=== PATIENT | male | born 1950 | race American Indian/Alaskan Native ===

== ENCOUNTER 2016-06-07 07:41 | Inpatient (IN) | payer MEDICARE, OTHER ==
[2016-06-07 08:13] LABS: Basophils % (Auto) 0.4 % (0.0-1.8); Eosinophils % (Auto) 1.9 % (0.0-4.3); Hematocrit 33.8 % (35.5-45.6); Hemoglobin 10.5 gm/dl (11.8-15.2); Mean Corpuscular HGB Conc 31 % (32-34); Mean Corpuscular Hemoglobin 28 pg (28-32); Mean Corpuscular Volume 91 fl (84-94); Platelet Count 151 K/mm3 (140-440); Red Blood Count 3.72 M/mm3 (3.65-5.03); White Blood Count 6.3 K/mm3 (4.5-11.0)
[2016-06-07 08:15] LABS: Red Cell Distribution Width 20.9 % (13.2-15.2)
[2016-06-07 08:26] LABS: BUN/Creatinine Ratio 8.66; Calcium 8.9 mg/dL (8.4-10.2); Chloride 100.2 mmol/L (98-107); Potassium 4.8 mmol/L (3.6-5.0)
--- NOTE | 2016-06-07 10:17 | Emergency Department Report ---
ED General Adult HPI - General Chief complaint: Dyspnea/Respdistress Stated complaint: SOB/RT SIDE PAIN IN RIBS Time Seen by Provider: 06/07/16 10:10 Source: patient, EMS Mode of arrival: Wheelchair Limitations: No Limitations - History of Present Illness Initial comments: The patient was transferred from his chronic dialysis center violation of what they thought was chest pain. However the patient was fairly clear that his discomfort was in his right flank. It did not involve the lateral or the anterior chest at all. It was not related to his breathing nor associated with any cough. He states he's had the pain this morning. He states he's had previous flank pain that was similar to this due to a kidney stone but at that time it was actually far worse. The patient's pain on arrival was not severe. He did not complain of nausea vomiting fever or chills. He is still due for dialysis. -: Gradual Location: right (flank) Radiation: non-radiation Quality: aching Consistency: intermittent Improves with: none Worsens with: none Associated Symptoms: denies other symptoms Treatments Prior to Arrival: none - Related Data Home Medications Medication Instructions Recorded Confirmed Last Taken Gabapentin 300 mg PO TID 08/07/14 06/07/16 02/15/15 Insulin Glargine [Lantus VIAL] 20 units SUB-Q HS 08/07/14 06/07/16 02/15/15 Torsemide [Demadex] 100 mg PO BID 08/07/14 06/07/16 02/15/15 Warfarin [Coumadin] 7.5 mg PO DAILY 08/07/14 06/07/16 02/15/15 Docusate Sodium [Colace CAP] 100 mg PO BID 01/29/15 06/07/16 02/15/15 Ascorbic Acid [Vitamin C] 500 mg PO QDAY 06/07/16 06/07/16 Unknown Aspirin [Aspirin BABY CHEW TAB] 81 mg PO QDAY 06/07/16 06/07/16 Unknown AtorvaSTATin [Lipitor] 80 mg PO QDAY 06/07/16 06/07/16 Unknown Benzonatate [Tessalon Perles] 100 mg PO Q8HR 06/07/16 06/07/16 Unknown Bisoprolol Fumarate [Zebeta] 5 mg PO DAILY 06/07/16 06/07/16 Unknown Duloxetine HCl [Cymbalta] 20 mg PO QDAY 06/07/16 06/07/16 Unknown FLUoxetine [PROzac] 10 mg PO QDAY 06/07/16 06/07/16 Unknown ISOSORBIDE MONOnitrate [Imdur ER] 30 mg PO QDAY 06/07/16 06/07/16 Unknown Lisinopril [Zestril TAB] 40 mg PO QDAY 06/07/16 06/07/16 Unknown Prazosin [Minipress] 2 mg PO QHS 06/07/16 06/07/16 Unknown Tamsulosin [Flomax] 0.4 mg PO QDAY 06/07/16 06/07/16 Unknown guaiFENesin 400 mg PO Q8H 06/07/16 06/07/16 Unknown oxyCODONE /ACETAMINOPHEN [Percocet 1 tab PO Q6HR PRN 06/07/16 06/07/16 Unknown 5/325] traZODone [Desyrel] 100 mg PO QHS 06/07/16 06/07/16 Unknown Previous Rx's Medication Instructions Recorded Last Taken Type Warfarin [Coumadin] 10 mg PO [id number] tablet 08/10/14 02/15/15 Rx Allergies Allergy/AdvReac Type Severity Reaction Status Date / Time No Known Allergies Allergy Verified 03/01/15 12:32 ED Review of Systems ROS: Stated complaint: SOB/RT SIDE PAIN IN RIBS Other details as noted in HPI Constitutional: denies: chills, fever Eyes: denies: eye pain, eye discharge, vision change ENT: denies: ear pain, throat pain Respiratory: SOB with exertion. denies: cough, shortness of breath, wheezing Cardiovascular: denies: chest pain, palpitations Endocrine: no symptoms reported Gastrointestinal: denies: abdominal pain, nausea, diarrhea Genitourinary: denies: urgency, dysuria Musculoskeletal: as per HPI, back pain. denies: joint swelling, arthralgia Skin: denies: rash, lesions Neurological: denies: headache, weakness, paresthesias Psychiatric: denies: anxiety, depression Hematological/Lymphatic: denies: easy bleeding, easy bruising ED Past Medical Hx - Past Medical History Previous Medical History?: Yes Hx Hypertension: Yes Hx Congestive Heart Failure: Yes Hx Diabetes: Yes Hx Renal Disease: Yes (CKD on dialysis approximately one month) Hx Asthma: No Hx COPD: No Hx Dementia: Yes Hx HIV: No Additional medical history: Atrial fibrillation - Surgical History Past Surgical History?: Yes Hx Coronary Stent: Yes Hx Open Heart Surgery: Yes (2011) Additional Surgical History: CABG, dialysis graft to left upper extremity. Valve surgery. R leg surgery. stent placed 2011 - led to open heart surgery - Social History Smoking Status: Never Smoker Substance Use Type: None - Medications Home Medications: Home Medications Medication Instructions Recorded Confirmed Last Taken Type Gabapentin 300 mg PO TID 08/07/14 06/07/16 02/15/15 History Insulin Glargine [Lantus VIAL] 20 units SUB-Q HS 08/07/14 06/07/16 02/15/15 History Torsemide [Demadex] 100 mg PO BID 08/07/14 06/07/16 02/15/15 History Warfarin [Coumadin] 7.5 mg PO DAILY 08/07/14 06/07/16 02/15/15 History Warfarin [Coumadin] 10 mg PO [id number] tablet 08/10/14 06/07/16 02/15/15 Rx Docusate Sodium [Colace CAP] 100 mg PO BID 01/29/15 06/07/16 02/15/15 History Ascorbic Acid [Vitamin C] 500 mg PO QDAY 06/07/16 06/07/16 Unknown History Aspirin [Aspirin BABY CHEW TAB] 81 mg PO QDAY 06/07/16 06/07/16 Unknown History AtorvaSTATin [Lipitor] 80 mg PO QDAY 06/07/16 06/07/16 Unknown History Benzonatate [Tessalon Perles] 100 mg PO Q8HR 06/07/16 06/07/16 Unknown History Bisoprolol Fumarate [Zebeta] 5 mg PO DAILY 06/07/16 06/07/16 Unknown History Duloxetine HCl [Cymbalta] 20 mg PO QDAY 06/07/16 06/07/16 Unknown History FLUoxetine [PROzac] 10 mg PO QDAY 06/07/16 06/07/16 Unknown History ISOSORBIDE MONOnitrate [Imdur ER] 30 mg PO QDAY 06/07/16 06/07/16 Unknown History Lisinopril [Zestril TAB] 40 mg PO QDAY 06/07/16 06/07/16 Unknown History Prazosin [Minipress] 2 mg PO QHS 06/07/16 06/07/16 Unknown History Tamsulosin [Flomax] 0.4 mg PO QDAY 06/07/16 06/07/16 Unknown History guaiFENesin 400 mg PO Q8H 06/07/16 06/07/16 Unknown History oxyCODONE /ACETAMINOPHEN [Percocet 1 tab PO Q6HR PRN 06/07/16 06/07/16 Unknown History 5/325] traZODone [Desyrel] 100 mg PO QHS 06/07/16 06/07/16 Unknown History ED Physical Exam - General Limitations: No Limitations General appearance: alert, in no apparent distress - Head Head exam: Present: atraumatic, normocephalic - Eye Eye exam: Present: normal appearance. Absent: scleral icterus - ENT ENT exam: Present: normal exam, mucous membranes moist - Neck Neck exam: Present: normal inspection - Respiratory Respiratory exam: Present: normal lung sounds bilaterally. Absent: respiratory distress - Cardiovascular Cardiovascular Exam: Present: regular rate, normal rhythm. Absent: systolic murmur, diastolic murmur, rubs, gallop - GI/Abdominal GI/Abdominal exam: Present: soft, normal bowel sounds. Absent: distended, tenderness, guarding, rebound, rigid, organomegaly, mass, bruit, pulsatile mass , hernia - Rectal Rectal exam: Present: deferred - Extremities Exam Extremities exam: Present: normal inspection - Back Exam Back exam: Present: normal inspection, CVA tenderness (R). Absent: CVA tenderness (L), muscle spasm, paraspinal tenderness, vertebral tenderness - Neurological Exam Neurological exam: Present: alert, oriented X3, CN II-XII intact. Absent: motor sensory deficit - Psychiatric Psychiatric exam: Present: normal affect, normal mood - Skin Skin exam: Present: warm, dry, intact, normal color. Absent: rash ED Course Vital Signs 06/07/16 06/07/16 06/07/16 07:43 09:15 12:47 Temperature 99.0 F Pulse Rate 76 77 Respiratory 20 20 18 Rate Blood Pressure 143/76 Blood Pressure 133/71 [Right] O2 Sat by Pulse 100 100 95 Oximetry - Reevaluation(s) Reevaluation #1: [facility] be [facility]. They will take care of the dialysis orders. We'll notify the hospitalist service. 06/07/16 12:23 Reevaluation #2: The patient was found to have a kidney stone in the right pelvic juncture. I think this is the likely source of his pain. However, he is also found to have a chronically sick gallbladder with thickened wall and a gallstone. That is another possibility. He is a diabetic with a CABG. I spoke to Dr. Rojas who sided it would be better to work him up as an inpatient and get his dialysis done today. He does have some significant cardiomegaly with central fullness. He does need dialysis although is not frankly emergent. He case patient was admitted to the hospitalist service by Dr. Luther. Radiologist recommended ultrasound which I have ordered. In addition the patient might benefit from a hiatus scan. I was still awaiting his urinalysis which of course is needed. 06/07/16 14:02 ED Medical Decision Making - Lab Data Result diagrams: 06/07/16 07:56 06/07/16 07:56 Laboratory Results - last 24 hr 06/07/16 06/07/16 07:56 07:56 WBC 6.3 RBC 3.72 Hgb 10.5 L Hct 33.8 L MCV 91 MCH 28 MCHC 31 L RDW 20.9 H Plt Count 151 Lymph % (Auto) 12.1 L [place] % (Auto) 6.6 Eos % (Auto) 1.9 Baso % (Auto) 0.4 Lymph # 0.8 L [place] # 0.4 Eos # 0.1 Baso # 0.0 Seg Neutrophils % 79.0 H Seg Neutrophils # 5.0 Sodium 138 Potassium 4.8 Chloride 100.2 Carbon Dioxide 23 Anion Gap 20 BUN 39 H Creatinine 4.5 H Estimated GFR 16 BUN/Creatinine Ratio 8.66 Glucose 205 H Calcium 8.9 Troponin T 0.062 H Triglycerides 83 Cholesterol 118 LDL Cholesterol Direct 70 HDL Cholesterol 32 L Cholesterol/HDL Ratio 3.68 Laboratory Results - last 24 hr 06/07/16 06/07/16 06/07/16 07:56 07:56 07:56 WBC 6.3 RBC 3.72 Hgb 10.5 L Hct 33.8 L MCV 91 MCH 28 MCHC 31 L RDW 20.9 H Plt Count 151 Lymph % (Auto) 12.1 L [place] % (Auto) 6.6 Eos % (Auto) 1.9 Baso % (Auto) 0.4 Lymph # 0.8 L [place] # 0.4 Eos # 0.1 Baso # 0.0 Seg Neutrophils % 79.0 H Seg Neutrophils # 5.0 PT INR APTT POC ABG pH POC ABG pCO2 POC ABG pO2 POC ABG HCO3 POC ABG Total CO2 POC ABG O2 Sat POC ABG Base Excess FiO2 Sodium 138 Potassium 4.8 Chloride 100.2 Carbon Dioxide 23 Anion Gap 20 BUN 39 H Creatinine 4.5 H Estimated GFR 16 BUN/Creatinine Ratio 8.66 Glucose 205 H Calcium 8.9 Phosphorus 4.0 Magnesium 1.7 Total Bilirubin 0.8 Direct Bilirubin 0.4 H Indirect Bilirubin 0.4 AST 15 ALT 18 Alkaline Phosphatase 247 H Troponin T 0.062 H NT-Pro-B Natriuret Pep 70565 H Total Protein 6.6 Albumin 3.8 L Albumin/Globulin Ratio 1.4 Triglycerides 83 Cholesterol 118 LDL Cholesterol Direct 70 HDL Cholesterol 32 L Cholesterol/HDL Ratio 3.68 06/07/16 06/07/16 06/07/16 10:25 10:47 11:19 WBC RBC Hgb Hct MCV MCH MCHC RDW Plt Count Lymph % (Auto) [place] % (Auto) Eos % (Auto) Baso % (Auto) Lymph # [place] # Eos # Baso # Seg Neutrophils % Seg Neutrophils # PT 29.3 H INR 2.76 H APTT 41.7 H POC ABG pH 7.422 POC ABG pCO2 37.0 POC ABG pO2 83 POC ABG HCO3 24.1 POC ABG Total CO2 25 POC ABG O2 Sat 96 POC ABG Base Excess 0 FiO2 28 Sodium Potassium Chloride Carbon Dioxide Anion Gap BUN Creatinine Estimated GFR BUN/Creatinine Ratio Glucose Calcium Phosphorus Magnesium Total Bilirubin Direct Bilirubin Indirect Bilirubin AST ALT Alkaline Phosphatase Troponin T 0.060 H NT-Pro-B Natriuret Pep Total Protein Albumin Albumin/Globulin Ratio Triglycerides Cholesterol LDL Cholesterol Direct HDL Cholesterol Cholesterol/HDL Ratio - EKG Data -: EKG Interpreted by Me EKG shows normal: axis (left) Rate: normal - EKG Data Interpretation: nonspecific ST-T wave madeleine - Radiology Data Radiology results: report reviewed interpreted by me: Significant cardiomegaly with central fullness. Critical care attestation.: If time is entered above; I have spent that time in minutes in the direct care of this critically ill patient, excluding procedure time. ED Disposition Clinical Impression: Congestive cardiomyopathy, End-stage renal disease on hemodialysis, Renal colic on right side, Disease of gallbladder, Elevated troponin Gallstone Qualifiers: Cholecystitis presence: without cholecystitis Biliary obstruction: without biliary obstruction Qualified Code(s): K80.20 - Calculus of gallbladder without cholecystitis without obstruction Disposition: OP ADMITTED IP TO THIS HOSP Is pt being admited?: Yes Does the pt Need Aspirin: Yes Condition: Stable Referrals: PRIMARY CARE,MD [Primary Care Provider] - 3-5 Days Time of Disposition: 15:25
--- NOTE | 2016-06-07 10:18 | XRay Report ---
CHEST 2 VIEWS: INDICATION: Shortness of breath. COMPARISON: 01/29/2015 FINDINGS: Frontal and lateral chest radiographs demonstrate slight increased fluid/thickening along the fissures. No pleural effusions or overt CHF, however. Stable to slightly more prominent cardiomediastinal silhouette. Aortic knob calcifications, sternotomy wires and osseous structures appear stable. Interval right-sided central catheter removal. CONCLUSION: 1. No overt CHF, though minimal cardiopulmonary vascular redistribution/fluid overload may be developing, as detailed above. Please correlate. 2. Other findings, including interval right-sided central catheter removal. Thank you for the opportunity to participate in this patient's care.
[2016-06-07 10:39] LABS: INR 2.76 (0.87-1.13)
[2016-06-07 10:43] LABS: Albumin 3.8 g/dL (3.9-5); Albumin/Globulin Ratio 1.4 %; Bilirubin,Direct 0.4 mg/dL (0-0.2); Bilirubin,Indirect 0.4 mg/dL; Bilirubin,Total 0.8 mg/dL (0.1-1.2); Magnesium 1.7 mg/dL (1.7-2.3); Total Protein 6.6 g/dL (6.3-8.2)
[2016-06-07 10:48] LABS: Partial Thromboplastin Time 41.7 Sec. (24.2-36.6)
--- NOTE | 2016-06-07 11:20 | Cat Scan Report ---
CT scan of abdomen and pelvis without IV contrast: History: Right flank pain. Findings: Normal lung bases. No pleural or pericardial effusion. No distinct mass within the liver. No intrahepatic or extrahepatic duct dilatation. Enlarged thickwalled gallbladder with single noncalcified calculus within the gallbladder. Normal adrenals. There is 3 mm calculus noted at right UP junction. There is stranding noted in the perirenal area. Thick walled urinary bladder No free air. Minimal ascitic fluid. Atherosclerotic abdominal aorta without aneurysm. Grossly appendix appears unremarkable. No evidence of diverticulitis. Gaseous colon with small volume of stool in colon. Impression: Enlarged thickwalled gallbladder with single calculus within the gallbladder. Sonographic correlation advised. 3 mm calculus right UP junction.
[2016-06-07 11:26] LABS: ISTAT Base Excess 0; ISTAT HCO3 24.1; ISTAT PH 7.422 (7.35-7.45); ISTAT PO2 83 (80-105); ISTAT SO2 96; ISTAT TCO2 25
[2016-06-07] MEDS ORDERED: NORCO 7.5/325 PO ONE (11:38)
--- NOTE | 2016-06-07 12:47 | Admit Criteria Form ---
Admission Criteria Documentation: GALLBLADDER OR BILE DUCT INFLAMMATION OR STONE Clinical Indications for Admission to Inpatient Care ( Place 'X' for any and all applicable criteria): Admission is indicated for patients with ANY ONE of the following(1)(2)(3)(4)(5) : [X]I. Acute cholecystitis as indicated by ALL of the following: [X]a) Right upper quadrant pain, mass, or tenderness [ ]b) Systemic signs of inflammation indicated by ANY ONE of the following: [ ]i) Fever [ ]ii) C-reactive protein level greater than 10 mg/L (95 nmol/L) [ ]iii) White blood cell count greater than 10,000/mm3 (10 x109/L) or less than 4000/mm3 (4 x109/L) [X]II. Inpatient admission required rather than observation care (Also use Gallbladder or Bile Duct Inflammation or Stone: Observation Care as appropriate) because of ANY ONE of the following: [ ]a) Common bile duct obstruction diagnosed [ ]b) Vomiting that is severe or persistent [ ]c) Severe pain requiring acute inpatient management [ ]d) Signs of intestinal obstruction or peritonitis [A] [ ]e) Severe electrolyte abnormalities requiring inpatient care [ ]f) Absent bowel sounds with complete ileus(8) [ ]g) Hemodynamic instability [ ]h) High fever or infection requiring inpatient admission as indicated by ANY ONE of the following (9): [ ]1) Appropriate outpatient or observation care antimicrobial Treatment. unavailable, not effective, or not feasible [ ]2) Temperature greater than 104.9 degrees F (40.5 degrees C) (oral) [ ]3) Temperature greater than 103.1 degrees F (39.5 degrees C) (oral) or less than 96.8 degrees F (36 degrees C) (rectal) that does not respond to all emergency treatment measures [ ]4) Documented bacteremia [ ]i) IV fluid to replace significant ongoing losses (greater than 3 L/m2 per day) [ ]j) Percutaneous or open drainage (eg, abscess, biliary tract) procedures [ ]k) Immediate inpatient surgery [X]l) Other condition, treatment or monitoring requiring inpatient admission [ ]III. Acute cholangitis as indicated by ALL of the following(9)(10): [ ]a) Systemic signs of inflammation indicated by ANY ONE of the following: [ ]i) Fever [ ]ii) C-reactive protein level greater than 10 mg/L (95 nmol /L) [ ]iii) White blood cell count greater than 10,000/mm3 (10 x109/L) or less than 4000/mm3 (4 x109/L) [ ]b) Evidence of common bile duct disease indicated by ANY ONE of the following: [ ]i) Total serum bilirubin level greater than or equal to 2 mg/dL (34 micromoles/L) [ ]ii) Liver function test (alkaline phosphatase (ALP), r- glutamyltransferase (GGT), aspartate aminotransferase (AST), or alanine aminotransferase (ALT)) greater than 1.5 times the upper limit of normal[B] [ ]iii) Hepatobiliary imaging showing biliary dilatation or evidence of etiology (eg, stricture, stone, previously placed stent) Extended stay beyond goal length of stay may be needed for (1)(2)): [ ]a) Bacteremia or Hemodynamic instability [ ]b) Cholecystectomy [ ]c) Other surgical procedure(24) [ ]d) Percutaneous or endoscopic ultrasound-guided cholecystostomy The original [facility] content created by [facility] has been revised. The portions of the content which have been revised are identified through the use of italic text or in bold, and [facility] has neither reviewed nor approved the modified material. All other unmodified content is copyright [facility]. Please see references footnoted in the original [facility] edition 2016 Admission Criteria Met: Yes
[2016-06-07] MEDS ORDERED: MILK OF MAGNESIA PO PRN (13:09)
[2016-06-07] MEDS ORDERED: ZOFRAN IV PRN (13:09)
[2016-06-07] MEDS ORDERED: D50W (25GM) IV PRN (13:09)
[2016-06-07] MEDS ORDERED: DULCOLAX PR PRN (13:09)
[2016-06-07] MEDS ORDERED: TYLENOL PO PRN (13:09)
--- NOTE | 2016-06-07 13:26 | History and Physical Report ---
History of Present Illness Date of examination: 06/07/16 Date of admission: 06/07/16 Chief complaint: abdominal pain History of present illness: Patient is a 66 years old obese -[place] male with multiple medical conditions, coronary artery disease status post CABG, atrial flutter, hypertension, diabetes, hyperlipidemia, ESRD on HD, was sent to the hospital from his dialysis center for "chest pain"; he complains of right upper quadrant pain that started this morning, is constant, no aggravating or alleviating factors, associated with nausea, but without vomiting; no fever, chills, diarrhea; no other family members with similar symptoms; he states that he has this pain on and off for the last few months. Past History Past Medical History: atrial fib, CAD, diabetes, ESRD (on HD), hypertension, hyperlipidemia Past Surgical History: CABG, Other (dialysis access) Social history: , lives with family. denies: smoking, alcohol abuse, prescription drug abuse Family history: diabetes, hypertension, other (heart disease) Medications and Allergies Allergies Allergy/AdvReac Type Severity Reaction Status Date / Time No Known Allergies Allergy Verified 03/01/15 12:32 Home Medications Medication Instructions Recorded Confirmed Last Taken Type Gabapentin 300 mg PO TID 08/07/14 06/07/16 02/15/15 History Insulin Glargine [Lantus VIAL] 20 units SUB-Q HS 08/07/14 06/07/16 02/15/15 History Torsemide [Demadex] 100 mg PO BID 08/07/14 06/07/16 02/15/15 History Warfarin [Coumadin] 7.5 mg PO DAILY 08/07/14 06/07/16 02/15/15 History Warfarin [Coumadin] 10 mg PO [id number]@1700 tablet 08/10/14 06/07/16 02/15/15 Rx Docusate Sodium [Colace CAP] 100 mg PO BID 01/29/15 06/07/16 02/15/15 History Ascorbic Acid [Vitamin C] 500 mg PO QDAY 06/07/16 06/07/16 Unknown History Aspirin [Aspirin BABY CHEW TAB] 81 mg PO QDAY 06/07/16 06/07/16 Unknown History AtorvaSTATin [Lipitor] 80 mg PO QDAY 06/07/16 06/07/16 Unknown History Benzonatate [Tessalon Perles] 100 mg PO Q8HR 06/07/16 06/07/16 Unknown History Bisoprolol Fumarate [Zebeta] 5 mg PO DAILY 06/07/16 06/07/16 Unknown History Duloxetine HCl [Cymbalta] 20 mg PO QDAY 06/07/16 06/07/16 Unknown History FLUoxetine [PROzac] 10 mg PO QDAY 06/07/16 06/07/16 Unknown History ISOSORBIDE MONOnitrate [Imdur ER] 30 mg PO QDAY 06/07/16 06/07/16 Unknown History Lisinopril [Zestril TAB] 40 mg PO QDAY 06/07/16 06/07/16 Unknown History Prazosin [Minipress] 2 mg PO QHS 06/07/16 06/07/16 Unknown History Tamsulosin [Flomax] 0.4 mg PO QDAY 06/07/16 06/07/16 Unknown History guaiFENesin 400 mg PO Q8H 06/07/16 06/07/16 Unknown History oxyCODONE /ACETAMINOPHEN [Percocet 1 tab PO Q6HR PRN 06/07/16 06/07/16 Unknown History 5/325] traZODone [Desyrel] 100 mg PO QHS 06/07/16 06/07/16 Unknown History Active Meds: Active Medications Acetaminophen (Tylenol) 650 mg PO Q4H PRN PRN Reason: Pain MILD(1-3)/Fever >100.5/SPEAR Bisacodyl (Dulcolax) 10 mg DC QDAY PRN PRN Reason: Constipation unrelieved by MOM Dextrose (D50w (25gm)) 50 ml IV PRN PRN PRN Reason: Hypoglycemia Docusate Sodium (Colace) 100 mg PO BID MRATHA Magnesium Hydroxide (Milk Of Magnesia) 30 ml PO Q4H PRN PRN Reason: Constipation Ondansetron HCl (Zofran) 4 mg IV Q8H PRN PRN Reason: N/V unrelieved by Reglan Review of Systems Constitutional: no weight loss, no weight gain, no fever, no chills Ears, nose, mouth and throat: no ear pain, no nasal congestion, no sinus pressure, no dysphagia Cardiovascular: shortness of breath, dyspnea on exertion, no chest pain, no orthopnea, no palpitations, no syncope, no lightheadedness Respiratory: shortness of breath, dyspnea on exertion, no cough, no congestion, no wheezing Gastrointestinal: abdominal pain, nausea, no vomiting, no diarrhea Genitourinary Male: no dysuria, no hematuria, no flank pain, no discharge Rectal: no pain, no incontinence, no itching, no hemorrhoids Musculoskeletal: no arm numbness/tingling, no leg numbness/tingling Integumentary: no rash, no pruritis, no redness, no sores Neurological: no paralysis, no weakness, no parathesias, no numbness, no tingling, no seizures, no syncope Psychiatric: no anxiety, no memory loss, no depression, no difficulties concentrating Endocrine: no cold intolerance, no heat intolerance, no polydipsia, no polyuria Hematologic/Lymphatic: no easy bruising, no easy bleeding, no lymphadenopathy, no lymphedema Allergic/Immunologic: no persistent infections Exam - Constitutional Vitals: Temp Pulse Resp BP Pulse Ox 99.0 F 77 18 133/71 95 06/07/16 07:43 06/07/16 12:47 06/07/16 12:47 06/07/16 12:47 06/07/16 12:47 General appearance: Present: no acute distress, obese - EENT Eyes: Present: PERRL, EOM intact. Absent: scleral icterus, conjunctival injection - Neck Neck: Present: supple, normal ROM. Absent: masses or JVD - Respiratory Respiratory effort: normal Respiratory: bilateral: diminished, negative: rhonchi, wheezing - Cardiovascular Rhythm: regular Heart Sounds: Present: S1 & S2. Absent: systolic murmur - Extremities Extremities: no ischemia - Abdominal General gastrointestinal: Present: soft, tender, non-distended, normal bowel sounds, other (abdomen obese, protuberant) Localized gastrointestinal: tender: RUQ (no rebound or guarding) - Integumentary Integumentary: Present: warm, dry. Absent: jaundice, rash - Musculoskeletal Musculoskeletal: strength equal bilaterally - Psychiatric Psychiatric: cooperative - Neurologic Neurologic: CNII-XII intact, no focal deficits Results - Labs CBC & Chem 7: 06/07/16 07:56 06/07/16 07:56 Labs: Abnormal lab results 06/07/16 06/07/16 06/07/16 Range/Units 07:56 07:56 07:56 Hgb 10.5 L (11.8-15.2) gm/dl Hct 33.8 L (35.5-45.6) % MCHC 31 L (32-34) % RDW 20.9 H (13.2-15.2) % Lymph % (Auto) 12.1 L (13.4-35.0) % Lymph # 0.8 L (1.2-5.4) K/mm3 Seg Neutrophils % 79.0 H (40.0-70.0) % PT (12.2-14.9) Sec. INR (0.87-1.13) APTT (24.2-36.6) Sec. BUN 39 H (9-20) mg/dL Creatinine 4.5 H (0.8-1.5) mg/dL Glucose 205 H (75-100) mg/dL Direct Bilirubin 0.4 H (0-0.2) mg/dL Alkaline Phosphatase 247 H (35-129) units/L Troponin T 0.062 H (0.00-0.029) ng/mL NT-Pro-B Natriuret Pep 56038 H (0-900) pg/mL Albumin 3.8 L (3.9-5) g/dL HDL Cholesterol 32 L (40-59) mg/dL 06/07/16 06/07/16 Range/Units 10:25 10:47 Hgb (11.8-15.2) gm/dl Hct (35.5-45.6) % MCHC (32-34) % RDW (13.2-15.2) % Lymph % (Auto) (13.4-35.0) % Lymph # (1.2-5.4) K/mm3 Seg Neutrophils % (40.0-70.0) % PT 29.3 H (12.2-14.9) Sec. INR 2.76 H (0.87-1.13) APTT 41.7 H (24.2-36.6) Sec. BUN (9-20) mg/dL Creatinine (0.8-1.5) mg/dL Glucose (75-100) mg/dL Direct Bilirubin (0-0.2) mg/dL Alkaline Phosphatase (35-129) units/L Troponin T 0.060 H (0.00-0.029) ng/mL NT-Pro-B Natriuret Pep (0-900) pg/mL Albumin (3.9-5) g/dL HDL Cholesterol (40-59) mg/dL - Imaging and Cardiology Chest x-ray: image reviewed (cardiomegaly) CT scan - abdomen: report reviewed (enlarged thickened gallbladder wall with single calculus; 3 mm calculus right UP junction) US - abdomen: pending Assessment and Plan 1. Acute cholecystitis with cholelithiasis RUQ pain with nausea CT abdomen showing enlarged gallbladder, with thickened wall and single calculus RUQ US ordered by ER Consult surgery 2. CAD/ s/p CABG Continue BB, ACEI, aspirin and statin 3. Atrial flutter On amiodarone for rate control and anticoagulated with warfarin Status post recent cardioversion at [place] and currently on NSR 4. Hypertension BP controlled on above mentioned medications and fluid removal to HD 5. Diabetes Resume long-acting insulin Accu-Cheks and SSI to assess insulin requirements and make adjustments 6. Hyperlipidemia Continue statin 7. ESRD on HD Dr. Rojas consulted for HD 8. Anemia of chronic kidney disease Epogen with HD per nephrology 9. Nephrolithiasis Incidental finding on CT abdomen of 3 mm calculus right UP junction 10. Obesity Concern regarding importance of losing weight and lifestyle changes 11. DVT prophylaxis Anticoagulated with Coumadin, will check INR
--- NOTE | 2016-06-07 13:48 | Ultrasound Report ---
Sonogram right upper quadrant: History: Gallstones wall thickening. Findings: Normal aorta and inferior vena cava. Normal liver . Gallbladder wall thickening 9.6 mm. Calculi identified within the gallbladder. No intrahepatic duct dilatation. Common bile duct diameter 3.2 mm. Right kidney 9.1 x 5.8 x 6 cm. Cortical thickness 1.3 cm. No hydronephrosis. Pancreas obscured by gas. Impression: Markedly thickwalled gallbladder with multiple calculi.
[2016-06-07] MEDS ORDERED: NEURONTIN PO SCH (14:00)
[2016-06-07 14:15] LABS: INR 2.59 (0.87-1.13)
[2016-06-07] MEDS: DEMADEX PO SCH (18:55)
[2016-06-07] MEDS ORDERED: COUMADIN PO SCH (21:00)
[2016-06-07] MEDS: DESYREL PO SCH (21:29)
[2016-06-07] MEDS: PERCOCET 5/325 PO PRN (21:29)
[2016-06-07] MEDS: MINIPRESS PO SCH (21:30)
[2016-06-07] MEDS: COLACE PO SCH (21:30)
[2016-06-07] MEDS: NEURONTIN PO SCH (21:33)
[2016-06-07] MEDS ORDERED: NON-FORMULARY (Insulin Glargine 20 UNITS) SUB-Q SCH (22:00)
[2016-06-07] MEDS ORDERED: TORSEMIDE 100 MG PO SCH (22:00)
[2016-06-08] MEDS: NOVOLOG SUB-Q SCH ×4 (00:40→19:11)
[2016-06-08] MEDS: LEVEMIR SUB-Q SCH (00:41)
[2016-06-08] MEDS: DEMADEX PO SCH ×2 (05:19→19:31)
[2016-06-08 05:29] LABS: Bilirubin,Urine NEG (Negative); Blood,Urine NEG (Negative); Ketones,Urine NEG (Negative); Leukocyte Esterase,Urine NEG (Negative); Mucus,Urine FEW /HPF; Nitrite,Urine NEG (Negative); Sperm,Urine 3+ /HPF (NP); Urobilinogen,Urine < 2.0 mg/dL (<2.0)
[2016-06-08 06:08] LABS: INR 2.49 (0.87-1.13)
[2016-06-08 06:11] LABS: Calcium 9.2 mg/dL (8.4-10.2); Chloride 101.1 mmol/L (98-107); Potassium 4.5 mmol/L (3.6-5.0)
[2016-06-08 06:21] LABS: Basophils % (Auto) 0.9 % (0.0-1.8); Eosinophils % (Auto) 2.5 % (0.0-4.3); Hematocrit 35.2 % (35.5-45.6); Hemoglobin 10.9 gm/dl (11.8-15.2); Mean Corpuscular HGB Conc 31 % (32-34); Mean Corpuscular Hemoglobin 28 pg (28-32); Mean Corpuscular Volume 90 fl (84-94); Platelet Count 157 K/mm3 (140-440); Red Blood Count 3.92 M/mm3 (3.65-5.03); White Blood Count 6.3 K/mm3 (4.5-11.0)
[2016-06-08] MEDS: NEURONTIN PO SCH ×3 (08:50→21:35)
[2016-06-08] MEDS: IMDUR PO SCH (09:42)
[2016-06-08] MEDS: PROzac PO SCH (09:42)
[2016-06-08] MEDS: VITAMIN C PO SCH (09:42)
[2016-06-08] MEDS: FLOMAX PO SCH (09:43)
[2016-06-08] MEDS: COLACE PO SCH ×2 (09:43→21:35)
[2016-06-08] MEDS: BABY ASPIRIN PO SCH (09:43)
[2016-06-08] MEDS: ZESTRIL PO SCH (09:43)
--- NOTE | 2016-06-08 09:50 | Progress Note ---
Assessment and Plan Assessment and plan: 66M w who presents with Right sided flank pain, found to have nephrolithiasis 1. Cholecystitis CT abdomen showing enlarged gallbladder, with thickened wall and single calculus RUQ US again shows markedly thickened GB wall with calculi Consult surgery appreciated, continue IV abx, and keep NPO, patient is clinically stable and is high surgical risk 2. CAD/ s/p CABG Continue BB, ACEI, aspirin and statin 3. Atrial flutter On amiodarone for rate control and anticoagulated with warfarin Status post recent cardioversion at [place] and currently on NSR 4. Hypertension BP controlled on above mentioned medications and fluid removal to HD 5. Diabetes Resume long-acting insulin Accu-Cheks and SSI to assess insulin requirements and make adjustments 6. Hyperlipidemia Continue statin 7. ESRD on HD Dr. Rojas consulted for HD 8. Anemia of chronic kidney disease Epogen with HD per nephrology 9. Nephrolithiasis finding on CT abdomen of 3 mm calculus right UP junction obtain urine culture, urology consult 10. Obesity Concern regarding importance of losing weight and lifestyle changes 11. DVT prophylaxis Anticoagulated with Coumadin, will check INR History Interval history: continues to complain of RUQ pain and nausea Hospitalist Physical - Physical exam Narrative exam: General: Patient appears well in no distress HEENT: MMM, EOMI cardiac: S1-S2 heard lungs: clear to auscultation, abdomen: RUQ tender extremities: no edema clubbing or cyanosis Skin: no rash or lesion Neuro: no focal deficit Psych: appropriate behavior and mood, cognition intact - Constitutional Vitals: Temp Pulse Resp BP Pulse Ox 97.9 F 68 16 122/69 97 06/08/16 07:55 06/08/16 09:43 06/08/16 07:55 06/08/16 07:55 06/08/16 09:10 General appearance: Present: no acute distress, obese Results - Labs CBC & Chem 7: 06/08/16 04:51 06/08/16 04:51 Labs: Laboratory Last Values WBC 6.3 K/mm3 (4.5-11.0) 06/08/16 04:51 RBC 3.92 M/mm3 (3.65-5.03) 06/08/16 04:51 Hgb 10.9 gm/dl (11.8-15.2) L 06/08/16 04:51 Hct 35.2 % (35.5-45.6) L 06/08/16 04:51 MCV 90 fl (84-94) 06/08/16 04:51 MCH 28 pg (28-32) 06/08/16 04:51 MCHC 31 % (32-34) L 06/08/16 04:51 RDW 21.0 % (13.2-15.2) H 06/08/16 04:51 Plt Count 157 K/mm3 (140-440) 06/08/16 04:51 Lymph % (Auto) 22.4 % (13.4-35.0) 06/08/16 04:51 Payne % (Auto) 5.4 % (0.0-7.3) 06/08/16 04:51 Eos % (Auto) 2.5 % (0.0-4.3) 06/08/16 04:51 Baso % (Auto) 0.9 % (0.0-1.8) 06/08/16 04:51 Lymph # 1.4 K/mm3 (1.2-5.4) 06/08/16 04:51 Payne # 0.3 K/mm3 (0.0-0.8) 06/08/16 04:51 Eos # 0.2 K/mm3 (0.0-0.4) 06/08/16 04:51 Baso # 0.1 K/mm3 (0.0-0.1) 06/08/16 04:51 Seg Neutrophils % 68.8 % (40.0-70.0) 06/08/16 04:51 Seg Neutrophils # 4.4 K/mm3 (1.8-7.7) 06/08/16 04:51 PT 27.0 Sec. (12.2-14.9) H 06/08/16 04:51 INR 2.49 (0.87-1.13) H 06/08/16 04:51 APTT 41.7 Sec. (24.2-36.6) H 06/07/16 10:25 POC ABG pH 7.422 (7.35-7.45) 06/07/16 11:19 POC ABG pCO2 37.0 (35-45) 06/07/16 11:19 POC ABG pO2 83 (80-105) 06/07/16 11:19 POC ABG HCO3 24.1 06/07/16 11:19 POC ABG Total CO2 25 06/07/16 11:19 POC ABG O2 Sat 96 06/07/16 11:19 POC ABG Base Excess 0 06/07/16 11:19 FiO2 28 % 06/07/16 11:19 Sodium 142 mmol/L (137-145) 06/08/16 04:51 Potassium 4.5 mmol/L (3.6-5.0) 06/08/16 04:51 Chloride 101.1 mmol/L (98-107) 06/08/16 04:51 Carbon Dioxide 23 mmol/L (22-30) 06/08/16 04:51 Anion Gap 22 mmol/L 06/08/16 04:51 BUN 46 mg/dL (9-20) H 06/08/16 04:51 Creatinine 4.6 mg/dL (0.8-1.5) H 06/08/16 04:51 Estimated GFR 16 ml/min 06/08/16 04:51 BUN/Creatinine Ratio 10.00 % 06/08/16 04:51 Glucose 88 mg/dL (75-100) 06/08/16 04:51 POC Glucose 93 (70-105) 06/08/16 06:08 Calcium 9.2 mg/dL (8.4-10.2) 06/08/16 04:51 Phosphorus 4.0 mg/dL (2.5-4.5) 06/07/16 07:56 Magnesium 1.7 mg/dL (1.7-2.3) 06/07/16 07:56 Total Bilirubin 0.8 mg/dL (0.1-1.2) 06/07/16 07:56 Direct Bilirubin 0.4 mg/dL (0-0.2) H 06/07/16 07:56 Indirect Bilirubin 0.4 mg/dL 06/07/16 07:56 AST 15 units/L (5-40) 06/07/16 07:56 ALT 18 units/L (7-56) 06/07/16 07:56 Alkaline Phosphatase 247 units/L (35-129) H 06/07/16 07:56 Troponin T 0.058 ng/mL (0.00-0.029) H 06/07/16 13:36 NT-Pro-B Natriuret Pep 41492 pg/mL (0-900) H 06/07/16 07:56 Total Protein 6.6 g/dL (6.3-8.2) 06/07/16 07:56 Albumin 3.8 g/dL (3.9-5) L 06/07/16 07:56 Albumin/Globulin Ratio 1.4 % 06/07/16 07:56 Triglycerides 83 mg/dL (2-149) 06/07/16 07:56 Cholesterol 118 mg/dL (50-199) 06/07/16 07:56 LDL Cholesterol Direct 70 mg/dL (50-130) 06/07/16 07:56 HDL Cholesterol 32 mg/dL (40-59) L 06/07/16 07:56 Cholesterol/HDL Ratio 3.68 % 06/07/16 07:56 Amylase 33 units/L (27-131) 06/07/16 18:39 Urine Color Yellow (Yellow) 06/08/16 05:13 Urine Turbidity Clear (Clear) 06/08/16 05:13 Urine pH 5.0 (5.0-7.0) 06/08/16 05:13 Ur Specific [place] 1.013 (1.003-1.030) 06/08/16 05:13 Urine Protein 100 mg/dl mg/dL (Negative) 06/08/16 05:13 Urine Glucose (UA) 50 mg/dL (Negative) 06/08/16 05:13 Urine Ketones Neg mg/dL (Negative) 06/08/16 05:13 Urine Blood Neg (Negative) 06/08/16 05:13 Urine Nitrite Neg (Negative) 06/08/16 05:13 Urine Bilirubin Neg (Negative) 06/08/16 05:13 Urine Urobilinogen < 2.0 mg/dL (<2.0) 06/08/16 05:13 Ur Leukocyte Esterase Neg (Negative) 06/08/16 05:13 Urine WBC (Auto) 3.0 /HPF (0.0-6.0) 06/08/16 05:13 Urine RBC (Auto) 3.0 /HPF (0.0-6.0) 06/08/16 05:13 U Epithel Cells (Auto) < 1.0 /HPF (0-13.0) 06/08/16 05:13 Urine Mucus Few /HPF 06/08/16 05:13 Urine Sperm 3+ /HPF ([employer]) 06/08/16 05:13 - Imaging and Cardiology Imaging and Cardiology: HIDA scan- cystic duct obstruction
[2016-06-08] MEDS ORDERED: NON-FORMULARY (Ascorbic Acid [Vitamin C] 500 MG) PO SCH (10:00)
[2016-06-08] MEDS ORDERED: IMDUR PO SCH (10:00)
[2016-06-08] MEDS ORDERED: ZESTRIL PO SCH (10:00)
[2016-06-08] MEDS ORDERED: BISOPROLOL FUMARATE 5 MG PO SCH (10:00)
--- NOTE | 2016-06-08 10:28 | Progress Note ---
Assessment and Plan Full consult dictated History of present illness: Patient is a 66 years old obese -[place] male with multiple medical conditions, coronary artery disease status post CABG, atrial flutter, hypertension, diabetes, hyperlipidemia, ESRD on HD, was sent to the hospital from his dialysis center for "chest pain"; he complains of right upper quadrant pain that started this morning, is constant, no aggravating or alleviating factors, associated with nausea, but without vomiting; no fever, chills, diarrhea; no other family members with similar symptoms; he states that he has this pain on and off for the last few months. Pt states abel breakfast this am. neg N or V Abd mod obese. soft. mild RUQ tenderness labs as below. T roland & wbc wnl GB US & CT abd reviewed with radiology. distended GB with stones. neg pericholecystic fluid but borderline thickened wall Laboratory Tests 06/07/16 06/07/16 06/08/16 07:56 18:39 04:51 WBC 6.3 Hgb 10.9 L Hct 35.2 L PT INR Sodium Potassium Chloride Carbon Dioxide Anion Gap BUN Creatinine Direct Bilirubin 0.4 H AST 15 ALT 18 Alkaline Phosphatase 247 H Amylase 33 06/08/16 06/08/16 04:51 04:51 WBC Hgb Hct PT 27.0 H INR 2.49 H Sodium 142 Potassium 4.5 Chloride 101.1 Carbon Dioxide 23 Anion Gap 22 BUN 46 H Creatinine 4.6 H Direct Bilirubin AST ALT Alkaline Phosphatase Amylase imp: 66 y/o mod obese DM male with multitude of medical problems (CAD, ESRD, a-fib etc). on anticoagulants. elevated PT & INR cholecystitis though clinically stable. normal wbc high surgical risk will keep npo at this time start IV Levaquin HIDA scan today will follow thanks. Objective Vital Signs - 12hr 06/08/16 06/08/16 06/08/16 07:55 09:10 09:42 Temperature 97.9 F Pulse Rate 68 Pulse Rate [ 68 Radial] Respiratory 16 Rate Blood Pressure 122/69 [Left Arm] O2 Sat by Pulse 100 97 Oximetry 06/08/16 09:43 Temperature Pulse Rate 68 Pulse Rate [ Radial] Respiratory Rate Blood Pressure [Left Arm] O2 Sat by Pulse Oximetry - Labs 06/08/16 04:51 06/08/16 04:51 Diabetes panel 06/08/16 Range/Units 04:51 Sodium 142 (137-145) mmol/L Potassium 4.5 (3.6-5.0) mmol/L Chloride 101.1 (98-107) mmol/L Carbon Dioxide 23 (22-30) mmol/L BUN 46 H (9-20) mg/dL Creatinine 4.6 H (0.8-1.5) mg/dL Glucose 88 (75-100) mg/dL Calcium 9.2 (8.4-10.2) mg/dL Calcium panel 06/08/16 Range/Units 04:51 Calcium 9.2 (8.4-10.2) mg/dL Pituitary panel 06/08/16 Range/Units 04:51 Sodium 142 (137-145) mmol/L Potassium 4.5 (3.6-5.0) mmol/L Chloride 101.1 (98-107) mmol/L Carbon Dioxide 23 (22-30) mmol/L BUN 46 H (9-20) mg/dL Creatinine 4.6 H (0.8-1.5) mg/dL Glucose 88 (75-100) mg/dL Calcium 9.2 (8.4-10.2) mg/dL Adrenal panel 06/08/16 Range/Units 04:51 Sodium 142 (137-145) mmol/L Potassium 4.5 (3.6-5.0) mmol/L Chloride 101.1 (98-107) mmol/L Carbon Dioxide 23 (22-30) mmol/L BUN 46 H (9-20) mg/dL Creatinine 4.6 H (0.8-1.5) mg/dL Glucose 88 (75-100) mg/dL Calcium 9.2 (8.4-10.2) mg/dL
--- NOTE | 2016-06-08 13:26 | Nuclear Medicine Report ---
Hepatobiliary scan: Examination performed at 5 mm technetium 99m Choletec. History: Rule out acute gallbladder. Findings: Uniform distribution of tracer is noted in the liver with subsequent transit into the common bile duct and duodenum. At earlier imaging and delayed imaging the gallbladder is not visualized. At 2 hours there is no tracer identified in the liver and the gallbladder is not visualized. Impression: Cystic duct obstruction. No obstruction the common bile duct.
--- NOTE | 2016-06-08 15:31 | Consultation ---
History of Present Illness - History of Present Illness Thank you for the consultation Patient was evaluated today around 10:15 in the morning Assessment and plan End-stage renal disease currently in maintenance hemodialysis patient already dialyzes at [facility] He will need to be dialyzed here on Sunday schedule Admitted with abdominal pain has tenderness in the gallbladder area currently status post surgical evaluation Anemia and end-stage renal disease to follow hemoglobin 10.9 INR 2.4 Potassium is currently normal Secondary hyperparathyroidism to follow on phosphorus and PTH level History of coronary artery disease coronary artery bypass graft Recently he has had cardioversion done at [facility] We'll continue to follow and make recommendation from renal standpoint Past History Past Medical History: atrial fib, CAD, diabetes, ESRD (on HD), hypertension, hyperlipidemia Past Surgical History: CABG, Other (dialysis access) Social history: , lives with family. denies: smoking, alcohol abuse, prescription drug abuse Family history: diabetes, hypertension, other (heart disease) Medications and Allergies Allergies Allergy/AdvReac Type Severity Reaction Status Date / Time No Known Allergies Allergy Verified 03/01/15 12:32 Home Medications Medication Instructions Recorded Confirmed Last Taken Type Gabapentin 300 mg PO TID 08/07/14 06/07/16 02/15/15 History Insulin Glargine [Lantus VIAL] 20 units SUB-Q HS 08/07/14 06/07/16 02/15/15 History Torsemide [Demadex] 100 mg PO BID 08/07/14 06/07/16 02/15/15 History Warfarin [Coumadin] 7.5 mg PO DAILY 08/07/14 06/07/16 02/15/15 History Warfarin [Coumadin] 10 mg PO [id number]@1700 tablet 08/10/14 06/07/16 02/15/15 Rx Docusate Sodium [Colace CAP] 100 mg PO BID 01/29/15 06/07/16 02/15/15 History Ascorbic Acid [Vitamin C] 500 mg PO QDAY 06/07/16 06/07/16 Unknown History Aspirin [Aspirin BABY CHEW TAB] 81 mg PO QDAY 06/07/16 06/07/16 Unknown History AtorvaSTATin [Lipitor] 80 mg PO QDAY 06/07/16 06/07/16 Unknown History Benzonatate [Tessalon Perles] 100 mg PO Q8HR 06/07/16 06/07/16 Unknown History Bisoprolol Fumarate [Zebeta] 5 mg PO DAILY 06/07/16 06/07/16 Unknown History Duloxetine HCl [Cymbalta] 20 mg PO QDAY 06/07/16 06/07/16 Unknown History FLUoxetine [PROzac] 10 mg PO QDAY 06/07/16 06/07/16 Unknown History ISOSORBIDE MONOnitrate [Imdur ER] 30 mg PO QDAY 06/07/16 06/07/16 Unknown History Lisinopril [Zestril TAB] 40 mg PO QDAY 06/07/16 06/07/16 Unknown History Prazosin [Minipress] 2 mg PO QHS 06/07/16 06/07/16 Unknown History Tamsulosin [Flomax] 0.4 mg PO QDAY 06/07/16 06/07/16 Unknown History guaiFENesin 400 mg PO Q8H 06/07/16 06/07/16 Unknown History oxyCODONE /ACETAMINOPHEN [Percocet 1 tab PO Q6HR PRN 06/07/16 06/07/16 Unknown History 5/325] traZODone [Desyrel] 100 mg PO QHS 06/07/16 06/07/16 Unknown History Active Meds: Active Medications Acetaminophen (Tylenol) 650 mg PO Q4H PRN PRN Reason: Pain MILD(1-3)/Fever >100.5/SPEAR Ascorbic Acid (Vitamin C) 500 mg PO QDAY [facility] Last Admin: 06/08/16 09:42 Dose: 500 mg Aspirin (Baby Aspirin) 81 mg PO QDAY [facility] Last Admin: 06/08/16 09:43 Dose: 81 mg Atorvastatin Calcium (Lipitor) 80 mg PO QHS [facility] Last Admin: 06/07/16 21:29 Dose: 80 mg Bisacodyl (Dulcolax) 10 mg DE QDAY PRN PRN Reason: Constipation unrelieved by MOM Dextrose (D50w (25gm)) 50 ml IV PRN PRN PRN Reason: Hypoglycemia Docusate Sodium (Colace) 100 mg PO BID [facility] Last Admin: 06/08/16 09:43 Dose: 100 mg Fluoxetine HCl (Prozac) 10 mg PO QDAY [facility] Last Admin: 06/08/16 09:42 Dose: 10 mg Gabapentin (Neurontin) 300 mg PO TID [facility] Last Admin: 06/08/16 08:50 Dose: 300 mg Levofloxacin/Dextrose (Levaquin 500mg/100ml) 500 mg in 100 mls @ 100 mls/hr IV Q48HR [facility] PRN Reason: Protocol Insulin Aspart (Novolog) 0 units SUB-Q ACHS [facility] PRN Reason: Protocol Last Admin: 06/08/16 07:30 Dose: Not Given Insulin Detemir (Levemir) 20 units SUB-Q QHS [facility] Last Admin: 06/08/16 00:41 Dose: 20 units Isosorbide Mononitrate (Imdur) 30 mg PO QDAY [facility] Last Admin: 06/08/16 09:42 Dose: 30 mg Lisinopril (Zestril) 40 mg PO QDAY [facility] Last Admin: 06/08/16 09:43 Dose: 40 mg Magnesium Hydroxide (Milk Of Magnesia) 30 ml PO Q4H PRN PRN Reason: Constipation Miscellaneous Medication (Bisoprolol Fumarate [Zebeta]) 5 mg PO DAILY [facility] Miscellaneous Medication (Duloxetine Hcl [Cymbalta]) 20 mg PO QDAY [facility] Ondansetron HCl (Zofran) 4 mg IV Q8H PRN PRN Reason: N/V unrelieved by Reglan Oxycodone/Acetaminophen (Percocet 5/325) 1 tab PO Q4H PRN PRN Reason: Pain, Moderate (4-6) Last Admin: 06/07/16 21:29 Dose: 1 tab Prazosin HCl (Minipress) 2 mg PO QHS [facility] Last Admin: 06/07/16 21:30 Dose: 2 mg Tamsulosin HCl (Flomax) 0.4 mg PO QDAY [facility] Last Admin: 06/08/16 09:43 Dose: 0.4 mg Torsemide (Demadex) 100 mg PO 0600,1800 [facility] Last Admin: 06/08/16 05:19 Dose: 100 mg Trazodone HCl (Desyrel) 100 mg PO QHS [facility] Last Admin: 06/07/16 21:29 Dose: 100 mg Warfarin Sodium (Coumadin) 7.5 mg PO TuThSa@1700 [facility] Warfarin Sodium (Coumadin) 10 mg PO SuMoWeFr@1700 [facility] Exam - Vital Signs Vital signs: Vital Signs Temp Pulse Resp BP Pulse Ox 99.0 F 76 20 143/76 100 02/15/17 07:43 06/07/16 07:43 06/07/16 07:43 06/07/16 07:43 06/07/16 07:43 Results - Lab Results 06/08/16 04:51 06/08/16 04:51 Most recent lab results Calcium 9.2 mg/dL (8.4-10.2) 06/08/16 04:51 Phosphorus 4.0 mg/dL (2.5-4.5) 06/07/16 07:56 Magnesium 1.7 mg/dL (1.7-2.3) 06/07/16 07:56
--- NOTE | 2016-06-08 16:25 | Consultation ---
History of Present Illness - Reason for Consult Consult date: 06/08/16 - History of Present Illness CC: kidney stone (3mm) Patient is a 66 years old obese -Nepalese male with multiple medical conditions, coronary artery disease status post CABG, atrial flutter, hypertension, diabetes, hyperlipidemia, ESRD on HD, was sent to the hospital from his dialysis center for "chest pain"; he complains of right upper quadrant pain that started this morning, is constant, no aggravating or alleviating factors, associated with nausea, but without vomiting; no fever, chills, diarrhea; no other family members with similar symptoms; he states that he has this pain on and off for the last few months. Abd soft. mild RUQ tenderness labs CTAP - 3mm non obstructing stone - right /distended GB with stones A/P RUQ pain 3mm non obstructing stone (no hydro) - doubt source of pain agree with gen surg eval Past History Past Medical History: atrial fib, CAD, diabetes, ESRD (on HD), hypertension, hyperlipidemia Past Surgical History: CABG, Other (dialysis access) Social history: , lives with family. denies: smoking, alcohol abuse, prescription drug abuse Family history: diabetes, hypertension, other (heart disease) Medications and Allergies Allergies Allergy/AdvReac Type Severity Reaction Status Date / Time No Known Allergies Allergy Verified 03/01/15 12:32 Home Medications Medication Instructions Recorded Confirmed Last Taken Type Gabapentin 300 mg PO TID 08/07/14 06/07/16 02/15/15 History Insulin Glargine [Lantus VIAL] 20 units SUB-Q HS 08/07/14 06/07/16 02/15/15 History Torsemide [Demadex] 100 mg PO BID 08/07/14 06/07/16 02/15/15 History Warfarin [Coumadin] 7.5 mg PO DAILY 08/07/14 06/07/16 02/15/15 History Warfarin [Coumadin] 10 mg PO SuMoWeFr@1700 tablet 08/10/14 06/07/16 02/15/15 Rx Docusate Sodium [Colace CAP] 100 mg PO BID 01/29/15 06/07/16 02/15/15 History Ascorbic Acid [Vitamin C] 500 mg PO QDAY 06/07/16 06/07/16 Unknown History Aspirin [Aspirin BABY CHEW TAB] 81 mg PO QDAY 06/07/16 06/07/16 Unknown History AtorvaSTATin [Lipitor] 80 mg PO QDAY 06/07/16 06/07/16 Unknown History Benzonatate [Tessalon Perles] 100 mg PO Q8HR 06/07/16 06/07/16 Unknown History Bisoprolol Fumarate [Zebeta] 5 mg PO DAILY 06/07/16 06/07/16 Unknown History Duloxetine HCl [Cymbalta] 20 mg PO QDAY 06/07/16 06/07/16 Unknown History FLUoxetine [PROzac] 10 mg PO QDAY 06/07/16 06/07/16 Unknown History ISOSORBIDE MONOnitrate [Imdur ER] 30 mg PO QDAY 06/07/16 06/07/16 Unknown History Lisinopril [Zestril TAB] 40 mg PO QDAY 06/07/16 06/07/16 Unknown History Prazosin [Minipress] 2 mg PO QHS 06/07/16 06/07/16 Unknown History Tamsulosin [Flomax] 0.4 mg PO QDAY 06/07/16 06/07/16 Unknown History guaiFENesin 400 mg PO Q8H 06/07/16 06/07/16 Unknown History oxyCODONE /ACETAMINOPHEN [Percocet 1 tab PO Q6HR PRN 06/07/16 06/07/16 Unknown History 5/325] traZODone [Desyrel] 100 mg PO QHS 06/07/16 06/07/16 Unknown History Active Meds: Active Medications Acetaminophen (Tylenol) 650 mg PO Q4H PRN PRN Reason: Pain MILD(1-3)/Fever >100.5/SPEAR Ascorbic Acid (Vitamin C) 500 mg PO QDAY [facility] Last Admin: 06/08/16 09:42 Dose: 500 mg Aspirin (Baby Aspirin) 81 mg PO QDAY [facility] Last Admin: 06/08/16 09:43 Dose: 81 mg Atorvastatin Calcium (Lipitor) 80 mg PO QHS [facility] Last Admin: 06/07/16 21:29 Dose: 80 mg Bisacodyl (Dulcolax) 10 mg AL QDAY PRN PRN Reason: Constipation unrelieved by MOM Dextrose (D50w (25gm)) 50 ml IV PRN PRN PRN Reason: Hypoglycemia Docusate Sodium (Colace) 100 mg PO BID [facility] Last Admin: 06/08/16 09:43 Dose: 100 mg Fluoxetine HCl (Prozac) 10 mg PO QDAY [facility] Last Admin: 06/08/16 09:42 Dose: 10 mg Gabapentin (Neurontin) 300 mg PO TID [facility] Last Admin: 06/08/16 08:50 Dose: 300 mg Levofloxacin/Dextrose (Levaquin 500mg/100ml) 500 mg in 100 mls @ 100 mls/hr IV Q48HR [facility] PRN Reason: Protocol Insulin Aspart (Novolog) 0 units SUB-Q ACHS [facility] PRN Reason: Protocol Last Admin: 06/08/16 07:30 Dose: Not Given Insulin Detemir (Levemir) 20 units SUB-Q QHS [facility] Last Admin: 06/08/16 00:41 Dose: 20 units Isosorbide Mononitrate (Imdur) 30 mg PO QDAY [facility] Last Admin: 06/08/16 09:42 Dose: 30 mg Lisinopril (Zestril) 40 mg PO QDAY [facility] Last Admin: 06/08/16 09:43 Dose: 40 mg Magnesium Hydroxide (Milk Of Magnesia) 30 ml PO Q4H PRN PRN Reason: Constipation Miscellaneous Medication (Bisoprolol Fumarate [Zebeta]) 5 mg PO DAILY [facility] Miscellaneous Medication (Duloxetine Hcl [Cymbalta]) 20 mg PO QDAY [facility] Ondansetron HCl (Zofran) 4 mg IV Q8H PRN PRN Reason: N/V unrelieved by Reglan Oxycodone/Acetaminophen (Percocet 5/325) 1 tab PO Q4H PRN PRN Reason: Pain, Moderate (4-6) Last Admin: 06/07/16 21:29 Dose: 1 tab Prazosin HCl (Minipress) 2 mg PO QHS [facility] Last Admin: 06/07/16 21:30 Dose: 2 mg Tamsulosin HCl (Flomax) 0.4 mg PO QDAY [facility] Last Admin: 06/08/16 09:43 Dose: 0.4 mg Torsemide (Demadex) 100 mg PO 0600,1800 [facility] Last Admin: 06/08/16 05:19 Dose: 100 mg Trazodone HCl (Desyrel) 100 mg PO QHS [facility] Last Admin: 06/07/16 21:29 Dose: 100 mg Warfarin Sodium (Coumadin) 7.5 mg PO TuThSa@1700 [facility] Warfarin Sodium (Coumadin) 10 mg PO SuMoWeFr@1700 [facility] Exam - Constitutional Vitals: Temp Pulse Resp BP Pulse Ox 97.9 F 58 L 16 134/64 100 06/08/16 07:55 06/08/16 16:00 06/08/16 11:49 06/08/16 16:00 06/08/16 11:49 Results - Labs CBC & Chem 7: 06/08/16 04:51 06/08/16 04:51 Labs: Abnormal lab results 06/07/16 06/07/16 06/08/16 Range/Units 17:33 21:09 04:51 Hgb 10.9 L (11.8-15.2) gm/dl Hct 35.2 L (35.5-45.6) % MCHC 31 L (32-34) % RDW 21.0 H (13.2-15.2) % PT (12.2-14.9) Sec. INR (0.87-1.13) BUN (9-20) mg/dL Creatinine (0.8-1.5) mg/dL POC Glucose 163 H 168 H (70-105) 06/08/16 06/08/16 Range/Units 04:51 04:51 Hgb (11.8-15.2) gm/dl Hct (35.5-45.6) % MCHC (32-34) % RDW (13.2-15.2) % PT 27.0 H (12.2-14.9) Sec. INR 2.49 H (0.87-1.13) BUN 46 H (9-20) mg/dL Creatinine 4.6 H (0.8-1.5) mg/dL POC Glucose (70-105)
[2016-06-08] MEDS ORDERED: COUMADIN PO SCH ×2 (17:00)
[2016-06-08] MEDS: LEVAQUIN 500MG/100ML 500 MG/100 ML BAG IV SCH (19:31)
[2016-06-08] MEDS: MINIPRESS PO SCH (21:29)
[2016-06-08] MEDS: DESYREL PO SCH (21:35)
[2016-06-09] MEDS: LEVEMIR SUB-Q SCH ×2 (00:19→23:36)
[2016-06-09] MEDS: NOVOLOG SUB-Q SCH ×5 (00:19→23:38)
--- NOTE | 2016-06-09 00:30 | Consultation ---
REASON FOR CONSULTATION: Rule out acute cholecystitis. HISTORY OF PRESENT ILLNESS: The patient is a pleasant 66-year-old diabetic male with multiple medical conditions, who presented yesterday to the hospital with a chief complaint of shortness of breath and right upper quadrant abdominal pain. However, the patient denies any nausea or vomiting. The patient states he has been tolerating diet without any evidence of nausea, vomiting, or abdominal pain when eating breakfast this morning. PAST MEDICAL HISTORY: Pertinent for coronary artery disease, atrial fibrillation, diabetes, hypertension, hyperlipidemia, and end-stage renal failure, on dialysis. PAST SURGICAL HISTORY: Include coronary artery bypass grafts back in 2011, also AV shunt. ALLERGIES: No known allergies. MEDICATIONS: Multiple and include gabapentin, insulin, Coumadin, aspirin, lisinopril, Flomax, and others. FAMILY HISTORY: Diabetes and pancreatic cancer. SOCIAL HISTORY: Chews tobacco, but denies any drinking or smoking. PHYSICAL EXAMINATION: GENERAL: At this time reveals the patient to be awake, alert, cooperative, in no acute distress. VITAL SIGNS: Show him to be afebrile with a temperature of 97.9, blood pressure is 122/69, pulse of 68, respirations of 16. ABDOMEN: Examination of the abdomen reveals to be moderately obese. The abdomen itself is soft, but there is mild localized tenderness that can be elicited on pressure in the right upper quadrant. LABORATORY DATA: Lab work at present includes a CBC which shows a white count of 6.3, H and H of 10.9 and 35.2. PT is noted to be 27, INR is 2.49. Electrolytes are essentially within normal limits. Glucose is 88. A CT of the abdomen as well as a gallbladder ultrasound had been performed, which I have reviewed with the radiologist. There is a dilated gallbladder noted with gallstones. No pericholecystic fluid can be seen, but the gallbladder wall was borderline thickened. IMPRESSION: At this time is that of; 1. A 66-year-old gentleman with multitude of medical problems also on anticoagulant because of AFib. 2. Rule out acute cholecystitis. RECOMMENDATIONS: We will keep the patient n.p.o. for now. Also, we will order a HIDA scan to confirm if indeed there is acute cholecystitis present. We will monitor clinically. If the patient does not improve, would consider a percutaneous CT-guided cholecystostomy tube to treat the acute phase, then subsequently would proceed with a semi-elective cholecystectomy in the near future. I will await the HIDA scan results and discuss with you further. Thank you very much for consultation. JOB# [id number] DEBORAH/ALICIA
--- NOTE | 2016-06-09 00:42 | Consultation ---
CHIEF COMPLAINT: Kidney stone, 3 mm. REFERRING PHYSICIAN: Alec Tang MD HISTORY OF PRESENT ILLNESS: This 66-year-old gentleman presented to the Emergency Room from his dialysis center with chest pain. The patient on further evaluation has actually more right upper quadrant pain. Denies any previous history. He gets hemodialysis 3 times a week. PAST MEDICAL HISTORY: Atrial fibrillation, coronary artery disease, status post bypass graft, diabetes, end-stage renal disease, hypertension, hyperlipidemia. PAST SURGICAL HISTORY: Coronary artery bypass graft, dialysis access catheter. SOCIAL HISTORY: Nonsmoker. ALLERGIES: No known drug allergies. MEDICATIONS: Insulin, warfarin, Lipitor, Cymbalta, Imdur, Zestril, Minipress, Flomax. PHYSICAL EXAMINATION: GENERAL: The patient is resting well, alert and oriented. VITAL SIGNS: Temperature 97.9, respirations 16, pulse 58, BP . BACK: No CVA tenderness. ABDOMEN: Protuberant. LABORATORY DATA: BUN and creatinine of 46 and 4.6 respectively. Hemoglobin and hematocrit of 10.9 and 35 respectively, white count 6000, platelets 157,000. CT of abdomen and pelvis revealed a 3 mm nonobstructing right renal stone, also has stones in his gallbladder. ASSESSMENT: Right upper quadrant pain, 3 mm nonobstructing kidney stone, doubt source of his pain. The patient also has a gallstone. We will await further recommendations from General Surgery. We will follow peripherally. JOB# [id number] [facility]
[2016-06-09 05:47] LABS: INR 2.89 (0.87-1.13)
[2016-06-09] MEDS: DEMADEX PO SCH ×2 (06:51→18:02)
[2016-06-09] MEDS: NEURONTIN PO SCH ×3 (08:21→22:08)
[2016-06-09] MEDS: IMDUR PO SCH (10:00)
[2016-06-09] MEDS: BABY ASPIRIN PO SCH (10:00)
[2016-06-09] MEDS: COLACE PO SCH ×2 (10:00→22:07)
[2016-06-09] MEDS: FLOMAX PO SCH (10:00)
[2016-06-09] MEDS: PROzac PO SCH (10:00)
[2016-06-09] MEDS: VITAMIN C PO SCH (10:00)
[2016-06-09] MEDS: ZESTRIL PO SCH (10:57)
--- NOTE | 2016-06-09 11:09 | Progress Note ---
Assessment and Plan Assessment and plan: 66M w who presents with Right sided flank pain, found to have nephrolithiasis 1. Cholecystitis CT abdomen showing enlarged gallbladder, with thickened wall and single calculus RUQ US again shows markedly thickened GB wall with calculi, and HIDA scan shows cystic duct obstruction Consult surgery appreciated, continue IV abx, and keep NPO, patient is clinically stable and is high surgical risk therefore will go for percutaneous cholecystostomy today 2. CAD/ s/p CABG Continue BB, ACEI, aspirin and statin 3. Atrial flutter On amiodarone for rate control and anticoagulated with warfarin (hold for procedure) Status post recent cardioversion at DC and currently on NSR 4. Hypertension BP controlled on above mentioned medications and fluid removal to HD 5. Diabetes Resume long-acting insulin Accu-Cheks and SSI to assess insulin requirements and make adjustments 6. Hyperlipidemia Continue statin 7. ESRD on HD cotninue HD per nephrology 8. Anemia of chronic kidney disease Epogen with HD per nephrology 9. Nephrolithiasis finding on CT abdomen of 3 mm calculus right UP junction Urology consult appreciated, it is non obstructive and unlikely to be the cause of pain 10. Obesity Concern regarding importance of losing weight and lifestyle changes, patient counseled History Interval history: continues to complain of RUQ pain and nausea Hospitalist Physical - Physical exam Narrative exam: General: Patient appears well in no distress HEENT: MMM, EOMI cardiac: S1-S2 heard lungs: clear to auscultation, abdomen: RUQ tender extremities: no edema clubbing or cyanosis Skin: no rash or lesion Neuro: no focal deficit Psych: appropriate behavior and mood, cognition intact - Constitutional Vitals: Temp Pulse Resp BP Pulse Ox 98.7 F 83 22 125/66 100 06/09/16 00:00 06/09/16 00:00 06/09/16 00:00 06/09/16 00:00 06/09/16 09:48 General appearance: Present: no acute distress, obese Results - Labs CBC & Chem 7: 06/10/16 09:09 06/08/16 04:51 Labs: Laboratory Last Values WBC 6.3 K/mm3 (4.5-11.0) 06/08/16 04:51 RBC 3.92 M/mm3 (3.65-5.03) 06/08/16 04:51 Hgb 10.9 gm/dl (11.8-15.2) L 06/08/16 04:51 Hct 35.2 % (35.5-45.6) L 06/08/16 04:51 MCV 90 fl (84-94) 06/08/16 04:51 MCH 28 pg (28-32) 06/08/16 04:51 MCHC 31 % (32-34) L 06/08/16 04:51 RDW 21.0 % (13.2-15.2) H 06/08/16 04:51 Plt Count 157 K/mm3 (140-440) 06/08/16 04:51 Lymph % (Auto) 22.4 % (13.4-35.0) 06/08/16 04:51 [place] % (Auto) 5.4 % (0.0-7.3) 06/08/16 04:51 Eos % (Auto) 2.5 % (0.0-4.3) 06/08/16 04:51 Baso % (Auto) 0.9 % (0.0-1.8) 06/08/16 04:51 Lymph # 1.4 K/mm3 (1.2-5.4) 06/08/16 04:51 [place] # 0.3 K/mm3 (0.0-0.8) 06/08/16 04:51 Eos # 0.2 K/mm3 (0.0-0.4) 06/08/16 04:51 Baso # 0.1 K/mm3 (0.0-0.1) 06/08/16 04:51 Seg Neutrophils % 68.8 % (40.0-70.0) 06/08/16 04:51 Seg Neutrophils # 4.4 K/mm3 (1.8-7.7) 06/08/16 04:51 PT 30.4 Sec. (12.2-14.9) H 06/09/16 04:57 INR 2.89 (0.87-1.13) H 06/09/16 04:57 APTT 41.7 Sec. (24.2-36.6) H 06/07/16 10:25 POC ABG pH 7.422 (7.35-7.45) 06/07/16 11:19 POC ABG pCO2 37.0 (35-45) 06/07/16 11:19 POC ABG pO2 83 (80-105) 06/07/16 11:19 POC ABG HCO3 24.1 06/07/16 11:19 POC ABG Total CO2 25 06/07/16 11:19 POC ABG O2 Sat 96 06/07/16 11:19 POC ABG Base Excess 0 06/07/16 11:19 FiO2 28 % 06/07/16 11:19 Sodium 142 mmol/L (137-145) 06/08/16 04:51 Potassium 4.5 mmol/L (3.6-5.0) 06/08/16 04:51 Chloride 101.1 mmol/L (98-107) 06/08/16 04:51 Carbon Dioxide 23 mmol/L (22-30) 06/08/16 04:51 Anion Gap 22 mmol/L 06/08/16 04:51 BUN 46 mg/dL (9-20) H 06/08/16 04:51 Creatinine 4.6 mg/dL (0.8-1.5) H 06/08/16 04:51 Estimated GFR 16 ml/min 06/08/16 04:51 BUN/Creatinine Ratio 10.00 % 06/08/16 04:51 Glucose 88 mg/dL (75-100) 06/08/16 04:51 POC Glucose 96 (70-105) 06/09/16 06:43 Calcium 9.2 mg/dL (8.4-10.2) 06/08/16 04:51 Phosphorus 4.0 mg/dL (2.5-4.5) 06/07/16 07:56 Magnesium 1.7 mg/dL (1.7-2.3) 06/07/16 07:56 Total Bilirubin 0.8 mg/dL (0.1-1.2) 06/07/16 07:56 Direct Bilirubin 0.4 mg/dL (0-0.2) H 06/07/16 07:56 Indirect Bilirubin 0.4 mg/dL 06/07/16 07:56 AST 15 units/L (5-40) 06/07/16 07:56 ALT 18 units/L (7-56) 06/07/16 07:56 Alkaline Phosphatase 247 units/L (35-129) H 06/07/16 07:56 Troponin T 0.058 ng/mL (0.00-0.029) H 06/07/16 13:36 NT-Pro-B Natriuret Pep 06624 pg/mL (0-900) H 06/07/16 07:56 Total Protein 6.6 g/dL (6.3-8.2) 06/07/16 07:56 Albumin 3.8 g/dL (3.9-5) L 06/07/16 07:56 Albumin/Globulin Ratio 1.4 % 06/07/16 07:56 Triglycerides 83 mg/dL (2-149) 06/07/16 07:56 Cholesterol 118 mg/dL (50-199) 06/07/16 07:56 LDL Cholesterol Direct 70 mg/dL (50-130) 06/07/16 07:56 HDL Cholesterol 32 mg/dL (40-59) L 06/07/16 07:56 Cholesterol/HDL Ratio 3.68 % 06/07/16 07:56 Amylase 33 units/L (27-131) 06/07/16 18:39 Urine Color Yellow (Yellow) 06/08/16 05:13 Urine Turbidity Clear (Clear) 06/08/16 05:13 Urine pH 5.0 (5.0-7.0) 06/08/16 05:13 Ur Specific [place] 1.013 (1.003-1.030) 06/08/16 05:13 Urine Protein 100 mg/dl mg/dL (Negative) 06/08/16 05:13 Urine Glucose (UA) 50 mg/dL (Negative) 06/08/16 05:13 Urine Ketones Neg mg/dL (Negative) 06/08/16 05:13 Urine Blood Neg (Negative) 06/08/16 05:13 Urine Nitrite Neg (Negative) 06/08/16 05:13 Urine Bilirubin Neg (Negative) 06/08/16 05:13 Urine Urobilinogen < 2.0 mg/dL (<2.0) 06/08/16 05:13 Ur Leukocyte Esterase Neg (Negative) 06/08/16 05:13 Urine WBC (Auto) 3.0 /HPF (0.0-6.0) 06/08/16 05:13 Urine RBC (Auto) 3.0 /HPF (0.0-6.0) 06/08/16 05:13 U Epithel Cells (Auto) < 1.0 /HPF (0-13.0) 06/08/16 05:13 Urine Mucus Few /HPF 06/08/16 05:13 Urine Sperm 3+ /HPF (PERITONEAL DIALYSIS REGISTERED NURSE) 06/08/16 05:13
--- NOTE | 2016-06-09 11:19 | Progress Note ---
Assessment and Plan End-stage renal disease patient is currently in maintenance hemodialysis on Sunday schedule Patient did receive his hemodialysis yesterday without any problems Patient normally goes to dialysis at [facility] History of atrial fibrillation status post cardioversion at ID currently and anticoagulation Admitted with abdominal pain and gallstone currently less abdominal pain status post surgical evaluation, patient appears to have cholecystitis which is being treated medically at this point, he is currently status post surgical evaluation Noted to have kidney stone 3 mm in size no evidence of hydronephrosis status post Dr. Jaime evaluation Anemia in end-stage renal disease to follow currently stable Secondary hyperparathyroidism to follow History of coronary artery disease currently bypass graft atrial flutter hypertension diabetes hyperlipidemia We'll continue to follow from renal standpoint Subjective Interval history: Patient was seen today for follow-up his abdominal pain is better tolerated dialysis treatment yesterday without any problems Events of 24 hours vitals labs intake output medications reviewed Objective - Vital Signs Vital signs: Vital Signs - 12hr 06/09/16 06/09/16 00:00 09:48 Temperature 98.7 F Pulse Rate [ 83 From Monitor] Respiratory 22 Rate Blood Pressure 125/66 [Left Arm] O2 Sat by Pulse 99 100 Oximetry - General Appearance General appearance: well-nourished (no acute distress) EENT: mucous membranes moist Neck: no JVD Respiratory: Present: Clear to Ascultation (no crackles rales or wheezes) Cardiology: regular (S1-S2 normal) Gastrointestinal: normal (soft nontender abdomen mostly except right upper quadrant very mildly tender) Integumentary: no rash Neurologic: no focal deficit (alert awake oriented) - Lab 06/08/16 04:51 06/08/16 04:51 Most recent lab results Calcium 9.2 mg/dL (8.4-10.2) 06/08/16 04:51 Phosphorus 4.0 mg/dL (2.5-4.5) 06/07/16 07:56 Magnesium 1.7 mg/dL (1.7-2.3) 06/07/16 07:56
[2016-06-09] MEDS ORDERED: NACL 0.9% 500 ML 500 ML IV ONE (13:08)
[2016-06-09] MEDS ORDERED: VITAMIN K (ADULT ONLY) 5 MG in NACL 0.9% 50 ML IV ONE (13:08)
--- NOTE | 2016-06-09 14:00 | Progress Note ---
Assessment and Plan Pt clinically improving. sitting in chair speaking on phone. no specific complaints. "wants to eat" Abd mod obese, soft. No discrete tenderness elicited at this time HIDA however does confirm acute cholecystitis imp - acute cholecystititis + DM multitude of other medical problems. high surgical risk rec - IR eval for possible percutaneous cholecystostomy tube placement would consider d/c coumadin if cleared by cardiology possible FFP & vit K may wait 24-48 hrs for tube placement as long as clinically stable if IR feels INR needs to be lowered prior to drainage procedure Selected Entries 06/08/16 06/09/16 22:00 00:00 Temperature 98.7 F Pulse Rate [ 83 From Monitor] Respiratory 22 Rate Blood Pressure 125/66 [Left Arm] Laboratory Tests 06/09/16 04:57 PT 30.4 H INR 2.89 H Objective Vital Signs - 12hr 06/09/16 09:48 O2 Sat by Pulse 100 Oximetry - Labs 06/08/16 04:51 06/08/16 04:51
[2016-06-09] MEDS ORDERED: SUBLIMAZE IV ONE (14:06)
[2016-06-09] MEDS ORDERED: VERSED IV ONE (14:25)
[2016-06-09] MEDS ORDERED: SUBLIMAZE ONE (14:26)
[2016-06-09] MEDS ORDERED: VERSED IV NR (15:00)
--- NOTE | 2016-06-09 15:48 | Cat Scan Report ---
EXAM: CT-GUIDED PLACEMENT OF CHOLECYSTOSTOMY TUBE CLINICAL INDICATION: PATIENT WITH GALLBLADDER OBSTRUCTION,RIGHT UPPER QUADRANT PAIN DATE: 06/09/2016 PROCEDURE: Following an explanation of the risks, benefits and alternatives; written informed consent was obtained. The patient was brought to the CT or suite and placed in supine position on the examination table. Initial bander and cellophaner machine images of the abdomen were performed and an appropriate access site was chosen in the right upper quadrant. One percent lidocaine was used for anesthesia. Using intermittent CT guidance, a 10 cm 18-gauge trocar needle was advanced into the body of the gallbladder. There was prompt return of bilious fluid. A 0.35 guidewire was advanced and coiled within the gallbladder. Following serial dilation, an 8 Wol[place] pigtail drainage catheter was placed over the guidewire and advanced to the central aspect of the gallbladder. A total 20 additional ML of bile was removed. Samples were sent for laboratory analysis. The catheter was securely fastened skin surface using 2-0 silk suture. A stat lock and sterile dressing were also applied. The catheter was then placed to dependent drainage. The patient tolerated the procedure well. There were no immediate post procedure complications. Conscious sedation was performed in the kinds radiologic nursing. Continuous cardiopulmonary monitoring was utilized. IMPRESSION:1) CT guided placement of 8 Wolof cholecystostomy tube with 20 mL's of bilious fluid removed. Samples were sent for laboratory analysis.
[2016-06-09] MEDS ORDERED: COUMADIN PO SCH (17:00)
[2016-06-09] MEDS: NACL 0.9% 1000 ML 1,000 ML IV SCH (17:06)
[2016-06-09] MEDS: PERCOCET 5/325 PO PRN ×2 (17:30→22:08)
[2016-06-09] MEDS: DESYREL PO SCH (22:07)
[2016-06-09] MEDS: MINIPRESS PO SCH (22:07)
[2016-06-10 05:51] LABS: INR 2.89 (0.87-1.13)
[2016-06-10] MEDS: DEMADEX PO SCH (06:58)
--- NOTE | 2016-06-10 09:12 | Progress Note ---
Assessment and Plan Pt feeling well. successful CT guided cholecystostomy tube drainge. no compl Abd soft. non tender awaiting am cbc continue IV Levaquin attempt cl liq diet stable Selected Entries 06/09/16 06/09/16 22:07 23:00 Temperature 98.7 F Pulse Rate [ 64 Apical] Respiratory 20 Rate Blood Pressure 187/82 Laboratory Tests 06/10/16 04:41 PT 30.4 H INR 2.89 H Objective Vital Signs - 12hr 06/09/16 06/09/16 06/09/16 22:07 22:08 23:00 Temperature 98.7 F Pulse Rate 98 H Pulse Rate [ 64 Apical] Respiratory 20 20 Rate Blood Pressure 187/82 Blood Pressure 138/65 [Right Arm] O2 Sat by Pulse 100 Oximetry - Labs 06/08/16 04:51 06/08/16 04:51
[2016-06-10] MEDS: PROzac PO SCH (09:22)
[2016-06-10] MEDS: COLACE PO SCH ×2 (09:23→23:29)
[2016-06-10] MEDS: FLOMAX PO SCH (09:23)
[2016-06-10] MEDS: BABY ASPIRIN PO SCH (09:23)
[2016-06-10] MEDS: ZESTRIL PO SCH (09:23)
[2016-06-10] MEDS: NEURONTIN PO SCH ×3 (09:23→23:30)
[2016-06-10] MEDS: NOVOLOG SUB-Q SCH ×3 (09:24→23:43)
[2016-06-10] MEDS: LEVAQUIN 500MG/100ML 500 MG/100 ML BAG IV SCH (09:25)
[2016-06-10] MEDS: NACL 0.9% 1000 ML 1,000 ML IV SCH (09:26)
[2016-06-10] MEDS: VITAMIN C PO SCH (09:32)
[2016-06-10] MEDS: IMDUR PO SCH (09:32)
[2016-06-10] MEDS ORDERED: ZIAC 5-6.25 PO SCH (10:00)
[2016-06-10 10:07] LABS: Basophils % (Auto) 0.7 % (0.0-1.8); Eosinophils % (Auto) 1.9 % (0.0-4.3); Hematocrit 32.5 % (35.5-45.6); Hemoglobin 10.2 gm/dl (11.8-15.2); Mean Corpuscular HGB Conc 31 % (32-34); Mean Corpuscular Hemoglobin 28 pg (28-32); Mean Corpuscular Volume 89 fl (84-94); Platelet Count 132 K/mm3 (140-440); Red Blood Count 3.67 M/mm3 (3.65-5.03); White Blood Count 5.1 K/mm3 (4.5-11.0)
[2016-06-10 10:14] LABS: Red Cell Distribution Width 20.1 % (13.2-15.2)
--- NOTE | 2016-06-10 12:39 | Progress Note ---
Assessment and Plan Assessment: End-stage renal disease on hemodialysis Cholecystitis s/p CT guided placement of cholecystostomy tube (Jun 09) Nephrolithiasis - nonobstructing stone Atrial fibrillation Anemia secondary to ESRD Secondary hyperparathyroidism Plan: Hemodialysis today; continue TTS schedule UF as tolerated Abx per primary team General surgery following Epogen with dialysis Diet per surgery Subjective Date of service: 06/10/16 Interval history: Patient seen on dialysis without complaint. Objective - Vital Signs Vital signs: Vital Signs - 12hr 06/10/16 06/10/16 06/10/16 08:00 09:23 09:32 Temperature 98.3 F Pulse Rate [ 62 Apical] Respiratory 18 Rate Blood Pressure 160/78 160/78 Blood Pressure 160/78 [Right Arm] O2 Sat by Pulse 98 Oximetry - General Appearance General appearance: well-developed, well-nourished EENT: ATNC Respiratory: Present: Clear to Ascultation Cardiology: irregular Gastrointestinal: hypoactive bowel sounds Integumentary: no rash Neurologic: alert and oriented x3 Psychiatric: mood/affect appropriate, cooperative - Lab 06/10/16 09:09 06/11/16 04:09 Most recent lab results Calcium 9.2 mg/dL (8.4-10.2) 06/08/16 04:51 Phosphorus 4.0 mg/dL (2.5-4.5) 06/07/16 07:56 Magnesium 1.7 mg/dL (1.7-2.3) 06/07/16 07:56
[2016-06-10] MEDS ORDERED: NACL 0.9% 1000 ML 100 ML IV PRN (12:42)
[2016-06-10] MEDS: PROCRIT IV PRN (16:44)
--- NOTE | 2016-06-10 18:09 | Progress Note ---
Assessment and Plan Assessment and plan: 66M w who presents with Right sided flank pain, found to have nephrolithiasis 1. Cholecystitis CT abdomen showing enlarged gallbladder, with thickened wall and single calculus RUQ US again shows markedly thickened GB wall with calculi, and HIDA scan shows cystic duct obstruction Consult surgery appreciated, due to high surgical risk, he had percutaneous cholecystostomy 06/09/16 clilnically improving, cw IV abx 2. CAD/ s/p CABG Continue BB, ACEI, aspirin and statin 3. Atrial flutter On amiodarone for rate control and anticoagulated with warfarin (was hold for procedure, will restart tomorrow) Status post recent cardioversion at OR and currently on NSR 4. Hypertension BP controlled on above mentioned medications and fluid removal to HD 5. Diabetes Resume long-acting insulin Accu-Cheks and SSI to assess insulin requirements and make adjustments 6. Hyperlipidemia Continue statin 7. ESRD on HD cotninue HD per nephrology 8. Anemia of chronic kidney disease Epogen with HD per nephrology 9. Nephrolithiasis finding on CT abdomen of 3 mm calculus right UP junction Urology consult appreciated, it is non obstructive and unlikely to be the cause of pain 10. Obesity Concern regarding importance of losing weight and lifestyle changes, patient counseled History Interval history: RUQ pain and nausea and nausea are now resolved Hospitalist Physical - Physical exam Narrative exam: General: Patient appears well in no distress HEENT: MMM, EOMI cardiac: S1-S2 heard lungs: clear to auscultation, abdomen: RUQ drain noted, Non tender, non distended, BS+ extremities: no edema clubbing or cyanosis Skin: no rash or lesion Neuro: no focal deficit Psych: appropriate behavior and mood, cognition intact - Constitutional Vitals: Temp Pulse Resp BP Pulse Ox 98.1 F 67 16 146/69 98 06/10/16 13:50 06/10/16 18:00 06/10/16 13:50 06/10/16 18:00 06/10/16 08:00 General appearance: Present: no acute distress, obese Results - Labs CBC & Chem 7: 06/10/16 09:09 06/08/16 04:51 Labs: Laboratory Last Values WBC 5.1 K/mm3 (4.5-11.0) 06/10/16 09:09 RBC 3.67 M/mm3 (3.65-5.03) 06/10/16 09:09 Hgb 10.2 gm/dl (11.8-15.2) L 06/10/16 09:09 Hct 32.5 % (35.5-45.6) L 06/10/16 09:09 MCV 89 fl (84-94) 06/10/16 09:09 MCH 28 pg (28-32) 06/10/16 09:09 MCHC 31 % (32-34) L 06/10/16 09:09 RDW 20.1 % (13.2-15.2) H 06/10/16 09:09 Plt Count 132 K/mm3 (140-440) L 06/10/16 09:09 Lymph % (Auto) 20.1 % (13.4-35.0) 06/10/16 09:09 [place] % (Auto) 5.9 % (0.0-7.3) 06/10/16 09:09 Eos % (Auto) 1.9 % (0.0-4.3) 06/10/16 09:09 Baso % (Auto) 0.7 % (0.0-1.8) 06/10/16 09:09 Lymph # 1.0 K/mm3 (1.2-5.4) L 06/10/16 09:09 [place] # 0.3 K/mm3 (0.0-0.8) 06/10/16 09:09 Eos # 0.1 K/mm3 (0.0-0.4) 06/10/16 09:09 Baso # 0.0 K/mm3 (0.0-0.1) 06/10/16 09:09 Seg Neutrophils % 71.4 % (40.0-70.0) H 06/10/16 09:09 Seg Neutrophils # 3.7 K/mm3 (1.8-7.7) 06/10/16 09:09 PT 30.4 Sec. (12.2-14.9) H 06/10/16 04:41 INR 2.89 (0.87-1.13) H 06/10/16 04:41 APTT 41.7 Sec. (24.2-36.6) H 06/07/16 10:25 POC ABG pH 7.422 (7.35-7.45) 06/07/16 11:19 POC ABG pCO2 37.0 (35-45) 06/07/16 11:19 POC ABG pO2 83 (80-105) 06/07/16 11:19 POC ABG HCO3 24.1 06/07/16 11:19 POC ABG Total CO2 25 06/07/16 11:19 POC ABG O2 Sat 96 06/07/16 11:19 POC ABG Base Excess 0 06/07/16 11:19 FiO2 28 % 06/07/16 11:19 Sodium 142 mmol/L (137-145) 06/08/16 04:51 Potassium 4.5 mmol/L (3.6-5.0) 06/08/16 04:51 Chloride 101.1 mmol/L (98-107) 06/08/16 04:51 Carbon Dioxide 23 mmol/L (22-30) 06/08/16 04:51 Anion Gap 22 mmol/L 06/08/16 04:51 BUN 46 mg/dL (9-20) H 06/08/16 04:51 Creatinine 4.6 mg/dL (0.8-1.5) H 06/08/16 04:51 Estimated GFR 16 ml/min 06/08/16 04:51 BUN/Creatinine Ratio 10.00 % 06/08/16 04:51 Glucose 88 mg/dL (75-100) 06/08/16 04:51 POC Glucose 156 (70-105) H 06/10/16 12:09 Calcium 9.2 mg/dL (8.4-10.2) 06/08/16 04:51 Phosphorus 4.0 mg/dL (2.5-4.5) 06/07/16 07:56 Magnesium 1.7 mg/dL (1.7-2.3) 06/07/16 07:56 Total Bilirubin 0.8 mg/dL (0.1-1.2) 06/07/16 07:56 Direct Bilirubin 0.4 mg/dL (0-0.2) H 06/07/16 07:56 Indirect Bilirubin 0.4 mg/dL 06/07/16 07:56 AST 15 units/L (5-40) 06/07/16 07:56 ALT 18 units/L (7-56) 06/07/16 07:56 Alkaline Phosphatase 247 units/L (35-129) H 06/07/16 07:56 Troponin T 0.058 ng/mL (0.00-0.029) H 06/07/16 13:36 NT-Pro-B Natriuret Pep 90564 pg/mL (0-900) H 06/07/16 07:56 Total Protein 6.6 g/dL (6.3-8.2) 06/07/16 07:56 Albumin 3.8 g/dL (3.9-5) L 06/07/16 07:56 Albumin/Globulin Ratio 1.4 % 06/07/16 07:56 Triglycerides 83 mg/dL (2-149) 06/07/16 07:56 Cholesterol 118 mg/dL (50-199) 06/07/16 07:56 LDL Cholesterol Direct 70 mg/dL (50-130) 06/07/16 07:56 HDL Cholesterol 32 mg/dL (40-59) L 06/07/16 07:56 Cholesterol/HDL Ratio 3.68 % 06/07/16 07:56 Amylase 33 units/L (27-131) 06/07/16 18:39 Urine Color Yellow (Yellow) 06/08/16 05:13 Urine Turbidity Clear (Clear) 06/08/16 05:13 Urine pH 5.0 (5.0-7.0) 06/08/16 05:13 Ur Specific [place] 1.013 (1.003-1.030) 06/08/16 05:13 Urine Protein 100 mg/dl mg/dL (Negative) 06/08/16 05:13 Urine Glucose (UA) 50 mg/dL (Negative) 06/08/16 05:13 Urine Ketones Neg mg/dL (Negative) 06/08/16 05:13 Urine Blood Neg (Negative) 06/08/16 05:13 Urine Nitrite Neg (Negative) 06/08/16 05:13 Urine Bilirubin Neg (Negative) 06/08/16 05:13 Urine Urobilinogen < 2.0 mg/dL (<2.0) 06/08/16 05:13 Ur Leukocyte Esterase Neg (Negative) 06/08/16 05:13 Urine WBC (Auto) 3.0 /HPF (0.0-6.0) 06/08/16 05:13 Urine RBC (Auto) 3.0 /HPF (0.0-6.0) 06/08/16 05:13 U Epithel Cells (Auto) < 1.0 /HPF (0-13.0) 06/08/16 05:13 Urine Mucus Few /HPF 06/08/16 05:13 Urine Sperm 3+ /HPF (ELECTRICIAN THIRD) 06/08/16 05:13 Blood Type O NEGATIVE 06/09/16 12:45
[2016-06-10] MEDS: MINIPRESS PO SCH (23:28)
[2016-06-10] MEDS: DESYREL PO SCH (23:29)
[2016-06-10] MEDS: LEVEMIR SUB-Q SCH (23:40)
[2016-06-11 05:31] LABS: INR 2.37 (0.87-1.13)
[2016-06-11 05:33] LABS: Calcium 8.9 mg/dL (8.4-10.2); Chloride 95.6 mmol/L (98-107); Potassium 3.8 mmol/L (3.6-5.0)
[2016-06-11] MEDS: DEMADEX PO SCH ×3 (06:10→19:30)
[2016-06-11] MEDS: NOVOLOG SUB-Q SCH ×4 (09:06→22:00)
[2016-06-11] MEDS: PROzac PO SCH (11:38)
[2016-06-11] MEDS: COLACE PO SCH ×2 (11:38→21:57)
[2016-06-11] MEDS: FLOMAX PO SCH (11:38)
[2016-06-11] MEDS: BABY ASPIRIN PO SCH (11:39)
[2016-06-11] MEDS: NEURONTIN PO SCH ×3 (11:45→21:57)
[2016-06-11] MEDS: IMDUR PO SCH (11:45)
[2016-06-11] MEDS: ZESTRIL PO SCH (11:46)
[2016-06-11] MEDS: NORVASC PO SCH (11:46)
--- NOTE | 2016-06-11 13:10 | Progress Note ---
Assessment and Plan Assessment and plan: 66M w who presents with Right sided flank pain, found to have nephrolithiasis 1. Cholecystitis CT abdomen showing enlarged gallbladder, with thickened wall and single calculus RUQ US again shows markedly thickened GB wall with calculi, and HIDA scan shows cystic duct obstruction Consult surgery appreciated, due to high surgical risk, he had percutaneous cholecystostomy 06/09/16 clilnically improving, cw IV abx, advance diet 2. CAD/ s/p CABG Continue BB, ACEI, aspirin and statin 3. Atrial flutter On amiodarone for rate control and anticoagulated with warfarin (was hold for procedure, will restart tomorrow) Status post recent cardioversion at [place] and currently on NSR 4. Hypertension continue BP meds 5. Diabetes continue insulins 6. Hyperlipidemia Continue statin 7. ESRD on HD cotninue HD per nephrology 8. Anemia of chronic kidney disease Epogen with HD per nephrology 9. Nephrolithiasis finding on CT abdomen of 3 mm calculus right UP junction Urology consult appreciated, it is non obstructive and unlikely to be the cause of pain 10. Obesity Concern regarding importance of losing weight and lifestyle changes, patient counseled History Interval history: RUQ pain and nausea and nausea are now resolved Hospitalist Physical - Physical exam Narrative exam: General: Patient appears well in no distress HEENT: MMM, EOMI cardiac: S1-S2 heard lungs: clear to auscultation, abdomen: RUQ drain noted, Non tender, non distended, BS+ extremities: no edema clubbing or cyanosis Skin: no rash or lesion Neuro: no focal deficit Psych: appropriate behavior and mood, cognition intact - Constitutional Vitals: Temp Pulse Resp BP Pulse Ox 97.3 F L 97 H 18 120/66 98 06/11/16 08:00 06/11/16 08:00 06/11/16 08:00 06/11/16 11:46 06/11/16 08:00 General appearance: Present: no acute distress, obese Results - Labs CBC & Chem 7: 06/10/16 09:09 06/11/16 04:09 Labs: Laboratory Last Values WBC 5.1 K/mm3 (4.5-11.0) 06/10/16 09:09 RBC 3.67 M/mm3 (3.65-5.03) 06/10/16 09:09 Hgb 10.2 gm/dl (11.8-15.2) L 06/10/16 09:09 Hct 32.5 % (35.5-45.6) L 06/10/16 09:09 MCV 89 fl (84-94) 06/10/16 09:09 MCH 28 pg (28-32) 06/10/16 09:09 MCHC 31 % (32-34) L 06/10/16 09:09 RDW 20.1 % (13.2-15.2) H 06/10/16 09:09 Plt Count 132 K/mm3 (140-440) L 06/10/16 09:09 Lymph % (Auto) 20.1 % (13.4-35.0) 06/10/16 09:09 [place] % (Auto) 5.9 % (0.0-7.3) 06/10/16 09:09 Eos % (Auto) 1.9 % (0.0-4.3) 06/10/16 09:09 Baso % (Auto) 0.7 % (0.0-1.8) 06/10/16 09:09 Lymph # 1.0 K/mm3 (1.2-5.4) L 06/10/16 09:09 [place] # 0.3 K/mm3 (0.0-0.8) 06/10/16 09:09 Eos # 0.1 K/mm3 (0.0-0.4) 06/10/16 09:09 Baso # 0.0 K/mm3 (0.0-0.1) 06/10/16 09:09 Seg Neutrophils % 71.4 % (40.0-70.0) H 06/10/16 09:09 Seg Neutrophils # 3.7 K/mm3 (1.8-7.7) 06/10/16 09:09 PT 26.0 Sec. (12.2-14.9) H 06/11/16 04:09 INR 2.37 (0.87-1.13) H 06/11/16 04:09 APTT 41.7 Sec. (24.2-36.6) H 06/07/16 10:25 POC ABG pH 7.422 (7.35-7.45) 06/07/16 11:19 POC ABG pCO2 37.0 (35-45) 06/07/16 11:19 POC ABG pO2 83 (80-105) 06/07/16 11:19 POC ABG HCO3 24.1 06/07/16 11:19 POC ABG Total CO2 25 06/07/16 11:19 POC ABG O2 Sat 96 06/07/16 11:19 POC ABG Base Excess 0 06/07/16 11:19 FiO2 28 % 06/07/16 11:19 Sodium 139 mmol/L (137-145) 06/11/16 04:09 Potassium 3.8 mmol/L (3.6-5.0) 06/11/16 04:09 Chloride 95.6 mmol/L (98-107) L 06/11/16 04:09 Carbon Dioxide 29 mmol/L (22-30) 06/11/16 04:09 Anion Gap 18 mmol/L 06/11/16 04:09 BUN 15 mg/dL (9-20) 06/11/16 04:09 Creatinine 3.0 mg/dL (0.8-1.5) H 06/11/16 04:09 Estimated GFR 25 ml/min 06/11/16 04:09 BUN/Creatinine Ratio 5.00 % 06/11/16 04:09 Glucose 117 mg/dL (75-100) H 06/11/16 04:09 POC Glucose 107 (70-105) H 06/11/16 11:51 Calcium 8.9 mg/dL (8.4-10.2) 06/11/16 04:09 Phosphorus 4.0 mg/dL (2.5-4.5) 06/07/16 07:56 Magnesium 1.7 mg/dL (1.7-2.3) 06/07/16 07:56 Total Bilirubin 0.8 mg/dL (0.1-1.2) 06/07/16 07:56 Direct Bilirubin 0.4 mg/dL (0-0.2) H 06/07/16 07:56 Indirect Bilirubin 0.4 mg/dL 06/07/16 07:56 AST 15 units/L (5-40) 06/07/16 07:56 ALT 18 units/L (7-56) 06/07/16 07:56 Alkaline Phosphatase 247 units/L (35-129) H 06/07/16 07:56 Troponin T 0.058 ng/mL (0.00-0.029) H 06/07/16 13:36 NT-Pro-B Natriuret Pep 75519 pg/mL (0-900) H 06/07/16 07:56 Total Protein 6.6 g/dL (6.3-8.2) 06/07/16 07:56 Albumin 3.8 g/dL (3.9-5) L 06/07/16 07:56 Albumin/Globulin Ratio 1.4 % 06/07/16 07:56 Triglycerides 83 mg/dL (2-149) 06/07/16 07:56 Cholesterol 118 mg/dL (50-199) 06/07/16 07:56 LDL Cholesterol Direct 70 mg/dL (50-130) 06/07/16 07:56 HDL Cholesterol 32 mg/dL (40-59) L 06/07/16 07:56 Cholesterol/HDL Ratio 3.68 % 06/07/16 07:56 Amylase 33 units/L (27-131) 06/07/16 18:39 Urine Color Yellow (Yellow) 06/08/16 05:13 Urine Turbidity Clear (Clear) 06/08/16 05:13 Urine pH 5.0 (5.0-7.0) 06/08/16 05:13 Ur Specific [place] 1.013 (1.003-1.030) 06/08/16 05:13 Urine Protein 100 mg/dl mg/dL (Negative) 06/08/16 05:13 Urine Glucose (UA) 50 mg/dL (Negative) 06/08/16 05:13 Urine Ketones Neg mg/dL (Negative) 06/08/16 05:13 Urine Blood Neg (Negative) 06/08/16 05:13 Urine Nitrite Neg (Negative) 06/08/16 05:13 Urine Bilirubin Neg (Negative) 06/08/16 05:13 Urine Urobilinogen < 2.0 mg/dL (<2.0) 06/08/16 05:13 Ur Leukocyte Esterase Neg (Negative) 06/08/16 05:13 Urine WBC (Auto) 3.0 /HPF (0.0-6.0) 06/08/16 05:13 Urine RBC (Auto) 3.0 /HPF (0.0-6.0) 06/08/16 05:13 U Epithel Cells (Auto) < 1.0 /HPF (0-13.0) 06/08/16 05:13 Urine Mucus Few /HPF 06/08/16 05:13 Urine Sperm 3+ /HPF (SCREW DOWN) 06/08/16 05:13 Blood Type O NEGATIVE 06/09/16 12:45
--- NOTE | 2016-06-11 14:21 | Progress Note ---
Assessment and Plan Assessment: End-stage renal disease on hemodialysis Cholecystitis s/p CT guided placement of cholecystostomy tube (Jun 09) Nephrolithiasis - nonobstructing stone Atrial fibrillation Anemia secondary to ESRD Secondary hyperparathyroidism Plan: Hemodialysis per TTS schedule UF as tolerated Abx per primary team General surgery following Epogen with dialysis Diet per surgery/primary team Subjective Date of service: 06/11/16 Interval history: Patient has no complaints. Denies n/v. Wants to advance diet. Objective - Vital Signs Vital signs: Vital Signs - 12hr 06/11/16 06/11/16 06/11/16 08:00 11:45 11:46 Temperature 97.3 F L Pulse Rate [ 97 H Apical] Respiratory 18 Rate Blood Pressure 120/66 120/66 Blood Pressure 120/66 [Right Arm] O2 Sat by Pulse 98 Oximetry - General Appearance General appearance: well-developed, well-nourished EENT: ATNC Respiratory: Present: Clear to Ascultation Cardiology: regular, S1S2 Gastrointestinal: hypoactive bowel sounds Integumentary: no rash Neurologic: no focal deficit Psychiatric: mood/affect appropriate, cooperative - Lab 06/10/16 09:09 06/11/16 04:09 Most recent lab results Calcium 8.9 mg/dL (8.4-10.2) 06/11/16 04:09 Phosphorus 4.0 mg/dL (2.5-4.5) 06/07/16 07:56 Magnesium 1.7 mg/dL (1.7-2.3) 06/07/16 07:56
[2016-06-11] MEDS: VITAMIN C PO SCH (14:39)
[2016-06-11] MEDS: COUMADIN PO SCH (18:50)
[2016-06-11] MEDS: NACL 0.9% 1000 ML 1,000 ML IV SCH (18:53)
[2016-06-11] MEDS: LEVEMIR SUB-Q SCH (21:56)
[2016-06-11] MEDS: DESYREL PO SCH (21:58)
[2016-06-11] MEDS: MINIPRESS PO SCH (21:58)
[2016-06-12 06:18] LABS: INR 2.01 (0.87-1.13)
[2016-06-12] MEDS: DEMADEX PO SCH ×2 (06:39→19:57)
[2016-06-12] MEDS: NOVOLOG SUB-Q SCH ×3 (08:00→18:56)
[2016-06-12] MEDS: NEURONTIN PO SCH ×3 (08:35→21:00)
[2016-06-12] MEDS: LEVAQUIN 500MG/100ML 500 MG/100 ML BAG IV SCH (10:01)
[2016-06-12] MEDS: PROzac PO SCH (10:02)
[2016-06-12] MEDS: IMDUR PO SCH (10:02)
[2016-06-12] MEDS: NORVASC PO SCH (10:03)
[2016-06-12] MEDS: ZESTRIL PO SCH (10:03)
[2016-06-12] MEDS: COLACE PO SCH ×2 (10:03→21:50)
[2016-06-12] MEDS: FLOMAX PO SCH (10:03)
[2016-06-12] MEDS: VITAMIN C PO SCH (10:03)
[2016-06-12] MEDS: BABY ASPIRIN PO SCH (10:03)
--- NOTE | 2016-06-12 10:05 | Progress Note ---
Assessment and Plan Assessment: End-stage renal disease on hemodialysis Cholecystitis s/p CT guided placement of cholecystostomy tube (Jun 09) Nephrolithiasis - nonobstructing stone Atrial fibrillation Anemia secondary to ESRD Secondary hyperparathyroidism Plan: Will change HD schedule to MWF - outpatient schedule UF as tolerated Abx per primary team General surgery following Epogen with dialysis Diet per surgery/primary team Subjective Date of service: 06/12/16 Interval history: Patient has no complaints. Tolerating po. Objective - Vital Signs Vital signs: Vital Signs - 12hr 06/11/16 06/12/16 06/12/16 23:54 06:35 07:00 Temperature 98.6 F 98.7 F Pulse Rate [ 92 H Apical] Pulse Rate [ 86 68 From Monitor] Respiratory 18 20 Rate Blood Pressure 132/63 125/58 98/63 [Right Arm] O2 Sat by Pulse 97 97 Oximetry - General Appearance General appearance: well-developed, well-nourished EENT: ATNC Respiratory: Present: Clear to Ascultation Cardiology: regular, S1S2 Gastrointestinal: normal Integumentary: no rash Neurologic: no focal deficit Psychiatric: mood/affect appropriate, cooperative - Lab 06/13/16 04:17 06/13/16 04:17 Most recent lab results Calcium 8.9 mg/dL (8.4-10.2) 06/11/16 04:09 Phosphorus 4.0 mg/dL (2.5-4.5) 06/07/16 07:56 Magnesium 1.7 mg/dL (1.7-2.3) 06/07/16 07:56
[2016-06-12] MEDS ORDERED: NACL 0.9% 1000 ML 100 ML IV PRN (11:09)
--- NOTE | 2016-06-12 13:12 | Progress Note ---
Assessment and Plan Pt currently in dialysis. Resting comfortably speaking on phone and watching TV. Had episode of nausea yest but states has felt fine since. abel cl liq. denies any abd pain. Abd soft, non tender. Cholecystostomy tube functioning well surgically stable will attempt full liq low fat ADA diet Selected Entries 06/12/16 06/12/16 06/12/16 07:00 11:30 11:45 Temperature 98 F Respiratory 16 Rate Blood Pressure 102/63 Blood Pressure 98/63 [Right Arm] Laboratory Tests 06/10/16 06/11/16 06/12/16 09:09 04:09 04:55 WBC 5.1 Hgb 10.2 L Hct 32.5 L PT 22.8 H INR 2.01 H Sodium 139 Potassium 3.8 Chloride 95.6 L Carbon Dioxide 29 Anion Gap 18 Objective Vital Signs - 12hr 06/12/16 06/12/16 06/12/16 06:35 07:00 11:30 Temperature 98.7 F 98 F Pulse Rate 90 Pulse Rate [ 92 H Apical] Pulse Rate [ 68 From Monitor] Respiratory 20 16 Rate Blood Pressure 109/62 Blood Pressure 125/58 98/63 [Right Arm] O2 Sat by Pulse 97 Oximetry 06/12/16 06/12/16 06/12/16 11:40 11:45 12:00 Temperature Pulse Rate 81 68 68 Pulse Rate [ Apical] Pulse Rate [ From Monitor] Respiratory Rate Blood Pressure 117/51 102/63 117/60 Blood Pressure [Right Arm] O2 Sat by Pulse Oximetry 06/12/16 06/12/16 06/12/16 12:15 12:30 12:45 Temperature Pulse Rate 68 70 68 Pulse Rate [ Apical] Pulse Rate [ From Monitor] Respiratory Rate Blood Pressure 122/63 115/71 114/60 Blood Pressure [Right Arm] O2 Sat by Pulse Oximetry 06/12/16 13:00 Temperature Pulse Rate 70 Pulse Rate [ Apical] Pulse Rate [ From Monitor] Respiratory Rate Blood Pressure 96/52 Blood Pressure [Right Arm] O2 Sat by Pulse Oximetry - Labs 06/10/16 09:09 06/11/16 04:09
[2016-06-12] MEDS: PROCRIT IV PRN (14:40)
--- NOTE | 2016-06-12 16:12 | Progress Note ---
Assessment and Plan Assessment and plan: 66M w who presents with Right sided flank pain, found to have nephrolithiasis 1. Cholecystitis CT abdomen showing enlarged gallbladder, with thickened wall and single calculus RUQ US again shows markedly thickened GB wall with calculi, and HIDA scan shows cystic duct obstruction Consult surgery appreciated, due to high surgical risk, he had percutaneous cholecystostomy 06/09/16 clilnically improving, cw IV abx, advance diet 2. CAD/ s/p CABG Continue BB, ACEI, aspirin and statin 3. Atrial flutter On amiodarone for rate control and anticoagulated with warfarin (was hold for procedure, will restart tomorrow) Status post recent cardioversion at [place] and currently on NSR 4. Hypertension continue BP meds 5. Diabetes continue insulins 6. Hyperlipidemia Continue statin 7. ESRD on HD cotninue HD per nephrology 8. Anemia of chronic kidney disease Epogen with HD per nephrology 9. Nephrolithiasis finding on CT abdomen of 3 mm calculus right UP junction Urology consult appreciated, it is non obstructive and unlikely to be the cause of pain 10. Obesity Concern regarding importance of losing weight and lifestyle changes, patient counseled History Interval history: RUQ pain and nausea and nausea are now resolved Hospitalist Physical - Physical exam Narrative exam: General: Patient appears well in no distress HEENT: MMM, EOMI cardiac: S1-S2 heard lungs: clear to auscultation, abdomen: RUQ drain noted, Non tender, non distended, BS+ extremities: no edema clubbing or cyanosis Skin: no rash or lesion Neuro: no focal deficit Psych: appropriate behavior and mood, cognition intact - Constitutional Vitals: Temp Pulse Resp BP Pulse Ox 98 F 75 16 133/62 97 06/12/16 11:30 06/12/16 15:30 06/12/16 11:30 06/12/16 15:30 06/12/16 07:00 General appearance: Present: no acute distress, obese Results - Labs CBC & Chem 7: 06/10/16 09:09 06/11/16 04:09 Labs: Laboratory Last Values WBC 5.1 K/mm3 (4.5-11.0) 06/10/16 09:09 RBC 3.67 M/mm3 (3.65-5.03) 06/10/16 09:09 Hgb 10.2 gm/dl (11.8-15.2) L 06/10/16 09:09 Hct 32.5 % (35.5-45.6) L 06/10/16 09:09 MCV 89 fl (84-94) 06/10/16 09:09 MCH 28 pg (28-32) 06/10/16 09:09 MCHC 31 % (32-34) L 06/10/16 09:09 RDW 20.1 % (13.2-15.2) H 06/10/16 09:09 Plt Count 132 K/mm3 (140-440) L 06/10/16 09:09 Lymph % (Auto) 20.1 % (13.4-35.0) 06/10/16 09:09 [place] % (Auto) 5.9 % (0.0-7.3) 06/10/16 09:09 Eos % (Auto) 1.9 % (0.0-4.3) 06/10/16 09:09 Baso % (Auto) 0.7 % (0.0-1.8) 06/10/16 09:09 Lymph # 1.0 K/mm3 (1.2-5.4) L 06/10/16 09:09 [place] # 0.3 K/mm3 (0.0-0.8) 06/10/16 09:09 Eos # 0.1 K/mm3 (0.0-0.4) 06/10/16 09:09 Baso # 0.0 K/mm3 (0.0-0.1) 06/10/16 09:09 Seg Neutrophils % 71.4 % (40.0-70.0) H 06/10/16 09:09 Seg Neutrophils # 3.7 K/mm3 (1.8-7.7) 06/10/16 09:09 PT 22.8 Sec. (12.2-14.9) H 06/12/16 04:55 INR 2.01 (0.87-1.13) H 06/12/16 04:55 APTT 41.7 Sec. (24.2-36.6) H 06/07/16 10:25 POC ABG pH 7.422 (7.35-7.45) 06/07/16 11:19 POC ABG pCO2 37.0 (35-45) 06/07/16 11:19 POC ABG pO2 83 (80-105) 06/07/16 11:19 POC ABG HCO3 24.1 06/07/16 11:19 POC ABG Total CO2 25 06/07/16 11:19 POC ABG O2 Sat 96 06/07/16 11:19 POC ABG Base Excess 0 06/07/16 11:19 FiO2 28 % 06/07/16 11:19 Sodium 139 mmol/L (137-145) 06/11/16 04:09 Potassium 3.8 mmol/L (3.6-5.0) 06/11/16 04:09 Chloride 95.6 mmol/L (98-107) L 06/11/16 04:09 Carbon Dioxide 29 mmol/L (22-30) 06/11/16 04:09 Anion Gap 18 mmol/L 06/11/16 04:09 BUN 15 mg/dL (9-20) 06/11/16 04:09 Creatinine 3.0 mg/dL (0.8-1.5) H 06/11/16 04:09 Estimated GFR 25 ml/min 06/11/16 04:09 BUN/Creatinine Ratio 5.00 % 06/11/16 04:09 Glucose 117 mg/dL (75-100) H 06/11/16 04:09 POC Glucose 101 (70-105) 06/12/16 06:33 Calcium 8.9 mg/dL (8.4-10.2) 06/11/16 04:09 Phosphorus 4.0 mg/dL (2.5-4.5) 06/07/16 07:56 Magnesium 1.7 mg/dL (1.7-2.3) 06/07/16 07:56 Total Bilirubin 0.8 mg/dL (0.1-1.2) 06/07/16 07:56 Direct Bilirubin 0.4 mg/dL (0-0.2) H 06/07/16 07:56 Indirect Bilirubin 0.4 mg/dL 06/07/16 07:56 AST 15 units/L (5-40) 06/07/16 07:56 ALT 18 units/L (7-56) 06/07/16 07:56 Alkaline Phosphatase 247 units/L (35-129) H 06/07/16 07:56 Troponin T 0.058 ng/mL (0.00-0.029) H 06/07/16 13:36 NT-Pro-B Natriuret Pep 03854 pg/mL (0-900) H 06/07/16 07:56 Total Protein 6.6 g/dL (6.3-8.2) 06/07/16 07:56 Albumin 3.8 g/dL (3.9-5) L 06/07/16 07:56 Albumin/Globulin Ratio 1.4 % 06/07/16 07:56 Triglycerides 83 mg/dL (2-149) 06/07/16 07:56 Cholesterol 118 mg/dL (50-199) 06/07/16 07:56 LDL Cholesterol Direct 70 mg/dL (50-130) 06/07/16 07:56 HDL Cholesterol 32 mg/dL (40-59) L 06/07/16 07:56 Cholesterol/HDL Ratio 3.68 % 06/07/16 07:56 Amylase 33 units/L (27-131) 06/07/16 18:39 Urine Color Yellow (Yellow) 06/08/16 05:13 Urine Turbidity Clear (Clear) 06/08/16 05:13 Urine pH 5.0 (5.0-7.0) 06/08/16 05:13 Ur Specific [place] 1.013 (1.003-1.030) 06/08/16 05:13 Urine Protein 100 mg/dl mg/dL (Negative) 06/08/16 05:13 Urine Glucose (UA) 50 mg/dL (Negative) 06/08/16 05:13 Urine Ketones Neg mg/dL (Negative) 06/08/16 05:13 Urine Blood Neg (Negative) 06/08/16 05:13 Urine Nitrite Neg (Negative) 06/08/16 05:13 Urine Bilirubin Neg (Negative) 06/08/16 05:13 Urine Urobilinogen < 2.0 mg/dL (<2.0) 06/08/16 05:13 Ur Leukocyte Esterase Neg (Negative) 06/08/16 05:13 Urine WBC (Auto) 3.0 /HPF (0.0-6.0) 06/08/16 05:13 Urine RBC (Auto) 3.0 /HPF (0.0-6.0) 06/08/16 05:13 U Epithel Cells (Auto) < 1.0 /HPF (0-13.0) 06/08/16 05:13 Urine Mucus Few /HPF 06/08/16 05:13 Urine Sperm 3+ /HPF (LITER[employer]Y CONSULTANT) 06/08/16 05:13 Blood Type O NEGATIVE 06/09/16 12:45
[2016-06-12] MEDS: COUMADIN PO SCH (18:44)
[2016-06-12] MEDS: LEVEMIR SUB-Q SCH (21:51)
[2016-06-12] MEDS: DESYREL PO SCH (21:51)
[2016-06-12] MEDS: MINIPRESS PO SCH (22:00)
[2016-06-13 05:03] LABS: Basophils % (Auto) 0.7 % (0.0-1.8); Eosinophils % (Auto) 1.6 % (0.0-4.3); Hematocrit 37.4 % (35.5-45.6); Hemoglobin 11.9 gm/dl (11.8-15.2); Mean Corpuscular HGB Conc 32 % (32-34); Mean Corpuscular Hemoglobin 28 pg (28-32); Mean Corpuscular Volume 89 fl (84-94); Platelet Count 140 K/mm3 (140-440); White Blood Count 6.1 K/mm3 (4.5-11.0)
[2016-06-13 05:12] LABS: Red Cell Distribution Width 20.1 % (13.2-15.2)
[2016-06-13 05:16] LABS: INR 1.73 (0.87-1.13)
[2016-06-13 05:26] LABS: Albumin 3.5 g/dL (3.9-5); Albumin/Globulin Ratio 1.3 %; BUN/Creatinine Ratio 3.61; Bilirubin,Total 0.7 mg/dL (0.1-1.2); Chloride 96.6 mmol/L (98-107); Potassium 4.3 mmol/L (3.6-5.0); Total Protein 6.2 g/dL (6.3-8.2)
[2016-06-13] MEDS: DEMADEX PO SCH ×2 (06:05→17:20)
[2016-06-13] MEDS: NOVOLOG SUB-Q SCH ×5 (08:00→22:00)
--- NOTE | 2016-06-13 08:43 | Progress Note ---
Assessment and Plan Assessment: End-stage renal disease on hemodialysis Cholecystitis s/p CT guided placement of cholecystostomy tube (Jun 09) Nephrolithiasis - nonobstructing stone Atrial fibrillation Anemia secondary to ESRD Secondary hyperparathyroidism Plan: Continue HD MWF - outpatient schedule UF as tolerated Abx per primary team General surgery following Epogen with dialysis Diet per surgery/primary team Subjective Date of service: 06/13/16 Interval history: Patient has no complaint. Tolerating po. Objective - Vital Signs Vital signs: Vital Signs - 12hr 06/12/16 06/12/16 06/13/16 22:00 23:00 06:55 Temperature 98.8 F 98.9 F Pulse Rate 91 H Pulse Rate [ 91 H Radial] Pulse Rate [ 91 H 67 Right] Respiratory 18 18 16 Rate Blood Pressure 105/55 Blood Pressure 105/55 129/59 [Right Arm] O2 Sat by Pulse 98 100 Oximetry - General Appearance General appearance: well-developed, well-nourished EENT: ATNC Respiratory: Present: Clear to Ascultation Cardiology: regular, S1S2 Gastrointestinal: other (cholecystostomy tube) Integumentary: no rash Neurologic: no focal deficit Psychiatric: cooperative - Lab 06/13/16 04:17 06/13/16 04:17 Most recent lab results Calcium 9.0 mg/dL (8.4-10.2) 06/13/16 04:17 Phosphorus 4.0 mg/dL (2.5-4.5) 06/07/16 07:56 Magnesium 1.7 mg/dL (1.7-2.3) 06/07/16 07:56
[2016-06-13] MEDS: NEURONTIN PO SCH ×3 (09:01→21:36)
[2016-06-13] MEDS: COLACE PO SCH ×2 (10:36→21:37)
[2016-06-13] MEDS: VITAMIN C PO SCH (10:36)
[2016-06-13] MEDS: BABY ASPIRIN PO SCH (10:36)
[2016-06-13] MEDS: PROzac PO SCH (10:36)
[2016-06-13] MEDS: IMDUR PO SCH (10:36)
[2016-06-13] MEDS: FLOMAX PO SCH (10:37)
[2016-06-13] MEDS: NORVASC PO SCH (10:49)
[2016-06-13] MEDS: ZESTRIL PO SCH (10:49)
--- NOTE | 2016-06-13 13:07 | Progress Note ---
Assessment and Plan Pt feeling well without compl. abel full liq diet Abd soft non tender stable advance to solid low fat ADA diet as abel Selected Entries 06/13/16 06/13/16 06:55 10:49 Temperature 98.9 F Pulse Rate [ 67 Right] Respiratory 16 Rate Blood Pressure 120/68 Laboratory Tests 06/13/16 06/13/16 06/13/16 04:17 04:17 04:17 WBC 6.1 Hgb 11.9 Hct 37.4 PT 20.2 H INR 1.73 H Sodium 139 Potassium 4.3 Chloride 96.6 L Carbon Dioxide 29 BUN 13 Creatinine 3.6 H Glucose 143 H Objective Vital Signs - 12hr 06/13/16 06/13/16 06:55 10:49 Temperature 98.9 F Pulse Rate [ 67 Right] Respiratory 16 Rate Blood Pressure 120/68 Blood Pressure 129/59 [Right Arm] O2 Sat by Pulse 100 Oximetry - Labs 06/13/16 04:17 06/13/16 04:17 Diabetes panel 06/13/16 Range/Units 04:17 Sodium 139 (137-145) mmol/L Potassium 4.3 (3.6-5.0) mmol/L Chloride 96.6 L (98-107) mmol/L Carbon Dioxide 29 (22-30) mmol/L BUN 13 (9-20) mg/dL Creatinine 3.6 H (0.8-1.5) mg/dL Glucose 143 H (75-100) mg/dL Calcium 9.0 (8.4-10.2) mg/dL AST 16 (5-40) units/L ALT 13 (7-56) units/L Alkaline Phosphatase 213 H (35-129) units/L Total Protein 6.2 L (6.3-8.2) g/dL Albumin 3.5 L (3.9-5) g/dL Calcium panel 06/13/16 Range/Units 04:17 Calcium 9.0 (8.4-10.2) mg/dL Albumin 3.5 L (3.9-5) g/dL Pituitary panel 06/13/16 Range/Units 04:17 Sodium 139 (137-145) mmol/L Potassium 4.3 (3.6-5.0) mmol/L Chloride 96.6 L (98-107) mmol/L Carbon Dioxide 29 (22-30) mmol/L BUN 13 (9-20) mg/dL Creatinine 3.6 H (0.8-1.5) mg/dL Glucose 143 H (75-100) mg/dL Calcium 9.0 (8.4-10.2) mg/dL Adrenal panel 06/13/16 Range/Units 04:17 Sodium 139 (137-145) mmol/L Potassium 4.3 (3.6-5.0) mmol/L Chloride 96.6 L (98-107) mmol/L Carbon Dioxide 29 (22-30) mmol/L BUN 13 (9-20) mg/dL Creatinine 3.6 H (0.8-1.5) mg/dL Glucose 143 H (75-100) mg/dL Calcium 9.0 (8.4-10.2) mg/dL Total Bilirubin 0.7 (0.1-1.2) mg/dL AST 16 (5-40) units/L ALT 13 (7-56) units/L Alkaline Phosphatase 213 H (35-129) units/L Total Protein 6.2 L (6.3-8.2) g/dL Albumin 3.5 L (3.9-5) g/dL
[2016-06-13] MEDS: ZEBETA PO SCH (13:56)
[2016-06-13] MEDS: NON-FORMULARY (Duloxetine Hcl [Cymbalta] 20 MG) PO SCH (13:56)
--- NOTE | 2016-06-13 14:13 | Progress Note ---
Assessment and Plan Assessment and Plan 1. Cholecystitis s/p percutaneou cholecystostomy: Presently on IV antibiotics, advance to solid low fat diet. 2. Chronic A. fib-rate controlled: Presently on amiodarone and warfarin for anticoagulation. 3. CAD status post CABG: Presently on aspirin and statin. 4. Hypertension: Continue with antihypertensive meds. 5. Hyperlipidemia: Continue with statin. 6. Diabetes mellitus: Continue with sliding scale insulin. 7. End-stage renal disease: Continue with hemodialysis. 8. Nephrolithiasis: Urologist following. Subjective Date of service: 06/13/16 Principal diagnosis: Cholecystitis, CAD, Chronic A-fib Interval history: Patient is s/p percutaneous choleccystostomy, right flank pain improving. Objective - Constitutional Vitals: Vital Signs - 12hr 06/13/16 06/13/16 06:55 10:49 Temperature 98.9 F Pulse Rate [ 67 Right] Respiratory 16 Rate Blood Pressure 120/68 Blood Pressure 129/59 [Right Arm] O2 Sat by Pulse 100 Oximetry General appearance: Present: no acute distress, well-nourished - EENT Eyes: PERRL, EOM intact ENT: hearing intact, clear oral mucosa Ears: bilateral: normal - Neck Neck: supple, normal ROM - Respiratory Respiratory effort: normal Respiratory: bilateral: CTA - Breasts Breasts: normal - Cardiovascular Rhythm: regular Heart Sounds: Present: S1 & S2. Absent: gallop, rub Extremities: pulses intact, No edema, normal color, Full ROM - Gastrointestinal General gastrointestinal: Present: soft, non-tender, non-distended, normal bowel sounds - Genitourinary Male genitourinary: normal - Integumentary Integumentary: clear, warm, dry - Musculoskeletal Musculoskeletal: 1, strength equal bilaterally - Neurologic Neurologic: moves all extremities - Psychiatric Psychiatric: memory intact, appropriate mood/affect, intact judgment & insight - Labs CBC & Chem 7: 06/13/16 04:17 06/13/16 04:17 Labs: Abnormal lab results 06/12/16 06/13/16 06/13/16 Range/Units 20:55 04:17 04:17 RDW 20.1 H (13.2-15.2) % [place] % (Auto) 7.9 H (0.0-7.3) % PT 20.2 H (12.2-14.9) Sec. INR 1.73 H (0.87-1.13) Chloride (98-107) mmol/L Creatinine (0.8-1.5) mg/dL Glucose (75-100) mg/dL POC Glucose 140 H (70-105) Alkaline Phosphatase (35-129) units/L Total Protein (6.3-8.2) g/dL Albumin (3.9-5) g/dL 06/13/16 06/13/16 06/13/16 Range/Units 04:17 06:38 12:33 RDW (13.2-15.2) % [place] % (Auto) (0.0-7.3) % PT (12.2-14.9) Sec. INR (0.87-1.13) Chloride 96.6 L (98-107) mmol/L Creatinine 3.6 H (0.8-1.5) mg/dL Glucose 143 H (75-100) mg/dL POC Glucose 129 H 174 H (70-105) Alkaline Phosphatase 213 H (35-129) units/L Total Protein 6.2 L (6.3-8.2) g/dL Albumin 3.5 L (3.9-5) g/dL
[2016-06-13] MEDS ORDERED: COUMADIN PO SCH ×2 (17:00)
[2016-06-13] MEDS: DESYREL PO SCH (21:36)
[2016-06-13] MEDS: MINIPRESS PO SCH (21:37)
[2016-06-13] MEDS: LEVEMIR SUB-Q SCH (21:38)
[2016-06-14 05:59] LABS: INR 1.75 (0.87-1.13)
[2016-06-14] MEDS: NEURONTIN PO SCH ×2 (08:00→15:32)
--- NOTE | 2016-06-14 09:03 | Progress Note ---
Assessment and Plan Assessment: End-stage renal disease on hemodialysis Cholecystitis s/p CT guided placement of cholecystostomy tube (Jun 09) Nephrolithiasis - nonobstructing stone Atrial fibrillation Anemia secondary to ESRD Secondary hyperparathyroidism Plan: Continue HD MWF - outpatient schedule UF as tolerated Abx per primary team General surgery following Epogen with dialysis Diet per surgery/primary team AM labs are pending Subjective Principal diagnosis: Cholecystitis, CAD, Chronic A-fib Objective - Vital Signs Vital signs: Vital Signs - 12hr 06/13/16 23:00 Temperature 98.4 F Pulse Rate [ 64 Right] Respiratory 20 Rate Blood Pressure 115/63 [Right Arm] O2 Sat by Pulse 97 Oximetry - General Appearance General appearance: well-developed, well-nourished EENT: ATNC Respiratory: Present: Clear to Ascultation Cardiology: irregular Gastrointestinal: no tenderness, no distended, other (cholecystostomy tube) Integumentary: no rash Neurologic: no focal deficit Psychiatric: mood/affect appropriate, cooperative - Lab 06/13/16 04:17 06/13/16 04:17 Most recent lab results Calcium 9.0 mg/dL (8.4-10.2) 06/13/16 04:17 Phosphorus 4.0 mg/dL (2.5-4.5) 06/07/16 07:56 Magnesium 1.7 mg/dL (1.7-2.3) 06/07/16 07:56
[2016-06-14] MEDS: PROCRIT IV PRN (11:10)
[2016-06-14] MEDS: NOVOLOG SUB-Q SCH (11:30)
--- NOTE | 2016-06-14 12:27 | Discharge Summary ---
Providers - Providers Date of Admission: 06/07/16 13:09 Date of discharge: 06/14/16 Attending physician: MALINA LANDIS 06/07/16 14:57 Consult to Physician [CONS] Routine Consulting Provider: LARY MORALES Reason For Exam: cholelithiasis Place consult to:: surgery injection molding engineer Notified:: office Phone number called:: [phone] Was contact made?: Yes If yes, spoke with:: ramo Time called:: 15:29 06/08/16 09:51 Consult to Physician [CONS] Routine Consulting Provider: CODY VILLA Reason For Exam: Nephrolithiasis Place consult to:: Notified:: OFFICE Phone number called:: [phone] Was contact made?: Yes If yes, spoke with:: KUSH Time called:: 09:59 Comment:: CONSULT COMPLETED -FRANKIE 06/08/16 09:56 Consult to Physician [CONS] Routine Consulting Provider: RACH CABRAL Reason For Exam: ESRD Place consult to:: Notified:: DR. CABRAL Was contact made?: Yes If yes, spoke with:: DR. CABRAL Time called:: 10:02 Comment:: CONSULT COMPLETED - FRANKIE 06/09/16 13:13 Consult to Physician [CONS] Routine Consulting Provider: JUDIT GAFFNEY Reason For Exam: cholecystostomy tube Place consult to:: DESHAWN Notified:: DESHAWN Phone number called:: IN HOUSE Was contact made?: Yes If yes, spoke with:: DESHAWN Time called:: 13:49 Comment:: HOMAR SPOKE WITH SHIRLEY Primary care physician: MOBILE HEAVY EQUIPMENT MECHANIC Hospitalization Reason for admission: abdominal pain, cholecystitis, Condition: Stable Pertinent studies: CT scan of abdomen and pelvis showed enlarged thick walled gallbladder with single calculus within the gallbladder and 3 mm calculus right UP junction, right upper quadrant ultrasound showed markedly thick walled gallbladder with multiple calculi, HIDA scan showed cystic duct obstruction, no obstruction of the common bile duct. Chest x-ray showed minimal cardiopulmonary vascular redistribution or fluid overload developing. Procedures: Percutaneous cholecystostomy Hospital course: Patient is 66-year-old -[place] male who has a history of coronary artery disease status post CABG, hypertension and station is hemodialysis presented with right upper quadrant pain. Associated with nausea vomiting. Denies any fever no chest or diarrhea. CT scan of abdomen and pelvis was suggestive of cholecystitis. Surgical consult was obtained. After evaluation they were of the view that patient could be managed conservatively. He was therefore continued IV and Plavix. Nausea vomiting resolved. Nephrology consult engaged from admission to continue patient's hemodialysis. Disposition: DISCHARGED TO HOME OR SELFCARE Core Measure Documentation - Palliative Care Palliative Care/ Comfort Measures: Not Applicable - Core Measures Any of the following diagnoses?: none Exam - Constitutional Vitals: Temp Pulse Resp BP Pulse Ox 98.2 F 67 20 106/67 98 06/14/16 10:00 06/14/16 11:30 06/14/16 10:00 06/14/16 11:30 06/14/16 07:40 General appearance: Present: no acute distress, well-nourished - EENT Eyes: Present: PERRL ENT: hearing intact, clear oral mucosa - Neck Neck: Present: supple, normal ROM - Respiratory Respiratory effort: normal Respiratory: bilateral: CTA - Cardiovascular Heart Sounds: Present: S1 & S2. Absent: rub, click - Extremities Extremities: pulses symmetrical, No edema Peripheral Pulses: within normal limits - Abdominal General gastrointestinal: Present: soft, non-tender, non-distended, normal bowel sounds Male genitourinary: Present: normal - Integumentary Integumentary: Present: clear, warm, dry - Musculoskeletal Musculoskeletal: gait normal, strength equal bilaterally - Psychiatric Psychiatric: appropriate mood/affect, intact judgment & insight - Neurologic Neurologic: CNII-XII intact, moves all extremities Plan Activity: advance as tolerated Diet: low fat, low cholesterol, low salt Special Instructions: record daily BP diary Follow up with: PRIMARY CARE, [Primary Care Provider] - 3-5 Days Forms: Warfarin Discharge Instruction Prescriptions: Aspirin [Aspirin BABY CHEW TAB] 81 mg PO QDAY #30 tab.chew AtorvaSTATin [Lipitor] 80 mg PO QDAY #30 tablet Insulin Glargine [Lantus VIAL] 20 units SUB-Q HS #100 units ISOSORBIDE MONOnitrate [Imdur ER] 30 mg PO QDAY #30 tablet Lisinopril [Zestril TAB] 40 mg PO QDAY #30 tablet Warfarin [Coumadin] 7.5 mg PO DAILY #30 tablet
--- NOTE | 2016-06-14 13:30 | Progress Note ---
Assessment and Plan Pt currently undergoing dialysis. Doing well, no compl. abel solid diet Abd soft, non tender surgically stable may d/c from gen surg perspective on solid low fat ADA diet rto this Sunday. Pt will need semi-elective cholecystectomy in near future once acute inflammation subsides Objective Vital Signs - 12hr 06/14/16 06/14/16 06/14/16 07:40 10:00 10:15 Temperature 98.6 F 98.2 F Pulse Rate 71 77 Pulse Rate [ 66 Right] Respiratory 16 20 Rate Blood Pressure 101/60 108/53 Blood Pressure 107/60 [Right Arm] O2 Sat by Pulse 98 Oximetry 06/14/16 06/14/16 06/14/16 10:30 10:45 11:00 Temperature Pulse Rate 86 86 73 Pulse Rate [ Right] Respiratory Rate Blood Pressure 114/64 114/64 111/57 Blood Pressure [Right Arm] O2 Sat by Pulse Oximetry 06/14/16 06/14/16 11:15 11:30 Temperature Pulse Rate 67 67 Pulse Rate [ Right] Respiratory Rate Blood Pressure 122/70 106/67 Blood Pressure [Right Arm] O2 Sat by Pulse Oximetry - Labs 06/13/16 04:17 06/13/16 04:17
[2016-06-14 14:43] VITALS: BP 138/62
[2016-06-14] MEDS: FLOMAX PO SCH (15:32)
[2016-06-14] MEDS: VITAMIN C PO SCH (15:32)
[2016-06-14] MEDS: NORVASC PO SCH (15:33)
[2016-06-14] MEDS: ZEBETA PO SCH (15:33)
[2016-06-14] MEDS: BABY ASPIRIN PO SCH (15:33)
[2016-06-14] MEDS: NON-FORMULARY (Duloxetine Hcl [Cymbalta] 20 MG) PO SCH (15:34)
[2016-06-14 15:48] LABS: Basophils % (Auto) 0.7 % (0.0-1.8); Eosinophils % (Auto) 1.6 % (0.0-4.3); Hematocrit 40.6 % (35.5-45.6); Hemoglobin 12.7 gm/dl (11.8-15.2); Mean Corpuscular HGB Conc 31 % (32-34); Mean Corpuscular Hemoglobin 28 pg (28-32); Mean Corpuscular Volume 88 fl (84-94); Platelet Count 171 K/mm3 (140-440); Red Cell Distribution Width 19.7 % (13.2-15.2)
[2016-06-14 15:56] LABS: BUN/Creatinine Ratio 3.91; Calcium 9.2 mg/dL (8.4-10.2); Chloride 90.8 mmol/L (98-107); Potassium 3.5 mmol/L (3.6-5.0)
[2016-06-14] MEDS: DEMADEX PO SCH (17:24)
[2016-06-14] MEDS: COUMADIN PO SCH (17:24)
[2016-06-15] MEDS ORDERED: COUMADIN PO SCH (17:00)
== END 2016-06-14 18:30 | disposition home or self-care (01) | DRG 444 ==
LOC: ED 07:41 → 3A 13:09
PROVIDERS: ADMIT Internal Medicine; ATTEND Family Medicine
PROC: 5A1D60Z (ICD-10-PCS; 2016-06-08)
PROC: 0F9430Z Drainage of Gallbladder with Drainage Device, Percutaneous Approach (ICD-10-PCS; principal; 2016-06-09)
DX: K80.00 Calculus of gallbladder with acute cholecystitis without obstruction (principal); N18.6 End stage renal disease; I12.0 Hypertensive chronic kidney disease with stage 5 chronic kidney disease or end stage renal disease; I48.92 Unspecified atrial flutter; I25.10 Atherosclerotic heart disease of native coronary artery without angina pectoris; E78.5 Hyperlipidemia, unspecified; E11.22 Type 2 diabetes mellitus with diabetic chronic kidney disease; D63.1 Anemia in chronic kidney disease; N20.0 Calculus of kidney; E66.01 Morbid (severe) obesity due to excess calories; I48.2 Chronic atrial fibrillation; Z82.49 Family history of ischemic heart disease and other diseases of the circulatory system; Z83.3 Family history of diabetes mellitus; Z68.34 Body mass index [BMI] 34.0-34.9, adult; Z80.8 Family history of malignant neoplasm of other organs or systems; Z95.1 Presence of aortocoronary bypass graft; Z79.4 Long term (current) use of insulin; Z79.01 Long term (current) use of anticoagulants; Z99.2 Dependence on renal dialysis
CPT/HCPCS: 10160; 36415; 71020; 74176; 76705; 77012; 78226; 80048; 80053; 80061; 80074; 81001; 82150; 82803; 82962; 83735; 83880; 84100; 84484; 85025; 85610; 85730; 86900; 86901; 86927; 87086; 87116; 93005; 93010; 94760; A9270-GY; A9537; C1769; J0885; J1815; J1818; J1956; J2250; J2405; J3010; J3430; J7030

== ENCOUNTER 2016-07-05 13:46 | Inpatient (IN) | payer MEDICARE ==
[2016-07-05 15:22] LABS: Basophils % (Auto) 0.2 % (0.0-1.8); Hematocrit 43.1 % (35.5-45.6); Hemoglobin 13.4 gm/dl (11.8-15.2); Mean Corpuscular HGB Conc 31 % (32-34); Mean Corpuscular Hemoglobin 28 pg (28-32); Mean Corpuscular Volume 89 fl (84-94); Platelet Count 129 K/mm3 (140-440); Red Blood Count 4.84 M/mm3 (3.65-5.03); White Blood Count 5.8 K/mm3 (4.5-11.0)
[2016-07-05 15:35] LABS: Albumin/Globulin Ratio 1.3 %; BUN/Creatinine Ratio 7.93; Bilirubin,Total 0.7 mg/dL (0.1-1.2); Calcium 9.3 mg/dL (8.4-10.2); Chloride 95.5 mmol/L (98-107); Potassium 3.9 mmol/L (3.6-5.0); Total Protein 7.1 g/dL (6.3-8.2)
[2016-07-05] MEDS ORDERED: MORPHINE IV ONE (16:50)
--- NOTE | 2016-07-05 16:51 | Emergency Department Report ---
ED General Adult HPI - General Chief complaint: Abdominal Pain Stated complaint: TUBE IN GALLBLADDER/PROBLEM Time Seen by Provider: 07/05/16 16:28 Source: patient, RN notes reviewed, old records reviewed Mode of arrival: Wheelchair Limitations: No Limitations - History of Present Illness Initial comments: This is a 66-year-old male. He is previously unknown to me. Has a past medical history of end-stage renal disease on dialysis, Sunday, Sunday, Sunday. His assistant accounting manager is Dr. Rojas, his last dialysis session was today. It was of normal length and duration. Patient recently admitted to the hospital for presumed cholecystitis. Patient was initially deemed not to be a surgical candidate, was managed conservatively , and had a percutaneous cholecystostomy tube placed on 06/09/2016. The patient followed up with his outpatient general surgeon, whom the patient informs me referred him to primary for further evaluation and management. Patient presents to the ER today complaining of abdominal pain, decreased output from the cholecystostomy tube. Abdominal pain is in the right upper quadrant, it has been present for a week. No vomiting, no fevers or chills, no chest pain, no shortness of breath. Patient reports that the cholecystostomy tube stopped draining yesterday. -: Gradual Location: abdomen Radiation: non-radiation Severity scale (0 -10): 6 Quality: aching Consistency: constant Improves with: rest Worsens with: movement Associated Symptoms: denies: confusion, chest pain, cough, diaphoresis, fever/ chills, headaches, shortness of breath, syncope, weakness - Related Data Home Medications Medication Instructions Recorded Confirmed Last Taken Gabapentin 300 mg PO BID 08/07/14 07/05/16 07/05/16 Torsemide [Demadex] 100 mg PO BID 08/07/14 07/05/16 07/05/16 Docusate Sodium [Colace CAP] 100 mg PO BID 01/29/15 07/05/16 07/05/16 Ascorbic Acid [Vitamin C] 500 mg PO QDAY 06/07/16 07/05/16 07/05/16 Benzonatate [Tessalon Perles] 100 mg PO Q8HR 06/07/16 07/05/16 07/05/16 Bisoprolol Fumarate [Zebeta] 5 mg PO DAILY 06/07/16 07/05/16 07/05/16 Duloxetine HCl [Cymbalta] 20 mg PO QDAY 06/07/16 07/05/16 07/05/16 FLUoxetine [PROzac] 10 mg PO QDAY 06/07/16 07/05/16 07/05/16 Prazosin [Minipress] 2 mg PO QHS 06/07/16 07/05/16 07/05/16 Tamsulosin [Flomax] 0.4 mg PO QDAY 06/07/16 07/05/16 07/05/16 guaiFENesin 400 mg PO Q8H 06/07/16 07/05/16 07/05/16 traZODone [Desyrel] 100 mg PO QHS 06/07/16 07/05/16 07/05/16 ISOSORBIDE MONOnitrate [Imdur ER] 60 mg PO QDAY 07/05/16 07/05/16 07/05/16 oxyCODONE /ACETAMINOPHEN [Percocet 1 tab PO Q6HR PRN 07/05/16 07/05/16 07/05/16 5/325] Previous Rx's Medication Instructions Recorded Last Taken Type Warfarin [Coumadin] 10 mg PO SuMoWeFr@1700 tablet 08/10/14 07/05/16 Rx Aspirin [Aspirin BABY CHEW TAB] 81 mg PO QDAY #30 tab.chew 06/14/16 07/05/16 Rx AtorvaSTATin [Lipitor] 80 mg PO QDAY #30 tablet 06/14/16 07/05/16 Rx Insulin Glargine [Lantus VIAL] 20 units SUB-Q HS #100 units 06/14/16 07/05/16 Rx Lisinopril [Zestril TAB] 40 mg PO QDAY #30 tablet 06/14/16 07/05/16 Rx Warfarin [Coumadin] 7.5 mg PO DAILY #30 tablet 06/14/16 07/05/16 Rx Allergies Allergy/AdvReac Type Severity Reaction Status Date / Time No Known Allergies Allergy Verified 07/05/16 14:28 ED Review of Systems ROS: Stated complaint: TUBE IN GALLBLADDER/PROBLEM Other details as noted in HPI Constitutional: denies: fever Eyes: denies: vision change ENT: denies: epistaxis Respiratory: denies: cough Cardiovascular: denies: chest pain Gastrointestinal: abdominal pain Genitourinary: denies: dysuria Musculoskeletal: denies: back pain Skin: denies: lesions Neurological: denies: headache Psychiatric: as per HPI ED Past Medical Hx - Past Medical History Hx Hypertension: Yes Hx Congestive Heart Failure: Yes Hx Diabetes: Yes Hx Renal Disease: Yes (CKD on dialysis --) Hx Psychiatric Treatment: Yes (DEPRESSION) Hx Asthma: No Hx COPD: No Hx Dementia: Yes Hx HIV: No Additional medical history: Atrial fibrillation. GALLSTONES - Surgical History Hx Coronary Stent: Yes Hx Open Heart Surgery: Yes (2011) Additional Surgical History: CABG, dialysis graft to left upper extremity. Valve surgery. R leg surgery. stent placed 2011 - led to open heart surgery - Social History Smoking Status: Never Smoker Substance Use Type: None - Medications Home Medications: Home Medications Medication Instructions Recorded Confirmed Last Taken Type Gabapentin 300 mg PO BID 08/07/14 07/05/16 07/05/16 History Torsemide [Demadex] 100 mg PO BID 08/07/14 07/05/16 07/05/16 History Warfarin [Coumadin] 10 mg PO SuMoWeFr@1700 tablet 08/10/14 07/05/16 07/05/16 Rx Docusate Sodium [Colace CAP] 100 mg PO BID 01/29/15 07/05/16 07/05/16 History Ascorbic Acid [Vitamin C] 500 mg PO QDAY 06/07/16 07/05/16 07/05/16 History Benzonatate [Tessalon Perles] 100 mg PO Q8HR 06/07/16 07/05/16 07/05/16 History Bisoprolol Fumarate [Zebeta] 5 mg PO DAILY 06/07/16 07/05/16 07/05/16 History Duloxetine HCl [Cymbalta] 20 mg PO QDAY 06/07/16 07/05/16 07/05/16 History FLUoxetine [PROzac] 10 mg PO QDAY 06/07/16 07/05/16 07/05/16 History Prazosin [Minipress] 2 mg PO QHS 06/07/16 07/05/16 07/05/16 History Tamsulosin [Flomax] 0.4 mg PO QDAY 06/07/16 07/05/16 07/05/16 History guaiFENesin 400 mg PO Q8H 06/07/16 07/05/16 07/05/16 History traZODone [Desyrel] 100 mg PO QHS 06/07/16 07/05/16 07/05/16 History Aspirin [Aspirin BABY CHEW TAB] 81 mg PO QDAY #30 tab.chew 06/14/16 07/05/16 Rx AtorvaSTATin [Lipitor] 80 mg PO QDAY #30 tablet 06/14/16 07/05/16 07/05/16 Rx Insulin Glargine [Lantus VIAL] 20 units SUB-Q HS #100 units 06/14/16 07/05/16 Rx Lisinopril [Zestril TAB] 40 mg PO QDAY #30 tablet 06/14/16 07/05/16 07/05/16 Rx Warfarin [Coumadin] 7.5 mg PO DAILY #30 tablet 06/14/16 07/05/16 07/05/16 Rx ISOSORBIDE MONOnitrate [Imdur ER] 60 mg PO QDAY 07/05/16 07/05/16 07/05/16 History oxyCODONE /ACETAMINOPHEN [Percocet 1 tab PO Q6HR PRN 07/05/16 07/05/16 07/05/16 History 5/325] ED Physical Exam - General Limitations: No Limitations General appearance: alert, in no apparent distress - Head Head exam: Present: atraumatic, normocephalic - Eye Eye exam: Present: normal appearance, EOMI. Absent: nystagmus - ENT ENT exam: Present: normal exam, normal orophraynx, mucous membranes moist, normal external ear exam - Neck Neck exam: Present: normal inspection, full ROM. Absent: tenderness, meningismus - Respiratory Respiratory exam: Present: normal lung sounds bilaterally. Absent: respiratory distress, wheezes, rales, rhonchi, stridor, decreased breath sounds - Cardiovascular Cardiovascular Exam: Present: regular rate, irregular rhythm, normal heart sounds. Absent: bradycardia, tachycardia, systolic murmur, diastolic murmur, rubs, gallop - GI/Abdominal GI/Abdominal exam: Present: soft, tenderness, normal bowel sounds, other (there is mild right upper quadrant pain. There is no rebound, guarding or peritoneal signs. There is a cholecystostomy tube noted in the right upper quadrant. Does not appear to be draining.). Absent: distended, guarding, rebound, rigid, pulsatile mass - Rectal Rectal exam: Present: deferred - Extremities Exam Extremities exam: Present: normal inspection, full ROM, normal capillary refill , other (there is a left upper extremity AV fistula, appropriate thrill.). Absent: tenderness, pedal edema, joint swelling, calf tenderness - Back Exam Back exam: Present: normal inspection, full ROM. Absent: tenderness, CVA tenderness (R), CVA tenderness (L), muscle spasm, paraspinal tenderness, vertebral tenderness - Neurological Exam Neurological exam: Present: alert, oriented X3, other (Extraocular movements intact. Tongue midline. No facial droop. Facial sensation intact to light touch in the V1, V2, V3 distribution bilaterally. 5 and 5 strength in 4 extremities.. Sensation is intact to light touch in 4 extremities.). Absent: motor sensory deficit - Psychiatric Psychiatric exam: Present: normal affect, normal mood - Skin Skin exam: Present: warm, dry, intact, normal color. Absent: rash ED Course Vital Signs 07/05/16 07/05/16 07/05/16 14:25 14:51 14:59 Temperature 98.7 F Pulse Rate 82 81 Pulse Rate [ Left] Respiratory 20 12 Rate Blood Pressure 115/60 111/55 Blood Pressure [Left Arm] Blood Pressure 111/55 [Right] O2 Sat by Pulse 100 99 100 Oximetry 07/05/16 07/05/16 07/05/16 15:00 15:30 16:00 Temperature Pulse Rate 81 67 76 Pulse Rate [ Left] Respiratory 13 14 19 Rate Blood Pressure 111/55 111/55 111/55 Blood Pressure [Left Arm] Blood Pressure [Right] O2 Sat by Pulse 100 100 99 Oximetry 07/05/16 07/05/16 07/05/16 16:30 17:00 17:40 Temperature Pulse Rate 73 65 77 Pulse Rate [ Left] Respiratory 19 13 11 L Rate Blood Pressure 115/60 115/60 112/60 Blood Pressure [Left Arm] Blood Pressure [Right] O2 Sat by Pulse 100 100 100 Oximetry 07/05/16 07/05/16 07/05/16 18:00 18:31 18:48 Temperature 98.5 F Pulse Rate 90 62 Pulse Rate [ 70 Left] Respiratory 13 14 18 Rate Blood Pressure 113/61 116/70 Blood Pressure 115/59 [Left Arm] Blood Pressure [Right] O2 Sat by Pulse 98 99 97 Oximetry 07/05/16 07/05/16 07/05/16 19:01 19:31 20:00 Temperature Pulse Rate 70 75 84 Pulse Rate [ Left] Respiratory 11 L 22 12 Rate Blood Pressure 116/63 116/63 123/81 Blood Pressure [Left Arm] Blood Pressure [Right] O2 Sat by Pulse 100 100 92 Oximetry 07/05/16 20:31 Temperature Pulse Rate 96 H Pulse Rate [ Left] Respiratory 15 Rate Blood Pressure 116/63 Blood Pressure [Left Arm] Blood Pressure [Right] O2 Sat by Pulse 97 Oximetry - Reevaluation(s) Reevaluation #1: 07/05/16 17:55 Differential diagnosis: Malposition of cholecystostomy tube, malfunction cholecystostomy tube, recurrent cholecystitis Assessment and plan: 66-year-old male with malfunction cholecystostomy tube. He is afebrile with reassuring vital signs. Does not appear to be draining at this time. Case is discussed with vascular/interventional surgery, Dr. Fulton, who recommends noncontrast CT scan of abdomen and pelvis to assess tube placement. Further recommendations based on CT scan will be made. Patient is afebrile with reassuring vital signs, clinically I don't think that he has an acute cholecystitis. His laboratory studies are reviewed, and appreciated, there appeared to be at baseline. Reevaluation #2: 07/05/16 18:48 CT scan suggests dislodgment of tube. case discussed with surgeon, Dr. Fulton, recommends admission for probable tube replacement. Requests that anticoagulation be held. Case discussed with general surgeon, Dr. Stern, who agrees to see patient as consult if medical team requires. Case discussed with Hospital physician, Dr. Valle, who accepts patient to his service. ED Medical Decision Making - Lab Data Result diagrams: 07/05/16 15:02 07/05/16 15:02 Vital Signs 07/05/16 07/05/16 14:25 14:59 Temperature 98.7 F Pulse Rate 82 81 Respiratory 20 12 Rate Blood Pressure 115/60 Blood Pressure 111/55 [Right] O2 Sat by Pulse 100 100 Oximetry Lab Results 07/05/16 07/05/16 Range/Units 15:02 15:02 WBC 5.8 (4.5-11.0) K/mm3 RBC 4.84 (3.65-5.03) M/mm3 Hgb 13.4 (11.8-15.2) gm/dl Hct 43.1 (35.5-45.6) % MCV 89 (84-94) fl MCH 28 (28-32) pg MCHC 31 L (32-34) % RDW 20.0 H (13.2-15.2) % Plt Count 129 L (140-440) K/mm3 Lymph % (Auto) 11.9 L (13.4-35.0) % Ness % (Auto) 4.7 (0.0-7.3) % Eos % (Auto) 2.0 (0.0-4.3) % Baso % (Auto) 0.2 (0.0-1.8) % Lymph # 0.7 L (1.2-5.4) K/mm3 Ness # 0.3 (0.0-0.8) K/mm3 Eos # 0.1 (0.0-0.4) K/mm3 Baso # 0.0 (0.0-0.1) K/mm3 Seg Neutrophils % 81.2 H (40.0-70.0) % Seg Neutrophils # 4.7 (1.8-7.7) K/mm3 Sodium 135 L (137-145) mmol/L Potassium 3.9 (3.6-5.0) mmol/L Chloride 95.5 L (98-107) mmol/L Carbon Dioxide 25 (22-30) mmol/L Anion Gap 18 mmol/L BUN 23 H (9-20) mg/dL Creatinine 2.9 H (0.8-1.5) mg/dL Estimated GFR 26 ml/min BUN/Creatinine Ratio 7.93 % Glucose 217 H (75-100) mg/dL Calcium 9.3 (8.4-10.2) mg/dL Total Bilirubin 0.7 (0.1-1.2) mg/dL AST 20 (5-40) units/L ALT 23 (7-56) units/L Alkaline Phosphatase 266 H (35-129) units/L Total Protein 7.1 (6.3-8.2) g/dL Albumin 4.0 (3.9-5) g/dL Albumin/Globulin Ratio 1.3 % Lipase 56 (13-60) units/L - Radiology Data Radiology results: pending, report reviewed, image reviewed Noncontrast CT scan of the abdomen and pelvis suggest dislodgment of cholecystostomy tube. Critical care attestation.: If time is entered above; I have spent that time in minutes in the direct care of this critically ill patient, excluding procedure time. ED Disposition Clinical Impression: Disease of gallbladder Cholecystostomy tube dysfunction Qualifiers: Encounter type: initial encounter Qualified Code(s): T85.518A - Breakdown ( mechanical) of other gastrointestinal prosthetic devices, implants and grafts, initial encounter Disposition: OP ADMITTED IP TO THIS HOSP Is pt being admited?: Yes Does the pt Need Aspirin: No Condition: Good
--- NOTE | 2016-07-05 16:54 | Event Note ---
Date: 07/05/16 Contacted from ER regarding cholecystostomy tube malfunction. 66 year old with cholecystitis with cholecystostomy tube placement 06/09/16 who presents with 1 week of RUQ pain and no output from cholecystostomy tube yesterday. Discussed patient with Dr. Morales and recommend CT scan. Further recommendations to follow based on CT results.
--- NOTE | 2016-07-05 18:00 | Cat Scan Report ---
FINAL REPORT PROCEDURE: CT ABDOMEN PELVIS WO CON TECHNIQUE: Computerized axial tomography of the abdomen and pelvis was performed without intravenous contrast. This study is performed without intravascular contrast material and its sensitivity for abdominal and pelvic pathology, including neoplasms, inflammation, abscess, free fluid, thrombosis, arterial dissection and infarction, is reduced compared with a contrast enhanced study. HISTORY: ruq pain, nephrolithiasis, cholecystitis COMPARISON: CT exam dated June 07, 2016 FINDINGS: Spleen is normal in size with an accessory splenule anteriorly. No hepatic abnormality is seen. Patient has a percutaneous tube in the right upper quadrant. This appears to be external to the gallbladder but may have its distal tip just within the gallbladder. Cholesterol stones are suspected in the gallbladder. Adjacent fluid collections are not seen but possible changes of cholecystitis are present. No biliary ductal dilation is seen. Appears normal. Adrenal glands and abdominal aorta are normal in size. Vascular calcifications are seen in the renal rosie. 1 millimeter stone is suspected in the right kidney. No left renal stones are seen perinephric densities may be from poor renal function, similar to prior study. No ureteral stones or hydronephrosis are seen. Bladder is not well-distended and wall thickness cannot be well evaluated. Prostate gland is enlarged measuring 6.6 x 4.5 x 5.1 cm. Mildly prominent external iliac chain lymph nodes are seen with small obturator lymph nodes. Lymphadenopathy is same or slightly improved from prior study. Largest lymph node is seen in the right external iliac chain measuring 2.4 x 1.1 cm. A rounded 1.5 x 1.3 cm lymph node is seen in the right groin with a few other shotty lymph nodes in both groins. No free pelvic fluid is seen. Normal appendix is seen. There is no evidence of bowel obstruction or free intraperitoneal air. Moderate lumbar spondylosis is seen. IMPRESSION: Percutaneous tube in the right upper quadrant the abdomen appears to be external to the gallbladder but the tip may just be within the gallbladder. It would likely benefit from repositioning if this is a cholecystostomy tube. No bile leak is seen but there may be mild cholelithiasis and cholecystitis. 1 millimeter stone is suspected in the right kidney but no ureteral stones or hydronephrosis are seen. There is prostatomegaly and mild pelvic lymphadenopathy. Lymphadenopathy is the same or slightly improved from prior exam. Mild gallbladder wall thickening as can be seen with cystitis or hypertrophy is not excluded. However, bladder is not well-distended and appearance could be artifactual.
[2016-07-05 18:14] LABS: Bilirubin,Urine NEG (Negative); Blood,Urine MOD (Negative); Ketones,Urine TR mg/dL (Negative); Leukocyte Esterase,Urine NEG (Negative); Nitrite,Urine NEG (Negative); Protein,Urine >500 mg/dL (Negative); Urobilinogen,Urine < 2.0 mg/dL (<2.0)
[2016-07-05] MEDS ORDERED: ZOSYN/NS 4.5GM/100ML 4.5 GM/100 ML VIAL IV ONE (18:53)
--- NOTE | 2016-07-05 18:57 | Admit Criteria Form ---
"<JEFFERSON COLON - Last Filed: 07/05/16 18:55> Admission Criteria Documentation: GALLBLADDER OR BILE DUCT INFLAMMATION OR STONE Clinical Indications for Admission to Inpatient Care ( Place 'X' for any and all applicable criteria): Admission is indicated for patients with ANY ONE of the following(1)(2)(3)(4)(5) : [ ]I. Acute cholecystitis as indicated by ALL of the following: [ ]a) Right upper quadrant pain, mass, or tenderness [ ]b) Systemic signs of inflammation indicated by ANY ONE of the following: [ ]i) Fever [ ]ii) C-reactive protein level greater than 10 mg/L (95 nmol/L) [ ]iii) White blood cell count greater than 10,000/mm3 (10 x109/L) or less than 4000/mm3 (4 x109/L) [X ]II. Inpatient admission required rather than observation care (Also use Gallbladder or Bile Duct Inflammation or Stone: Observation Care as appropriate) because of ANY ONE of the following: [ ]a) Common bile duct obstruction diagnosed [ ]b) Vomiting that is severe or persistent [ ]c) Severe pain requiring acute inpatient management [ ]d) Signs of intestinal obstruction or peritonitis [A] [ ]e) Severe electrolyte abnormalities requiring inpatient care [ ]f) Absent bowel sounds with complete ileus(8) [ ]g) Hemodynamic instability [ ]h) High fever or infection requiring inpatient admission as indicated by ANY ONE of the following (9): [ ]1) Appropriate outpatient or observation care antimicrobial Treatment. unavailable, not effective, or not feasible [ ]2) Temperature greater than 104.9 degrees F (40.5 degrees C) (oral) [ ]3) Temperature greater than 103.1 degrees F (39.5 degrees C) (oral) or less than 96.8 degrees F (36 degrees C) (rectal) that does not respond to all emergency treatment measures [ ]4) Documented bacteremia [ ]i) IV fluid to replace significant ongoing losses (greater than 3 L/m2 per day) [X ]j) Percutaneous or open drainage (eg, abscess, biliary tract) procedures [ ]k) Immediate inpatient surgery [X ]l) Other condition, treatment or monitoring requiring inpatient admission [ ]III. Acute cholangitis as indicated by ALL of the following(9)(10): [ ]a) Systemic signs of inflammation indicated by ANY ONE of the following: [ ]i) Fever [ ]ii) C-reactive protein level greater than 10 mg/L (95 nmol /L) [ ]iii) White blood cell count greater than 10,000/mm3 (10 x109/L) or less than 4000/mm3 (4 x109/L) [ ]b) Evidence of common bile duct disease indicated by ANY ONE of the following: [ ]i) Total serum bilirubin level greater than or equal to 2 mg/dL (34 micromoles/L) [ ]ii) Liver function test (alkaline phosphatase (ALP), r- glutamyltransferase (GGT), aspartate aminotransferase (AST), or alanine aminotransferase (ALT)) greater than 1.5 times the upper limit of normal[B] [ ]iii) Hepatobiliary imaging showing biliary dilatation or evidence of etiology (eg, stricture, stone, previously placed stent) Extended stay beyond goal length of stay may be needed for (1)(2)): [ ]a) Bacteremia or Hemodynamic instability [ ]b) Cholecystectomy [ ]c) Other surgical procedure(24) [ ]d) Percutaneous or endoscopic ultrasound-guided cholecystostomy The original [facility] [employer] content created by [facility] [email or web address] has been revised. The portions of the content which have been revised are identified through the use of italic text or in bold, and [facility] has neither reviewed nor approved the modified material. All other unmodified content is copyright [facility] [employer]. Please see references footnoted in the original [facility] [employer] edition 2016 <LIBIA GILBERT - Last Filed: 07/06/16 07:53> Admission Criteria Met: Yes"
[2016-07-05 19:12] LABS: INR 1.99 (0.87-1.13)
--- NOTE | 2016-07-05 21:26 | History and Physical Report ---
History of Present Illness Date of examination: 07/05/16 Date of admission: 07/05/16 18:47 Medications and Allergies Allergies Allergy/AdvReac Type Severity Reaction Status Date / Time No Known Allergies Allergy Verified 07/05/16 14:28 Home Medications Medication Instructions Recorded Confirmed Last Taken Type Gabapentin 300 mg PO BID 08/07/14 07/05/16 07/05/16 History Torsemide [Demadex] 100 mg PO BID 08/07/14 07/05/16 07/05/16 History Warfarin [Coumadin] 10 mg PO [id number] tablet 08/10/14 07/05/16 07/05/16 Rx Docusate Sodium [Colace CAP] 100 mg PO BID 01/29/15 07/05/16 07/05/16 History Ascorbic Acid [Vitamin C] 500 mg PO QDAY 06/07/16 07/05/16 07/05/16 History Benzonatate [Tessalon Perles] 100 mg PO Q8HR 06/07/16 07/05/16 07/05/16 History Bisoprolol Fumarate [Zebeta] 5 mg PO DAILY 06/07/16 07/05/16 07/05/16 History Duloxetine HCl [Cymbalta] 20 mg PO QDAY 06/07/16 07/05/16 07/05/16 History FLUoxetine [PROzac] 10 mg PO QDAY 06/07/16 07/05/16 07/05/16 History Prazosin [Minipress] 2 mg PO QHS 06/07/16 07/05/16 07/05/16 History Tamsulosin [Flomax] 0.4 mg PO QDAY 06/07/16 07/05/16 07/05/16 History guaiFENesin 400 mg PO Q8H 06/07/16 07/05/16 07/05/16 History traZODone [Desyrel] 100 mg PO QHS 06/07/16 07/05/16 07/05/16 History Aspirin [Aspirin BABY CHEW TAB] 81 mg PO QDAY #30 tab.chew 06/14/16 07/05/16 Rx AtorvaSTATin [Lipitor] 80 mg PO QDAY #30 tablet 06/14/16 07/05/16 07/05/16 Rx Insulin Glargine [Lantus VIAL] 20 units SUB-Q HS #100 units 06/14/16 07/05/16 Rx Lisinopril [Zestril TAB] 40 mg PO QDAY #30 tablet 06/14/16 07/05/16 07/05/16 Rx Warfarin [Coumadin] 7.5 mg PO DAILY #30 tablet 06/14/16 07/05/16 07/05/16 Rx ISOSORBIDE MONOnitrate [Imdur ER] 60 mg PO QDAY 07/05/16 07/05/16 07/05/16 History oxyCODONE /ACETAMINOPHEN [Percocet 1 tab PO Q6HR PRN 07/05/16 07/05/16 07/05/16 History 5/325] Review of Systems All systems: negative Exam - Constitutional Vitals: Temp Pulse Resp BP Pulse Ox 98.5 F 96 H 15 116/63 97 07/05/16 18:48 07/05/16 20:31 07/05/16 20:31 07/05/16 20:31 07/05/16 20:31 General appearance: Present: no acute distress, well-nourished - EENT Eyes: Present: PERRL ENT: hearing intact, clear oral mucosa - Neck Neck: Present: supple, normal ROM - Respiratory Respiratory effort: normal Respiratory: bilateral: CTA - Cardiovascular Heart Sounds: Present: S1 & S2. Absent: rub, click - Extremities Extremities: pulses symmetrical, No edema Peripheral Pulses: within normal limits - Abdominal General gastrointestinal: Present: soft, non-tender, non-distended, normal bowel sounds Male genitourinary: Present: normal - Integumentary Integumentary: Present: clear, warm, dry - Musculoskeletal Musculoskeletal: gait normal, strength equal bilaterally - Psychiatric Psychiatric: appropriate mood/affect, intact judgment & insight - Neurologic Neurologic: CNII-XII intact, moves all extremities Results - Labs CBC & Chem 7: 07/05/16 15:02 07/05/16 15:02 Labs: Laboratory Last Values WBC 5.8 K/mm3 (4.5-11.0) 07/05/16 15:02 RBC 4.84 M/mm3 (3.65-5.03) 07/05/16 15:02 Hgb 13.4 gm/dl (11.8-15.2) 07/05/16 15:02 Hct 43.1 % (35.5-45.6) 07/05/16 15:02 MCV 89 fl (84-94) 07/05/16 15:02 MCH 28 pg (28-32) 07/05/16 15:02 MCHC 31 % (32-34) L 07/05/16 15:02 RDW 20.0 % (13.2-15.2) H 07/05/16 15:02 Plt Count 129 K/mm3 (140-440) L 07/05/16 15:02 Lymph % (Auto) 11.9 % (13.4-35.0) L 07/05/16 15:02 [place] % (Auto) 4.7 % (0.0-7.3) 07/05/16 15:02 Eos % (Auto) 2.0 % (0.0-4.3) 07/05/16 15:02 Baso % (Auto) 0.2 % (0.0-1.8) 07/05/16 15:02 Lymph # 0.7 K/mm3 (1.2-5.4) L 07/05/16 15:02 [place] # 0.3 K/mm3 (0.0-0.8) 07/05/16 15:02 Eos # 0.1 K/mm3 (0.0-0.4) 07/05/16 15:02 Baso # 0.0 K/mm3 (0.0-0.1) 07/05/16 15:02 Seg Neutrophils % 81.2 % (40.0-70.0) H 07/05/16 15:02 Seg Neutrophils # 4.7 K/mm3 (1.8-7.7) 07/05/16 15:02 PT 22.6 Sec. (12.2-14.9) H 07/05/16 18:42 INR 1.99 (0.87-1.13) H 07/05/16 18:42 Sodium 135 mmol/L (137-145) L 07/05/16 15:02 Potassium 3.9 mmol/L (3.6-5.0) 07/05/16 15:02 Chloride 95.5 mmol/L (98-107) L 07/05/16 15:02 Carbon Dioxide 25 mmol/L (22-30) 07/05/16 15:02 Anion Gap 18 mmol/L 07/05/16 15:02 BUN 23 mg/dL (9-20) H 07/05/16 15:02 Creatinine 2.9 mg/dL (0.8-1.5) H 07/05/16 15:02 Estimated GFR 26 ml/min 07/05/16 15:02 BUN/Creatinine Ratio 7.93 % 07/05/16 15:02 Glucose 217 mg/dL (75-100) H 07/05/16 15:02 Calcium 9.3 mg/dL (8.4-10.2) 07/05/16 15:02 Total Bilirubin 0.7 mg/dL (0.1-1.2) 07/05/16 15:02 AST 20 units/L (5-40) 07/05/16 15:02 ALT 23 units/L (7-56) 07/05/16 15:02 Alkaline Phosphatase 266 units/L (35-129) H 07/05/16 15:02 Total Protein 7.1 g/dL (6.3-8.2) 07/05/16 15:02 Albumin 4.0 g/dL (3.9-5) 07/05/16 15:02 Albumin/Globulin Ratio 1.3 % 07/05/16 15:02 Lipase 56 units/L (13-60) 07/05/16 15:02 Urine Color Yellow (Yellow) 07/05/16 17:57 Urine Turbidity Cloudy (Clear) 07/05/16 17:57 Urine pH 5.0 (5.0-7.0) 07/05/16 17:57 Ur Specific [place] 1.014 (1.003-1.030) 07/05/16 17:57 Urine Protein >500 mg/dL (Negative) 07/05/16 17:57 Urine Glucose (UA) 50 mg/dL (Negative) 07/05/16 17:57 Urine Ketones Tr mg/dL (Negative) 07/05/16 17:57 Urine Blood Mod (Negative) 07/05/16 17:57 Urine Nitrite Neg (Negative) 07/05/16 17:57 Urine Bilirubin Neg (Negative) 07/05/16 17:57 Urine Urobilinogen < 2.0 mg/dL (<2.0) 07/05/16 17:57 Ur Leukocyte Esterase Neg (Negative) 07/05/16 17:57 Urine WBC (Auto) 1.0 /HPF (0.0-6.0) 07/05/16 17:57 Urine RBC (Auto) 30.0 /HPF (0.0-6.0) 07/05/16 17:57 Assessment and Plan Advance Directives: Yes
[2016-07-05] MEDS ORDERED: D5NS 1,000 ML IV SCH (22:00)
[2016-07-06 06:44] LABS: Basophils % (Auto) 0.5 % (0.0-1.8); Eosinophils % (Auto) 2.6 % (0.0-4.3); Hematocrit 40.7 % (35.5-45.6); Hemoglobin 12.6 gm/dl (11.8-15.2); Mean Corpuscular HGB Conc 31 % (32-34); Mean Corpuscular Hemoglobin 28 pg (28-32); Mean Corpuscular Volume 89 fl (84-94); Platelet Count 121 K/mm3 (140-440); Red Blood Count 4.57 M/mm3 (3.65-5.03); White Blood Count 5.7 K/mm3 (4.5-11.0)
[2016-07-06 06:59] LABS: Red Cell Distribution Width 20.5 % (13.2-15.2)
[2016-07-06 07:07] LABS: Albumin 3.6 g/dL (3.9-5); Albumin/Globulin Ratio 1.3 %; BUN/Creatinine Ratio 8.61; Bilirubin,Total 0.6 mg/dL (0.1-1.2); Chloride 102.7 mmol/L (98-107); Potassium 4.1 mmol/L (3.6-5.0); Total Protein 6.4 g/dL (6.3-8.2)
[2016-07-06] MEDS: MORPHINE IV PRN (10:09)
--- NOTE | 2016-07-06 10:38 | Progress Note ---
Assessment and Plan Full consult dictated 66 y/o male well known to me. High risk surgical candidate presented with acute cholecystitis last month. Cholecystostomy tube placed. Pt stabilized and sent to [place] for cholecystectomy Pt returns now with dislodgement of cholecystostomy tube. Has not been operated yet at [place]. Will need replacement of GB tube. Will discuss with pt about possibly proceeding with open GB here will need cardiology and renal clearnce d/c coumadin will schedule for Sunday once coagulation studies normalize has there may be quite a bit of oozing from chronic infection will discuss with you Objective Vital Signs - 12hr 07/06/16 07:35 Temperature 98.8 F Pulse Rate [ 95 H Left] Respiratory 20 Rate Blood Pressure 128/62 [Left Arm] O2 Sat by Pulse 99 Oximetry - Labs 07/06/16 05:00 07/06/16 05:00 Diabetes panel 07/06/16 07/06/16 Range/Units 05:00 05:00 WBC 5.7 (4.5-11.0) K/mm3 RBC 4.57 (3.65-5.03) M/mm3 Hgb 12.6 (11.8-15.2) gm/dl Hct 40.7 (35.5-45.6) % MCV 89 (84-94) fl MCH 28 (28-32) pg MCHC 31 L (32-34) % RDW 20.5 H (13.2-15.2) % Plt Count 121 L (140-440) K/mm3 Lymph % (Auto) 16.7 (13.4-35.0) % [place] % (Auto) 6.1 (0.0-7.3) % Eos % (Auto) 2.6 (0.0-4.3) % Baso % (Auto) 0.5 (0.0-1.8) % Lymph # 1.0 L (1.2-5.4) K/mm3 [place] # 0.3 (0.0-0.8) K/mm3 Eos # 0.2 (0.0-0.4) K/mm3 Baso # 0.0 (0.0-0.1) K/mm3 Seg Neutrophils % 74.1 H (40.0-70.0) % Seg Neutrophils # 4.2 (1.8-7.7) K/mm3 Sodium 142 D (137-145) mmol/L Potassium 4.1 (3.6-5.0) mmol/L Chloride 102.7 (98-107) mmol/L Carbon Dioxide 21 L (22-30) mmol/L Anion Gap 22 mmol/L BUN 31 H (9-20) mg/dL Creatinine 3.6 H (0.8-1.5) mg/dL Estimated GFR 21 ml/min BUN/Creatinine Ratio 8.61 % Glucose 101 H (75-100) mg/dL Calcium 9.0 (8.4-10.2) mg/dL Total Bilirubin 0.6 (0.1-1.2) mg/dL AST 13 (5-40) units/L ALT 19 (7-56) units/L Alkaline Phosphatase 234 H (35-129) units/L Total Protein 6.4 (6.3-8.2) g/dL Albumin 3.6 L (3.9-5) g/dL Albumin/Globulin Ratio 1.3 % Calcium panel 07/06/16 Range/Units 05:00 Calcium 9.0 (8.4-10.2) mg/dL Albumin 3.6 L (3.9-5) g/dL Pituitary panel 07/06/16 Range/Units 05:00 Sodium 142 D (137-145) mmol/L Potassium 4.1 (3.6-5.0) mmol/L Chloride 102.7 (98-107) mmol/L Carbon Dioxide 21 L (22-30) mmol/L BUN 31 H (9-20) mg/dL Creatinine 3.6 H (0.8-1.5) mg/dL Glucose 101 H (75-100) mg/dL Calcium 9.0 (8.4-10.2) mg/dL Adrenal panel 07/06/16 Range/Units 05:00 Sodium 142 D (137-145) mmol/L Potassium 4.1 (3.6-5.0) mmol/L Chloride 102.7 (98-107) mmol/L Carbon Dioxide 21 L (22-30) mmol/L BUN 31 H (9-20) mg/dL Creatinine 3.6 H (0.8-1.5) mg/dL Glucose 101 H (75-100) mg/dL Calcium 9.0 (8.4-10.2) mg/dL Total Bilirubin 0.6 (0.1-1.2) mg/dL AST 13 (5-40) units/L ALT 19 (7-56) units/L Alkaline Phosphatase 234 H (35-129) units/L Total Protein 6.4 (6.3-8.2) g/dL Albumin 3.6 L (3.9-5) g/dL
--- NOTE | 2016-07-06 11:27 | Consultation ---
REASON FOR CONSULTATION: Acute cholecystitis. HISTORY OF PRESENT ILLNESS: The patient is a very pleasant 66-year-old gentleman well known to me. I initially saw the patient back I think in early May when he was admitted with acute cholecystitis. The patient has multitude of medical problems including coronary artery disease, status post open heart surgery. Also, atrial flutter, hypertension, diabetes, hyperlipidemia, end-stage renal disease, on hemodialysis. Because of multiple medical problems and the fact that the patient with a very high surgical risk, it was decided to proceed with a CT-guided cholecystostomy tube drainage and then subsequently to transfer to [place]. The patient did well and was discharged. The patient was referred to [place], but reports that they have not yet been able to operate on him. At this time, the patient returns to our institution with right upper quadrant pain and apparently his cholecystostomy tube is dislodged. Currently, the patient is awake, alert, cooperative and appears comfortable, in no acute distress. Examination of the abdomen revealed to be soft and nontender at present. LABORATORY DATA: Lab work at present includes a CBC which shows a white count of 5.7, H and H is 12.6 and 40.7. Electrolytes were essentially within normal limits. BUN is 31, creatinine is 3.6. LFTs show total bilirubin of 0.6, AST is 13, ALT is 19, alkaline phosphatase is 234. PT is up at 22.6 and INR is also elevated at 1.99. The patient states he is currently on Coumadin. IMPRESSION AND PLAN: At this time is that of a 66-year-old high risk patient that needs to have a cholecystectomy performed. Plans again were initially to have this performed at [facility] due to the patient's high risk, but again they have not done this and weeks have gone by I have discussed with the patient who has decided to then proceed with cholecystectomy here at our institution. We will discuss further with the hospitalist. Also, we would need a financial services education consultant and ore grader evaluation and clearance. I would recommend to discontinue the Coumadin if possible and will tentatively schedule him for Sunday once INR and PT, etc. were within normal limits and all clearances have been obtained. Also, interventional radiology is seeing the patient to reposition or replace the cholecystostomy tube. We will follow closely with you. Thank you very much for the consultation. JOB# [id number] DEBORAH/NTS
--- NOTE | 2016-07-06 12:33 | Progress Note ---
Assessment and Plan Assessment and plan: 66M w pmh of cholecystitis, sp cholecystomy drain which got dislodged and he now presents with severe RUQ pain, Dr Goldberg of Surgery is on the case and patient is planned for open cholecystectomy on Sunday, in the meantime, he will need to taken off anticoagulation and medically optimized 1. Cholecystitis IR to replace Cholecystostomy drain, patient will be for cholecystectomy most likely on Sunday, holding Coumadin 2. CAD/ s/p CABG Continue BB, ACEI, aspirin and statin 3. Atrial flutter Status post recent cardioversion at [facility] and currently on NSR cw rate control medicine, hold coumadin for procedure 4. Hypertension continue BP meds 5. Diabetes continue insulins 6. Hyperlipidemia Continue statin 7. ESRD on HD cotninue HD per nephrology Of note patient has a history of coronary artery disease, hypertension, atrial flutter and diabetes. Patient is currently asymptomatic from cardiac standpoint , does not have has not recently had chest pain, CAD is optimized, he has hx of Paroxysmal A Flutter, sp cardioversion, now in SR. HTN and DM are well controlled and he is on maintenance HD for ESRD. From a medical standpoint this patient is optimized for cholecystectomy. Patient is moderate risk for moderate risk procedure, and at this point we believe that the benefits of the procedure strongly outweigh the risks. History Interval history: He continues to have right upper quadrant pain and nausea Hospitalist Physical - Physical exam Narrative exam: General: Patient appears well in no distress HEENT: MMM, EOMI cardiac: S1-S2 heard lungs: clear to auscultation, abdomen: Soft, diffuse abdominal tenderness, worse in the right upper quadrant extremities: no edema clubbing or cyanosis Skin: no rash or lesion Neuro: no focal deficit Psych: appropriate behavior and mood, cognition intact - Constitutional Vitals: Temp Pulse Resp BP Pulse Ox 98.8 F 95 H 20 128/62 99 07/06/16 07:35 07/06/16 07:35 07/06/16 07:35 07/06/16 07:35 07/06/16 07:35 General appearance: Present: no acute distress, well-nourished Results - Labs CBC & Chem 7: 07/06/16 05:00 07/06/16 05:00 Labs: Laboratory Last Values WBC 5.7 K/mm3 (4.5-11.0) 07/06/16 05:00 RBC 4.57 M/mm3 (3.65-5.03) 07/06/16 05:00 Hgb 12.6 gm/dl (11.8-15.2) 07/06/16 05:00 Hct 40.7 % (35.5-45.6) 07/06/16 05:00 MCV 89 fl (84-94) 07/06/16 05:00 MCH 28 pg (28-32) 07/06/16 05:00 MCHC 31 % (32-34) L 07/06/16 05:00 RDW 20.5 % (13.2-15.2) H 07/06/16 05:00 Plt Count 121 K/mm3 (140-440) L 07/06/16 05:00 Lymph % (Auto) 16.7 % (13.4-35.0) 07/06/16 05:00 [place] % (Auto) 6.1 % (0.0-7.3) 07/06/16 05:00 Eos % (Auto) 2.6 % (0.0-4.3) 07/06/16 05:00 Baso % (Auto) 0.5 % (0.0-1.8) 07/06/16 05:00 Lymph # 1.0 K/mm3 (1.2-5.4) L 07/06/16 05:00 [place] # 0.3 K/mm3 (0.0-0.8) 07/06/16 05:00 Eos # 0.2 K/mm3 (0.0-0.4) 07/06/16 05:00 Baso # 0.0 K/mm3 (0.0-0.1) 07/06/16 05:00 Seg Neutrophils % 74.1 % (40.0-70.0) H 07/06/16 05:00 Seg Neutrophils # 4.2 K/mm3 (1.8-7.7) 07/06/16 05:00 PT 22.6 Sec. (12.2-14.9) H 07/05/16 18:42 INR 1.99 (0.87-1.13) H 07/05/16 18:42 Sodium 142 mmol/L (137-145) D 07/06/16 05:00 Potassium 4.1 mmol/L (3.6-5.0) 07/06/16 05:00 Chloride 102.7 mmol/L (98-107) 07/06/16 05:00 Carbon Dioxide 21 mmol/L (22-30) L 07/06/16 05:00 Anion Gap 22 mmol/L 07/06/16 05:00 BUN 31 mg/dL (9-20) H 07/06/16 05:00 Creatinine 3.6 mg/dL (0.8-1.5) H 07/06/16 05:00 Estimated GFR 21 ml/min 07/06/16 05:00 BUN/Creatinine Ratio 8.61 % 07/06/16 05:00 Glucose 101 mg/dL (75-100) H 07/06/16 05:00 Calcium 9.0 mg/dL (8.4-10.2) 07/06/16 05:00 Total Bilirubin 0.6 mg/dL (0.1-1.2) 07/06/16 05:00 AST 13 units/L (5-40) 07/06/16 05:00 ALT 19 units/L (7-56) 07/06/16 05:00 Alkaline Phosphatase 234 units/L (35-129) H 07/06/16 05:00 Total Protein 6.4 g/dL (6.3-8.2) 07/06/16 05:00 Albumin 3.6 g/dL (3.9-5) L 07/06/16 05:00 Albumin/Globulin Ratio 1.3 % 07/06/16 05:00 Lipase 56 units/L (13-60) 07/05/16 15:02 Urine Color Yellow (Yellow) 07/05/16 17:57 Urine Turbidity Cloudy (Clear) 07/05/16 17:57 Urine pH 5.0 (5.0-7.0) 07/05/16 17:57 Ur Specific [place] 1.014 (1.003-1.030) 07/05/16 17:57 Urine Protein >500 mg/dL (Negative) 07/05/16 17:57 Urine Glucose (UA) 50 mg/dL (Negative) 07/05/16 17:57 Urine Ketones Tr mg/dL (Negative) 07/05/16 17:57 Urine Blood Mod (Negative) 03/15/17 17:57 Urine Nitrite Neg (Negative) 07/05/16 17:57 Urine Bilirubin Neg (Negative) 07/05/16 17:57 Urine Urobilinogen < 2.0 mg/dL (<2.0) 07/05/16 17:57 Ur Leukocyte Esterase Neg (Negative) 07/05/16 17:57 Urine WBC (Auto) 1.0 /HPF (0.0-6.0) 07/05/16 17:57 Urine RBC (Auto) 30.0 /HPF (0.0-6.0) 07/05/16 17:57
--- NOTE | 2016-07-06 13:12 | Consultation ---
History of Present Illness - Reason for Consult Consult date: 07/06/16 - History of Present Illness Mr. Vásquez is a 66yo gentleman with ESRD on IHD qMWF and recent hospitalization for acute cholecystitis s/p cholecystostomy tube placement who is admitted after presenting to the ED with abdominal pain. He reports that recently, output has declined. He denies fever, chills, sweats. At present, he denies abdominal pain, nausea and vomiting His last dialysis treatment was on Sunday. Past History Past Medical History: atrial fib, anemia (secondary to ESRD), ESRD, hypertension Social history: . denies: smoking, alcohol abuse Family history: no significant family history Medications and Allergies Allergies Allergy/AdvReac Type Severity Reaction Status Date / Time No Known Allergies Allergy Verified 07/05/16 14:28 Home Medications Medication Instructions Recorded Confirmed Last Taken Type Gabapentin 300 mg PO BID 08/07/14 07/05/16 07/05/16 History Torsemide [Demadex] 100 mg PO BID 08/07/14 07/05/16 07/05/16 History Warfarin [Coumadin] 10 mg PO [id number] tablet 08/10/14 07/05/16 07/05/16 Rx Docusate Sodium [Colace CAP] 100 mg PO BID 01/29/15 07/05/16 07/05/16 History Ascorbic Acid [Vitamin C] 500 mg PO QDAY 06/07/16 07/05/16 07/05/16 History Benzonatate [Tessalon Perles] 100 mg PO Q8HR 06/07/16 07/05/16 07/05/16 History Bisoprolol Fumarate [Zebeta] 5 mg PO DAILY 06/07/16 07/05/16 07/05/16 History Duloxetine HCl [Cymbalta] 20 mg PO QDAY 06/07/16 07/05/16 07/05/16 History FLUoxetine [PROzac] 10 mg PO QDAY 06/07/16 07/05/16 07/05/16 History Prazosin [Minipress] 2 mg PO QHS 06/07/16 07/05/16 07/05/16 History Tamsulosin [Flomax] 0.4 mg PO QDAY 06/07/16 07/05/16 07/05/16 History guaiFENesin 400 mg PO Q8H 06/07/16 07/05/16 07/05/16 History traZODone [Desyrel] 100 mg PO QHS 06/07/16 07/05/16 07/05/16 History Aspirin [Aspirin BABY CHEW TAB] 81 mg PO QDAY #30 tab.chew 06/14/16 07/05/16 Rx AtorvaSTATin [Lipitor] 80 mg PO QDAY #30 tablet 06/14/16 07/05/16 07/05/16 Rx Insulin Glargine [Lantus VIAL] 20 units SUB-Q HS #100 units 06/14/16 07/05/16 Rx Lisinopril [Zestril TAB] 40 mg PO QDAY #30 tablet 06/14/16 07/05/16 07/05/16 Rx Warfarin [Coumadin] 7.5 mg PO DAILY #30 tablet 06/14/16 07/05/16 07/05/16 Rx ISOSORBIDE MONOnitrate [Imdur ER] 60 mg PO QDAY 07/05/16 07/05/16 07/05/16 History oxyCODONE /ACETAMINOPHEN [Percocet 1 tab PO Q6HR PRN 07/05/16 07/05/16 07/05/16 History 5/325] Active Meds: Active Medications Dextrose/Sodium Chloride (D5ns) 1,000 mls @ 75 mls/hr IV DIRECT MARTHA Last Admin: 07/05/16 22:40 Dose: 75 mls/hr Morphine Sulfate (Morphine) 4 mg IV Q4H PRN PRN Reason: Pain , Severe (7-10) Last Admin: 07/06/16 10:09 Dose: 4 mg Review of Systems Constitutional: no fever, no chills, no sweats Cardiovascular: no chest pain, no orthopnea, no shortness of breath Respiratory: no cough Gastrointestinal: abdominal pain, no nausea, no vomiting, no diarrhea, no constipation, no BRBPR, no melena Integumentary: no rash, no pruritis Neurological: no weakness Endocrine: no cold intolerance, no heat intolerance Exam - Vital Signs Vital signs: Vital Signs Temp Pulse Resp BP Pulse Ox 98.7 F 82 20 115/60 100 07/05/16 14:25 07/05/16 14:25 07/05/16 14:25 07/05/16 14:25 07/05/16 14:25 - General Appearance General appearance: well-developed, well-nourished EENT: ATNC Neck: Present: neck supple Respiratory: Clear to Ascultation Heart: irregular Gastrointestinal: Present: normoactive bowel sounds. Absent: distended Integumentary: no rash, warm and dry Neurologic: no focal deficit, alert and oriented x3 Musculoskeletal: Present: other (no edema) Psychiatric: mood/affect appropriate, cooperative Results - Lab Results 07/06/16 05:00 07/06/16 05:00 Most recent lab results Calcium 9.0 mg/dL (8.4-10.2) 07/06/16 05:00 Assessment and Plan Assessment: * End-stage renal disease on hemodialysis qMWF * Abdominal pain * Hx of cholecystitis s/p CT guided placement of cholecystostomy tube (Jun 09) * Atrial fibrillation on chronic anticoagulation * Anemia secondary to ESRD * Secondary hyperparathyroidism Plan: * No acute indication for hemodialysis today * Continue outpatient MWF schedule * Note plans for surgical management on Sunday * Currently NPO; IVF for gentle hydration - will decrease rate to 50ml/hour * Cardiology to see re: management of chronic anticoagulation * Epogen with dialysis * Diet per surgery/primary team
[2016-07-06] MEDS ORDERED: VERSED IV ONE ×2 (15:06→15:55)
[2016-07-06] MEDS ORDERED: SUBLIMAZE ONE ×2 (15:07→16:37)
[2016-07-06] MEDS ORDERED: NACL 0.9% 100 ML IV PRN (15:31)
[2016-07-06] MEDS ORDERED: SUBLIMAZE IV ONE ×2 (15:55→18:00)
[2016-07-06] MEDS ORDERED: D5NS 1,000 ML IV SCH (16:00)
[2016-07-06] MEDS ORDERED: NON-FORMULARY (Guaifenesin [Guaifenesin] 400 MG) PO SCH (16:45)
--- NOTE | 2016-07-06 16:46 | Post Operative Note ---
Date of procedure: 07/06/16 Pre-op diagnosis: Cholecystitis Post-op diagnosis: same Findings: Original cholecystostomy tube had migrated out of the gallbladder Procedure: CT guided placement of an 8 Fr cholecystostomy tube Anesthesia: local (w/ conscious sedation) Surgeon: JUDIT GARRIDO Estimated blood loss: minimal Condition: stable Disposition: floor
--- NOTE | 2016-07-06 17:27 | Cat Scan Report ---
EXAM: CT guided removal of cholecystostomy drain CT guided placement of a denovo 8 Fr cholecystostomy drain CLINICAL INDICATION: Cholecystitis with migration of the cholecystostomy tube. 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 Continuous cardiopulmonary monitoring was utilized. PROCEDURE: Following an explanation of the risks, benefits and alternatives; written informed consent was obtained. The patient was brought to the CT suite and placed in the supine position on the CT table. Cable Reeler CT was performed of the upper abdomen. The prior cholecystostomy tube was unable to aspirate, and was completely outside the gallbladder. The cholecystostomy tube was cut and removed and the retention string was removed. Cable Reeler CT was performed of the upper abdomen. After determining the appropriate site, the skin was infiltrated with lidocaine and a finder needle was placed. Intermittent CT was performed until the desired position was identified. The 18 gauge trocar needle was inserted into the gallbladder fundus . Aspiration was performed and sent to the lab for analysis. J wire was then advanced through the needle and into the collection. The needle was exchanged for multiple dilators that were used to serially dilate over the wire. A 8 Fr APD drain was advanced over the wire and metal stiffener. The metal stiffener was removed. CT scan was performed confirming position of the drain in the gallbladder without evidence of complication. Wire was then removed and the [place] loop was formed. Final CT scanning was performed. StatLock device and silk suture were applied to secure the drain. Sterile bandage was applied. The patient tolerated the procedure well. There were no immediate postprocedural complications. FINDINGS: 1. Initial CT demonstrates irregular gallbladder compatible with known cholecystitis with malposition of the prior cholecystostomy tube which is completely outside gallbladder. The tube was removed.. There is a satisfactory window for CT drainage of the gallbladder with a new tube. 2. Intermittent CT demonstrates the 18 gauge needle was placed in the gallbladder fundus. 3. Wire is coiled in the gallbladder. 4. Final CT documents placement of a 8 Fr drain in the gallbladder. 5. A total of 20 ml of bilious material was aspirated through the drain and initial needle. This was sent for surgical culture. IMPRESSION: Successful CT guided 8 [place] cholecystostomy drain placement.
[2016-07-06] MEDS ORDERED: D50W (25GM) IV PRN (17:47)
[2016-07-06] MEDS ORDERED: ROBITUSSIN PO PRN ×2 (19:18)
[2016-07-06] MEDS: NOVOLOG SUB-Q SCH (21:30)
[2016-07-06] MEDS: DEMADEX PO SCH (21:31)
[2016-07-06] MEDS: DESYREL PO SCH (21:35)
[2016-07-06] MEDS: NEURONTIN PO SCH (21:35)
[2016-07-06] MEDS: TESSALON PERLES PO SCH (21:35)
[2016-07-06] MEDS: COLACE PO SCH (21:36)
[2016-07-06] MEDS: LEVEMIR SUB-Q SCH (21:43)
[2016-07-06] MEDS: MINIPRESS PO SCH (21:43)
[2016-07-06] MEDS ORDERED: NON-FORMULARY (Insulin Glargine 20 UNITS) SUB-Q SCH (22:00)
[2016-07-06] MEDS ORDERED: TORSEMIDE 100 MG PO SCH (22:00)
[2016-07-07] MEDS: MORPHINE IV PRN ×2 (02:43→21:05)
[2016-07-07 05:21] LABS: Basophils % (Auto) 0.6 % (0.0-1.8); Eosinophils % (Auto) 1.7 % (0.0-4.3); Hematocrit 40.8 % (35.5-45.6); Hemoglobin 12.8 gm/dl (11.8-15.2); Mean Corpuscular HGB Conc 31 % (32-34); Mean Corpuscular Hemoglobin 28 pg (28-32); Mean Corpuscular Volume 89 fl (84-94); Platelet Count 134 K/mm3 (140-440); Red Cell Distribution Width 19.9 % (13.2-15.2); White Blood Count 7.5 K/mm3 (4.5-11.0)
[2016-07-07 05:41] LABS: BUN/Creatinine Ratio 9.55; Calcium 9.2 mg/dL (8.4-10.2); Chloride 101.6 mmol/L (98-107); Potassium 4.6 mmol/L (3.6-5.0)
[2016-07-07] MEDS: TESSALON PERLES PO SCH ×3 (05:46→23:01)
[2016-07-07] MEDS: NOVOLOG SUB-Q SCH ×4 (08:03→23:06)
[2016-07-07] MEDS: VITAMIN C PO SCH (09:47)
[2016-07-07] MEDS: PROzac PO SCH (09:47)
[2016-07-07] MEDS: COLACE PO SCH ×2 (09:47→23:00)
[2016-07-07] MEDS: NEURONTIN PO SCH ×2 (09:48→23:02)
[2016-07-07] MEDS: BABY ASPIRIN PO SCH (09:48)
[2016-07-07] MEDS: DEMADEX PO SCH ×2 (10:00→23:00)
[2016-07-07] MEDS: ZEBETA PO SCH (10:00)
[2016-07-07] MEDS: ZESTRIL PO SCH (10:00)
[2016-07-07] MEDS ORDERED: NON-FORMULARY (Ascorbic Acid [Vitamin C] 500 MG) PO SCH (10:00)
[2016-07-07] MEDS ORDERED: NON-FORMULARY (Duloxetine Hcl [Cymbalta] 20 MG) PO SCH (10:00)
[2016-07-07] MEDS ORDERED: BISOPROLOL FUMARATE 5 MG PO SCH (10:00)
--- NOTE | 2016-07-07 10:13 | Consultation ---
History of Present Illness Consult date: 07/07/16 Requesting physician: ANN-MARIE TANG Consult reason: pre op evaluation History of present illness: The patient is a 66 year old male who is followed by cardiology [place] with a history of CAD s/p CABG in 2011, atrial flutter on coumadin, ischemic cardiomyopathy EF 20-25% (2014), hypertension, diabetes, ESRD on HD who presented with acute cholecystitis last month, had a cholecystostomy tube placed and was sent to [place] for cholecystectomy. He was not operated on at [place] and presented to [facility] on 07/05/16 with dislodgement of his cholecystostomy tube. Cardiology has been consulted for a pre-operative evaluation prior to open cholecystectomy. Currently, he denies any chest pain, palpitations or shortness of breath. He reports that he was electrically cardioverted at the [place] last month and that an ablation is planned. Past History Past Medical History: atrial fib, anemia (secondary to ESRD), CAD, diabetes, ESRD, hypertension, hyperlipidemia Past Surgical History: CABG Social history: . denies: smoking, alcohol abuse Family history: no significant family history Medications and Allergies Allergies Allergy/AdvReac Type Severity Reaction Status Date / Time No Known Allergies Allergy Verified 07/05/16 14:28 Home Medications Medication Instructions Recorded Confirmed Last Taken Type Gabapentin 300 mg PO BID 08/07/14 07/05/16 07/05/16 History Torsemide [Demadex] 100 mg PO BID 08/07/14 07/05/16 07/05/16 History Warfarin [Coumadin] 10 mg PO [id number]@1700 tablet 08/10/14 07/05/16 07/05/16 Rx Docusate Sodium [Colace CAP] 100 mg PO BID 01/29/15 07/05/16 07/05/16 History Ascorbic Acid [Vitamin C] 500 mg PO QDAY 06/07/16 07/05/16 07/05/16 History Benzonatate [Tessalon Perles] 100 mg PO Q8HR 06/07/16 07/05/16 07/05/16 History Bisoprolol Fumarate [Zebeta] 5 mg PO DAILY 06/07/16 07/05/16 07/05/16 History Duloxetine HCl [Cymbalta] 20 mg PO QDAY 06/07/16 07/05/16 07/05/16 History FLUoxetine [PROzac] 10 mg PO QDAY 06/07/16 07/05/16 07/05/16 History Prazosin [Minipress] 2 mg PO QHS 06/07/16 07/05/16 07/05/16 History Tamsulosin [Flomax] 0.4 mg PO QDAY 06/07/16 07/05/16 07/05/16 History guaiFENesin 400 mg PO Q8H 06/07/16 07/05/16 07/05/16 History traZODone [Desyrel] 100 mg PO QHS 06/07/16 07/05/16 07/05/16 History Aspirin [Aspirin BABY CHEW TAB] 81 mg PO QDAY #30 tab.chew 06/14/16 07/05/16 Rx AtorvaSTATin [Lipitor] 80 mg PO QDAY #30 tablet 06/14/16 07/05/16 07/05/16 Rx Insulin Glargine [Lantus VIAL] 20 units SUB-Q HS #100 units 06/14/16 07/05/16 Rx Lisinopril [Zestril TAB] 40 mg PO QDAY #30 tablet 06/14/16 07/05/16 07/05/16 Rx Warfarin [Coumadin] 7.5 mg PO DAILY #30 tablet 06/14/16 07/05/16 07/05/16 Rx ISOSORBIDE MONOnitrate [Imdur ER] 60 mg PO QDAY 07/05/16 07/05/16 07/05/16 History oxyCODONE /ACETAMINOPHEN [Percocet 1 tab PO Q6HR PRN 07/05/16 07/05/16 07/05/16 History 5/325] Active Meds: Active Medications Ascorbic Acid (Vitamin C) 500 mg PO QDAY [facility] Last Admin: 07/07/16 09:47 Dose: 500 mg Aspirin (Baby Aspirin) 81 mg PO QDAY [facility] Last Admin: 07/07/16 09:48 Dose: 81 mg Atorvastatin Calcium (Lipitor) 80 mg PO QHS [facility] Benzonatate (Tessalon Perles) 100 mg PO Q8HR [facility] Last Admin: 07/07/16 05:46 Dose: 100 mg Bisoprolol Fumarate (Zebeta (Nf)) 5 mg PO DAILY [facility] Dextrose (D50w (25gm)) 50 ml IV PRN PRN PRN Reason: Hypoglycemia Docusate Sodium (Colace) 100 mg PO BID [facility] Last Admin: 07/07/16 09:47 Dose: 100 mg Fluoxetine HCl (Prozac) 10 mg PO QDAY [facility] Last Admin: 07/07/16 09:47 Dose: 10 mg Gabapentin (Neurontin) 300 mg PO BID [facility] Last Admin: 07/07/16 09:48 Dose: 300 mg Guaifenesin (Robitussin) 400 mg PO Q8H PRN PRN Reason: Cough Sodium Chloride (Nacl 0.9%) 100 mls @ 999 mls/hr IV KESHAWN PRN PRN Reason: Hypotension Dextrose/Sodium Chloride (D5ns) 1,000 mls @ 50 mls/hr IV DIRECT [facility] Insulin Aspart (Novolog) 0 units SUB-Q ACHS [facility] PRN Reason: Protocol Last Admin: 07/07/16 08:03 Dose: Not Given Insulin Detemir (Levemir) 20 units SUB-Q HS [facility] Last Admin: 07/06/16 21:43 Dose: Not Given Isosorbide Mononitrate (Imdur) 60 mg PO QDAY [facility] Lisinopril (Zestril) 40 mg PO QDAY [facility] Miscellaneous Medication (Duloxetine Hcl [Cymbalta]) 20 mg PO QDAY [facility] Morphine Sulfate (Morphine) 4 mg IV Q4H PRN PRN Reason: Pain , Severe (7-10) Last Admin: 07/07/16 02:43 Dose: 4 mg Oxycodone/Acetaminophen (Percocet 5/325) 1 tab PO Q6HR PRN PRN Reason: Pain Prazosin HCl (Minipress) 2 mg PO QHS [facility] Last Admin: 07/06/16 21:43 Dose: Not Given Torsemide (Demadex) 100 mg PO BID [facility] Last Admin: 07/06/16 21:31 Dose: 100 mg Trazodone HCl (Desyrel) 100 mg PO QHS [facility] Last Admin: 07/06/16 21:35 Dose: 100 mg Review of Systems Constitutional: no fever, no chills Ears, nose, mouth and throat: no nasal congestion, no nasal discharge, no sinus pressure, no sinus pain Cardiovascular: no chest pain, no palpitations, no shortness of breath, no dyspnea on exertion, no leg edema Respiratory: no cough, no congestion, no wheezing Gastrointestinal: abdominal pain, no nausea, no vomiting, no diarrhea Genitourinary Male: no dysuria, no hematuria Musculoskeletal: no neck stiffness, no neck pain Integumentary: no rash, no pruritis Neurological: no parathesias, no numbness, no tingling, no headaches Endocrine: no cold intolerance, no heat intolerance Hematologic/Lymphatic: no easy bruising, no easy bleeding Allergic/Immunologic: no urticaria, no wheezing Physical Examination Vital Signs Temp Pulse Resp BP Pulse Ox 98.7 F 82 20 115/60 100 07/05/16 14:25 07/05/16 14:25 07/05/16 14:25 07/05/16 14:25 07/05/16 14:25 General appearance: no acute distress HEENT: Positive: Normocephaly, Mucus Membranes Moist Neck: Positive: neck supple, trachea midline Cardiac: Positive: Reg Rate and Rhythm, S1/S2 Lungs: Positive: clear to auscultation Neuro: Positive: Grossly Intact Abdomen: Positive: Soft, Active Bowel Sounds. Negative: Tender Skin: Positive: Clear. Negative: Rash Extremities: Present: normal. Absent: edema Results 07/07/16 05:01 07/07/16 05:01 CBC 07/07/16 Range/Units 05:01 WBC 7.5 (4.5-11.0) K/mm3 RBC 4.60 (3.65-5.03) M/mm3 Hgb 12.8 (11.8-15.2) gm/dl Hct 40.8 (35.5-45.6) % Plt Count 134 L (140-440) K/mm3 Lymph # 0.7 L (1.2-5.4) K/mm3 [place] # 0.5 (0.0-0.8) K/mm3 Eos # 0.1 (0.0-0.4) K/mm3 Baso # 0.0 (0.0-0.1) K/mm3 Comprehensive Metabolic Panel 07/07/16 Range/Units 05:01 Sodium 140 (137-145) mmol/L Potassium 4.6 (3.6-5.0) mmol/L Chloride 101.6 (98-107) mmol/L Carbon Dioxide 24 (22-30) mmol/L BUN 43 H (9-20) mg/dL Creatinine 4.5 H (0.8-1.5) mg/dL Glucose 140 H (75-100) mg/dL Calcium 9.2 (8.4-10.2) mg/dL - Imaging and Cardiology Echo: pending EKG: pending Assessment and Plan Pre-operative cardiac evaluation pt. denies chest pain/SOB obtain EKG and echocardiogram Cholecystitis s/p cholecystostomy tube open cholecystectomy planned for Sunday07/10/16 Atrial flutter await EKG s/p cardioversion at [place] last month ablation planned per pt. coumadin on hold in anticipation of surgery CAD s/p CABG in 2011 continue ASA, statin Hx. of ischemic cardiomyopathy EF 20-25% in 2014 await echo findings Hypertension Diabetes ESRD on HD Continue current management. Obtain EKG and echocardiogram. Further recommendations to follow. The patient has been seen in conjunction with Dr. Solis who agrees with the assessment and plan of care. Thank you Dr. Tang for allowing us to participate in the care of this patient.
--- NOTE | 2016-07-07 11:54 | Progress Note ---
Assessment and Plan Assessment and plan: 66M w pmh of cholecystitis, sp cholecystomy drain which got dislodged and he now presents with severe RUQ pain, Dr Goldberg of Surgery is on the case and patient is planned for open cholecystectomy on Sunday, in the meantime, he will need to taken off anticoagulation and medically optimized 1. Cholecystitis s/p replacement Cholecystostomy drain 07/06 by IR fup intraop cultures , patient will be for cholecystectomy most likely on Sunday, holding Coumadin 2. CAD/ s/p CABG Continue BB, ACEI, aspirin and statin 3. Atrial flutter Status post recent cardioversion at [place] and currently on NSR cw rate control medicine, hold coumadin for procedure 4. Hypertension continue BP meds 5. Diabetes continue insulins 6. Hyperlipidemia Continue statin 7. ESRD on HD cotninue HD per nephrology Of note patient has a history of coronary artery disease, hypertension, atrial flutter and diabetes. Patient is currently asymptomatic from cardiac standpoint , does not have has not recently had chest pain, CAD is optimized, he has hx of Paroxysmal A Flutter, sp cardioversion, now in SR. HTN and DM are well controlled and he is on maintenance HD for ESRD. From a medical standpoint this patient is optimized for cholecystectomy. Patient is moderate risk for moderate risk procedure, and at this point we believe that the benefits of the procedure strongly outweigh the risks. History Interval history: abdominal pain is now resolved, denies fever, feels well Hospitalist Physical - Physical exam Narrative exam: General: Patient appears well in no distress HEENT: MMM, EOMI cardiac: S1-S2 heard lungs: clear to auscultation, abdomen: Soft, NT extremities: no edema clubbing or cyanosis Skin: no rash or lesion Neuro: no focal deficit Psych: appropriate behavior and mood, cognition intact - Constitutional Vitals: Temp Pulse Resp BP Pulse Ox 98.2 F 92 H 18 155/79 100 07/07/16 10:10 07/07/16 11:30 07/07/16 10:10 07/07/16 11:30 07/07/16 09:18 General appearance: Present: no acute distress, well-nourished Results - Labs CBC & Chem 7: 07/07/16 05:01 07/07/16 05:01 Labs: Laboratory Last Values WBC 7.5 K/mm3 (4.5-11.0) 07/07/16 05:01 RBC 4.60 M/mm3 (3.65-5.03) 07/07/16 05:01 Hgb 12.8 gm/dl (11.8-15.2) 07/07/16 05:01 Hct 40.8 % (35.5-45.6) 07/07/16 05:01 MCV 89 fl (84-94) 07/07/16 05:01 MCH 28 pg (28-32) 07/07/16 05:01 MCHC 31 % (32-34) L 07/07/16 05:01 RDW 19.9 % (13.2-15.2) H 07/07/16 05:01 Plt Count 134 K/mm3 (140-440) L 07/07/16 05:01 Lymph % (Auto) 9.5 % (13.4-35.0) L 07/07/16 05:01 [place] % (Auto) 6.4 % (0.0-7.3) 07/07/16 05:01 Eos % (Auto) 1.7 % (0.0-4.3) 07/07/16 05:01 Baso % (Auto) 0.6 % (0.0-1.8) 07/07/16 05:01 Lymph # 0.7 K/mm3 (1.2-5.4) L 07/07/16 05:01 [place] # 0.5 K/mm3 (0.0-0.8) 07/07/16 05:01 Eos # 0.1 K/mm3 (0.0-0.4) 07/07/16 05:01 Baso # 0.0 K/mm3 (0.0-0.1) 07/07/16 05:01 Seg Neutrophils % 81.8 % (40.0-70.0) H 07/07/16 05:01 Seg Neutrophils # 6.2 K/mm3 (1.8-7.7) 07/07/16 05:01 PT 22.6 Sec. (12.2-14.9) H 07/05/16 18:42 INR 1.99 (0.87-1.13) H 07/05/16 18:42 Sodium 140 mmol/L (137-145) 07/07/16 05:01 Potassium 4.6 mmol/L (3.6-5.0) 07/07/16 05:01 Chloride 101.6 mmol/L (98-107) 07/07/16 05:01 Carbon Dioxide 24 mmol/L (22-30) 07/07/16 05:01 Anion Gap 19 mmol/L 07/07/16 05:01 BUN 43 mg/dL (9-20) H 07/07/16 05:01 Creatinine 4.5 mg/dL (0.8-1.5) H 07/07/16 05:01 Estimated GFR 16 ml/min 07/07/16 05:01 BUN/Creatinine Ratio 9.55 % 07/07/16 05:01 Glucose 140 mg/dL (75-100) H 07/07/16 05:01 Calcium 9.2 mg/dL (8.4-10.2) 07/07/16 05:01 Total Bilirubin 0.6 mg/dL (0.1-1.2) 07/06/16 05:00 AST 13 units/L (5-40) 07/06/16 05:00 ALT 19 units/L (7-56) 07/06/16 05:00 Alkaline Phosphatase 234 units/L (35-129) H 07/06/16 05:00 Total Protein 6.4 g/dL (6.3-8.2) 07/06/16 05:00 Albumin 3.6 g/dL (3.9-5) L 07/06/16 05:00 Albumin/Globulin Ratio 1.3 % 07/06/16 05:00 Lipase 56 units/L (13-60) 07/05/16 15:02 Urine Color Yellow (Yellow) 07/05/16 17:57 Urine Turbidity Cloudy (Clear) 07/05/16 17:57 Urine pH 5.0 (5.0-7.0) 07/05/16 17:57 Ur Specific [place] 1.014 (1.003-1.030) 07/05/16 17:57 Urine Protein >500 mg/dL (Negative) 07/05/16 17:57 Urine Glucose (UA) 50 mg/dL (Negative) 07/05/16 17:57 Urine Ketones Tr mg/dL (Negative) 07/05/16 17:57 Urine Blood Mod (Negative) 07/05/16 17:57 Urine Nitrite Neg (Negative) 07/05/16 17:57 Urine Bilirubin Neg (Negative) 07/05/16 17:57 Urine Urobilinogen < 2.0 mg/dL (<2.0) 07/05/16 17:57 Ur Leukocyte Esterase Neg (Negative) 07/05/16 17:57 Urine WBC (Auto) 1.0 /HPF (0.0-6.0) 07/05/16 17:57 Urine RBC (Auto) 30.0 /HPF (0.0-6.0) 07/05/16 17:57
--- NOTE | 2016-07-07 12:16 | Progress Note ---
Assessment and Plan Pt currently in dialysis. Cardiology & renal eval appreciated. GB tube replaced. tentatively open GB scheduled for sunday clotting studies ordered for am Selected Entries 06/14/16 06/14/16 07/07/16 10:00 10:15 12:00 Temperature 98.2 F Pulse Rate 77 91 H Blood Pressure 108/53 Laboratory Tests 07/06/16 07/07/16 07/07/16 05:00 05:01 05:01 WBC 7.5 Hgb 12.8 Hct 40.8 Sodium 140 Potassium 4.6 Chloride 101.6 Carbon Dioxide 24 Anion Gap 19 BUN 43 H Creatinine 4.5 H Total Bilirubin 0.6 AST 13 ALT 19 Alkaline Phosphatase 234 H Objective Vital Signs - 12hr 07/07/16 07/07/16 11:45 12:00 Pulse Rate 69 91 H Blood Pressure 127/83 146/76 - Labs 07/07/16 05:01 07/07/16 05:01
[2016-07-07] MEDS ORDERED: NACL 0.9 (PRIMING MACHINE ONLY DIALYSIS) MC ONE (12:40)
[2016-07-07] MEDS: IMDUR PO SCH (15:00)
--- NOTE | 2016-07-07 16:15 | Progress Note ---
Assessment and Plan Assessment: * End-stage renal disease on hemodialysis qMWF * Abdominal pain * Hx of cholecystitis s/p CT guided placement of cholecystostomy tube (Jun 09) * Atrial fibrillation on chronic anticoagulation * Anemia secondary to ESRD * Secondary hyperparathyroidism Plan: * Continue outpatient MWF schedule * cholestomy tube placement per ir noted * uf with dialysis as tolerated * stop IVF * Cardiology to see re: management of chronic anticoagulation * Epogen with dialysis * Diet per surgery/primary team Subjective Date of service: 07/07/16 Principal diagnosis: esrd Interval history: resting well in bed today, no acute issues Objective - Exam Narrative Exam: General appearance: well-developed, well-nourished EENT: ATNC Neck: Present: neck supple Respiratory: Clear to Ascultation Heart: irregular Gastrointestinal: Present: normoactive bowel sounds. Absent: distended Integumentary: no rash, warm and dry Neurologic: no focal deficit, alert and oriented x3 Musculoskeletal: Present: other (no edema) Psychiatric: mood/affect appropriate, cooperative - Vital Signs Vital signs: Vital Signs - 12hr 07/07/16 07/07/16 07/07/16 11:45 12:00 12:15 Temperature Pulse Rate 69 91 H 94 H Respiratory Rate Blood Pressure 127/83 146/76 137/68 07/07/16 07/07/16 07/07/16 12:30 12:45 13:00 Temperature Pulse Rate 56 L 54 L 76 Respiratory Rate Blood Pressure 168/125 114/73 140/84 07/07/16 07/07/16 07/07/16 13:15 13:30 13:45 Temperature Pulse Rate 80 87 72 Respiratory Rate Blood Pressure 122/73 115/76 134/75 07/07/16 07/07/16 14:15 14:30 Temperature 98.6 F Pulse Rate 58 L 77 Respiratory 18 Rate Blood Pressure 126/82 133/77 - Lab 07/07/16 05:01 07/07/16 05:01 Most recent lab results Calcium 9.2 mg/dL (8.4-10.2) 07/07/16 05:01
[2016-07-07] MEDS: MINIPRESS PO SCH (22:58)
[2016-07-07] MEDS: LEVEMIR SUB-Q SCH (23:02)
[2016-07-07] MEDS: DESYREL PO SCH (23:02)
[2016-07-08 05:31] LABS: Basophils % (Auto) 0.4 % (0.0-1.8); Eosinophils % (Auto) 2.9 % (0.0-4.3); Hematocrit 40.9 % (35.5-45.6); Hemoglobin 12.9 gm/dl (11.8-15.2); Mean Corpuscular HGB Conc 32 % (32-34); Mean Corpuscular Hemoglobin 28 pg (28-32); Mean Corpuscular Volume 88 fl (84-94); Platelet Count 123 K/mm3 (140-440); Red Blood Count 4.63 M/mm3 (3.65-5.03); White Blood Count 5.8 K/mm3 (4.5-11.0)
[2016-07-08 05:37] LABS: INR 1.47 (0.87-1.13)
[2016-07-08 05:38] LABS: Partial Thromboplastin Time 37.8 Sec. (24.2-36.6)
[2016-07-08 05:39] LABS: Red Cell Distribution Width 20.2 % (13.2-15.2)
[2016-07-08 05:45] LABS: BUN/Creatinine Ratio 7.29; Chloride 97.7 mmol/L (98-107); Potassium 3.5 mmol/L (3.6-5.0)
[2016-07-08] MEDS: TESSALON PERLES PO SCH ×3 (06:20→22:00)
[2016-07-08] MEDS: NOVOLOG SUB-Q SCH ×3 (07:00→17:18)
--- NOTE | 2016-07-08 11:34 | Progress Note ---
Assessment and Plan Assessment and plan: 66M w pmh of cholecystitis, sp cholecystomy drain which got dislodged and he now presents with severe RUQ pain, Dr Goldberg of Surgery is on the case and patient is planned for open cholecystectomy on Sunday, in the meantime, he will need to taken off anticoagulation and medically optimized 1. Cholecystitis s/p replacement Cholecystostomy drain 07/06 by IR fup intraop cultures , patient will be for cholecystectomy most likely on Sunday, holding Coumadin 2. CAD/ s/p CABG, w systolic CHF asymptomatic and optimized Continue BB, ACEI, aspirin and statin 3. Atrial flutter Status post recent cardioversion at [place] and currently on NSR cw rate control medicine, hold coumadin for procedure 4. Hypertension continue BP meds 5. Diabetes continue insulins 6. Hyperlipidemia Continue statin 7. ESRD on HD cotninue HD per nephrology Of note patient has a history of coronary artery disease, hypertension, atrial flutter and diabetes. Patient is currently asymptomatic from cardiac standpoint , does not have has not recently had chest pain, CAD is optimized, he has hx of Paroxysmal A Flutter, sp cardioversion, now in SR. HTN and DM are well controlled and he is on maintenance HD for ESRD. From a medical standpoint this patient is optimized for cholecystectomy. Patient is moderate risk for moderate risk procedure, and at this point we believe that the benefits of the procedure strongly outweigh the risks. History Interval history: abdominal pain is now resolved, denies fever, feels well Hospitalist Physical - Physical exam Narrative exam: General: Patient appears well in no distress HEENT: MMM, EOMI cardiac: S1-S2 heard lungs: clear to auscultation, abdomen: Soft, NT extremities: no edema clubbing or cyanosis Skin: no rash or lesion Neuro: no focal deficit Psych: appropriate behavior and mood, cognition intact - Constitutional Vitals: Temp Pulse Resp BP Pulse Ox 98.2 F 98 H 16 105/58 100 07/08/16 08:00 07/08/16 08:00 07/08/16 08:00 07/08/16 08:00 07/08/16 11:15 General appearance: Present: no acute distress, well-nourished Results - Labs CBC & Chem 7: 07/08/16 05:04 07/08/16 05:04 Labs: Laboratory Last Values WBC 5.8 K/mm3 (4.5-11.0) 07/08/16 05:04 RBC 4.63 M/mm3 (3.65-5.03) 07/08/16 05:04 Hgb 12.9 gm/dl (11.8-15.2) 07/08/16 05:04 Hct 40.9 % (35.5-45.6) 07/08/16 05:04 MCV 88 fl (84-94) 07/08/16 05:04 MCH 28 pg (28-32) 07/08/16 05:04 MCHC 32 % (32-34) 07/08/16 05:04 RDW 20.2 % (13.2-15.2) H 07/08/16 05:04 Plt Count 123 K/mm3 (140-440) L 07/08/16 05:04 Lymph % (Auto) 21.7 % (13.4-35.0) 07/08/16 05:04 [place] % (Auto) 6.8 % (0.0-7.3) 07/08/16 05:04 Eos % (Auto) 2.9 % (0.0-4.3) 07/08/16 05:04 Baso % (Auto) 0.4 % (0.0-1.8) 07/08/16 05:04 Lymph # 1.3 K/mm3 (1.2-5.4) 07/08/16 05:04 [place] # 0.4 K/mm3 (0.0-0.8) 07/08/16 05:04 Eos # 0.2 K/mm3 (0.0-0.4) 07/08/16 05:04 Baso # 0.0 K/mm3 (0.0-0.1) 07/08/16 05:04 Seg Neutrophils % 68.2 % (40.0-70.0) 07/08/16 05:04 Seg Neutrophils # 4.0 K/mm3 (1.8-7.7) 07/08/16 05:04 PT 17.8 Sec. (12.2-14.9) H 07/08/16 05:04 INR 1.47 (0.87-1.13) H 07/08/16 05:04 APTT 37.8 Sec. (24.2-36.6) H 07/08/16 05:04 Sodium 138 mmol/L (137-145) 07/08/16 05:04 Potassium 3.5 mmol/L (3.6-5.0) L D 07/08/16 05:04 Chloride 97.7 mmol/L (98-107) L 07/08/16 05:04 Carbon Dioxide 27 mmol/L (22-30) 07/08/16 05:04 Anion Gap 17 mmol/L 07/08/16 05:04 BUN 27 mg/dL (9-20) H 07/08/16 05:04 Creatinine 3.7 mg/dL (0.8-1.5) H 07/08/16 05:04 Estimated GFR 20 ml/min 07/08/16 05:04 BUN/Creatinine Ratio 7.29 % 07/08/16 05:04 Glucose 119 mg/dL (75-100) H 07/08/16 05:04 Calcium 9.0 mg/dL (8.4-10.2) 07/08/16 05:04 Total Bilirubin 0.6 mg/dL (0.1-1.2) 07/06/16 05:00 AST 13 units/L (5-40) 07/06/16 05:00 ALT 19 units/L (7-56) 07/06/16 05:00 Alkaline Phosphatase 234 units/L (35-129) H 07/06/16 05:00 Total Protein 6.4 g/dL (6.3-8.2) 07/06/16 05:00 Albumin 3.6 g/dL (3.9-5) L 07/06/16 05:00 Albumin/Globulin Ratio 1.3 % 07/06/16 05:00 Lipase 56 units/L (13-60) 07/05/16 15:02 Urine Color Yellow (Yellow) 07/05/16 17:57 Urine Turbidity Cloudy (Clear) 07/05/16 17:57 Urine pH 5.0 (5.0-7.0) 07/05/16 17:57 Ur Specific [place] 1.014 (1.003-1.030) 07/05/16 17:57 Urine Protein >500 mg/dL (Negative) 07/05/16 17:57 Urine Glucose (UA) 50 mg/dL (Negative) 07/05/16 17:57 Urine Ketones Tr mg/dL (Negative) 07/05/16 17:57 Urine Blood Mod (Negative) 07/05/16 17:57 Urine Nitrite Neg (Negative) 07/05/16 17:57 Urine Bilirubin Neg (Negative) 07/05/16 17:57 Urine Urobilinogen < 2.0 mg/dL (<2.0) 07/05/16 17:57 Ur Leukocyte Esterase Neg (Negative) 07/05/16 17:57 Urine WBC (Auto) 1.0 /HPF (0.0-6.0) 07/05/16 17:57 Urine RBC (Auto) 30.0 /HPF (0.0-6.0) 07/05/16 17:57
[2016-07-08] MEDS: NEURONTIN PO SCH ×2 (13:25→22:00)
[2016-07-08] MEDS: BABY ASPIRIN PO SCH (13:25)
[2016-07-08] MEDS: PROzac PO SCH (13:26)
[2016-07-08] MEDS: ZESTRIL PO SCH (13:26)
[2016-07-08] MEDS: COLACE PO SCH ×2 (13:27→22:00)
[2016-07-08] MEDS: DEMADEX PO SCH ×2 (13:27→22:00)
[2016-07-08] MEDS: VITAMIN C PO SCH (13:27)
[2016-07-08] MEDS: IMDUR PO SCH (13:27)
[2016-07-08] MEDS: ZEBETA PO SCH (13:30)
--- NOTE | 2016-07-08 14:10 | Progress Note ---
Assessment and Plan Pt feeling well Abd soft. PT improving but still not wnl surgically stable repeat clotting studies in am tentative open GB on Sunday Selected Entries 07/08/16 07/08/16 08:00 13:30 Temperature 98.2 F Pulse Rate 132 H Blood Pressure 127/73 Laboratory Tests 07/08/16 07/08/16 07/08/16 05:04 05:04 05:04 WBC 5.8 Hgb 12.9 Hct 40.9 Plt Count 123 L PT 17.8 H INR 1.47 H APTT 37.8 H Sodium 138 Potassium 3.5 L D Chloride 97.7 L BUN 27 H Creatinine 3.7 H Objective Vital Signs - 12hr 07/08/16 07/08/16 07/08/16 08:00 11:15 12:00 Temperature 98.2 F Pulse Rate Pulse Rate [ 98 H 134 H Left] Respiratory 16 16 Rate Blood Pressure Blood Pressure 105/58 127/73 [Left Arm] O2 Sat by Pulse 100 100 100 Oximetry 07/08/16 07/08/16 07/08/16 13:26 13:27 13:30 Temperature Pulse Rate 132 H 132 H 132 H Pulse Rate [ Left] Respiratory Rate Blood Pressure 127/73 127/73 127/73 Blood Pressure [Left Arm] O2 Sat by Pulse Oximetry - Labs 07/08/16 05:04 07/08/16 05:04 Diabetes panel 07/08/16 Range/Units 05:04 Sodium 138 (137-145) mmol/L Potassium 3.5 L D (3.6-5.0) mmol/L Chloride 97.7 L (98-107) mmol/L Carbon Dioxide 27 (22-30) mmol/L BUN 27 H (9-20) mg/dL Creatinine 3.7 H (0.8-1.5) mg/dL Glucose 119 H (75-100) mg/dL Calcium 9.0 (8.4-10.2) mg/dL Calcium panel 07/08/16 Range/Units 05:04 Calcium 9.0 (8.4-10.2) mg/dL Pituitary panel 07/08/16 Range/Units 05:04 Sodium 138 (137-145) mmol/L Potassium 3.5 L D (3.6-5.0) mmol/L Chloride 97.7 L (98-107) mmol/L Carbon Dioxide 27 (22-30) mmol/L BUN 27 H (9-20) mg/dL Creatinine 3.7 H (0.8-1.5) mg/dL Glucose 119 H (75-100) mg/dL Calcium 9.0 (8.4-10.2) mg/dL Adrenal panel 07/08/16 Range/Units 05:04 Sodium 138 (137-145) mmol/L Potassium 3.5 L D (3.6-5.0) mmol/L Chloride 97.7 L (98-107) mmol/L Carbon Dioxide 27 (22-30) mmol/L BUN 27 H (9-20) mg/dL Creatinine 3.7 H (0.8-1.5) mg/dL Glucose 119 H (75-100) mg/dL Calcium 9.0 (8.4-10.2) mg/dL
--- NOTE | 2016-07-08 14:22 | Progress Note ---
Assessment and Plan Assessment: * End-stage renal disease on hemodialysis qMWF * Abdominal pain * Hx of cholecystitis s/p CT guided placement of cholecystostomy tube (Jun 09) * Atrial fibrillation on chronic anticoagulation * Anemia secondary to ESRD * Secondary hyperparathyroidism Plan: * Continue outpatient MWF schedule * Status post cholestomy tube placement per ir noted * uf with dialysis as tolerated * Cardiology consultation appreciated * Epogen with dialysis * Diet per surgery/primary team Subjective Date of service: 07/08/16 Principal diagnosis: esrd Interval history: Patient is comfortable this morning. Denies any shortness of breath. No nausea or vomiting. Objective - Vital Signs Vital signs: Vital Signs - 12hr 07/08/16 07/08/16 07/08/16 08:00 11:15 12:00 Temperature 98.2 F Pulse Rate Pulse Rate [ 98 H 134 H Left] Respiratory 16 16 Rate Blood Pressure Blood Pressure 105/58 127/73 [Left Arm] O2 Sat by Pulse 100 100 100 Oximetry 07/08/16 07/08/16 07/08/16 13:26 13:27 13:30 Temperature Pulse Rate 132 H 132 H 132 H Pulse Rate [ Left] Respiratory Rate Blood Pressure 127/73 127/73 127/73 Blood Pressure [Left Arm] O2 Sat by Pulse Oximetry - General Appearance General appearance: well-developed, well-nourished, appears stated age EENT: PERRL, mucous membranes moist Neck: no JVD, no thyromegaly, no carotid bruit, supple Respiratory: Present: Clear to Ascultation Cardiology: regular, normal heart rate Gastrointestinal: normoactive bowel sounds, other (drain noted in his right upper quadrant) Integumentary: other (AV fistula in his left upper arm. Good bruit and thrill) - Lab 07/08/16 05:04 07/08/16 05:04 Most recent lab results Calcium 9.0 mg/dL (8.4-10.2) 07/08/16 05:04
--- NOTE | 2016-07-08 14:31 | Progress Note ---
Assessment and Plan Pre-operative cardiac evaluation pt. denies chest pain/SOB Echo: EF 25-30% 07/08/2016. Cholecystitis s/p cholecystostomy tube open cholecystectomy planned for Sunday07/10/16 Atrial flutter await EKG s/p cardioversion at [place] last month ablation planned per pt. coumadin on hold in anticipation of surgery CAD s/p CABG in 2011 continue ASA, statin Hx. of ischemic cardiomyopathy EF 20-25% in 2014 Hypertension Diabetes ESRD on HD Subjective Date of service: 07/08/16 Principal diagnosis: esrd Interval history: No chest pain or dyspnea. Resting in bed. Objective Vital Signs Temp Pulse Pulse Resp BP BP Pulse Ox 07/08/16 13:30 132 H 127/73 07/08/16 13:27 132 H 127/73 07/08/16 13:26 132 H 127/73 07/08/16 12:00 134 H 16 127/73 100 07/08/16 11:15 100 07/08/16 08:00 98.2 F 98 H 16 105/58 100 07/07/16 23:18 97.2 F L 07/07/16 23:12 95 H 18 132/76 07/07/16 22:58 98 H 07/07/16 21:24 99 07/07/16 17:00 97.6 F 111 H 20 139/73 07/07/16 14:30 98.6 F 77 18 133/77 - Physical Examination General: Appears Well, No Apparent Distress HEENT: Positive: Normocephaly, Mucus Membranes Moist Neck: Positive: neck supple, trachea midline. Negative: JVD/HJR Cardiac: Positive: Reg Rate and Rhythm, S3 Lungs: Positive: clear to auscultation Neuro: Positive: Grossly Intact Abdomen: Positive: Soft, Active Bowel Sounds. Negative: Tender Skin: Positive: Clear. Negative: Rash Extremities: Present: normal. Absent: edema - Labs and Meds Coagulation 07/08/16 Range/Units 05:04 PT 17.8 H (12.2-14.9) Sec. INR 1.47 H (0.87-1.13) APTT 37.8 H (24.2-36.6) Sec. CBC 07/08/16 Range/Units 05:04 WBC 5.8 (4.5-11.0) K/mm3 RBC 4.63 (3.65-5.03) M/mm3 Hgb 12.9 (11.8-15.2) gm/dl Hct 40.9 (35.5-45.6) % Plt Count 123 L (140-440) K/mm3 Lymph # 1.3 (1.2-5.4) K/mm3 [place] # 0.4 (0.0-0.8) K/mm3 Eos # 0.2 (0.0-0.4) K/mm3 Baso # 0.0 (0.0-0.1) K/mm3 Comprehensive Metabolic Panel 07/08/16 Range/Units 05:04 Sodium 138 (137-145) mmol/L Potassium 3.5 L D (3.6-5.0) mmol/L Chloride 97.7 L (98-107) mmol/L Carbon Dioxide 27 (22-30) mmol/L BUN 27 H (9-20) mg/dL Creatinine 3.7 H (0.8-1.5) mg/dL Glucose 119 H (75-100) mg/dL Calcium 9.0 (8.4-10.2) mg/dL - Imaging and Cardiology EKG: pending, report reviewed Echo: pending, image reviewed
[2016-07-08] MEDS: LEVEMIR SUB-Q SCH (22:00)
[2016-07-08] MEDS: DESYREL PO SCH (22:00)
[2016-07-08] MEDS: MINIPRESS PO SCH (22:00)
[2016-07-09] MEDS: NOVOLOG SUB-Q SCH ×5 (00:46→23:33)
[2016-07-09 05:49] LABS: Basophils % (Auto) 0.5 % (0.0-1.8); Eosinophils % (Auto) 2.8 % (0.0-4.3); Hematocrit 41.4 % (35.5-45.6); Mean Corpuscular HGB Conc 32 % (32-34); Mean Corpuscular Hemoglobin 28 pg (28-32); Mean Corpuscular Volume 88 fl (84-94); Platelet Count 131 K/mm3 (140-440); Red Cell Distribution Width 19.8 % (13.2-15.2); White Blood Count 7.3 K/mm3 (4.5-11.0)
[2016-07-09] MEDS: TESSALON PERLES PO SCH ×3 (06:00→21:52)
[2016-07-09 06:03] LABS: BUN/Creatinine Ratio 7.88; Calcium 9.1 mg/dL (8.4-10.2); Chloride 94.5 mmol/L (98-107); Potassium 3.6 mmol/L (3.6-5.0)
[2016-07-09 06:23] LABS: INR 1.23 (0.87-1.13)
[2016-07-09 06:24] LABS: Partial Thromboplastin Time 33.7 Sec. (24.2-36.6)
[2016-07-09] MEDS: COLACE PO SCH ×2 (10:44→21:53)
[2016-07-09] MEDS: ZEBETA PO SCH (10:44)
[2016-07-09] MEDS: VITAMIN C PO SCH (10:44)
[2016-07-09] MEDS: NEURONTIN PO SCH ×2 (10:44→21:54)
[2016-07-09] MEDS: BABY ASPIRIN PO SCH (10:44)
[2016-07-09] MEDS: DEMADEX PO SCH ×2 (10:44→21:56)
[2016-07-09] MEDS: IMDUR PO SCH (10:46)
[2016-07-09] MEDS: PROzac PO SCH (10:48)
[2016-07-09] MEDS: ZESTRIL PO SCH (10:48)
--- NOTE | 2016-07-09 11:04 | Progress Note ---
Assessment and Plan Assessment and plan: 66M w pmh of cholecystitis, sp cholecystomy drain which got dislodged and he now presents with severe RUQ pain, Dr Goldberg of Surgery is on the case and patient is planned for open cholecystectomy on Sunday, in the meantime, he will need to taken off anticoagulation and medically optimized 1. Cholecystitis s/p replacement Cholecystostomy drain 07/06 by IR fup intraop cultures , patient will be for cholecystectomy most likely on Sunday, holding Coumadin, INR now 1.2 2. CAD/ s/p CABG, w systolic CHF asymptomatic and optimized Continue BB, ACEI, aspirin and statin 3. Atrial flutter Status post recent cardioversion at [place] and currently on NSR cw rate control medicine, hold coumadin for procedure 4. Hypertension continue BP meds 5. Diabetes continue insulins 6. Hyperlipidemia Continue statin 7. ESRD on HD cotninue HD per nephrology Of note patient has a history of coronary artery disease, hypertension, atrial flutter and diabetes. Patient is currently asymptomatic from cardiac standpoint , does not have has not recently had chest pain, CAD is optimized, he has hx of Paroxysmal A Flutter, sp cardioversion, now in SR. HTN and DM are well controlled and he is on maintenance HD for ESRD. From a medical standpoint this patient is optimized for cholecystectomy. Patient is moderate risk for moderate risk procedure, and at this point we believe that the benefits of the procedure strongly outweigh the risks. History Interval history: abdominal pain is now resolved, denies fever, feels well Hospitalist Physical - Physical exam Narrative exam: General: Patient appears well in no distress HEENT: MMM, EOMI cardiac: S1-S2 heard lungs: clear to auscultation, abdomen: Soft, NT extremities: no edema clubbing or cyanosis Skin: no rash or lesion Neuro: no focal deficit Psych: appropriate behavior and mood, cognition intact - Constitutional Vitals: Temp Pulse Resp BP Pulse Ox 98.5 F 70 20 120/80 99 07/09/16 08:00 07/09/16 10:48 07/09/16 08:00 07/09/16 10:48 07/09/16 09:01 General appearance: Present: no acute distress, well-nourished Results - Labs CBC & Chem 7: 07/09/16 05:29 07/09/16 05:29 Labs: Laboratory Last Values WBC 7.3 K/mm3 (4.5-11.0) 07/09/16 05:29 RBC 4.70 M/mm3 (3.65-5.03) 07/09/16 05:29 Hgb 13.0 gm/dl (11.8-15.2) 07/09/16 05:29 Hct 41.4 % (35.5-45.6) 07/09/16 05:29 MCV 88 fl (84-94) 07/09/16 05:29 MCH 28 pg (28-32) 07/09/16 05:29 MCHC 32 % (32-34) 07/09/16 05:29 RDW 19.8 % (13.2-15.2) H 07/09/16 05:29 Plt Count 131 K/mm3 (140-440) L 07/09/16 05:29 Lymph % (Auto) 20.1 % (13.4-35.0) 07/09/16 05:29 [place] % (Auto) 6.2 % (0.0-7.3) 07/09/16 05:29 Eos % (Auto) 2.8 % (0.0-4.3) 07/09/16 05:29 Baso % (Auto) 0.5 % (0.0-1.8) 07/09/16 05:29 Lymph # 1.5 K/mm3 (1.2-5.4) 07/09/16 05:29 [place] # 0.4 K/mm3 (0.0-0.8) 07/09/16 05:29 Eos # 0.2 K/mm3 (0.0-0.4) 07/09/16 05:29 Baso # 0.0 K/mm3 (0.0-0.1) 07/09/16 05:29 Seg Neutrophils % 70.4 % (40.0-70.0) H 07/09/16 05:29 Seg Neutrophils # 5.1 K/mm3 (1.8-7.7) 07/09/16 05:29 PT 15.4 Sec. (12.2-14.9) H 07/09/16 05:29 INR 1.23 (0.87-1.13) H 07/09/16 05:29 APTT 33.7 Sec. (24.2-36.6) 07/09/16 05:29 Sodium 138 mmol/L (137-145) 07/09/16 05:29 Potassium 3.6 mmol/L (3.6-5.0) 07/09/16 05:29 Chloride 94.5 mmol/L (98-107) L 07/09/16 05:29 Carbon Dioxide 26 mmol/L (22-30) 07/09/16 05:29 Anion Gap 21 mmol/L 07/09/16 05:29 BUN 41 mg/dL (9-20) H 07/09/16 05:29 Creatinine 5.2 mg/dL (0.8-1.5) H 07/09/16 05:29 Estimated GFR 13 ml/min 07/09/16 05:29 BUN/Creatinine Ratio 7.88 % 07/09/16 05:29 Glucose 152 mg/dL (75-100) H 07/09/16 05:29 Calcium 9.1 mg/dL (8.4-10.2) 07/09/16 05:29 Total Bilirubin 0.6 mg/dL (0.1-1.2) 07/06/16 05:00 AST 13 units/L (5-40) 07/06/16 05:00 ALT 19 units/L (7-56) 07/06/16 05:00 Alkaline Phosphatase 234 units/L (35-129) H 07/06/16 05:00 Total Protein 6.4 g/dL (6.3-8.2) 07/06/16 05:00 Albumin 3.6 g/dL (3.9-5) L 07/06/16 05:00 Albumin/Globulin Ratio 1.3 % 07/06/16 05:00 Lipase 56 units/L (13-60) 07/05/16 15:02 Urine Color Yellow (Yellow) 07/05/16 17:57 Urine Turbidity Cloudy (Clear) 07/05/16 17:57 Urine pH 5.0 (5.0-7.0) 07/05/16 17:57 Ur Specific [place] 1.014 (1.003-1.030) 07/05/16 17:57 Urine Protein >500 mg/dL (Negative) 07/05/16 17:57 Urine Glucose (UA) 50 mg/dL (Negative) 07/05/16 17:57 Urine Ketones Tr mg/dL (Negative) 07/05/16 17:57 Urine Blood Mod (Negative) 07/05/16 17:57 Urine Nitrite Neg (Negative) 07/05/16 17:57 Urine Bilirubin Neg (Negative) 07/05/16 17:57 Urine Urobilinogen < 2.0 mg/dL (<2.0) 07/05/16 17:57 Ur Leukocyte Esterase Neg (Negative) 07/05/16 17:57 Urine WBC (Auto) 1.0 /HPF (0.0-6.0) 07/05/16 17:57 Urine RBC (Auto) 30.0 /HPF (0.0-6.0) 07/05/16 17:57
--- NOTE | 2016-07-09 11:14 | Anesthesia Consultation ---
Anesthesia Consult and Med Hx Date of service: 07/10/16 - Airway Anesthetic Teeth Evaluation: Poor ROM Head & Neck: Inadequate Mental/Hyoid Distance: Adequate Mallampati Class: Class II Intubation Access Assessment: Possibly Difficult - Pulmonary Exam CTA: Yes - Pre-Operative Health Status ASA Pre-Surgery Classification: ASA4 Proposed Anesthetic Plan: General - Pre-Anesthesia Comment Pre-Anesthesia Comments: Few remaining teeth, none loose per patient report. Patient is breathing at his baseline. He has acute cholecystitis and has a cholecystostomy tube. - Pulmonary Hx Asthma: No COPD: No Hx Pneumonia: No Hx Sleep Apnea: Yes - Cardiovascular System Hx Hypertension: Yes Hx Angina: No (none recently) Hx Cardia Arrhythmia: Yes (a fib/flutter) - Central Nervous System Hx Psychiatric Problems: No - Endocrine Hx Renal Disease: Yes (CKD on dialysis --) Hx End Stage Renal Disease: Yes (MWF dialysis) Hx Non-Insulin Dependent Diabetes: Yes - Additional Comments Anesthesia Medical History Comments: Patient has ischemic cardiomyopathy with EF 25-30%. There is concentric LVH with areas of hypokinesis.
--- NOTE | 2016-07-09 11:32 | Progress Note ---
Assessment and Plan Pre-operative cardiac evaluation pt. denies chest pain/SOB Echo: EF 25-30% 07/08/2016. Patient is stable for GA and GB surgery.Benefits out weigh the risks. Cholecystitis s/p cholecystostomy tube open cholecystectomy planned for Sunday07/10/16 Atrial flutter await EKG s/p cardioversion at [place] last month ablation planned per pt. coumadin on hold in anticipation of surgery CAD s/p CABG in 2011 continue ASA, statin Hx. of ischemic cardiomyopathy EF 20-25% in 2014 Hypertension Diabetes ESRD on HD Subjective Principal diagnosis: esrd Interval history: No chest pain or dyspnea. Patient is in the chair at bedside. Has been evaluated by anesthesia. Objective Vital Signs Temp Pulse Pulse Resp Resp BP BP 07/09/16 10:48 70 120/80 07/09/16 10:46 70 120/80 07/09/16 09:01 07/09/16 08:00 98.5 F 70 20 119/73 07/09/16 00:00 98.1 F 90 18 111/53 07/08/16 22:00 93 H 18 18 96/50 07/08/16 20:21 07/08/16 20:00 98.8 F 93 H 18 96/50 07/08/16 16:30 98.1 F 85 16 125/80 07/08/16 13:30 132 H 127/73 07/08/16 13:27 132 H 127/73 07/08/16 13:26 132 H 127/73 07/08/16 12:00 134 H 16 127/73 Pulse Ox 07/09/16 10:48 07/09/16 10:46 07/09/16 09:01 99 07/09/16 08:00 98 07/09/16 00:00 98 07/08/16 22:00 07/08/16 20:21 97 07/08/16 20:00 100 07/08/16 16:30 98 07/08/16 13:30 07/08/16 13:27 07/08/16 13:26 07/08/16 12:00 100 - Physical Examination General: Appears Well, No Apparent Distress HEENT: Positive: Normocephaly, Mucus Membranes Moist Neck: Positive: neck supple, trachea midline. Negative: JVD/HJR Neuro: Positive: Grossly Intact Abdomen: Positive: Soft, Active Bowel Sounds. Negative: Tender Skin: Positive: Clear. Negative: Rash Extremities: Present: normal. Absent: edema - Labs and Meds Coagulation 07/09/16 Range/Units 05:29 PT 15.4 H (12.2-14.9) Sec. INR 1.23 H (0.87-1.13) APTT 33.7 (24.2-36.6) Sec. CBC 07/09/16 Range/Units 05:29 WBC 7.3 (4.5-11.0) K/mm3 RBC 4.70 (3.65-5.03) M/mm3 Hgb 13.0 (11.8-15.2) gm/dl Hct 41.4 (35.5-45.6) % Plt Count 131 L (140-440) K/mm3 Lymph # 1.5 (1.2-5.4) K/mm3 [place] # 0.4 (0.0-0.8) K/mm3 Eos # 0.2 (0.0-0.4) K/mm3 Baso # 0.0 (0.0-0.1) K/mm3 Comprehensive Metabolic Panel 07/09/16 Range/Units 05:29 Sodium 138 (137-145) mmol/L Potassium 3.6 (3.6-5.0) mmol/L Chloride 94.5 L (98-107) mmol/L Carbon Dioxide 26 (22-30) mmol/L BUN 41 H (9-20) mg/dL Creatinine 5.2 H (0.8-1.5) mg/dL Glucose 152 H (75-100) mg/dL Calcium 9.1 (8.4-10.2) mg/dL - Imaging and Cardiology EKG: pending, report reviewed Echo: pending, image reviewed
--- NOTE | 2016-07-09 11:46 | Progress Note ---
Assessment and Plan Assessment: * End-stage renal disease on hemodialysis qMWF * Abdominal pain * Hx of cholecystitis s/p CT guided placement of cholecystostomy tube (Jun 09) * Atrial fibrillation on chronic anticoagulation * Anemia secondary to ESRD * Secondary hyperparathyroidism Plan: * Continue outpatient MWF schedule * Status post cholestomy tube placement per ir noted * uf with dialysis as tolerated * Cardiology consultation appreciated * Epogen with dialysis * Diet per surgery/primary team Subjective Date of service: 07/09/16 Principal diagnosis: esrd Interval history: Patient is comfortable this morning. Denies any shortness of breath. No nausea or vomiting. Objective - Vital Signs Vital signs: Vital Signs - 12hr 07/09/16 07/09/16 07/09/16 00:00 08:00 09:01 Temperature 98.1 F 98.5 F Pulse Rate Pulse Rate [ 90 70 Left] Respiratory 18 20 Rate Blood Pressure Blood Pressure 111/53 119/73 [Left Arm] O2 Sat by Pulse 98 98 99 Oximetry 07/09/16 07/09/16 10:46 10:48 Temperature Pulse Rate 70 70 Pulse Rate [ Left] Respiratory Rate Blood Pressure 120/80 120/80 Blood Pressure [Left Arm] O2 Sat by Pulse Oximetry - General Appearance General appearance: well-developed, well-nourished, appears stated age EENT: PERRL, mucous membranes moist Neck: no JVD, no thyromegaly, no carotid bruit, supple Respiratory: Present: Clear to Ascultation Cardiology: regular, normal heart rate, S1S2, no murmurs Gastrointestinal: normal, normoactive bowel sounds, other (pain in right upper quadrant) Integumentary: other (fistula in his left upper arm. Good bruit and thrill) - Lab 07/09/16 05:29 07/09/16 05:29 Most recent lab results Calcium 9.1 mg/dL (8.4-10.2) 07/09/16 05:29
[2016-07-09 16:16] LABS: Creatine Kinase MB 2.9 ng/mL (0.0-4.0)
[2016-07-09] MEDS: PERCOCET 5/325 PO PRN (20:41)
[2016-07-09] MEDS: DESYREL PO SCH (21:53)
[2016-07-09] MEDS: MINIPRESS PO SCH (22:00)
[2016-07-09] MEDS: LEVEMIR SUB-Q SCH (22:30)
[2016-07-10 04:06] LABS: Basophils % (Auto) 0.4 % (0.0-1.8); Eosinophils % (Auto) 3.4 % (0.0-4.3); Hematocrit 40.6 % (35.5-45.6); Hemoglobin 12.8 gm/dl (11.8-15.2); Mean Corpuscular HGB Conc 32 % (32-34); Mean Corpuscular Hemoglobin 28 pg (28-32); Mean Corpuscular Volume 89 fl (84-94); Platelet Count 126 K/mm3 (140-440); Red Blood Count 4.59 M/mm3 (3.65-5.03); Red Cell Distribution Width 19.2 % (13.2-15.2); White Blood Count 7.8 K/mm3 (4.5-11.0)
[2016-07-10 04:30] LABS: BUN/Creatinine Ratio 8.68; Calcium 9.1 mg/dL (8.4-10.2); Chloride 96.5 mmol/L (98-107); Potassium 3.8 mmol/L (3.6-5.0)
[2016-07-10] MEDS: TESSALON PERLES PO SCH ×3 (06:35→22:48)
[2016-07-10 09:13] LABS: Creatine Kinase MB 2.4 ng/mL (0.0-4.0)
[2016-07-10] MEDS: NOVOLOG SUB-Q SCH ×4 (09:15→22:50)
[2016-07-10] MEDS: BABY ASPIRIN PO SCH (09:15)
[2016-07-10] MEDS: COLACE PO SCH ×2 (09:15→22:47)
[2016-07-10] MEDS: IMDUR PO SCH (09:16)
[2016-07-10] MEDS: NEURONTIN PO SCH ×2 (09:16→22:47)
[2016-07-10] MEDS: DEMADEX PO SCH ×2 (09:16→22:47)
[2016-07-10] MEDS: PROzac PO SCH (09:17)
[2016-07-10] MEDS: VITAMIN C PO SCH (09:18)
[2016-07-10] MEDS: ZESTRIL PO SCH (09:18)
[2016-07-10] MEDS: ZEBETA PO SCH (09:18)
--- NOTE | 2016-07-10 09:55 | Progress Note ---
Assessment and Plan Assessment: * End-stage renal disease on hemodialysis qMWF * Abdominal pain * Hx of cholecystitis s/p CT guided placement of cholecystostomy tube (Jun 09) * Atrial fibrillation on chronic anticoagulation * Anemia secondary to ESRD * Secondary hyperparathyroidism Plan: * Continue outpatient MWF schedule * Status post cholestomy tube placement per ir noted * uf with dialysis as tolerated * Cardiology consultation appreciated * Epogen with dialysis * Diet per surgery/primary team * Patient is scheduled for gallbladder surgery this afternoon at 2 PM. Shall try to coordinate his dialysis with that. Plan dialysis this morning without any heparin Subjective Date of service: 07/10/16 Principal diagnosis: esrd Interval history: Patient is comfortable this morning. Denies any shortness of breath. No nausea or vomiting. Objective - Vital Signs Vital signs: Vital Signs - 12hr 07/09/16 07/10/16 22:00 05:00 Temperature 98.2 F Pulse Rate [ 95 H 67 Left] Respiratory 16 Rate Blood Pressure 106/52 [Left Arm] O2 Sat by Pulse 96 100 Oximetry - General Appearance General appearance: well-developed, well-nourished, appears stated age EENT: PERRL, mucous membranes moist Neck: no JVD, no thyromegaly, no carotid bruit, supple Respiratory: Present: Clear to Ascultation Cardiology: regular, normal heart rate Gastrointestinal: normoactive bowel sounds, other (drain noted in his right upper quadrant) Integumentary: no rash, other (no edema) - Lab 07/10/16 03:42 07/10/16 03:42 Most recent lab results Calcium 9.1 mg/dL (8.4-10.2) 07/10/16 03:42
--- NOTE | 2016-07-10 10:33 | Progress Note ---
Assessment and Plan Pt had syncopal episode yesterday. Currently down for stress test discussed with hospitalist. postpone surgery today while cardiac w/u completed will tentatively re-schedule for am if medically cleared. Selected Entries 07/10/16 08:00 Temperature 98.7 F Pulse Rate [ 70 Left] Blood Pressure 125/65 [Left Arm] Laboratory Tests 07/10/16 07/10/16 07/10/16 03:42 03:42 08:39 WBC 7.8 Hgb 12.8 Hct 40.6 Plt Count 126 L Sodium 140 Potassium 3.8 Chloride 96.5 L Carbon Dioxide 26 Anion Gap 21 BUN 53 H Creatinine 6.1 H Glucose 159 H Total Creatine Kinase 71 CK-MB (CK-2) 2.4 CK-MB (CK-2) Rel Index 3.3 Troponin T 0.073 H Objective Vital Signs - 12hr 07/10/16 07/10/16 05:00 08:00 Temperature 98.2 F 98.7 F Pulse Rate [ 67 70 Left] Respiratory 16 18 Rate Blood Pressure 106/52 125/65 [Left Arm] O2 Sat by Pulse 100 97 Oximetry - Labs 07/10/16 03:42 07/10/16 03:42 Diabetes panel 07/09/16 07/10/16 Range/Units 15:19 03:42 Sodium Cancelled 140 Potassium Cancelled 3.8 Chloride Cancelled 96.5 L Carbon Dioxide Cancelled 26 BUN Cancelled 53 H Creatinine Cancelled 6.1 H Glucose Cancelled 159 H Calcium Cancelled 9.1 Triglycerides 101 (2-149) mg/dL HDL Cholesterol 29 L (40-59) mg/dL Calcium panel 07/09/16 07/10/16 Range/Units 15:19 03:42 Calcium Cancelled 9.1 Pituitary panel 07/09/16 07/10/16 Range/Units 15:19 03:42 Sodium Cancelled 140 Potassium Cancelled 3.8 Chloride Cancelled 96.5 L Carbon Dioxide Cancelled 26 BUN Cancelled 53 H Creatinine Cancelled 6.1 H Glucose Cancelled 159 H Calcium Cancelled 9.1 Adrenal panel 07/09/16 07/10/16 Range/Units 15:19 03:42 Sodium Cancelled 140 Potassium Cancelled 3.8 Chloride Cancelled 96.5 L Carbon Dioxide Cancelled 26 BUN Cancelled 53 H Creatinine Cancelled 6.1 H Glucose Cancelled 159 H Calcium Cancelled 9.1
[2016-07-10] MEDS ORDERED: LEXISCAN IV ONE (10:36)
--- NOTE | 2016-07-10 11:27 | Progress Note ---
Assessment and Plan Pre-operative cardiac evaluation pt. denies chest pain/SOB Echo 07/08/2016: EF 25-30% Stress MPI 07/10/16: no ischemia Cholecystitis s/p cholecystostomy tube open cholecystectomy planned for Sunday07/10/16 Syncope no chest pain mildly elevated troponin due to ESRD stress MPI 07/10/16: no ischemia Atrial flutter currently rate controlled, continue bisoprolol s/p cardioversion at [place] last month ablation planned per pt. coumadin on hold in anticipation of surgery CAD s/p CABG in 2011 continue ASA, statin Ischemic cardiomyopathy EF 25-30% currently compensated Hypertension Diabetes ESRD on HD The patient is stable from a cardiac standpoint to proceed with surgery as planned. Discussed with Dr. Stern. Will follow. The patient has been seen in conjunction with Dr. Venegas who agrees with the assessment and plan of care. Subjective Date of service: 07/10/16 Principal diagnosis: syncope, chronic atrial flutter Interval history: The patient is resting in bed. No new complaints. Syncopal episode yesterday afternoon noted. Atrial flutter with controlled ventricular rate on the monitor. Objective Last Vital Signs Temp 98.4 F 07/10/16 13:00 Pulse 66 07/10/16 13:00 Resp 18 07/10/16 13:00 BP 132/68 07/10/16 13:00 Pulse Ox 97 07/10/16 13:00 - Physical Examination General: Appears Well, No Apparent Distress HEENT: Positive: Normocephaly, Mucus Membranes Moist Neck: Positive: neck supple, trachea midline. Negative: JVD/HJR Cardiac: Positive: Reg Rate and Rhythm, S1/S2 Lungs: Positive: clear to auscultation Neuro: Positive: Grossly Intact Abdomen: Positive: Soft, Active Bowel Sounds. Negative: Tender Skin: Positive: Clear. Negative: Rash Extremities: Present: normal. Absent: edema - Labs and Meds Cardiac Enzymes 07/09/16 07/10/16 Range/Units 15:19 08:39 CK-MB (CK-2) 2.9 2.4 (0.0-4.0) ng/mL Lipids 07/09/16 Range/Units 15:19 Triglycerides 101 (2-149) mg/dL Cholesterol 116 (50-199) mg/dL HDL Cholesterol 29 L (40-59) mg/dL Cholesterol/HDL Ratio 4.00 % CBC 07/10/16 Range/Units 03:42 WBC 7.8 (4.5-11.0) K/mm3 RBC 4.59 (3.65-5.03) M/mm3 Hgb 12.8 (11.8-15.2) gm/dl Hct 40.6 (35.5-45.6) % Plt Count 126 L (140-440) K/mm3 Lymph # 1.4 (1.2-5.4) K/mm3 [place] # 0.6 (0.0-0.8) K/mm3 Eos # 0.3 (0.0-0.4) K/mm3 Baso # 0.0 (0.0-0.1) K/mm3 Comprehensive Metabolic Panel 07/09/16 07/10/16 Range/Units 15:19 03:42 Sodium Cancelled 140 Potassium Cancelled 3.8 Chloride Cancelled 96.5 L Carbon Dioxide Cancelled 26 BUN Cancelled 53 H Creatinine Cancelled 6.1 H Glucose Cancelled 159 H Calcium Cancelled 9.1 - Imaging and Cardiology EKG: report reviewed Echo: image reviewed - Telemetry EKG Rhythm: Atrial Flutter
--- NOTE | 2016-07-10 16:01 | Treadmill Report ---
ROOM #: [id number]. Resting myocardial perfusion images revealed homogeneous radioisotope activity with slight diminished uptake in inferior wall and anterior wall. There was slightly increased gut uptake noted. On post-Lexiscan, images revealed homogenous radioisotope activity throughout except for minimal diminished radioisotope uptake in inferior wall, which is most likely due to gut activity interfering with inferior wall. Ejection fraction was noted to be diminished at 23%. Right ventricle appeared normal. IMPRESSION: 1. The test is negative for ischemia. 2. Diminished radioisotope activity in the inferior wall area is due to diaphragm and increased uptake in the gut. 3. Diminished ejection fraction at 23%. JOB# [id number] ION/ALICIA MOHAMUD
--- NOTE | 2016-07-10 17:28 | Progress Note ---
Assessment and Plan Assessment and plan: 66M w pmh of cholecystitis, sp cholecystomy drain which got dislodged and he now presents with severe RUQ pain, Dr Goldberg of Surgery is on the case and patient is planned for open cholecystectomy on Sunday, in the meantime, he will need to taken off anticoagulation and medically optimized Nuclear stress test 07/10 no acute ischemia 1. Cholecystitis s/p replacement Cholecystostomy drain 07/06 by IR fup intraop cultures , patient will be for cholecystectomy most likely on Sunday, holding Coumadin, INR now 1.2 2. CAD/ s/p CABG, w systolic CHF ef 25% asymptomatic and optimized Continue BB, ACEI, aspirin and statin 3. Atrial flutter Status post recent cardioversion at [place] and currently on NSR cw rate control medicine, hold coumadin for procedure 4. Hypertension continue BP meds 5. Diabetes continue insulins 6. Hyperlipidemia Continue statin 7. ESRD on HD cotninue HD per nephrology 8. Episode of decreased responsiveness stress test was negative, -likely vasovagal syncope vs somnolence; no further workup Of note patient has a history of coronary artery disease, hypertension, atrial flutter and diabetes. Patient is currently asymptomatic from cardiac standpoint , does not have has not recently had chest pain, CAD is optimized, he has hx of Paroxysmal A Flutter, sp cardioversion, now in SR. HTN and DM are well controlled and he is on maintenance HD for ESRD. From a medical standpoint this patient is optimized for cholecystectomy. Patient is moderate risk for moderate risk procedure, and at this point we believe that the benefits of the procedure strongly outweigh the risks. History Interval history: he had an episode of decreased responsiveness yesterday, he came to consciousness and was back to normal mentation. He was in bed, it is not clear if he fell asleep or had a syncopal episode Hospitalist Physical - Physical exam Narrative exam: General: Patient appears well in no distress HEENT: MMM, EOMI cardiac: S1-S2 heard lungs: clear to auscultation, abdomen: Soft, NT extremities: no edema clubbing or cyanosis Skin: no rash or lesion Neuro: no focal deficit Psych: appropriate behavior and mood, cognition intact - Constitutional Vitals: Temp Pulse Resp BP Pulse Ox 98.4 F 66 18 132/68 97 07/10/16 13:00 07/10/16 13:00 07/10/16 13:00 07/10/16 13:00 07/10/16 13:00 General appearance: Present: no acute distress, well-nourished Results - Labs CBC & Chem 7: 07/10/16 03:42 07/10/16 03:42 Labs: Laboratory Last Values WBC 7.8 K/mm3 (4.5-11.0) 07/10/16 03:42 RBC 4.59 M/mm3 (3.65-5.03) 07/10/16 03:42 Hgb 12.8 gm/dl (11.8-15.2) 07/10/16 03:42 Hct 40.6 % (35.5-45.6) 07/10/16 03:42 MCV 89 fl (84-94) 07/10/16 03:42 MCH 28 pg (28-32) 07/10/16 03:42 MCHC 32 % (32-34) 07/10/16 03:42 RDW 19.2 % (13.2-15.2) H 07/10/16 03:42 Plt Count 126 K/mm3 (140-440) L 07/10/16 03:42 Lymph % (Auto) 17.5 % (13.4-35.0) 07/10/16 03:42 [place] % (Auto) 7.3 % (0.0-7.3) 07/10/16 03:42 Eos % (Auto) 3.4 % (0.0-4.3) 07/10/16 03:42 Baso % (Auto) 0.4 % (0.0-1.8) 07/10/16 03:42 Lymph # 1.4 K/mm3 (1.2-5.4) 07/10/16 03:42 [place] # 0.6 K/mm3 (0.0-0.8) 07/10/16 03:42 Eos # 0.3 K/mm3 (0.0-0.4) 07/10/16 03:42 Baso # 0.0 K/mm3 (0.0-0.1) 07/10/16 03:42 Seg Neutrophils % 71.4 % (40.0-70.0) H 07/10/16 03:42 Seg Neutrophils # 5.6 K/mm3 (1.8-7.7) 07/10/16 03:42 PT 15.4 Sec. (12.2-14.9) H 07/09/16 05:29 INR 1.23 (0.87-1.13) H 07/09/16 05:29 APTT 33.7 Sec. (24.2-36.6) 07/09/16 05:29 Sodium 140 mmol/L (137-145) 07/10/16 03:42 Potassium 3.8 mmol/L (3.6-5.0) 07/10/16 03:42 Chloride 96.5 mmol/L (98-107) L 07/10/16 03:42 Carbon Dioxide 26 mmol/L (22-30) 07/10/16 03:42 Anion Gap 21 mmol/L 07/10/16 03:42 BUN 53 mg/dL (9-20) H 07/10/16 03:42 Creatinine 6.1 mg/dL (0.8-1.5) H 07/10/16 03:42 Estimated GFR 11 ml/min 07/10/16 03:42 BUN/Creatinine Ratio 8.68 % 07/10/16 03:42 Glucose 159 mg/dL (75-100) H 07/10/16 03:42 POC Glucose 157 (70-105) H 07/10/16 12:07 Calcium 9.1 mg/dL (8.4-10.2) 07/10/16 03:42 Total Bilirubin 0.6 mg/dL (0.1-1.2) 07/06/16 05:00 AST 13 units/L (5-40) 07/06/16 05:00 ALT 19 units/L (7-56) 07/06/16 05:00 Alkaline Phosphatase 234 units/L (35-129) H 07/06/16 05:00 Total Creatine Kinase 71 units/L (55-170) 07/10/16 08:39 CK-MB (CK-2) 2.4 ng/mL (0.0-4.0) 07/10/16 08:39 CK-MB (CK-2) Rel Index 3.3 (0-4) 07/10/16 08:39 Troponin T 0.073 ng/mL (0.00-0.029) H 07/10/16 08:39 Total Protein 6.4 g/dL (6.3-8.2) 07/06/16 05:00 Albumin 3.6 g/dL (3.9-5) L 07/06/16 05:00 Albumin/Globulin Ratio 1.3 % 07/06/16 05:00 Triglycerides 101 mg/dL (2-149) 07/09/16 15:19 Cholesterol 116 mg/dL (50-199) 07/09/16 15:19 LDL Cholesterol Direct 67 mg/dL (50-130) 07/09/16 15:19 HDL Cholesterol 29 mg/dL (40-59) L 07/09/16 15:19 Cholesterol/HDL Ratio 4.00 % 07/09/16 15:19 Lipase 56 units/L (13-60) 07/05/16 15:02 Urine Color Yellow (Yellow) 07/05/16 17:57 Urine Turbidity Cloudy (Clear) 07/05/16 17:57 Urine pH 5.0 (5.0-7.0) 07/05/16 17:57 Ur Specific [place] 1.014 (1.003-1.030) 07/05/16 17:57 Urine Protein >500 mg/dL (Negative) 07/05/16 17:57 Urine Glucose (UA) 50 mg/dL (Negative) 07/05/16 17:57 Urine Ketones Tr mg/dL (Negative) 07/05/16 17:57 Urine Blood Mod (Negative) 07/05/16 17:57 Urine Nitrite Neg (Negative) 07/05/16 17:57 Urine Bilirubin Neg (Negative) 07/05/16 17:57 Urine Urobilinogen < 2.0 mg/dL (<2.0) 07/05/16 17:57 Ur Leukocyte Esterase Neg (Negative) 07/05/16 17:57 Urine WBC (Auto) 1.0 /HPF (0.0-6.0) 07/05/16 17:57 Urine RBC (Auto) 30.0 /HPF (0.0-6.0) 07/05/16 17:57
[2016-07-10] MEDS: PERCOCET 5/325 PO PRN (20:56)
[2016-07-10] MEDS: MINIPRESS PO SCH (22:48)
[2016-07-10] MEDS: DESYREL PO SCH (22:48)
[2016-07-10] MEDS: LEVEMIR SUB-Q SCH (22:49)
[2016-07-11] MEDS: TESSALON PERLES PO SCH (06:01)
[2016-07-11 07:35] LABS: Basophils % (Auto) 0.5 % (0.0-1.8); Eosinophils % (Auto) 2.4 % (0.0-4.3); Hemoglobin 14.1 gm/dl (11.8-15.2); Mean Corpuscular HGB Conc 31 % (32-34); Mean Corpuscular Hemoglobin 28 pg (28-32); Mean Corpuscular Volume 88 fl (84-94); Platelet Count 135 K/mm3 (140-440); Red Cell Distribution Width 19.7 % (13.2-15.2); White Blood Count 5.9 K/mm3 (4.5-11.0)
[2016-07-11 07:43] LABS: INR 1.1 (0.87-1.13)
[2016-07-11 07:44] LABS: Partial Thromboplastin Time 34.1 Sec. (24.2-36.6)
[2016-07-11 07:58] LABS: Albumin 3.9 g/dL (3.9-5); Albumin/Globulin Ratio 1.3 %; BUN/Creatinine Ratio 7.33; Bilirubin,Total 0.9 mg/dL (0.1-1.2); Calcium 9.4 mg/dL (8.4-10.2); Chloride 93.9 mmol/L (98-107); Potassium 3.5 mmol/L (3.6-5.0)
--- NOTE | 2016-07-11 08:46 | Progress Note ---
Assessment and Plan Assessment: * End-stage renal disease on hemodialysis qMWF * Abdominal pain * Hx of cholecystitis s/p CT guided placement of cholecystostomy tube (Jun 09) * Atrial fibrillation on chronic anticoagulation * Anemia secondary to ESRD * Secondary hyperparathyroidism Plan: * Continue outpatient MWF schedule * Status post cholestomy tube placement per ir noted * uf with dialysis as tolerated * Cardiology consultation appreciated * Epogen with dialysis * Diet per surgery/primary team * Patient is scheduled for gallbladder surgery today Subjective Date of service: 07/11/16 Principal diagnosis: syncope, chronic atrial flutter Interval history: Patient had a stress test and dialysis yesterday. His surgery has been rescheduled to today. Objective - Vital Signs Vital signs: Vital Signs - 12hr 07/11/16 07/11/16 07/11/16 00:00 04:00 08:00 Temperature 97.9 F 98.1 F 97.1 F L Pulse Rate [ 50 L 69 70 Left] Respiratory 20 20 18 Rate Blood Pressure 131/73 117/61 113/57 [Left Arm] O2 Sat by Pulse 98 99 96 Oximetry - General Appearance General appearance: well-developed, well-nourished, appears stated age EENT: PERRL, mucous membranes moist Neck: no JVD, no thyromegaly, no carotid bruit, supple Respiratory: Present: Clear to Ascultation Cardiology: irregularly irregular, normal heart rate, S1S2, no murmurs Gastrointestinal: normoactive bowel sounds, other (drain noted in his right upper quadrant) Integumentary: no rash, other (no edema. AV fistula in his left upper arm. Good bruit and thrill) - Lab 07/11/16 07:07 07/11/16 07:07 Most recent lab results Calcium 9.4 mg/dL (8.4-10.2) 07/11/16 07:07
--- NOTE | 2016-07-11 09:45 | Progress Note ---
Assessment and Plan Pre-operative cardiac evaluation pt. denies chest pain/SOB Echo 07/08/2016: EF 25-30% Stress MPI 07/10/16: no ischemia Cholecystitis s/p cholecystostomy tube open cholecystectomy planned, per surgery Syncope no chest pain mildly elevated troponin due to ESRD stress MPI 07/10/16: no ischemia Atrial flutter currently rate controlled, continue bisoprolol s/p cardioversion at [place] last month ablation planned per pt. coumadin on hold in anticipation of surgery CAD s/p CABG in 2011 continue ASA, statin Ischemic cardiomyopathy EF 25-30% currently compensated Hypertension Diabetes ESRD on HD The patient is stable from a cardiac standpoint to proceed with surgery as planned. Will follow. The patient has been seen in conjunction with Dr. Venegas who agrees with the assessment and plan of care. Subjective Date of service: 07/11/16 Principal diagnosis: syncope, chronic atrial flutter Interval history: The patient is resting in bed. No new complaints. Awaiting surgery today. Atrial flutter with controlled ventricular rate on the monitor. Objective Last Vital Signs Temp 97.1 F L 07/11/16 08:00 Pulse 70 07/11/16 08:00 Resp 18 07/11/16 08:00 BP 113/57 07/11/16 08:00 Pulse Ox 96 07/11/16 08:00 - Physical Examination General: Appears Well, No Apparent Distress HEENT: Positive: Normocephaly, Mucus Membranes Moist Neck: Positive: neck supple, trachea midline. Negative: JVD/HJR Cardiac: Positive: Reg Rate and Rhythm, S1/S2 Lungs: Positive: clear to auscultation Neuro: Positive: Grossly Intact Abdomen: Positive: Soft, Active Bowel Sounds. Negative: Tender Skin: Positive: Clear. Negative: Rash Extremities: Present: normal. Absent: edema - Labs and Meds Cardiac Enzymes 07/11/16 Range/Units 07:07 AST 12 (5-40) units/L Coagulation 07/11/16 Range/Units 07:07 PT 14.1 (12.2-14.9) Sec. INR 1.10 (0.87-1.13) APTT 34.1 (24.2-36.6) Sec. CBC 07/11/16 Range/Units 07:07 WBC 5.9 (4.5-11.0) K/mm3 RBC 5.10 H (3.65-5.03) M/mm3 Hgb 14.1 (11.8-15.2) gm/dl Hct 45.0 (35.5-45.6) % Plt Count 135 L (140-440) K/mm3 Lymph # 0.9 L (1.2-5.4) K/mm3 [place] # 0.4 (0.0-0.8) K/mm3 Eos # 0.1 (0.0-0.4) K/mm3 Baso # 0.0 (0.0-0.1) K/mm3 Comprehensive Metabolic Panel 07/11/16 Range/Units 07:07 Sodium 138 (137-145) mmol/L Potassium 3.5 L (3.6-5.0) mmol/L Chloride 93.9 L (98-107) mmol/L Carbon Dioxide 29 (22-30) mmol/L BUN 33 H (9-20) mg/dL Creatinine 4.5 H (0.8-1.5) mg/dL Glucose 87 (75-100) mg/dL Calcium 9.4 (8.4-10.2) mg/dL AST 12 (5-40) units/L ALT 13 (7-56) units/L Alkaline Phosphatase 221 H (35-129) units/L Total Protein 7.0 (6.3-8.2) g/dL Albumin 3.9 (3.9-5) g/dL - Imaging and Cardiology EKG: report reviewed Echo: image reviewed - Telemetry EKG Rhythm: Atrial Flutter
[2016-07-11] MEDS ORDERED: NACL 0.9% 1000 ML 1,000 ML ONE (11:52)
[2016-07-11] MEDS ORDERED: SUBLIMAZE ONE ×2 (12:35→14:11)
[2016-07-11] MEDS ORDERED: XYLOCAINE MPF 2% ONE (12:35)
[2016-07-11] MEDS ORDERED: QUELICIN ONE (12:35)
[2016-07-11] MEDS ORDERED: ZEMURON IV ONE (12:35)
[2016-07-11] MEDS ORDERED: NEOSTIGMINE ONE (12:35)
[2016-07-11] MEDS ORDERED: ROBINUL ONE (12:35)
[2016-07-11] MEDS ORDERED: AMIDATE IV ONE (12:35)
[2016-07-11] MEDS ORDERED: NACL 0.9% IR ONE (12:45)
[2016-07-11] MEDS ORDERED: NACL 0.9% 1000 ML 1,000 ML IV SCH (13:00)
[2016-07-11] MEDS ORDERED: ANCEF/STERILE WATER 2 GM/20 ML IV NR (13:00)
[2016-07-11] MEDS ORDERED: DILAUDID ONE ×2 (13:02→13:50)
[2016-07-11] MEDS ORDERED: DECADRON ONE (13:07)
--- NOTE | 2016-07-11 13:26 | Progress Note ---
Assessment and Plan Assessment and plan: 66M w pmh of cholecystitis, sp cholecystomy drain which got dislodged and he now presents with severe RUQ pain, Dr Goldberg of Surgery is on the case and patient is planned for open cholecystectomy on Sunday, in the meantime, he will need to taken off anticoagulation and medically optimized Nuclear stress test 07/10 no acute ischemia 1. Cholecystitis s/p replacement Cholecystostomy drain 07/06 by IR S/p open cholecystectomy 07/11/16 2. CAD/ s/p CABG, w systolic CHF ef 25% asymptomatic and optimized Continue BB, ACEI, aspirin and statin 3. Atrial flutter Status post recent cardioversion at [place] and currently on NSR cw rate control medicine, hold coumadin for procedure 4. Hypertension continue BP meds 5. Diabetes continue insulins 6. Hyperlipidemia Continue statin 7. ESRD on HD cotninue HD per nephrology 8. Episode of decreased responsiveness stress test was negative, -likely vasovagal syncope vs somnolence; no further workup History Interval history: he is post op, feeling drowsy, no events overnight Hospitalist Physical - Physical exam Narrative exam: General: Patient appears well in no distress HEENT: MMM, EOMI cardiac: S1-S2 heard lungs: clear to auscultation, abdomen: Soft, NT extremities: no edema clubbing or cyanosis Skin: no rash or lesion Neuro: no focal deficit Psych: appropriate behavior and mood, cognition intact - Constitutional Vitals: Temp Pulse Resp BP Pulse Ox 97.1 F L 70 18 113/57 96 07/11/16 08:00 07/11/16 08:00 07/11/16 08:00 07/11/16 08:00 07/11/16 08:00 General appearance: Present: no acute distress, well-nourished Results - Labs CBC & Chem 7: 07/11/16 07:07 07/11/16 07:07 Labs: Laboratory Last Values WBC 5.9 K/mm3 (4.5-11.0) 07/11/16 07:07 RBC 5.10 M/mm3 (3.65-5.03) H 07/11/16 07:07 Hgb 14.1 gm/dl (11.8-15.2) 07/11/16 07:07 Hct 45.0 % (35.5-45.6) 07/11/16 07:07 MCV 88 fl (84-94) 07/11/16 07:07 MCH 28 pg (28-32) 07/11/16 07:07 MCHC 31 % (32-34) L 07/11/16 07:07 RDW 19.7 % (13.2-15.2) H 07/11/16 07:07 Plt Count 135 K/mm3 (140-440) L 07/11/16 07:07 Lymph % (Auto) 14.8 % (13.4-35.0) 07/11/16 07:07 [place] % (Auto) 6.9 % (0.0-7.3) 07/11/16 07:07 Eos % (Auto) 2.4 % (0.0-4.3) 07/11/16 07:07 Baso % (Auto) 0.5 % (0.0-1.8) 07/11/16 07:07 Lymph # 0.9 K/mm3 (1.2-5.4) L 07/11/16 07:07 [place] # 0.4 K/mm3 (0.0-0.8) 07/11/16 07:07 Eos # 0.1 K/mm3 (0.0-0.4) 07/11/16 07:07 Baso # 0.0 K/mm3 (0.0-0.1) 07/11/16 07:07 Seg Neutrophils % 75.4 % (40.0-70.0) H 07/11/16 07:07 Seg Neutrophils # 4.4 K/mm3 (1.8-7.7) 07/11/16 07:07 PT 14.1 Sec. (12.2-14.9) 07/11/16 07:07 INR 1.10 (0.87-1.13) 07/11/16 07:07 APTT 34.1 Sec. (24.2-36.6) 07/11/16 07:07 Sodium 138 mmol/L (137-145) 07/11/16 07:07 Potassium 3.5 mmol/L (3.6-5.0) L 07/11/16 07:07 Chloride 93.9 mmol/L (98-107) L 07/11/16 07:07 Carbon Dioxide 29 mmol/L (22-30) 07/11/16 07:07 Anion Gap 19 mmol/L 07/11/16 07:07 BUN 33 mg/dL (9-20) H 07/11/16 07:07 Creatinine 4.5 mg/dL (0.8-1.5) H 07/11/16 07:07 Estimated GFR 16 ml/min 07/11/16 07:07 BUN/Creatinine Ratio 7.33 % 07/11/16 07:07 Glucose 87 mg/dL (75-100) 07/11/16 07:07 POC Glucose 87 (70-105) 07/11/16 07:27 Calcium 9.4 mg/dL (8.4-10.2) 07/11/16 07:07 Total Bilirubin 0.9 mg/dL (0.1-1.2) 07/11/16 07:07 AST 12 units/L (5-40) 07/11/16 07:07 ALT 13 units/L (7-56) 07/11/16 07:07 Alkaline Phosphatase 221 units/L (35-129) H 07/11/16 07:07 Total Creatine Kinase 71 units/L (55-170) 07/10/16 08:39 CK-MB (CK-2) 2.4 ng/mL (0.0-4.0) 07/10/16 08:39 CK-MB (CK-2) Rel Index 3.3 (0-4) 07/10/16 08:39 Troponin T 0.073 ng/mL (0.00-0.029) H 07/10/16 08:39 Total Protein 7.0 g/dL (6.3-8.2) 07/11/16 07:07 Albumin 3.9 g/dL (3.9-5) 07/11/16 07:07 Albumin/Globulin Ratio 1.3 % 07/11/16 07:07 Triglycerides 101 mg/dL (2-149) 07/09/16 15:19 Cholesterol 116 mg/dL (50-199) 07/09/16 15:19 LDL Cholesterol Direct 67 mg/dL (50-130) 07/09/16 15:19 HDL Cholesterol 29 mg/dL (40-59) L 07/09/16 15:19 Cholesterol/HDL Ratio 4.00 % 07/09/16 15:19 Lipase 56 units/L (13-60) 07/05/16 15:02 Urine Color Yellow (Yellow) 07/05/16 17:57 Urine Turbidity Cloudy (Clear) 07/05/16 17:57 Urine pH 5.0 (5.0-7.0) 07/05/16 17:57 Ur Specific [place] 1.014 (1.003-1.030) 07/05/16 17:57 Urine Protein >500 mg/dL (Negative) 07/05/16 17:57 Urine Glucose (UA) 50 mg/dL (Negative) 07/05/16 17:57 Urine Ketones Tr mg/dL (Negative) 07/05/16 17:57 Urine Blood Mod (Negative) 07/05/16 17:57 Urine Nitrite Neg (Negative) 07/05/16 17:57 Urine Bilirubin Neg (Negative) 07/05/16 17:57 Urine Urobilinogen < 2.0 mg/dL (<2.0) 07/05/16 17:57 Ur Leukocyte Esterase Neg (Negative) 07/05/16 17:57 Urine WBC (Auto) 1.0 /HPF (0.0-6.0) 07/05/16 17:57 Urine RBC (Auto) 30.0 /HPF (0.0-6.0) 07/05/16 17:57
[2016-07-11] MEDS ORDERED: ZOFRAN ONE (13:44)
[2016-07-11] MEDS ORDERED: ZOFRAN IV PRN (14:03)
[2016-07-11] MEDS ORDERED: NORMODYNE IV ONE (14:08)
[2016-07-11] MEDS: DILAUDID IV PRN ×2 (14:31→14:45)
[2016-07-11] MEDS ORDERED: LOPRESSOR IV ONE (15:09)
--- NOTE | 2016-07-11 15:23 | Operative Report ---
PREOPERATIVE DIAGNOSIS: Gallbladder disease. POSTOPERATIVE DIAGNOSIS: Gallbladder disease. PROCEDURE: Open cholecystectomy. SURGEON: Jeffrey Stern MD [employer] CONSULTANT: Joaquin Juarez MD ANESTHESIA: General. ESTIMATED BLOOD LOSS: Minimal. DRAINS: One 19-Job drain left. COMPLICATIONS: No complications. DESCRIPTION OF PROCEDURE: The patient was taken to the operating room, prepped and draped in usual sterile fashion. A right subcostal incision was made to the rectus muscles. Rectus muscle was transected with electrocautery. Posterior fascia grasped with Maryam clamps and opened. Inspection of the right upper quadrant revealed a grossly distended and chronically thickened gallbladder full and impacted stones. The previously placed cholecystostomy tube was then removed. A Maryam ring clamp was used to grasp the fundus of the gallbladder. Electrocautery was used to slowly dissect the gallbladder from the fundus down towards the infundibulum. Once reaching the area of the gallbladder neck, slow and tedious dissection was carried out with Endo Kitners until the cystic duct and artery could be delineated. Both were then triply clipped and transected. Gallbladder was then removed. Area was irrigated copiously and dry. There was some oozing noted around the liver bed. This was controlled with electrocautery as well as packing with Surgicel. Once again, the area was irrigated copiously and dry. Checked for hemostasis and noted to be dry. All clips were once again inspected and noted to be in place with no evidence of bleeding or bile leak. A 19-Job was left draining in the gallbladder fossa. The drain was brought out through a separate stab incision and secured to the skin with a 2-0 silk suture. The posterior fascia was then closed with running 0 Vicryl suture. Anterior fascia was closed with interrupted #1 Vicryl suture. Subcutaneous tissues irrigated and skin closed with gustavo. The patient tolerated the procedure well and left the OR in stable condition. JOB# [id number] FP/NTS
--- NOTE | 2016-07-11 16:05 | Post Anesthesia Evaluation ---
- Post Anesthesia Evaluation Patient Participated: Yes Airway Patent: Yes Stable Respiratory Function: Yes Nausea/Vomiting: No Temp > 96.8F: Yes Pain Manageable: Yes Adequeate Hydration: Yes Anesthesia Complications: No Block Receding Appropriately: Not Applicable Patient on Ventilator: No Other Comments: PATIENT IN AFIB. RATE 130s. WAS GIVEN 5MG METOPROLOL IV AND RATE WENT DOWN TO 100. WILL DISCHARGE TO TELEMETRY WITH MONITORING. HAS KNOWN HISTORY OF AFIB
[2016-07-11] MEDS: ZOFRAN IV PRN (16:14)
[2016-07-11] MEDS: MORPHINE IV PRN ×2 (18:15→23:30)
[2016-07-11] MEDS: NOVOLOG SUB-Q SCH (22:05)
[2016-07-11] MEDS: LEVEMIR SUB-Q SCH (23:00)
[2016-07-12] MEDS: NOVOLOG SUB-Q SCH ×4 (08:32→23:33)
--- NOTE | 2016-07-12 08:36 | Progress Note ---
Assessment and Plan Assessment: * End-stage renal disease on hemodialysis qMWF * Abdominal pain * Hx of cholecystitis s/p CT guided placement of cholecystostomy tube (Jun 09) * Atrial fibrillation on chronic anticoagulation * Anemia secondary to ESRD * Secondary hyperparathyroidism Plan: * Continue outpatient MWF schedule * Status post open cholecystectomy 07/11/16 * uf with dialysis as tolerated * Cardiology consultation appreciated * Epogen with dialysis * Diet per surgery/primary team Subjective Date of service: 07/12/16 Principal diagnosis: syncope, chronic atrial flutter Interval history: Status post open cholecystectomy yesterday. Patient does have some discomfort in his right upper quadrant area. No shortness of breath Objective - Vital Signs Vital signs: Vital Signs - 12hr 07/11/16 07/12/16 07/12/16 22:00 00:00 00:16 Temperature 99.0 F 98.7 F Pulse Rate [ 129 H 137 H Left] Respiratory 16 24 18 Rate Respiratory 16 Rate [Right Upper Abdomen] Blood Pressure 147/80 151/82 [Left Arm] O2 Sat by Pulse 97 96 Oximetry 07/12/16 07/12/16 04:00 08:00 Temperature 99.0 F 99 F Pulse Rate [ 134 H 129 H Left] Respiratory 20 18 Rate Respiratory Rate [Right Upper Abdomen] Blood Pressure 147/84 145/89 [Left Arm] O2 Sat by Pulse 99 96 Oximetry - General Appearance General appearance: well-developed, well-nourished, appears stated age EENT: PERRL, mucous membranes moist Neck: no JVD, no thyromegaly Respiratory: Present: Clear to Ascultation Cardiology: irregular Gastrointestinal: normoactive bowel sounds, tenderness (in the right upper quadrant area. Dressing noted in his right upper quadrant. Drain in place) Integumentary: no rash, other (AV fistula in his left upper arm. Good bruit and thrill.) - Lab 07/11/16 07:07 07/11/16 07:07 Most recent lab results Calcium 9.4 mg/dL (8.4-10.2) 07/11/16 07:07
[2016-07-12] MEDS: MORPHINE IV PRN ×3 (08:49→23:57)
[2016-07-12] MEDS ORDERED: COUMADIN PO ONE (08:52)
--- NOTE | 2016-07-12 08:57 | Progress Note ---
Assessment and Plan Assessment and plan: 66M w pmh of cholecystitis, sp cholecystomy drain which got dislodged and he now presents with severe RUQ pain, Dr Goldberg of Surgery is on the case and s/p open cholecystectomy on 07/11 Nuclear stress test 07/10 no acute ischemia 1. Cholecystitis s/p replacement Cholecystostomy drain 07/06 by IR S/p open cholecystectomy 07/11/16 Still NPO, start on IV fluid at 30 ml per hour Likely to start clear liquid diet from tomorrow 2. CAD/ s/p CABG, w systolic CHF ef 25% asymptomatic and optimized Continue BB, ACEI, aspirin and statin 3. Atrial flutter Status post recent cardioversion at [facility] and currently on NSR Continue rate control medicine, was hold on coumadin for procedure Continue to hold Coumadin until Sunday 4. Hypertension continue BP meds 5. Diabetes continue insulins scheduled and sliding scale 6. Hyperlipidemia Continue statin 7. ESRD on HD cotninue HD per nephrology 8. Episode of decreased responsiveness stress test was negative, -likely vasovagal syncope vs somnolence; no further workup History Interval history: Patient seen and examined. Medical records and medication list reviewed. No acute event overnight noted by the RN. Patient still has some right upper quadrant discomfortness with drainage. Discussed plan of care at bedside with patient. Hospitalist Physical - Physical exam Narrative exam: GENERAL: Elderly obese AA male lying on bed appeared to be in no discomfort. HEENT: Normocephalic. Atraumatic. No conjunctival congestion or icterus. Patient has moist mucous membranes. NECK: Supple. Trachea midline. CHEST/LUNGS: Clear to auscultated bilaterally, breathing nonlabored. No wheezes crackles or rhonchi. HEART/CARDIOVASCULAR: Regular in rate and rhythm. S1 and S2 positive. ABDOMEN: Abdomen is soft, mild tender, with bloody drainage. Patient has normal bowel sounds. SKIN: There is no rash. Warm and dry. NEURO: No focal motor deficit. Follows command. MUSCULOSKELETAL: No joint effusion or tenderness. EXTRIMITY: No edema, no cyanosis or clubbing. PSYCH: Cooperative. - Constitutional Vitals: Temp Pulse Resp BP Pulse Ox 99 F 129 H 18 145/89 96 07/12/16 08:00 07/12/16 08:00 07/12/16 08:00 07/12/16 08:00 07/12/16 08:00 General appearance: Present: no acute distress, well-nourished Results - Labs CBC & Chem 7: 07/11/16 07:07 07/11/16 07:07 Labs: Laboratory Last Values WBC 5.9 K/mm3 (4.5-11.0) 07/11/16 07:07 RBC 5.10 M/mm3 (3.65-5.03) H 07/11/16 07:07 Hgb 14.1 gm/dl (11.8-15.2) 07/11/16 07:07 Hct 45.0 % (35.5-45.6) 07/11/16 07:07 MCV 88 fl (84-94) 07/11/16 07:07 MCH 28 pg (28-32) 07/11/16 07:07 MCHC 31 % (32-34) L 07/11/16 07:07 RDW 19.7 % (13.2-15.2) H 07/11/16 07:07 Plt Count 135 K/mm3 (140-440) L 07/11/16 07:07 Lymph % (Auto) 14.8 % (13.4-35.0) 07/11/16 07:07 [place] % (Auto) 6.9 % (0.0-7.3) 07/11/16 07:07 Eos % (Auto) 2.4 % (0.0-4.3) 07/11/16 07:07 Baso % (Auto) 0.5 % (0.0-1.8) 07/11/16 07:07 Lymph # 0.9 K/mm3 (1.2-5.4) L 07/11/16 07:07 [place] # 0.4 K/mm3 (0.0-0.8) 07/11/16 07:07 Eos # 0.1 K/mm3 (0.0-0.4) 07/11/16 07:07 Baso # 0.0 K/mm3 (0.0-0.1) 07/11/16 07:07 Seg Neutrophils % 75.4 % (40.0-70.0) H 07/11/16 07:07 Seg Neutrophils # 4.4 K/mm3 (1.8-7.7) 07/11/16 07:07 PT 14.1 Sec. (12.2-14.9) 07/11/16 07:07 INR 1.10 (0.87-1.13) 07/11/16 07:07 APTT 34.1 Sec. (24.2-36.6) 07/11/16 07:07 Sodium 138 mmol/L (137-145) 07/11/16 07:07 Potassium 3.5 mmol/L (3.6-5.0) L 07/11/16 07:07 Chloride 93.9 mmol/L (98-107) L 07/11/16 07:07 Carbon Dioxide 29 mmol/L (22-30) 07/11/16 07:07 Anion Gap 19 mmol/L 07/11/16 07:07 BUN 33 mg/dL (9-20) H 07/11/16 07:07 Creatinine 4.5 mg/dL (0.8-1.5) H 07/11/16 07:07 Estimated GFR 16 ml/min 07/11/16 07:07 BUN/Creatinine Ratio 7.33 % 07/11/16 07:07 Glucose 87 mg/dL (75-100) 07/11/16 07:07 POC Glucose 174 (70-105) H 07/12/16 07:22 Calcium 9.4 mg/dL (8.4-10.2) 07/11/16 07:07 Total Bilirubin 0.9 mg/dL (0.1-1.2) 07/11/16 07:07 AST 12 units/L (5-40) 07/11/16 07:07 ALT 13 units/L (7-56) 07/11/16 07:07 Alkaline Phosphatase 221 units/L (35-129) H 07/11/16 07:07 Total Creatine Kinase 71 units/L (55-170) 07/10/16 08:39 CK-MB (CK-2) 2.4 ng/mL (0.0-4.0) 07/10/16 08:39 CK-MB (CK-2) Rel Index 3.3 (0-4) 07/10/16 08:39 Troponin T 0.073 ng/mL (0.00-0.029) H 07/10/16 08:39 Total Protein 7.0 g/dL (6.3-8.2) 07/11/16 07:07 Albumin 3.9 g/dL (3.9-5) 07/11/16 07:07 Albumin/Globulin Ratio 1.3 % 07/11/16 07:07 Triglycerides 101 mg/dL (2-149) 07/09/16 15:19 Cholesterol 116 mg/dL (50-199) 07/09/16 15:19 LDL Cholesterol Direct 67 mg/dL (50-130) 07/09/16 15: HDL Cholesterol 29 mg/dL (40-59) L 07/09/16 15:19 Cholesterol/HDL Ratio 4.00 % 07/09/16 15:19 Lipase 56 units/L (13-60) 07/05/16 15:02 Urine Color Yellow (Yellow) 07/05/16 17:57 Urine Turbidity Cloudy (Clear) 07/05/16 17:57 Urine pH 5.0 (5.0-7.0) 07/05/16 17:57 Ur Specific [place] 1.014 (1.003-1.030) 07/05/16 17:57 Urine Protein >500 mg/dL (Negative) 07/05/16 17:57 Urine Glucose (UA) 50 mg/dL (Negative) 07/05/16 17:57 Urine Ketones Tr mg/dL (Negative) 07/05/16 17:57 Urine Blood Mod (Negative) 07/05/16 17:57 Urine Nitrite Neg (Negative) 07/05/16 17:57 Urine Bilirubin Neg (Negative) 07/05/16 17:57 Urine Urobilinogen < 2.0 mg/dL (<2.0) 07/05/16 17:57 Ur Leukocyte Esterase Neg (Negative) 07/05/16 17:57 Urine WBC (Auto) 1.0 /HPF (0.0-6.0) 07/05/16 17:57 Urine RBC (Auto) 30.0 /HPF (0.0-6.0) 07/05/16 17:57
[2016-07-12] MEDS ORDERED: D5W/0.45% NACL/KCL 30 MEQ 30 MEQ/1,000 ML BAG IV SCH (09:00)
--- NOTE | 2016-07-12 10:48 | Progress Note ---
Assessment and Plan Pre-operative cardiac evaluation pt. denies chest pain/SOB Echo 07/08/2016: EF 25-30% Stress MPI 07/10/16: no ischemia Cholecystitis s/p open cholecystectomy (07/11) Syncope no chest pain mildly elevated troponin due to ESRD stress MPI 07/10/16: no ischemia Atrial flutter currently rate controlled, continue bisoprolol s/p cardioversion at OR last month ablation planned per pt. resume coumadin when okay with surgery CAD s/p CABG in 2011 continue ASA, statin, imdur Ischemic cardiomyopathy EF 25-30% currently compensated Hypertension Diabetes ESRD on HD Stable cardiac status. Continue current management. Resume coumadin when okay with surgery. The patient has been seen in conjunction with Dr. Venegas who agrees with the assessment and plan of care. Subjective Date of service: 07/12/16 Principal diagnosis: syncope, chronic atrial flutter Interval history: The patient is seen and examined on dialysis. No new complaints. Atrial flutter with controlled ventricular rate on the monitor. Objective Last Vital Signs Temp 99 F 07/12/16 08:00 Pulse 129 H 07/12/16 08:00 Resp 18 07/12/16 09:19 BP 145/89 07/12/16 08:00 Pulse Ox 96 07/12/16 08:00 - Physical Examination General: Appears Well, No Apparent Distress HEENT: Positive: Normocephaly, Mucus Membranes Moist Neck: Positive: neck supple, trachea midline. Negative: JVD/HJR Cardiac: Positive: irregularly irregular, S1/S2 Lungs: Positive: clear to auscultation Neuro: Positive: Grossly Intact Abdomen: Positive: Soft, Tender Skin: Positive: Clear. Negative: Rash Extremities: Present: normal. Absent: edema - Imaging and Cardiology EKG: report reviewed Echo: image reviewed - Telemetry EKG Rhythm: Atrial Flutter
[2016-07-12] MEDS ORDERED: NACL 0.9 (PRIMING MACHINE ONLY DIALYSIS) MC ONE (14:00)
--- NOTE | 2016-07-12 14:02 | Progress Note ---
Assessment and Plan POD # 1 Pt c/o some incisional pain otherwise without compl Abd soft. dressings dry. stable sinus tach check h/h hold anticoagulants x 48hrs. probable cl liq in am Selected Entries 07/12/16 07/12/16 09:45 13:30 Temperature 97.9 F Pulse Rate 138 H Blood Pressure 142/81 Objective Vital Signs - 12hr 07/12/16 07/12/16 07/12/16 04:00 08:00 08:49 Temperature 99.0 F 99 F Pulse Rate Pulse Rate [ 134 H 129 H Left] Respiratory 20 18 28 H Rate Blood Pressure Blood Pressure 147/84 145/89 [Left Arm] O2 Sat by Pulse 99 96 Oximetry 07/12/16 07/12/16 07/12/16 09:19 09:45 10:00 Temperature 97.9 F Pulse Rate 136 H 102 H Pulse Rate [ Left] Respiratory 18 18 Rate Blood Pressure 154/90 171/76 Blood Pressure [Left Arm] O2 Sat by Pulse Oximetry 07/12/16 07/12/16 07/12/16 10:15 10:30 10:45 Temperature Pulse Rate 102 H 101 H 120 H Pulse Rate [ Left] Respiratory Rate Blood Pressure 170/74 160/75 136/77 Blood Pressure [Left Arm] O2 Sat by Pulse Oximetry 07/12/16 07/12/16 07/12/16 11:00 11:15 11:24 Temperature Pulse Rate 136 H 137 H 136 H Pulse Rate [ Left] Respiratory Rate Blood Pressure 148/86 159/86 154/90 Blood Pressure [Left Arm] O2 Sat by Pulse Oximetry 07/12/16 07/12/16 07/12/16 11:30 11:45 12:00 Temperature Pulse Rate 138 H 132 H 138 H Pulse Rate [ Left] Respiratory Rate Blood Pressure 151/84 140/77 129/82 Blood Pressure [Left Arm] O2 Sat by Pulse Oximetry 07/12/16 07/12/16 07/12/16 12:15 12:30 12:45 Temperature Pulse Rate 101 H 104 H 138 H Pulse Rate [ Left] Respiratory Rate Blood Pressure 110/38 143/58 153/76 Blood Pressure [Left Arm] O2 Sat by Pulse Oximetry 07/12/16 07/12/16 07/12/16 13:00 13:15 13:30 Temperature Pulse Rate 138 H 138 H 138 H Pulse Rate [ Left] Respiratory Rate Blood Pressure 138/84 151/87 142/81 Blood Pressure [Left Arm] O2 Sat by Pulse Oximetry - Labs 07/11/16 07:07 07/11/16 07:07
[2016-07-12 15:33] LABS: Albumin 3.5 g/dL (3.9-5); Albumin/Globulin Ratio 0.9 %; BUN/Creatinine Ratio 6.78; Bilirubin,Total 1.5 mg/dL (0.1-1.2); Calcium 9.6 mg/dL (8.4-10.2); Potassium 3.9 mmol/L (3.6-5.0); Total Protein 7.3 g/dL (6.3-8.2)
[2016-07-12 16:04] LABS: INR 1.12 (0.87-1.13)
[2016-07-12 16:26] LABS: Basophils % (Auto) 0.1 % (0.0-1.8); Eosinophils % (Auto) 0.4 % (0.0-4.3); Hematocrit 46.7 % (35.5-45.6); Hemoglobin 14.8 gm/dl (11.8-15.2); Mean Corpuscular HGB Conc 32 % (32-34); Mean Corpuscular Hemoglobin 28 pg (28-32); Mean Corpuscular Volume 88 fl (84-94); Platelet Count 128 K/mm3 (140-440); Red Blood Count 5.31 M/mm3 (3.65-5.03); Red Cell Distribution Width 19.4 % (13.2-15.2); White Blood Count 10.4 K/mm3 (4.5-11.0)
[2016-07-12] MEDS: LEVEMIR SUB-Q SCH (23:55)
[2016-07-12] MEDS: ZOFRAN IV PRN (23:59)
[2016-07-13 07:06] LABS: Potassium TNR mmol/L (3.6-5.0); Sodium TNR mmol/L (137-145)
[2016-07-13 07:08] LABS: Anion Gap TNR mmol/L; BUN/Creatinine Ratio TNR; Blood Urea Nitrogen TNR mg/dL (9-20); Calcium TNR mg/dL (8.4-10.2); Carbon Dioxide TNR mmol/L (22-30); Chloride TNR mmol/L (98-107); Glucose TNR mg/dL (75-100)
[2016-07-13] MEDS: MORPHINE IV PRN ×2 (07:34→13:05)
[2016-07-13] MEDS: NOVOLOG SUB-Q SCH ×4 (08:38→23:14)
--- NOTE | 2016-07-13 09:35 | Progress Note ---
Assessment and Plan Pre-operative cardiac evaluation pt. denies chest pain/SOB Echo 07/08/2016: EF 25-30% Stress MPI 07/10/16: no ischemia Cholecystitis s/p open cholecystectomy (07/11) Syncope no chest pain mildly elevated troponin due to ESRD stress MPI 07/10/16: no ischemia Atrial flutter-->currently rapid ventricular rate initiate amiodarone 200mg BID, metoprolol 50mg Q6H s/p cardioversion at [place] last month ablation planned per pt. resume coumadin when okay with surgery CAD s/p CABG in 2011 continue ASA, statin, imdur Ischemic cardiomyopathy EF 25-30% currently compensated Hypertension stable Diabetes ESRD on HD Initiate amiodarone 200mg BID and metoprolol 50mg Q6H. Continue close monitoring of heart rate and rhythm. The patient has been seen in conjunction with Dr. Morocho who agrees with the assessment and plan of care. Subjective Date of service: 07/13/16 Principal diagnosis: syncope, chronic atrial flutter Interval history: The patient is resting in bed. C/o hunger and weakness. No chest pain or shortness of breath. Atrial flutter with HR 130s on the monitor. Objective Last Vital Signs Temp 98.7 F 07/13/16 08:10 Pulse 140 H 07/13/16 08:26 Resp 20 07/13/16 08:10 BP 145/88 07/13/16 08:10 Pulse Ox 95 07/13/16 08:10 - Physical Examination General: Appears Well, No Apparent Distress HEENT: Positive: Normocephaly, Mucus Membranes Moist Neck: Positive: neck supple, trachea midline. Negative: JVD/HJR Cardiac: Positive: irregularly irregular, S1/S2 Lungs: Positive: clear to auscultation Neuro: Positive: Grossly Intact Abdomen: Positive: Soft, Tender Skin: Positive: Clear. Negative: Rash Extremities: Present: normal. Absent: edema - Labs and Meds Cardiac Enzymes 07/12/16 Range/Units 14:48 AST 35 (5-40) units/L Coagulation 07/12/16 Range/Units 14:48 PT 14.3 (12.2-14.9) Sec. INR 1.12 (0.87-1.13) CBC 07/12/16 Range/Units 14:48 WBC 10.4 (4.5-11.0) K/mm3 RBC 5.31 H (3.65-5.03) M/mm3 Hgb 14.8 (11.8-15.2) gm/dl Hct 46.7 H (35.5-45.6) % Plt Count 128 L (140-440) K/mm3 Lymph # 0.7 L (1.2-5.4) K/mm3 [place] # 0.9 H (0.0-0.8) K/mm3 Eos # 0.0 (0.0-0.4) K/mm3 Baso # 0.0 (0.0-0.1) K/mm3 Comprehensive Metabolic Panel 07/12/16 07/13/16 Range/Units 14:48 06:02 Sodium 136 L TNR (137-145) mmol/L Potassium 3.9 TNR (3.6-5.0) mmol/L Chloride 93.0 L TNR (98-107) mmol/L Carbon Dioxide 26 TNR (22-30) mmol/L BUN 19 TNR (9-20) mg/dL Creatinine 2.8 H TNR (0.8-1.5) mg/dL Glucose 148 H TNR (75-100) mg/dL Calcium 9.6 TNR (8.4-10.2) mg/dL AST 35 (5-40) units/L ALT 24 (7-56) units/L Alkaline Phosphatase 254 H (35-129) units/L Total Protein 7.3 (6.3-8.2) g/dL Albumin 3.5 L (3.9-5) g/dL - Imaging and Cardiology EKG: report reviewed Echo: image reviewed - Telemetry EKG Rhythm: Atrial Flutter
[2016-07-13] MEDS ORDERED: LOPRESSOR PO SCH (10:00)
[2016-07-13] MEDS ORDERED: ZESTRIL PO SCH ×2 (10:00→11:40)
[2016-07-13] MEDS: IMDUR PO SCH (10:41)
[2016-07-13] MEDS: ZESTRIL PO SCH ×2 (10:50→12:00)
[2016-07-13] MEDS: LOPRESSOR PO SCH ×2 (12:00→19:10)
--- NOTE | 2016-07-13 12:27 | Progress Note ---
Assessment and Plan Assessment and plan: 66M w pmh of cholecystitis, sp cholecystomy drain which got dislodged and he now presents with severe RUQ pain, Dr Goldberg [facility] is on the case and s/p open cholecystectomy on 07/11 1. Cholecystitis s/p replacement Cholecystostomy drain 07/06 by IR S/p open cholecystectomy 07/11/16 Still NPO, cont on IV fluid at 30 ml per hour Likely to start clear liquid diet from today 2. CAD/ s/p CABG, w systolic CHF ef 25% asymptomatic and optimized Continue BB, ACEI, aspirin and statin Nuclear stress test 07/10 no acute ischemia 3. Atrial flutter Status post recent cardioversion at [place] and currently on NSR Continue rate control medicine ( amioderone and metoprolol), was hold on coumadin for procedure Continue to hold Coumadin until Sunday 4. Hypertension continue BP meds (metoprolol, imdur, lisinopril) 5. Diabetes continue insulins scheduled and sliding scale 6. Hyperlipidemia Continue statin 7. ESRD on HD cotninue HD per nephrology 8. Episode of decreased responsiveness - stress test was negative, -likely vasovagal syncope vs somnolence; no further workup Disposition Home, when tolerates po, PT eval History Interval history: Patient seen and examined. Medical records and medication list reviewed. No acute event overnight noted by the RN. Patient still has some right upper quadrant discomfortness with minimal drainage. Discussed plan of care at bedside with patient. Hospitalist Physical - Physical exam Narrative exam: GENERAL: Elderly obese AA male lying on bed appeared to be in no discomfort. HEENT: Normocephalic. Atraumatic. No conjunctival congestion or icterus. Patient has moist mucous membranes. NECK: Supple. Trachea midline. CHEST/LUNGS: Clear to auscultated bilaterally, breathing nonlabored. No wheezes crackles or rhonchi. HEART/CARDIOVASCULAR: Regular in rate and rhythm. S1 and S2 positive. ABDOMEN: Abdomen is soft, mild tender, with bloody drainage. Patient has normal bowel sounds. SKIN: There is no rash. Warm and dry. NEURO: No focal motor deficit. Follows command. MUSCULOSKELETAL: No joint effusion or tenderness. EXTRIMITY: No edema, no cyanosis or clubbing. PSYCH: Cooperative. - Constitutional Vitals: Temp Pulse Resp BP Pulse Ox 98.7 F 140 H 20 145/88 95 03/23/17 08:10 07/13/16 10:41 07/13/16 08:10 07/13/16 10:41 07/13/16 08:10 General appearance: Present: no acute distress, well-nourished Results - Labs CBC & Chem 7: 07/12/16 14:48 07/13/16 06:02 Labs: Laboratory Last Values WBC 10.4 K/mm3 (4.5-11.0) 07/12/16 14:48 RBC 5.31 M/mm3 (3.65-5.03) H 07/12/16 14:48 Hgb 14.8 gm/dl (11.8-15.2) 07/12/16 14:48 Hct 46.7 % (35.5-45.6) H 07/12/16 14:48 MCV 88 fl (84-94) 07/12/16 14:48 MCH 28 pg (28-32) 07/12/16 14:48 MCHC 32 % (32-34) 07/12/16 14:48 RDW 19.4 % (13.2-15.2) H 07/12/16 14:48 Plt Count 128 K/mm3 (140-440) L 07/12/16 14:48 Lymph % (Auto) 7.1 % (13.4-35.0) L 07/12/16 14:48 [place] % (Auto) 8.5 % (0.0-7.3) H 07/12/16 14:48 Eos % (Auto) 0.4 % (0.0-4.3) 07/12/16 14:48 Baso % (Auto) 0.1 % (0.0-1.8) 07/12/16 14:48 Lymph # 0.7 K/mm3 (1.2-5.4) L 07/12/16 14:48 [place] # 0.9 K/mm3 (0.0-0.8) H 07/12/16 14:48 Eos # 0.0 K/mm3 (0.0-0.4) 07/12/16 14:48 Baso # 0.0 K/mm3 (0.0-0.1) 07/12/16 14:48 Seg Neutrophils % 83.9 % (40.0-70.0) H 07/12/16 14:48 Seg Neutrophils # 8.7 K/mm3 (1.8-7.7) H 07/12/16 14:48 PT 14.3 Sec. (12.2-14.9) 07/12/16 14:48 INR 1.12 (0.87-1.13) 07/12/16 14:48 APTT 34.1 Sec. (24.2-36.6) 07/11/16 07:07 Sodium TNR 07/13/16 06:02 Potassium TNR 07/13/16 06:02 Chloride TNR 07/13/16 06:02 Carbon Dioxide TNR 07/13/16 06:02 Anion Gap TNR 07/13/16 06:02 BUN TNR 07/13/16 06:02 Creatinine TNR 07/13/16 06:02 Estimated GFR TNR 07/13/16 06:02 BUN/Creatinine Ratio TNR 07/13/16 06:02 Glucose TNR 07/13/16 06:02 POC Glucose 135 (70-105) H 07/13/16 08:24 Calcium TNR 07/13/16 06:02 Total Bilirubin 1.5 mg/dL (0.1-1.2) H 07/12/16 14:48 AST 35 units/L (5-40) 07/12/16 14:48 ALT 24 units/L (7-56) 07/12/16 14:48 Alkaline Phosphatase 254 units/L (35-129) H 07/12/16 14:48 Total Creatine Kinase 71 units/L (55-170) 07/10/16 08:39 CK-MB (CK-2) 2.4 ng/mL (0.0-4.0) 07/10/16 08:39 CK-MB (CK-2) Rel Index 3.3 (0-4) 07/10/16 08:39 Troponin T 0.073 ng/mL (0.00-0.029) H 07/10/16 08:39 Total Protein 7.3 g/dL (6.3-8.2) 07/12/16 14:48 Albumin 3.5 g/dL (3.9-5) L 07/12/16 14:48 Albumin/Globulin Ratio 0.9 % 07/12/16 14:48 Triglycerides 101 mg/dL (2-149) 07/09/16 15:19 Cholesterol 116 mg/dL (50-199) 07/09/16 15:19 LDL Cholesterol Direct 67 mg/dL (50-130) 07/09/16 15:19 HDL Cholesterol 29 mg/dL (40-59) L 07/09/16 15:19 Cholesterol/HDL Ratio 4.00 % 07/09/16 15:19 Lipase 56 units/L (13-60) 07/05/16 15:02 Urine Color Yellow (Yellow) 07/05/16 17:57 Urine Turbidity Cloudy (Clear) 07/05/16 17:57 Urine pH 5.0 (5.0-7.0) 07/05/16 17:57 Ur Specific [place] 1.014 (1.003-1.030) 07/05/16 17:57 Urine Protein >500 mg/dL (Negative) 07/05/16 17:57 Urine Glucose (UA) 50 mg/dL (Negative) 07/05/16 17:57 Urine Ketones Tr mg/dL (Negative) 07/05/16 17:57 Urine Blood Mod (Negative) 07/05/16 17:57 Urine Nitrite Neg (Negative) 07/05/16 17:57 Urine Bilirubin Neg (Negative) 07/05/16 17:57 Urine Urobilinogen < 2.0 mg/dL (<2.0) 07/05/16 17:57 Ur Leukocyte Esterase Neg (Negative) 07/05/16 17:57 Urine WBC (Auto) 1.0 /HPF (0.0-6.0) 07/05/16 17:57 Urine RBC (Auto) 30.0 /HPF (0.0-6.0) 07/05/16 17:57
[2016-07-13] MEDS: CORDARONE PO SCH ×3 (15:54→21:34)
--- NOTE | 2016-07-13 16:07 | Progress Note ---
Assessment and Plan Assessment: * End-stage renal disease on hemodialysis qMWF * Abdominal pain * Hx of cholecystitis s/p CT guided placement of cholecystostomy tube (Jun 09) * Atrial fibrillation on chronic anticoagulation * Anemia secondary to ESRD * Secondary hyperparathyroidism Plan: * Continue outpatient MWF schedule * Status post open cholecystectomy 07/11/16 * uf with dialysis as tolerated * Cardiology consultation appreciated * Epogen with dialysis * Diet per surgery/primary team Subjective Date of service: 07/13/16 Principal diagnosis: syncope, chronic atrial flutter Interval history: Patient complains of some pain at the surgical site. Denies nausea or vomiting. He is still nothing by mouth. Going to be started on liquid diet. Objective - Vital Signs Vital signs: Vital Signs - 12hr 07/13/16 07/13/16 07/13/16 08:10 08:26 10:40 Temperature 98.7 F Pulse Rate 140 H Pulse Rate [ 138 H 140 H Left] Respiratory 20 Rate Blood Pressure 145/88 Blood Pressure 145/88 [Left Arm] O2 Sat by Pulse 95 Oximetry 07/13/16 07/13/16 07/13/16 10:41 13:05 13:35 Temperature Pulse Rate 140 H Pulse Rate [ Left] Respiratory 19 19 Rate Blood Pressure 145/88 Blood Pressure [Left Arm] O2 Sat by Pulse Oximetry - General Appearance General appearance: well-developed, well-nourished, appears stated age EENT: PERRL, mucous membranes moist Neck: no JVD, no thyromegaly, no carotid bruit, supple Respiratory: Present: Clear to Ascultation Cardiology: irregularly irregular, normal heart rate, S1S2, no murmurs Gastrointestinal: normoactive bowel sounds, other (dressing noted in his right subcostal area. ) Integumentary: no rash, other (AV fistula in his left upper arm. Good bruit and thrill) - Lab 07/12/16 14:48 07/13/16 06:02 Most recent lab results Calcium TNR 07/13/16 06:02
[2016-07-13] MEDS: ZOFRAN IV PRN (21:35)
[2016-07-13] MEDS: LEVEMIR SUB-Q SCH (23:30)
[2016-07-14] MEDS: LOPRESSOR PO SCH ×4 (00:18→18:00)
[2016-07-14] MEDS: NOVOLOG SUB-Q SCH ×4 (08:00→21:08)
[2016-07-14] MEDS ORDERED: COUMADIN PO ONE (08:52)
--- NOTE | 2016-07-14 09:26 | Progress Note ---
Assessment and Plan Pre-operative cardiac evaluation pt. denies chest pain/SOB Echo 07/08/2016: EF 25-30% Stress MPI 07/10/16: no ischemia Cholecystitis s/p open cholecystectomy (07/11) Syncopal episode (07/09) no chest pain mildly elevated troponin due to ESRD stress MPI 07/10/16: no ischemia Atrial flutter-->currently rapid ventricular rate continue amiodarone 200mg BID, metoprolol 50mg Q6H s/p cardioversion at [place] last month ablation planned per pt. resume coumadin when okay with surgery CAD s/p CABG in 2011 continue ASA, statin, imdur Ischemic cardiomyopathy EF 25-30% currently compensated Hypertension stable Diabetes ESRD on HD Continue current management and close monitoring of heart rate and rhythm. Per surgery, okay to resume coumadin today. The patient has been seen in conjunction with Dr. Morocho who agrees with the assessment and plan of care. Subjective Date of service: 07/14/16 Principal diagnosis: syncope, chronic atrial flutter Interval history: The patient is resting in bed. Complains of abdominal pain at surgical site. No chest pain or shortness of breath. Atrial flutter with HR 130s-140s on the monitor. Objective Last Vital Signs Temp 98.4 F 07/14/16 08:00 Pulse 111 H 07/14/16 10:13 Resp 18 07/14/16 08:00 BP 122/75 07/14/16 10:13 Pulse Ox 99 07/14/16 08:00 - Physical Examination General: Appears Well, No Apparent Distress HEENT: Positive: Normocephaly, Mucus Membranes Moist Neck: Positive: neck supple, trachea midline. Negative: JVD/HJR Cardiac: Positive: irregularly irregular, S1/S2 Lungs: Positive: Decreased Breath Sounds Neuro: Positive: Grossly Intact Abdomen: Positive: Soft, Tender Skin: Positive: Clear. Negative: Rash Extremities: Present: normal. Absent: edema - Imaging and Cardiology EKG: report reviewed Echo: report reviewed (07/08/2016: EF 25-30% ) - Telemetry EKG Rhythm: Atrial Flutter
[2016-07-14] MEDS: CORDARONE PO SCH (10:12)
[2016-07-14] MEDS: IMDUR PO SCH (10:12)
[2016-07-14] MEDS: ZESTRIL PO SCH (10:13)
[2016-07-14] MEDS: MORPHINE IV PRN (10:21)
[2016-07-14] MEDS ORDERED: NACL 0.9 (PRIMING MACHINE ONLY DIALYSIS) MC ONE (12:50)
--- NOTE | 2016-07-14 14:10 | Progress Note ---
Assessment and Plan Pt feeling well. abel cl liq no compl. currently undergoing dialysis Abd soft. stable full liq ADA diet Selected Entries 07/14/16 13:15 Pulse Rate 94 H Blood Pressure 135/103 Objective Vital Signs - 12hr 07/14/16 07/14/16 07/14/16 04:55 06:01 08:00 Temperature 98.7 F 98.4 F Pulse Rate 108 H Pulse Rate [ 108 H 111 H Left] Respiratory 16 18 Rate Blood Pressure 112/60 Blood Pressure 112/60 122/75 [Left Arm] O2 Sat by Pulse 99 Oximetry 07/14/16 07/14/16 07/14/16 10:12 10:13 10:40 Temperature 98.4 F Pulse Rate 111 H 111 H 49 L Pulse Rate [ Left] Respiratory 18 Rate Blood Pressure 122/75 122/75 114/69 Blood Pressure [Left Arm] O2 Sat by Pulse Oximetry 07/14/16 07/14/16 07/14/16 10:50 11:00 11:15 Temperature Pulse Rate 67 58 L 67 Pulse Rate [ Left] Respiratory Rate Blood Pressure 114/68 112/64 111/64 Blood Pressure [Left Arm] O2 Sat by Pulse Oximetry 07/14/16 07/14/16 07/14/16 11:30 11:45 12:00 Temperature Pulse Rate 70 83 86 Pulse Rate [ Left] Respiratory Rate Blood Pressure 134/76 126/70 147/76 Blood Pressure [Left Arm] O2 Sat by Pulse Oximetry 07/14/16 07/14/16 07/14/16 12:15 12:30 12:45 Temperature Pulse Rate 75 55 L 55 L Pulse Rate [ Left] Respiratory Rate Blood Pressure 147/74 145/75 165/80 Blood Pressure [Left Arm] O2 Sat by Pulse Oximetry 07/14/16 07/14/16 13:00 13:15 Temperature Pulse Rate 61 94 H Pulse Rate [ Left] Respiratory Rate Blood Pressure 170/80 135/103 Blood Pressure [Left Arm] O2 Sat by Pulse Oximetry - Labs 07/12/16 14:48 07/13/16 06:02
--- NOTE | 2016-07-14 14:26 | Progress Note ---
Assessment and Plan Assessment and plan: 66M w pmh of cholecystitis, sp cholecystomy drain which got dislodged and he now presents with severe RUQ pain, Dr Goldberg GS is on the case and s/p open cholecystectomy on 07/11 1. Cholecystitis s/p replacement Cholecystostomy drain 07/06 by IR S/p open cholecystectomy 07/11/16 advance diet, stool softner 2. CAD/ s/p CABG, w systolic CHF ef 25% asymptomatic and optimized Continue BB, ACEI, aspirin and statin Nuclear stress test 07/10 no acute ischemia 3. Atrial flutter Status post recent cardioversion at [place] and currently on NSR Continue rate control medicine ( amioderone and metoprolol), was hold on coumadin for procedure Continue to hold Coumadin until today will start coumadin from tomorrow 4. Hypertension continue BP meds (metoprolol, imdur, lisinopril) 5. Diabetes continue insulins scheduled and sliding scale 6. Hyperlipidemia Continue statin 7. ESRD on HD cotninue HD per nephrology 8. Episode of decreased responsiveness - stress test was negative, -likely vasovagal syncope vs somnolence; no further workup Disposition Home, when tolerates po, PT eval pending History Interval history: Patient seen and examined. Medical records and medication list reviewed. No acute event overnight noted by the RN. Patient getting HD, tolerated clear liquid, states no BM yet Discussed plan of care at bedside with patient. Hospitalist Physical - Physical exam Narrative exam: GENERAL: Elderly obese AA male lying on bed appeared to be in no discomfort. HEENT: Normocephalic. Atraumatic. No conjunctival congestion or icterus. Patient has moist mucous membranes. NECK: Supple. Trachea midline. CHEST/LUNGS: Clear to auscultated bilaterally, breathing nonlabored. No wheezes crackles or rhonchi. HEART/CARDIOVASCULAR: Regular in rate and rhythm. S1 and S2 positive. ABDOMEN: Abdomen is soft, mild tender, with bloody drainage. Patient has normal bowel sounds. SKIN: There is no rash. Warm and dry. NEURO: No focal motor deficit. Follows command. MUSCULOSKELETAL: No joint effusion or tenderness. EXTRIMITY: No edema, no cyanosis or clubbing. PSYCH: Cooperative. - Constitutional Vitals: Temp Pulse Resp BP Pulse Ox 98.4 F 94 H 18 135/103 99 07/14/16 10:40 07/14/16 13:15 07/14/16 10:40 07/14/16 13:15 07/14/16 08:00 General appearance: Present: no acute distress, well-nourished Results - Labs CBC & Chem 7: 07/12/16 14:48 07/13/16 06:02 Labs: Laboratory Last Values WBC 10.4 K/mm3 (4.5-11.0) 07/12/16 14:48 RBC 5.31 M/mm3 (3.65-5.03) H 07/12/16 14:48 Hgb 14.8 gm/dl (11.8-15.2) 07/12/16 14:48 Hct 46.7 % (35.5-45.6) H 07/12/16 14:48 MCV 88 fl (84-94) 07/12/16 14:48 MCH 28 pg (28-32) 07/12/16 14:48 MCHC 32 % (32-34) 07/12/16 14:48 RDW 19.4 % (13.2-15.2) H 07/12/16 14:48 Plt Count 128 K/mm3 (140-440) L 07/12/16 14:48 Lymph % (Auto) 7.1 % (13.4-35.0) L 07/12/16 14:48 [place] % (Auto) 8.5 % (0.0-7.3) H 07/12/16 14:48 Eos % (Auto) 0.4 % (0.0-4.3) 07/12/16 14:48 Baso % (Auto) 0.1 % (0.0-1.8) 07/12/16 14:48 Lymph # 0.7 K/mm3 (1.2-5.4) L 07/12/16 14:48 [place] # 0.9 K/mm3 (0.0-0.8) H 07/12/16 14:48 Eos # 0.0 K/mm3 (0.0-0.4) 07/12/16 14:48 Baso # 0.0 K/mm3 (0.0-0.1) 07/12/16 14:48 Seg Neutrophils % 83.9 % (40.0-70.0) H 07/12/16 14:48 Seg Neutrophils # 8.7 K/mm3 (1.8-7.7) H 07/12/16 14:48 PT 14.3 Sec. (12.2-14.9) 07/12/16 14:48 INR 1.12 (0.87-1.13) 07/12/16 14:48 APTT 34.1 Sec. (24.2-36.6) 07/11/16 07:07 Sodium TNR 07/13/16 06:02 Potassium TNR 07/13/16 06:02 Chloride TNR 07/13/16 06:02 Carbon Dioxide TNR 07/13/16 06:02 Anion Gap TNR 07/13/16 06:02 BUN TNR 07/13/16 06:02 Creatinine TNR 07/13/16 06:02 Estimated GFR TNR 07/13/16 06:02 BUN/Creatinine Ratio TNR 07/13/16 06:02 Glucose TNR 07/13/16 06:02 POC Glucose 120 (70-105) H 07/14/16 08:25 Calcium TNR 07/13/16 06:02 Total Bilirubin 1.5 mg/dL (0.1-1.2) H 07/12/16 14:48 AST 35 units/L (5-40) 07/12/16 14:48 ALT 24 units/L (7-56) 07/12/16 14:48 Alkaline Phosphatase 254 units/L (35-129) H 07/12/16 14:48 Total Creatine Kinase 71 units/L (55-170) 07/10/16 08:39 CK-MB (CK-2) 2.4 ng/mL (0.0-4.0) 07/10/16 08:39 CK-MB (CK-2) Rel Index 3.3 (0-4) 07/10/16 08:39 Troponin T 0.073 ng/mL (0.00-0.029) H 07/10/16 08:39 Total Protein 7.3 g/dL (6.3-8.2) 07/12/16 14:48 Albumin 3.5 g/dL (3.9-5) L 07/12/16 14:48 Albumin/Globulin Ratio 0.9 % 07/12/16 14:48 Triglycerides 101 mg/dL (2-149) 07/09/16 15:19 Cholesterol 116 mg/dL (50-199) 07/09/16 15:19 LDL Cholesterol Direct 67 mg/dL (50-130) 07/09/16 15: HDL Cholesterol 29 mg/dL (40-59) L 07/09/16 15:19 Cholesterol/HDL Ratio 4.00 % 07/09/16 15:19 Lipase 56 units/L (13-60) 07/05/16 15:02 Urine Color Yellow (Yellow) 07/05/16 17:57 Urine Turbidity Cloudy (Clear) 07/05/16 17:57 Urine pH 5.0 (5.0-7.0) 07/05/16 17:57 Ur Specific [place] 1.014 (1.003-1.030) 07/05/16 17:57 Urine Protein >500 mg/dL (Negative) 07/05/16 17:57 Urine Glucose (UA) 50 mg/dL (Negative) 07/05/16 17:57 Urine Ketones Tr mg/dL (Negative) 07/05/16 17:57 Urine Blood Mod (Negative) 07/05/16 17:57 Urine Nitrite Neg (Negative) 07/05/16 17:57 Urine Bilirubin Neg (Negative) 07/05/16 17:57 Urine Urobilinogen < 2.0 mg/dL (<2.0) 07/05/16 17:57 Ur Leukocyte Esterase Neg (Negative) 07/05/16 17:57 Urine WBC (Auto) 1.0 /HPF (0.0-6.0) 07/05/16 17:57 Urine RBC (Auto) 30.0 /HPF (0.0-6.0) 07/05/16 17:57
[2016-07-14] MEDS ORDERED: COUMADIN PO SCH (17:00)
--- NOTE | 2016-07-14 18:11 | Progress Note ---
Assessment and Plan end-stage renal disease patient is currently on maintenance hemodialysis Sunday Anemia and end-stage renal disease to monitor and follow erythropoietin as needed,current hemoglobin is around 14 Gallbladder disease currently being followed by surgery,he is currently status post open cholecystectomy has had drain placed in May Secondary hyperparathyroidism to monitor phosphorus and PTH level History of atrial fibrillation/blood pressure is well controlled Prognosis remains guarded at this time We'll continue to follow and make recommendations from renal standpoint Subjective Principal diagnosis: syncope, chronic atrial flutter Interval history: Patient was seen today for follow-up and multiple renal related issues around 9: 45 in the morning Patient currently denies having any chest pain pressure or shortness of breath Events of this hospitalizations were noted Vitals labs intake output medications were reviewed Objective - Vital Signs Vital signs: Vital Signs - 12hr 07/14/16 07/14/16 07/14/16 08:00 10:00 10:12 Temperature 98.4 F Pulse Rate 111 H Pulse Rate [ 111 H 111 H Left] Respiratory 18 Rate Blood Pressure 122/75 Blood Pressure 122/75 [Left Arm] O2 Sat by Pulse 99 Oximetry 07/14/16 07/14/16 07/14/16 10:13 10:40 10:50 Temperature 98.4 F Pulse Rate 111 H 49 L 67 Pulse Rate [ Left] Respiratory 18 Rate Blood Pressure 122/75 114/69 114/68 Blood Pressure [Left Arm] O2 Sat by Pulse Oximetry 07/14/16 07/14/16 07/14/16 11:00 11:15 11:30 Temperature Pulse Rate 58 L 67 70 Pulse Rate [ Left] Respiratory Rate Blood Pressure 112/64 111/64 134/76 Blood Pressure [Left Arm] O2 Sat by Pulse Oximetry 07/14/16 07/14/16 07/14/16 11:45 12:00 12:15 Temperature Pulse Rate 83 86 75 Pulse Rate [ Left] Respiratory Rate Blood Pressure 126/70 147/76 147/74 Blood Pressure [Left Arm] O2 Sat by Pulse Oximetry 07/14/16 07/14/16 07/14/16 12:30 12:45 13:00 Temperature Pulse Rate 55 L 55 L 61 Pulse Rate [ Left] Respiratory Rate Blood Pressure 145/75 165/80 170/80 Blood Pressure [Left Arm] O2 Sat by Pulse Oximetry 07/14/16 07/14/16 07/14/16 13:15 13:30 13:45 Temperature Pulse Rate 94 H 92 H 104 H Pulse Rate [ Left] Respiratory Rate Blood Pressure 135/103 130/100 137/73 Blood Pressure [Left Arm] O2 Sat by Pulse Oximetry 07/14/16 07/14/16 07/14/16 14:00 14:15 14:30 Temperature Pulse Rate 56 L 86 84 Pulse Rate [ Left] Respiratory Rate Blood Pressure 139/73 156/82 144/79 Blood Pressure [Left Arm] O2 Sat by Pulse Oximetry 07/14/16 07/14/16 14:40 15:00 Temperature 97.9 F Pulse Rate 82 99 H Pulse Rate [ Left] Respiratory 18 Rate Blood Pressure 130/74 133/71 Blood Pressure [Left Arm] O2 Sat by Pulse Oximetry - General Appearance General appearance: appears stated age EENT: mucous membranes moist Neck: no JVD Respiratory: Present: Clear to Ascultation Cardiology: regular Gastrointestinal: other (obese nor organomegaly) Integumentary: no rash Neurologic: alert and oriented x3 Psychiatric: mood/affect appropriate - Lab 07/12/16 14:48 07/13/16 06:02 Most recent lab results Calcium TNR 07/13/16 06:02
[2016-07-14 20:58] LABS: INR 1.12 (0.87-1.13)
[2016-07-15] MEDS: CORDARONE PO SCH ×2 (00:30→10:27)
[2016-07-15] MEDS: NOVOLOG SUB-Q SCH ×2 (01:00→07:30)
[2016-07-15] MEDS: HEPARIN SUB-Q SCH ×2 (01:02→06:25)
[2016-07-15] MEDS: LEVEMIR SUB-Q SCH (01:02)
[2016-07-15] MEDS: LOPRESSOR PO SCH (01:03)
[2016-07-15] MEDS ORDERED: MIRALAX 3350 PO SCH (10:00)
[2016-07-15] MEDS: MORPHINE IV PRN (10:20)
[2016-07-15] MEDS: ZESTRIL PO SCH (10:27)
[2016-07-15] MEDS: IMDUR PO SCH (10:29)
--- NOTE | 2016-07-15 10:34 | Discharge Summary ---
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 RN NELLY Us spoke with Dr Samuel 07/13/16 12:28 Physical Therapy Evaluation and Treat [CONS] Routine Comment: Reason For Exam: placement Primary care physician: SILVER HOLLOWARE ASSEMBLER Hospitalization Condition: Good Pertinent studies: CT abdomen and pelvis on 07/05/16 showed percutaneus drainage in the RUQ displaced but the tip in the gallbladder. Hospital course: 66M with past medical history of cholecystitis, s/p cholecystomy drain which got dislodged and he now presented with severe RUQ pain, Dr Yusuf PIPER was following him and s/p open cholecystectomy on 07/11/16. Discharge diagnosis and management per problem list: 1. Cholecystitis s/p replacement Cholecystostomy drain 07/06 by IR S/p open cholecystectomy 07/11/16 advanced diet, cont stool softner 2. CAD/ s/p CABG, w systolic CHF ef 25% asymptomatic and optimized Continue BB, ACEI, aspirin and statin Nuclear stress test 07/10 no acute ischemia 3. Atrial flutter Status post recent cardioversion at [place] and currently on NSR Continue rate control medicine ( amioderone and metoprolol), was hold on coumadin for procedure Restarted coumadin from 06/16/16 4. Hypertension continue BP meds (metoprolol, imdur, lisinopril) 5. Diabetes continue insulins and ADA/renal diet 6. Hyperlipidemia Continue statin 7. ESRD on HD cotninue HD per nephrology 8. Episode of decreased responsiveness on 07/09/16 - stress test was negative, -likely vasovagal syncope vs somnolence; no further workup Disposition: DC/TX HOME UNDER HOME HEALTH Time spent for discharge: 32 minutes Core Measure Documentation - Palliative Care Palliative Care/ Comfort Measures: Not Applicable - Core Measures Any of the following diagnoses?: heart failure - Heart Failure Discharge Requirements BRUNO/ARB for LVSD if EF <40%: Yes Beta meri at discharge: Yes Exam - Physical Exam Narrative exam: GENERAL: Elderly obese AA male lying on bed appeared to be in no discomfort. HEENT: Normocephalic. Atraumatic. No conjunctival congestion or icterus. Patient has moist mucous membranes. NECK: Supple. Trachea midline. CHEST/LUNGS: Clear to auscultated bilaterally, breathing nonlabored. No wheezes crackles or rhonchi. HEART/CARDIOVASCULAR: Regular in rate and rhythm. S1 and S2 positive. ABDOMEN: Abdomen is soft, mild tender, with bloody drainage. Patient has normal bowel sounds. SKIN: There is no rash. Warm and dry. NEURO: No focal motor deficit. Follows command. MUSCULOSKELETAL: No joint effusion or tenderness. EXTRIMITY: No edema, no cyanosis or clubbing. PSYCH: Cooperative. - Constitutional Vitals: Temp Pulse Resp BP Pulse Ox 98.9 F 113 H 22 161/89 97 07/15/16 08:00 07/15/16 10:29 07/15/16 08:00 07/15/16 10:29 07/15/16 08:00 Plan Activity: advance as tolerated Weight Bearing Status: Non-Weight Bearing Diet: diabetic, renal Wound: per wound nurse instructions, drain care as instructed Follow up with: PRIMARY CARE, [Primary Care Provider] - 3-5 Days Forms: Warfarin Discharge Instruction Prescriptions: Amiodarone [Cordarone 200 MG TAB] 200 mg PO BID #60 tablet Metoprolol [Lopressor TAB] 100 mg PO BID #60 tablet Torsemide [Demadex] 10 mg PO QDAY #30 tablet
--- NOTE | 2016-07-15 11:27 | Progress Note ---
Assessment and Plan Pre-operative cardiac evaluation pt. denies chest pain/SOB Echo 07/08/2016: EF 25-30% Stress MPI 07/10/16: no ischemia Cholecystitis s/p open cholecystectomy (07/11) Syncopal episode (07/09) no chest pain mildly elevated troponin due to ESRD stress MPI 07/10/16: no ischemia Atrial flutter-->currently rapid ventricular rate continue amiodarone 200mg BID, metoprolol 100mg bid ablation planned per pt. resume coumadin when okay with surgery CAD s/p CABG in 2011 continue ASA, statin, imdur Ischemic cardiomyopathy EF 25-30% currently compensated Hypertension stable Diabetes ESRD on HD Subjective Date of service: 07/15/16 Principal diagnosis: syncope, chronic atrial flutter Interval history: pt has no sob or palpations or chest pain Objective Vital Signs Temp Pulse Pulse Resp BP BP Pulse Ox 07/15/16 10:29 113 H 161/89 07/15/16 10:27 113 H 161/89 07/15/16 10:20 19 07/15/16 08:00 98.9 F 113 H 22 161/89 97 07/15/16 04:00 98.3 F 92 H 20 157/97 98 07/15/16 01:03 44 L 07/15/16 00:00 98.4 F 47 L 18 135/88 97 07/14/16 20:00 98.7 F 46 L 20 151/58 96 07/14/16 17:00 98.1 F 80 18 127/72 98 07/14/16 15:00 97.9 F 99 H 18 133/71 07/14/16 14:40 82 130/74 07/14/16 14:30 84 144/79 07/14/16 14:15 86 156/82 07/14/16 14:00 56 L 139/73 07/14/16 13:45 104 H 137/73 07/14/16 13:30 92 H 130/100 07/14/16 13:15 94 H 135/103 07/14/16 13:00 61 170/80 07/14/16 12:45 55 L 165/80 07/14/16 12:30 55 L 145/75 07/14/16 12:15 75 147/74 07/14/16 12:00 86 147/76 07/14/16 11:45 83 126/70 07/14/16 11:30 70 134/76 - Physical Examination General: Appears Well, No Apparent Distress HEENT: Positive: Normocephaly, Mucus Membranes Moist Neck: Positive: neck supple, trachea midline. Negative: JVD/HJR Cardiac: Positive: Irregularly Regular Lungs: Positive: clear to auscultation Neuro: Positive: Grossly Intact Abdomen: Positive: Soft, Tender Skin: Positive: Clear. Negative: Rash Extremities: Present: normal. Absent: edema - Labs and Meds Coagulation 07/14/16 Range/Units 20:17 PT 14.3 (12.2-14.9) Sec. INR 1.12 (0.87-1.13) - Imaging and Cardiology EKG: report reviewed Echo: report reviewed (07/08/2016: EF 25-30% ) - Telemetry EKG Rhythm: Atrial Flutter (range from 100)
[2016-07-15 13:09] VITALS: BP 122/71
--- NOTE | 2016-07-15 15:19 | Progress Note ---
Assessment and Plan Pt feeling well without compl. abel full liq diet Abd soft, non tender. d/c'ed today as per hospitalist solid diet in am. call in any evidence of N, V or abd pain. rto Tues for suture removal Objective Vital Signs - 12hr 07/15/16 07/15/16 07/15/16 04:00 08:00 10:20 Temperature 98.3 F 98.9 F Pulse Rate Pulse Rate [ 92 H 113 H Left] Respiratory 20 22 19 Rate Blood Pressure Blood Pressure 157/97 161/89 [Left Arm] O2 Sat by Pulse 98 97 Oximetry 07/15/16 07/15/16 07/15/16 10:27 10:29 12:00 Temperature 97.6 F Pulse Rate 113 H 113 H Pulse Rate [ 59 L Left] Respiratory 18 Rate Blood Pressure 161/89 161/89 Blood Pressure 122/71 [Left Arm] O2 Sat by Pulse Oximetry - Labs 07/12/16 14:48 07/13/16 06:02
--- NOTE | 2016-07-15 19:50 | Physician Progress Note ---
TIME: Around 10 o'clock in the morning. SUBJECTIVE: The patient was seen today, feeling much better, brushing his teeth, in a chair and getting up and around, wants to go home and dialysis was well tolerated yesterday. Events for 24 hours, vitals, labs, intake, output, and medications were reviewed. PHYSICAL EXAMINATION: HEENT: Normocephalic and atraumatic. Extraocular movements are intact. NECK: Supple. CHEST: Clear to auscultation. No crackles, rales, or wheezes. HEART: Regular rate and rhythm. S1 and S2 heard. No S3 or S4. ABDOMEN: Soft and nontender, postop abdomen. EXTREMITIES: No edema. ASSESSMENT AND PLAN: 1. End-stage renal disease, the patient is currently tolerating dialysis treatment well on Sunday, Sunday, and Sunday schedule. 2. Hypertension appears to be stable, goal blood pressure under 140 to 150 at this time. 3. Anemia and end-stage renal disease, we will monitor. 4. Status post cholecystectomy. Overall, stable from Renal standpoint. JOB# [id number] SS/NTS
== END 2016-07-15 15:00 | disposition home health service (06) | DRG 907 ==
LOC: ED 13:46 → INTOOBSV 18:47 → 2B-SURG 18:47 → OBSVTOIN 07-07 11:32
PROVIDERS: ADMIT Internal Medicine; ATTEND Internal Medicine
PROC: 0F9940Z Drainage of Common Bile Duct with Drainage Device, Percutaneous Endoscopic Approach (ICD-10-PCS; principal; 2016-07-06)
PROC: 5A1D60Z (ICD-10-PCS; 2016-07-10)
PROC: 0FT40ZZ Resection of Gallbladder, Open Approach (ICD-10-PCS; 2016-07-11)
DX: T85.528A Displacement of other gastrointestinal prosthetic devices, implants and grafts, initial encounter (principal); N18.6 End stage renal disease; K81.0 Acute cholecystitis; I48.92 Unspecified atrial flutter; I13.2 Hypertensive heart and chronic kidney disease with heart failure and with stage 5 chronic kidney disease, or end stage renal disease; I50.20 Unspecified systolic (congestive) heart failure; E11.22 Type 2 diabetes mellitus with diabetic chronic kidney disease; F32.9 Major depressive disorder, single episode, unspecified; F03.90 Unspecified dementia, unspecified severity, without behavioral disturbance, psychotic disturbance, mood disturbance, and anxiety; I25.10 Atherosclerotic heart disease of native coronary artery without angina pectoris; D63.1 Anemia in chronic kidney disease; I25.5 Ischemic cardiomyopathy; E78.5 Hyperlipidemia, unspecified; K82.9 Disease of gallbladder, unspecified; Z99.2 Dependence on renal dialysis; Z79.899 Other long term (current) drug therapy; Z95.5 Presence of coronary angioplasty implant and graft; Z95.1 Presence of aortocoronary bypass graft; Z79.82 Long term (current) use of aspirin; Z79.01 Long term (current) use of anticoagulants; Z79.4 Long term (current) use of insulin
CPT/HCPCS: 10160; 36415; 74176; 77012; 78452; 80048; 80053; 80061; 81001; 82550; 82553; 82962; 83690; 84484; 85025; 85610; 85730; 87116; 88304; 93005; 93010; 93017; 93306; 94760; A9270-GY; A9502; C1769; G0378; J0330; J0690; J1100; J1170; J1644; J1815; J1818; J2250; J2270; J2405; J2543; J2710; J3010; J7030; J7042

== ENCOUNTER 2016-08-28 12:24 | Day surgery (SDC) | payer MEDICARE ==
[2016-08-28] MEDS ORDERED: NACL 0.9% 1000 ML 1,000 ML IV ONE (12:37)
[2016-08-28 13:06] LABS: Basophils % (Auto) 0.5 % (0.0-1.8); Eosinophils % (Auto) 1.6 % (0.0-4.3); Hematocrit 32.8 % (35.5-45.6); Hemoglobin 10.6 gm/dl (11.8-15.2); Mean Corpuscular HGB Conc 32 % (32-34); Mean Corpuscular Hemoglobin 28 pg (28-32); Mean Corpuscular Volume 87 fl (84-94); Platelet Count 149 K/mm3 (140-440); Red Blood Count 3.79 M/mm3 (3.65-5.03); Red Cell Distribution Width 19.7 % (13.2-15.2); White Blood Count 6.6 K/mm3 (4.5-11.0)
[2016-08-28 13:16] LABS: INR 4.41 (0.87-1.13)
[2016-08-28 13:19] LABS: Partial Thromboplastin Time 70.2 Sec. (24.2-36.6)
[2016-08-28] MEDS ORDERED: DDAVP IV NR (13:59)
[2016-08-28] MEDS ORDERED: SILVER NITRATE TP ONE (13:59)
[2016-08-28] MEDS ORDERED: XYLOCAINE 2%/ EPI 1:200,000 INFILTRATI ONE (13:59)
--- NOTE | 2016-08-28 14:01 | Emergency Department Report ---
ED General Adult HPI - General Chief complaint: Medical Clearance Stated complaint: BLEEDING Time Seen by Provider: 08/28/16 13:48 Source: patient, EMS (ems notes not available at time of chart dictation), RN notes reviewed, old records reviewed Mode of arrival: Ambulatory Limitations: No Limitations - History of Present Illness Initial comments: This is a 66-year-old male. He is previously known to me. Past medical history includes A. fib/flutter, on Coumadin therapy, end stage renal disease on dialysis Sunday, Sunday, Sunday. Reports his last dialysis session was today. It was of normal length and duration. The patient is sent to the ER for bleeding left sided upper extremity AV fistula. The bleeding is constant. It is painless. It decreases with pressure. Upon arrival to the ER, if the patient had a pressure bandage, which was removed by myself. Direct digital pressure was applied for a half hour. The lesion still continued to bleed I then placed 2 interrupted Vicryl 3-0 sutures over the bleeding site, and the patient continued to bleed. I then contacted vascular surgery, and discussed the case with the vascular surgery physician graduate assistant, Francisco Javier Garcia The patient was then transferred to the vascular surgery lab, where he then had a fistulogram, and balloon angioplasty. He was found to have approximately 99% occlusion, which was then resolved. The patient was sent back to the ER with no complaints, his bleeding stopped, and he denied all complaints.. -: Gradual Location: left, upper extremity Severity scale (0 -10): 0 Consistency: constant Improves with: none Worsens with: none Associated Symptoms: denies other symptoms - Related Data Home Medications Medication Instructions Recorded Confirmed Last Taken Gabapentin 300 mg PO BID 08/07/14 08/28/16 08/28/16 Docusate Sodium [Colace CAP] 100 mg PO BID 01/29/15 08/28/16 08/28/16 Ascorbic Acid [Vitamin C] 500 mg PO QDAY 06/07/16 08/28/16 08/28/16 Benzonatate [Tessalon Perles] 100 mg PO Q8HR 06/07/16 08/28/16 08/28/16 Duloxetine HCl [Cymbalta] 20 mg PO QDAY 06/07/16 08/28/16 08/28/16 FLUoxetine [PROzac] 10 mg PO QDAY 06/07/16 08/28/16 08/28/16 Prazosin [Minipress] 2 mg PO QHS 06/07/16 08/28/16 08/28/16 Tamsulosin [Flomax] 0.4 mg PO QDAY 06/07/16 08/28/16 08/28/16 guaiFENesin 400 mg PO Q8H 06/07/16 08/28/16 08/28/16 traZODone [Desyrel] 100 mg PO QHS 06/07/16 08/28/16 08/28/16 ISOSORBIDE MONOnitrate [Imdur ER] 60 mg PO QDAY 07/05/16 08/28/16 08/28/16 oxyCODONE /ACETAMINOPHEN [Percocet 1 tab PO Q6HR PRN 07/05/16 08/28/16 08/28/16 5/325 mg] Previous Rx's Medication Instructions Recorded Last Taken Type Warfarin [Coumadin] 10 mg PO SuMoWeFr@1700 tablet 08/10/14 08/28/16 Rx Aspirin [Aspirin BABY CHEW TAB] 81 mg PO QDAY #30 tab.chew 06/14/16 08/28/16 Rx AtorvaSTATin [Lipitor] 80 mg PO QDAY #30 tablet 06/14/16 08/28/16 Rx Insulin Glargine [Lantus VIAL] 20 units SUB-Q HS #100 units 06/14/16 08/28/16 Rx Lisinopril [Zestril TAB] 40 mg PO QDAY #30 tablet 06/14/16 08/28/16 Rx Warfarin [Coumadin] 7.5 mg PO DAILY #30 tablet 06/14/16 08/28/16 Rx Amiodarone [Cordarone 200 MG TAB] 200 mg PO BID #60 tablet 07/15/16 08/28/16 Rx HYDROcodone/APAP 5-325 [[place] 1 each PO Q4HR PRN #20 tablet 07/15/16 08/28/16 Rx 5-325 mg TAB] Metoprolol [Lopressor TAB] 100 mg PO BID #60 tablet 07/15/16 08/28/16 Rx Torsemide [Demadex] 10 mg PO QDAY #30 tablet 07/15/16 08/28/16 Rx Allergies Allergy/AdvReac Type Severity Reaction Status Date / Time No Known Allergies Allergy Verified 07/05/16 14:28 ED Review of Systems ROS: Stated complaint: BLEEDING Other details as noted in HPI Constitutional: denies: fever Eyes: denies: vision change ENT: denies: epistaxis Respiratory: denies: cough Cardiovascular: denies: chest pain Gastrointestinal: denies: abdominal pain Genitourinary: denies: urgency Musculoskeletal: as per HPI Skin: denies: lesions Neurological: denies: weakness ED Past Medical Hx - Past Medical History Previous Medical History?: Yes Hx Hypertension: Yes Hx Congestive Heart Failure: Yes Hx Diabetes: Yes Hx Renal Disease: Yes (CKD on dialysis --) Hx Psychiatric Treatment: Yes (DEPRESSION) Hx Asthma: No Hx COPD: No Hx Dementia: Yes Hx HIV: No Additional medical history: Atrial fibrillation. GALLSTONES - Surgical History Past Surgical History?: Yes Hx Coronary Stent: Yes Hx Open Heart Surgery: Yes (2011) Additional Surgical History: CABG, dialysis graft to left upper extremity. Valve surgery. R leg surgery. stent placed 2011 - led to open heart surgery - Social History Smoking Status: Never Smoker - Medications Home Medications: Home Medications Medication Instructions Recorded Confirmed Last Taken Type Gabapentin 300 mg PO BID 08/07/14 08/28/16 08/28/16 History Warfarin [Coumadin] 10 mg PO SuMoWeFr@1700 tablet 08/10/14 08/28/16 08/28/16 Rx Docusate Sodium [Colace CAP] 100 mg PO BID 01/29/15 08/28/16 08/28/16 History Ascorbic Acid [Vitamin C] 500 mg PO QDAY 06/07/16 08/28/16 08/28/16 History Benzonatate [Tessalon Perles] 100 mg PO Q8HR 06/07/16 08/28/16 08/28/16 History Duloxetine HCl [Cymbalta] 20 mg PO QDAY 06/07/16 08/28/16 08/28/16 History FLUoxetine [PROzac] 10 mg PO QDAY 06/07/16 08/28/16 08/28/16 History Prazosin [Minipress] 2 mg PO QHS 06/07/16 08/28/16 08/28/16 History Tamsulosin [Flomax] 0.4 mg PO QDAY 06/07/16 08/28/16 08/28/16 History guaiFENesin 400 mg PO Q8H 06/07/16 08/28/16 08/28/16 History traZODone [Desyrel] 100 mg PO QHS 06/07/16 08/28/16 08/28/16 History Aspirin [Aspirin BABY CHEW TAB] 81 mg PO QDAY #30 tab.chew 06/14/16 08/28/1612/07 Rx AtorvaSTATin [Lipitor] 80 mg PO QDAY #30 tablet 06/14/16 08/28/16 08/28/16 Rx Insulin Glargine [Lantus VIAL] 20 units SUB-Q HS #100 units 06/14/16 08/28/16 Rx Lisinopril [Zestril TAB] 40 mg PO QDAY #30 tablet 06/14/16 08/28/16 08/28/16 Rx Warfarin [Coumadin] 7.5 mg PO DAILY #30 tablet 06/14/16 08/28/16 08/28/16 Rx ISOSORBIDE MONOnitrate [Imdur ER] 60 mg PO QDAY 07/05/16 08/28/16 08/28/16 History oxyCODONE /ACETAMINOPHEN [Percocet 1 tab PO Q6HR PRN 07/05/16 08/28/16 08/28/16 History 5/325 mg] Amiodarone [Cordarone 200 MG TAB] 200 mg PO BID #60 tablet 07/15/16 08/28/1612/07 Rx HYDROcodone/APAP 5-325 [[place] 1 each PO Q4HR PRN #20 tablet 07/15/16 08/28/16 Rx 5-325 mg TAB] Metoprolol [Lopressor TAB] 100 mg PO BID #60 tablet 07/15/16 08/28/16 08/28/16 Rx Torsemide [Demadex] 10 mg PO QDAY #30 tablet 07/15/16 08/28/16 08/28/16 Rx ED Physical Exam - General Limitations: No Limitations General appearance: alert, in no apparent distress - Head Head exam: Present: atraumatic, normocephalic - Eye Eye exam: Present: normal appearance, EOMI. Absent: nystagmus - ENT ENT exam: Present: normal exam, normal orophraynx, mucous membranes moist, normal external ear exam - Neck Neck exam: Present: normal inspection, full ROM. Absent: tenderness, meningismus - Respiratory Respiratory exam: Present: normal lung sounds bilaterally. Absent: respiratory distress, wheezes, rales, rhonchi, stridor, chest wall tenderness, accessory muscle use, decreased breath sounds, prolonged expiratory - Cardiovascular Cardiovascular Exam: Present: regular rate, irregular rhythm, normal heart sounds. Absent: systolic murmur, diastolic murmur, rubs, gallop - GI/Abdominal GI/Abdominal exam: Present: soft, normal bowel sounds. Absent: distended, tenderness, guarding, rebound, rigid, pulsatile mass - Rectal Rectal exam: Present: deferred - Extremities Exam Extremities exam: Present: normal inspection, full ROM, normal capillary refill , other (there is a left upper extremity AV fistula with an appropriate thrill. There is active bleeding. There is no redness, pus or streaking). Absent: pedal edema, joint swelling, calf tenderness - Back Exam Back exam: Present: normal inspection, full ROM. Absent: tenderness, CVA tenderness (R), CVA tenderness (L), muscle spasm, paraspinal tenderness, vertebral tenderness - Neurological Exam Neurological exam: Present: alert, oriented X3, normal gait, other (Extraocular movements intact. Tongue midline. No facial droop. Facial sensation intact to light touch in the V1, V2, V3 distribution bilaterally. 5 and 5 strength in 4 extremities.. Sensation is intact to light touch in 4 extremities.). Absent : motor sensory deficit - Psychiatric Psychiatric exam: Present: normal affect, normal mood - Skin Skin exam: Present: warm, dry, intact, normal color. Absent: rash ED Course Vital Signs 08/28/16 08/28/16 08/28/16 12:26 12:31 13:00 Temperature 98.0 F Pulse Rate 53 L Pulse Rate [ From Monitor] Respiratory 18 Rate Respiratory Rate [Right Upper Abdomen] Blood Pressure 127/104 127/58 Blood Pressure [Right Arm] Blood Pressure 127/104 [Right] O2 Sat by Pulse 99 100 86 Oximetry 08/28/16 08/28/16 08/28/16 14:01 15:01 16:20 Temperature Pulse Rate Pulse Rate [ From Monitor] Respiratory Rate Respiratory 16 Rate [Right Upper Abdomen] Blood Pressure 129/106 111/53 Blood Pressure [Right Arm] Blood Pressure [Right] O2 Sat by Pulse 76 L 95 Oximetry 08/28/16 16:37 Temperature 98.5 F Pulse Rate Pulse Rate [ 59 L From Monitor] Respiratory 18 Rate Respiratory Rate [Right Upper Abdomen] Blood Pressure Blood Pressure 109/54 [Right Arm] Blood Pressure [Right] O2 Sat by Pulse 100 Oximetry ED Medical Decision Making - Lab Data Result diagrams: 08/28/16 12:41 08/28/16 12:41 Vital Signs 08/28/16 08/28/16 08/28/16 12:26 12:31 13:00 Temperature 98.0 F Pulse Rate 53 L Pulse Rate [ From Monitor] Respiratory 18 Rate Respiratory Rate [Right Upper Abdomen] Blood Pressure 127/104 127/58 Blood Pressure [Right Arm] Blood Pressure 127/104 [Right] O2 Sat by Pulse 99 100 86 Oximetry 08/28/16 08/28/16 08/28/16 14:01 15:01 16:20 Temperature Pulse Rate Pulse Rate [ From Monitor] Respiratory Rate Respiratory 16 Rate [Right Upper Abdomen] Blood Pressure 129/106 111/53 Blood Pressure [Right Arm] Blood Pressure [Right] O2 Sat by Pulse 76 L 95 Oximetry 08/28/16 16:37 Temperature 98.5 F Pulse Rate Pulse Rate [ 59 L From Monitor] Respiratory 18 Rate Respiratory Rate [Right Upper Abdomen] Blood Pressure Blood Pressure 109/54 [Right Arm] Blood Pressure [Right] O2 Sat by Pulse 100 Oximetry Lab Results 08/28/16 08/28/16 08/28/16 Range/Units 12:41 12:41 12:41 WBC 6.6 (4.5-11.0) K/mm3 RBC 3.79 (3.65-5.03) M/mm3 Hgb 10.6 L (11.8-15.2) gm/dl Hct 32.8 L (35.5-45.6) % MCV 87 (84-94) fl MCH 28 (28-32) pg MCHC 32 (32-34) % RDW 19.7 H (13.2-15.2) % Plt Count 149 (140-440) K/mm3 Lymph % (Auto) 17.6 (13.4-35.0) % [place] % (Auto) 5.2 (0.0-7.3) % Eos % (Auto) 1.6 (0.0-4.3) % Baso % (Auto) 0.5 (0.0-1.8) % Lymph # 1.2 (1.2-5.4) K/mm3 [place] # 0.3 (0.0-0.8) K/mm3 Eos # 0.1 (0.0-0.4) K/mm3 Baso # 0.0 (0.0-0.1) K/mm3 Seg Neutrophils % 75.1 H (40.0-70.0) % Seg Neutrophils # 5.0 (1.8-7.7) K/mm3 PT 42.5 H (12.2-14.9) Sec. INR 4.41 H (0.87-1.13) APTT 70.2 H* (24.2-36.6) Sec. Sodium 136 L (137-145) mmol/L Potassium 4.5 (3.6-5.0) mmol/L Chloride 92.8 L (98-107) mmol/L Carbon Dioxide 28 (22-30) mmol/L Anion Gap 20 mmol/L BUN 21 H (9-20) mg/dL Creatinine 3.7 H (0.8-1.5) mg/dL Estimated GFR 20 ml/min BUN/Creatinine Ratio 5.67 % Glucose 89 (75-100) mg/dL Calcium 8.7 (8.4-10.2) mg/dL Total Bilirubin 0.50 (0.1-1.2) mg/dL AST 19 (5-40) units/L ALT 27 (7-56) units/L Alkaline Phosphatase 237 H (35-129) units/L Total Protein 7.1 (6.3-8.2) g/dL Albumin 4.4 (3.9-5) g/dL Albumin/Globulin Ratio 1.6 % Blood Type ARTUR Antibody Screen 08/28/16 Range/Units 12:43 WBC (4.5-11.0) K/mm3 RBC (3.65-5.03) M/mm3 Hgb (11.8-15.2) gm/dl Hct (35.5-45.6) % MCV (84-94) fl MCH (28-32) pg MCHC (32-34) % RDW (13.2-15.2) % Plt Count (140-440) K/mm3 Lymph % (Auto) (13.4-35.0) % [place] % (Auto) (0.0-7.3) % Eos % (Auto) (0.0-4.3) % Baso % (Auto) (0.0-1.8) % Lymph # (1.2-5.4) K/mm3 [place] # (0.0-0.8) K/mm3 Eos # (0.0-0.4) K/mm3 Baso # (0.0-0.1) K/mm3 Seg Neutrophils % (40.0-70.0) % Seg Neutrophils # (1.8-7.7) K/mm3 PT (12.2-14.9) Sec. INR (0.87-1.13) APTT (24.2-36.6) Sec. Sodium (137-145) mmol/L Potassium (3.6-5.0) mmol/L Chloride (98-107) mmol/L Carbon Dioxide (22-30) mmol/L Anion Gap mmol/L BUN (9-20) mg/dL Creatinine (0.8-1.5) mg/dL Estimated GFR ml/min BUN/Creatinine Ratio % Glucose (75-100) mg/dL Calcium (8.4-10.2) mg/dL Total Bilirubin (0.1-1.2) mg/dL AST (5-40) units/L ALT (7-56) units/L Alkaline Phosphatase (35-129) units/L Total Protein (6.3-8.2) g/dL Albumin (3.9-5) g/dL Albumin/Globulin Ratio % Blood Type O NEGATIVE ARTUR Antibody Screen Negative - EKG Data -: EKG Interpreted by La - EKG Data 08/28/16 19:40 Atrial flutter, variable conduction, borderline left axis, not consistent with STEMI, first-degree AV block. - Medical Decision Making Assessment and plan: 66-year-old male with bleeding AV fistula, requiring fistulogram and angioplasty. As per discussion with vascular surgery, no need for INR reversal or desmopressin. - Differential Diagnosis coagulopathy, supratherapeutic INR, stenosis Critical care attestation.: If time is entered above; I have spent that time in minutes in the direct care of this critically ill patient, excluding procedure time. ED Disposition Clinical Impression: Dialysis catheter clot or failure, End-stage renal disease on hemodialysis Disposition: DISCHARGED TO HOME OR SELFCARE Is pt being admited?: No Does the pt Need Aspirin: No Condition: Good
[2016-08-28 14:11] LABS: Albumin 4.4 g/dL (3.9-5); Albumin/Globulin Ratio 1.6 %; BUN/Creatinine Ratio 5.67; Bilirubin,Total 0.5 mg/dL (0.1-1.2); Calcium 8.7 mg/dL (8.4-10.2); Chloride 92.8 mmol/L (98-107); Potassium 4.5 mmol/L (3.6-5.0); Total Protein 7.1 g/dL (6.3-8.2)
[2016-08-28] MEDS ORDERED: DDAVP IV ONE (15:00)
[2016-08-28] MEDS ORDERED: NACL 0.9% IV ONE (15:00)
[2016-08-28 16:39] VITALS: BP 111/53
[2016-08-28] MEDS ORDERED: HEPARIN 10,000 UNITS/10 ML ONE (16:57)
[2016-08-28] MEDS ORDERED: HEPARIN/NS 5000 UNIT/500ML(CATH LAB) 500 ML IR ONE (16:57)
[2016-08-28] MEDS ORDERED: XYLOCAINE 2% INFILTRATI ONE (16:58)
[2016-08-28] MEDS ORDERED: ANCEF/STERILE WATER 2 GM/20 ML 2 GM/20 ML SYRINGE IV ONE (16:58)
[2016-08-28] MEDS ORDERED: NACL 0.9% 250ML 250 ML ONE (16:59)
[2016-08-28] MEDS: SUBLIMAZE ONE ×2 (17:18→17:27)
[2016-08-28] MEDS: VERSED ONE ×2 (17:18→17:27)
--- NOTE | 2016-08-28 17:39 | Short Stay Summary ---
Short Stay Documentation Date of service: 08/28/16 Narrative H&P: The patient is a 66-year-old male with a history of end-stage renal disease currently on hemodialysis through a left arm AV graft. He presented to the emergency department with complaints of prolonged bleeding requiring the physician to hold pressure. We will call to evaluate the graft and determine whether the patient required intervention. He states that his access was created at the [facility] usually follows him for his access. The patient is on Coumadin for atrial fibrillation and has an elevated INR at this time. - History Past Medical History: atrial fib, CAD, diabetes, dialysis, ESRD, heart failure, hypertension, PVD Past Surgical History: CABG, Other (AV graft creation, endovascular intervention right leg, valve replacement) Social history: no significant social history - Allergies and Medications Current Medications: Allergies No Known Allergies Allergy (Verified 07/05/16 14:28) Home Medications Medication Instructions Recorded Confirmed Last Taken Type Gabapentin 300 mg PO BID 08/07/14 08/28/16 08/28/16 History Warfarin [Coumadin] 10 mg PO SuMoWeFr@1700 tablet 08/10/14 08/28/16 08/28/16 Rx Docusate Sodium [Colace CAP] 100 mg PO BID 01/29/15 08/28/16 08/28/16 History Ascorbic Acid [Vitamin C] 500 mg PO QDAY 06/07/16 08/28/16 08/28/16 History Benzonatate [Tessalon Perles] 100 mg PO Q8HR 06/07/16 08/28/16 08/28/16 History Duloxetine HCl [Cymbalta] 20 mg PO QDAY 06/07/16 08/28/16 08/28/16 History FLUoxetine [PROzac] 10 mg PO QDAY 06/07/16 08/28/16 08/28/16 History Prazosin [Minipress] 2 mg PO QHS 06/07/16 08/28/16 08/28/16 History Tamsulosin [Flomax] 0.4 mg PO QDAY 06/07/16 08/28/16 08/28/16 History guaiFENesin 400 mg PO Q8H 06/07/16 08/28/16 08/28/16 History traZODone [Desyrel] 100 mg PO QHS 06/07/16 08/28/16 08/28/16 History Aspirin [Aspirin BABY CHEW TAB] 81 mg PO QDAY #30 tab.chew 06/14/16 08/28/1612/07 Rx AtorvaSTATin [Lipitor] 80 mg PO QDAY #30 tablet 06/14/16 08/28/16 08/28/16 Rx Insulin Glargine [Lantus VIAL] 20 units SUB-Q HS #100 units 06/14/16 08/28/16 Rx Lisinopril [Zestril TAB] 40 mg PO QDAY #30 tablet 06/14/16 08/28/16 08/28/16 Rx Warfarin [Coumadin] 7.5 mg PO DAILY #30 tablet 06/14/16 08/28/16 08/28/16 Rx ISOSORBIDE MONOnitrate [Imdur ER] 60 mg PO QDAY 07/05/16 08/28/16 08/28/16 History oxyCODONE /ACETAMINOPHEN [Percocet 1 tab PO Q6HR PRN 07/05/16 08/28/16 08/28/16 History 5/325 mg] Amiodarone [Cordarone 200 MG TAB] 200 mg PO BID #60 tablet 07/15/16 08/28/1612/07 Rx HYDROcodone/APAP 5-325 [[place] 1 each PO Q4HR PRN #20 tablet 07/15/16 08/28/16 Rx 5/325] Metoprolol [Lopressor TAB] 100 mg PO BID #60 tablet 07/15/16 08/28/16 08/28/16 Rx Torsemide [Demadex] 10 mg PO QDAY #30 tablet 07/15/16 08/28/16 08/28/16 Rx Active Medications Cefazolin Sodium (Ancef/Sterile Water 2 Gm/20 Ml) 2 gm in 20 mls @ 80 mls/hr IV PREOP NR PRN Reason: Protocol Stop: 08/29/16 16:14 - Physical exam General appearance: no acute distress HEENT: Atraumatic Lungs: Clear to auscultation Breasts: normal Heart: Other (A. fib) Gastrointestinal: normal Male Genitourinary: deferred Extremities: abnormal (left arm AV graft with pulsatile flow and oozing from puncture site) - Brief post op/procedure progress note Date of procedure: 08/28/16 Pre-op diagnosis: Complications of Dialysis Access Post-op diagnosis: same Procedure: 1. Access Left AV Graft with 6 [place] Venous 2. Fistulogram Central Venogram 3. Angioplasty of Left AV Graft Venous Anastomosis with 8 x 4 Balloon 4. Radiologic Supervision and Interpretation Anesthesia: local, other (IV sedation) Surgeon: JAK ECKERT Estimated blood loss: minimal Pathology: none Condition: stable - Disposition Condition at discharge: Good Disposition: DISCHARGED TO HOME OR SELFCARE Short Stay Discharge Plan Activity: no restrictions, other (okay to use as access for dialysis) Wound: open to air, keep clean and dry Follow up with: PRIMARY CARE, [Primary Care Provider] - 3-5 Days
--- NOTE | 2016-08-28 17:50 | Operative Report ---
Operative Report Operative Report: Date of Procedure: 08/28/2016 Pre-operative Diagnosis: Complications of Dialysis Access Post-operative Diagnosis: Same Procedure(s): 1. Access Left AV Graft with 6 [place]ath Venous 2. Fistulogram Central Venogram 3. Angioplasty of Left AV Graft Venous Anastomosis with 8 x 40 Balloon 4. Radiologic Supervision and Interpretation Surgeon: Jack Lara M.D. Director Community Health Nursing: None Anesthesia: Local and IV sedation EBL: Minimal Counts: Correct Complications: None Condition: Stable Findings: 99% stenosis of the venous anastomosis. The central venous system was widely patent. The arterial anastomosis is widely patent. After intervention the AV graft was widely patent without residual stenosis. Specimen: None Indication: The patient is a 66-year-old male with history of end-stage renal disease on hemodialysis through a left arm AV graft. He presented to the emergency department with prolonged bleeding and on evaluation he had pulsatile flow in the graft. He is in need of a fistulogram with angioplasty. He was given the risk, benefits, and alternative procedures and consented to procedure. Description of Procedure: The patient was brought into the lab scientist and laid in supine position. After he was adequately sedated his left arm was prepped and draped in normal sterile fashion. After anesthetizing the skin micropuncture technique was used to access the graft towards the venous outflow and a 6 [place] sheath was placed by Seldinger technique. A fistulogram was performed that demonstrated 99% stenosis of the venous anastomosis. The remainder of the graft was widely patent and the central venous system was widely patent. A 0.035 Bentson wire was advanced across this area of stenosis and an 8 x 40 balloon was advanced across the area of stenosis angioplasty performed. Following fistulogram demonstrated widely patent graft without residual stenosis. All bubbles wires removed and a 4-0 chromic in pursestring fashion was used to close entry site. The wound was then dressed with Dermabond. The patient tolerated the procedure well. All sponge, needle, and instrument counts were correct. The patient was taken to the recovery area in stable condition.
[2016-08-29] MEDS ORDERED: ANCEF/STERILE WATER 2 GM/20 ML 2 GM/20 ML SYRINGE IV NR (16:00)
== END 2016-08-28 16:42 | disposition home or self-care (01) ==
LOC: ED 12:24 → CATH 16:37 → OPU 16:41
PROVIDERS: ATTEND Emergency Medicine
DX: T82.858A Stenosis of other vascular prosthetic devices, implants and grafts, initial encounter (principal); E11.22 Type 2 diabetes mellitus with diabetic chronic kidney disease; I13.2 Hypertensive heart and chronic kidney disease with heart failure and with stage 5 chronic kidney disease, or end stage renal disease; N18.6 End stage renal disease; I50.9 Heart failure, unspecified; I25.10 Atherosclerotic heart disease of native coronary artery without angina pectoris; I48.91 Unspecified atrial fibrillation; Z99.2 Dependence on renal dialysis; Z95.1 Presence of aortocoronary bypass graft; Y83.2 Surgical operation with anastomosis, bypass or graft as the cause of abnormal reaction of the patient, or of later complication, without mention of misadventure at the time of the procedure
CPT/HCPCS: 36415; 36902; 80053; 85025; 85610; 85730; 86850; 86900; 86901; 93005; 93010; C1725; C1894; J0690; J1644; J2250; J3010; J7050; J2597; Q9967

== ENCOUNTER 2016-08-30 13:36 | Emergency (ER) | payer MEDICARE ==
[2016-08-30 13:46] VITALS: BP 115/58
[2016-08-30 14:01] LABS: Basophils % (Auto) 0.4 % (0.0-1.8); Eosinophils % (Auto) 1.4 % (0.0-4.3); Hematocrit 30.1 % (35.5-45.6); Hemoglobin 9.7 gm/dl (11.8-15.2); Mean Corpuscular HGB Conc 32 % (32-34); Mean Corpuscular Hemoglobin 28 pg (28-32); Mean Corpuscular Volume 88 fl (84-94); Platelet Count 152 K/mm3 (140-440); Red Blood Count 3.44 M/mm3 (3.65-5.03); Red Cell Distribution Width 19.8 % (13.2-15.2); White Blood Count 6.1 K/mm3 (4.5-11.0)
[2016-08-30 14:12] LABS: INR 3.26 (0.87-1.13); Partial Thromboplastin Time 54.4 Sec. (24.2-36.6)
--- NOTE | 2016-09-01 16:42 | ED Elopement Review ---
ED Pt Elopement review - Results review Lab results: Laboratory Tests 08/30/16 08/30/16 13:50 13:50 WBC 6.1 RBC 3.44 L Hgb 9.7 L Hct 30.1 L MCV 88 MCH 28 MCHC 32 RDW 19.8 H Plt Count 152 Lymph % (Auto) 13.8 [place] % (Auto) 6.0 Eos % (Auto) 1.4 Baso % (Auto) 0.4 Lymph # 0.8 L [place] # 0.4 Eos # 0.1 Baso # 0.0 Seg Neutrophils % 78.4 H Seg Neutrophils # 4.8 PT 33.5 H INR 3.26 H APTT 54.4 H - Call Back decision Pt Call Back Decision: No action required
== END 2016-08-30 16:24 | disposition left against medical advice (07) ==
LOC: ED 13:36
DX: T85.838A Hemorrhage due to other internal prosthetic devices, implants and grafts, initial encounter (principal); Z53.21 Procedure and treatment not carried out due to patient leaving prior to being seen by health care provider
CPT/HCPCS: 36415; 85025; 85610; 85730

== ENCOUNTER 2017-01-01 09:56 | Inpatient (IN) | payer MEDICARE ==
[2017-01-01] MEDS ORDERED: PROTONIX IV ONE (10:43)
[2017-01-01] MEDS ORDERED: NACL 0.9% 500 ML 500 ML IV ONE (10:43)
--- NOTE | 2017-01-01 11:03 | XRay Report ---
PORTABLE CHEST INDICATION: GI bleed. COMPARISON: 06/07/2016 FINDINGS: Portable, frontal chest radiograph demonstrate stable cardiomediastinal silhouette, sternotomy wires and multilevel thoracic spondylosis with possible osteopenia. Clear lungs with interval resolution of right minor fissure fluid/thickening. EKG leads. CONCLUSION: No acute chest process with interval resolution of slight fluid overload, as described. Thank you for the opportunity to participate in this patient's care.
--- NOTE | 2017-01-01 11:10 | Emergency Department Report ---
ED GI Bleed HPI - General Chief complaint: Nausea/Vomiting/Diarrhea Stated complaint: NAUSEA/VOMITING Time Seen by Provider: 01/01/17 10:32 Source: patient, EMS Mode of arrival: Stretcher Limitations: No Limitations - History of Present Illness Initial comments: 66-year-old male here with complaint of abdominal pain and single episode of vomiting with what he felt like was some bright red blood. Patient has no known history of GI bleeds in the past. He has noticed some darker but not black stools. He denies lightheadedness dizziness chest pain. He has multiple medical problems. He's never had an endoscopy or colonoscopy. MD complaint: blood streaked emesis -: Sudden Location: epigastric Radiation: none Quality: burning Consistency: constant Improves with: none Worsens with: none Associated Symptoms: abdominal pain. denies: nausea, vomiting, headaches, loss of appetite - Related Data Home Medications Medication Instructions Recorded Confirmed Last Taken Gabapentin 300 mg PO BID 08/07/14 08/28/16 08/28/16 Docusate Sodium [Colace CAP] 100 mg PO BID 01/29/15 08/28/16 08/28/16 Ascorbic Acid [Vitamin C] 500 mg PO QDAY 06/07/16 08/28/16 08/28/16 Benzonatate [Tessalon Perles] 100 mg PO Q8HR 06/07/16 08/28/16 08/28/16 Duloxetine HCl [Cymbalta] 20 mg PO QDAY 06/07/16 08/28/16 08/28/16 FLUoxetine [PROzac] 10 mg PO QDAY 06/07/16 08/28/16 08/28/16 Prazosin [Minipress] 2 mg PO QHS 06/07/16 08/28/16 08/28/16 Tamsulosin [Flomax] 0.4 mg PO QDAY 06/07/16 08/28/16 08/28/16 guaiFENesin 400 mg PO Q8H 06/07/16 08/28/16 08/28/16 traZODone [Desyrel] 100 mg PO QHS 06/07/16 08/28/16 08/28/16 ISOSORBIDE MONOnitrate [Imdur ER] 60 mg PO QDAY 07/05/16 08/28/16 08/28/16 oxyCODONE /ACETAMINOPHEN [Percocet 1 tab PO Q6HR PRN 07/05/16 08/28/16 08/28/16 5/325 mg] Previous Rx's Medication Instructions Recorded Last Taken Type Warfarin [Coumadin] 10 mg PO SuMoWeFr@1700 tablet 08/10/14 08/28/16 Rx Aspirin [Aspirin BABY CHEW TAB] 81 mg PO QDAY #30 tab.chew 06/14/16 08/28/16 Rx AtorvaSTATin [Lipitor] 80 mg PO QDAY #30 tablet 06/14/16 08/28/16 Rx Insulin Glargine [Lantus VIAL] 20 units SUB-Q HS #100 units 06/14/16 08/28/16 Rx Lisinopril [Zestril TAB] 40 mg PO QDAY #30 tablet 06/14/16 08/28/16 Rx Warfarin [Coumadin] 7.5 mg PO DAILY #30 tablet 06/14/16 08/28/16 Rx Amiodarone [Cordarone 200 MG TAB] 200 mg PO BID #60 tablet 07/15/16 08/28/16 Rx HYDROcodone/APAP 5-325 [[place] 1 each PO Q4HR PRN #20 tablet 07/15/16 08/28/16 Rx 5-325 mg TAB] Metoprolol [Lopressor TAB] 100 mg PO BID #60 tablet 07/15/16 08/28/16 Rx Torsemide [Demadex] 10 mg PO QDAY #30 tablet 07/15/16 08/28/16 Rx Allergies Allergy/AdvReac Type Severity Reaction Status Date / Time No Known Allergies Allergy Verified 08/30/16 13:46 ED Review of Systems ROS: Stated complaint: NAUSEA/VOMITING Other details as noted in HPI Comment: All other systems reviewed and negative Constitutional: denies: chills, fever Eyes: denies: eye pain, eye discharge, vision change ENT: denies: ear pain, throat pain Respiratory: denies: cough, shortness of breath, wheezing Cardiovascular: denies: chest pain, palpitations Endocrine: no symptoms reported Gastrointestinal: hematemesis. denies: abdominal pain, nausea, diarrhea Genitourinary: denies: urgency, dysuria Musculoskeletal: denies: back pain, joint swelling, arthralgia Skin: denies: rash, lesions Neurological: denies: headache, weakness, paresthesias Psychiatric: denies: anxiety, depression Hematological/Lymphatic: denies: easy bleeding, easy bruising ED Past Medical Hx - Past Medical History Previous Medical History?: Yes Hx Hypertension: Yes Hx Congestive Heart Failure: Yes Hx Diabetes: Yes Hx Renal Disease: Yes (CKD on dialysis -W-) Hx Psychiatric Treatment: Yes (DEPRESSION) Hx Asthma: No Hx COPD: No Hx Dementia: Yes Hx HIV: No Additional medical history: Atrial fibrillation. GALLSTONES - Surgical History Hx Coronary Stent: Yes Hx Open Heart Surgery: Yes (2011) Hx Cholecystectomy: Yes Additional Surgical History: CABG, dialysis graft to left upper extremity. Valve surgery. R leg surgery. stent placed 2011 - led to open heart surgery - Family History Family history: CAD/[place] - Social History Smoking Status: Never Smoker - Medications Home Medications: Home Medications Medication Instructions Recorded Confirmed Last Taken Type Gabapentin 300 mg PO BID 08/07/14 08/28/16 08/28/16 History Warfarin [Coumadin] 10 mg PO SuMoWeFr@1700 tablet 08/10/14 08/28/16 08/28/16 Rx Docusate Sodium [Colace CAP] 100 mg PO BID 01/29/15 08/28/16 08/28/16 History Ascorbic Acid [Vitamin C] 500 mg PO QDAY 06/07/16 08/28/16 08/28/16 History Benzonatate [Tessalon Perles] 100 mg PO Q8HR 06/07/16 08/28/16 08/28/16 History Duloxetine HCl [Cymbalta] 20 mg PO QDAY 06/07/16 08/28/16 08/28/16 History FLUoxetine [PROzac] 10 mg PO QDAY 06/07/16 08/28/16 08/28/16 History Prazosin [Minipress] 2 mg PO QHS 06/07/16 08/28/16 08/28/16 History Tamsulosin [Flomax] 0.4 mg PO QDAY 06/07/16 08/28/16 08/28/16 History guaiFENesin 400 mg PO Q8H 06/07/16 08/28/16 08/28/16 History traZODone [Desyrel] 100 mg PO QHS 06/07/16 08/28/16 08/28/16 History Aspirin [Aspirin BABY CHEW TAB] 81 mg PO QDAY #30 tab.chew 06/14/16 08/28/1612/07 Rx AtorvaSTATin [Lipitor] 80 mg PO QDAY #30 tablet 06/14/16 08/28/16 08/28/16 Rx Insulin Glargine [Lantus VIAL] 20 units SUB-Q HS #100 units 06/14/16 08/28/16 Rx Lisinopril [Zestril TAB] 40 mg PO QDAY #30 tablet 06/14/16 08/28/16 08/28/16 Rx Warfarin [Coumadin] 7.5 mg PO DAILY #30 tablet 06/14/16 08/28/16 08/28/16 Rx ISOSORBIDE MONOnitrate [Imdur ER] 60 mg PO QDAY 07/05/16 08/28/16 08/28/16 History oxyCODONE /ACETAMINOPHEN [Percocet 1 tab PO Q6HR PRN 07/05/16 08/28/16 08/28/16 History 5/325 mg] Amiodarone [Cordarone 200 MG TAB] 200 mg PO BID #60 tablet 07/15/16 08/28/1612/07 Rx HYDROcodone/APAP 5-325 [[place] 1 each PO Q4HR PRN #20 tablet 07/15/16 08/28/16 Rx 5-325 mg TAB] Metoprolol [Lopressor TAB] 100 mg PO BID #60 tablet 07/15/16 08/28/16 08/28/16 Rx Torsemide [Demadex] 10 mg PO QDAY #30 tablet 07/15/16 08/28/16 08/28/16 Rx ED Physical Exam - General Limitations: No Limitations General appearance: alert, in no apparent distress, obese - Head Head exam: Present: atraumatic, normocephalic - Eye Eye exam: Present: normal appearance. Absent: scleral icterus, conjunctival injection - ENT ENT exam: Present: mucous membranes moist - Neck Neck exam: Present: normal inspection - Respiratory Respiratory exam: Present: normal lung sounds bilaterally. Absent: respiratory distress, wheezes, rales - Cardiovascular Cardiovascular Exam: Present: regular rate, normal rhythm, normal heart sounds. Absent: systolic murmur, diastolic murmur, rubs, gallop - GI/Abdominal GI/Abdominal exam: Present: soft, tenderness (mild epigastric tenderness), normal bowel sounds. Absent: distended - Rectal Rectal exam: Present: deferred - Extremities Exam Extremities exam: Present: normal inspection - Back Exam Back exam: Present: normal inspection - Neurological Exam Neurological exam: Present: alert, oriented X3 - Psychiatric Psychiatric exam: Present: normal affect, normal mood - Skin Skin exam: Present: warm, dry, intact, normal color. Absent: rash ED Course Vital Signs 01/01/17 01/01/17 01/01/17 10:18 11:16 12:41 Temperature 98.4 F Pulse Rate 53 L 57 L 53 L Respiratory 10 L 17 11 L Rate Blood Pressure 130/55 Blood Pressure 123/53 115/61 [Right] O2 Sat by Pulse 94 93 96 Oximetry ED Medical Decision Making - Lab Data Result diagrams: 01/01/17 10:59 01/01/17 10:59 Laboratory Results - last 24 hr 01/01/17 01/01/17 01/01/17 10:59 10:59 10:59 WBC 5.7 RBC 3.93 Hgb 11.9 Hct 36.7 MCV 93 MCH 30 MCHC 33 RDW 15.7 H Plt Count 132 L Lymph % (Auto) 17.2 [place] % (Auto) 5.6 Eos % (Auto) 1.6 Baso % (Auto) 0.5 Lymph # 1.0 L [place] # 0.3 Eos # 0.1 Baso # 0.0 Seg Neutrophils % 75.1 H Seg Neutrophils # 4.3 PT 31.5 H INR 3.02 H APTT 47.3 H Sodium 137 Potassium 4.6 Chloride 96.7 L Carbon Dioxide 25 Anion Gap 20 BUN 40 H Creatinine 5.7 H Estimated GFR 12 BUN/Creatinine Ratio 7.01 Glucose 122 H Calcium 9.5 Magnesium 2.20 Total Bilirubin 0.30 AST 13 ALT 27 Alkaline Phosphatase 265 H Total Protein 7.5 Albumin 4.3 Albumin/Globulin Ratio 1.3 Blood Type Antibody Screen 01/01/17 10:59 WBC RBC Hgb Hct MCV MCH MCHC RDW Plt Count Lymph % (Auto) [place] % (Auto) Eos % (Auto) Baso % (Auto) Lymph # Emanuel # Eos # Baso # Seg Neutrophils % Seg Neutrophils # PT INR APTT Sodium Potassium Chloride Carbon Dioxide Anion Gap BUN Creatinine Estimated GFR BUN/Creatinine Ratio Glucose Calcium Magnesium Total Bilirubin AST ALT Alkaline Phosphatase Total Protein Albumin Albumin/Globulin Ratio Blood Type O NEGATIVE Antibody Screen Negative - EKG Data -: EKG Interpreted by Me - EKG Data 01/01/17 11:09 Sinus bradycardia rate of 53 normal axis possible LVH T-wave inversions in 1 and aVL and V4 through V6 - Medical Decision Making Patient is a 66-year-old male with multiple medical problems and no history of GI bleed here with questionable upper GI bleed. Plan treat the patient with IV Protonix initially. It is unclear to me if this is a true GI bleed at this point. He is medically stable at this time. Plan check labs type and screen and likely admitted for observation and serial hematocrits. He is anticoagulated. Patient with a stable hematocrit. Plan admit the patient to the hospitalist service. Discussed with the hospitalist. Portions of this chart were dictated with dictation software. There may be dictation errors contained within this note. Critical care attestation.: If time is entered above; I have spent that time in minutes in the direct care of this critically ill patient, excluding procedure time. ED Disposition Clinical Impression: Upper GI bleed Disposition: - OP ADMIT IP TO THIS HOSP Is pt being admited?: Yes Condition: Stable
[2017-01-01 11:19] LABS: Basophils % (Auto) 0.5 % (0.0-1.8); Eosinophils % (Auto) 1.6 % (0.0-4.3); Hematocrit 36.7 % (35.5-45.6); Hemoglobin 11.9 gm/dl (11.8-15.2); Mean Corpuscular HGB Conc 33 % (32-34); Mean Corpuscular Hemoglobin 30 pg (28-32); Mean Corpuscular Volume 93 fl (84-94); Platelet Count 132 K/mm3 (140-440); Red Blood Count 3.93 M/mm3 (3.65-5.03); Red Cell Distribution Width 15.7 % (13.2-15.2); White Blood Count 5.7 K/mm3 (4.5-11.0)
[2017-01-01 11:29] LABS: INR 3.02 (0.87-1.13)
[2017-01-01 11:30] LABS: Partial Thromboplastin Time 47.3 Sec. (24.2-36.6)
[2017-01-01 12:06] LABS: Albumin 4.3 g/dL (3.9-5); Albumin/Globulin Ratio 1.3 %; BUN/Creatinine Ratio 7.01; Bilirubin,Total 0.3 mg/dL (0.1-1.2); Calcium 9.5 mg/dL (8.4-10.2); Chloride 96.7 mmol/L (98-107); Magnesium 2.2 mg/dL (1.7-2.3); Potassium 4.6 mmol/L (3.6-5.0); Total Protein 7.5 g/dL (6.3-8.2)
[2017-01-01] MEDS ORDERED: VITAMIN K (ADULT ONLY) SUB-Q ONE (13:32)
--- NOTE | 2017-01-01 13:35 | History and Physical Report ---
History of Present Illness Date of examination: 01/01/17 Chief complaint: Vomiting bright red blood History of present illness: 66-year-old male with history of end-stage renal disease on hemodialysis Sunday. He was at his dialysis in the morning on 859 and he felt like a knot in this month and started vomiting initially closely likely to affect any vomiting it stopped and then he started having severe abdominal pain and not in the stomach got worse and he threw up bright red blood it wasn't large in quantity somewhat frequent was initially used just streaking and then afterwards it was a little bit off fresh blood. He hasn't had any further episodes afterwards. Here he is still nauseated and still having complaint of abdominal pain is generalized all over crampy sharp noted deviation no aggravating or relieving factors persistent and constant. Patient has no known history of GI bleeds in the past. He has noticed some darker but not black stools. He denies lightheadedness dizziness chest pain. He has multiple medical problems. He's never had an endoscopy or colonoscopy. Past History Past Medical History: atrial fib, diabetes, dialysis, ESRD, heart failure, hypertension, hyperlipidemia, other (depression) Past Surgical History: cholecystectomy, CABG, Other (left upper extremity AV graft for dialysis access, CABG, dialysis graft to left upper extremity. Valve surgery. R leg surgery. stent placed 2011 - led to open heart surgery) Social history: lives with family Family history: other (reviewed not pertinent to current condition) Medications and Allergies Allergies Allergy/AdvReac Type Severity Reaction Status Date / Time No Known Allergies Allergy Verified 08/30/16 13:46 Home Medications Medication Instructions Recorded Confirmed Last Taken Type Gabapentin 300 mg PO BID 08/07/14 08/28/16 08/28/16 History Warfarin [Coumadin] 10 mg PO SuMoWeFr@1700 tablet 08/10/14 08/28/16 08/28/16 Rx Docusate Sodium [Colace CAP] 100 mg PO BID 01/29/15 08/28/16 08/28/16 History Ascorbic Acid [Vitamin C] 500 mg PO QDAY 06/07/16 08/28/16 08/28/16 History Benzonatate [Tessalon Perles] 100 mg PO Q8HR 06/07/16 08/28/16 08/28/16 History Duloxetine HCl [Cymbalta] 20 mg PO QDAY 06/07/16 08/28/16 08/28/16 History FLUoxetine [PROzac] 10 mg PO QDAY 06/07/16 08/28/16 08/28/16 History Prazosin [Minipress] 2 mg PO QHS 06/07/16 08/28/16 08/28/16 History Tamsulosin [Flomax] 0.4 mg PO QDAY 06/07/16 08/28/16 08/28/16 History guaiFENesin 400 mg PO Q8H 06/07/16 08/28/16 08/28/16 History traZODone [Desyrel] 100 mg PO QHS 06/07/16 08/28/16 08/28/16 History Aspirin [Aspirin BABY CHEW TAB] 81 mg PO QDAY #30 tab.chew 06/14/16 08/28/1612/07 Rx AtorvaSTATin [Lipitor] 80 mg PO QDAY #30 tablet 06/14/16 08/28/16 08/28/16 Rx Insulin Glargine [Lantus VIAL] 20 units SUB-Q HS #100 units 06/14/16 08/28/16 Rx Lisinopril [Zestril TAB] 40 mg PO QDAY #30 tablet 06/14/16 08/28/16 08/28/16 Rx Warfarin [Coumadin] 7.5 mg PO DAILY #30 tablet 06/14/16 08/28/16 08/28/16 Rx ISOSORBIDE MONOnitrate [Imdur ER] 60 mg PO QDAY 07/05/16 08/28/16 08/28/16 History oxyCODONE /ACETAMINOPHEN [Percocet 1 tab PO Q6HR PRN 07/05/16 08/28/16 08/28/16 History 5/325 mg] Amiodarone [Cordarone 200 MG TAB] 200 mg PO BID #60 tablet 07/15/16 08/28/1612/07 Rx HYDROcodone/APAP 5-325 [[place] 1 each PO Q4HR PRN #20 tablet 07/15/16 08/28/16 Rx 5-325 mg TAB] Metoprolol [Lopressor TAB] 100 mg PO BID #60 tablet 07/15/16 08/28/16 08/28/16 Rx Torsemide [Demadex] 10 mg PO QDAY #30 tablet 07/15/16 08/28/16 08/28/16 Rx Exam - Constitutional Vitals: Temp Pulse Resp BP Pulse Ox 98.4 F 52 L 18 109/64 98 01/01/17 10:18 01/01/17 13:33 01/01/17 13:33 01/01/17 13:33 01/01/17 13:33 Results - Labs CBC & Chem 7: 01/01/17 10:59 01/01/17 10:59 Labs: Laboratory Last Values WBC 5.7 K/mm3 (4.5-11.0) 01/01/17 10:59 RBC 3.93 M/mm3 (3.65-5.03) 01/01/17 10:59 Hgb 11.9 gm/dl (11.8-15.2) 01/01/17 10:59 Hct 36.7 % (35.5-45.6) 01/01/17 10:59 MCV 93 fl (84-94) 01/01/17 10:59 MCH 30 pg (28-32) 01/01/17 10:59 MCHC 33 % (32-34) 01/01/17 10:59 RDW 15.7 % (13.2-15.2) H 01/01/17 10:59 Plt Count 132 K/mm3 (140-440) L 01/01/17 10:59 Lymph % (Auto) 17.2 % (13.4-35.0) 01/01/17 10:59 [place] % (Auto) 5.6 % (0.0-7.3) 01/01/17 10:59 Eos % (Auto) 1.6 % (0.0-4.3) 01/01/17 10:59 Baso % (Auto) 0.5 % (0.0-1.8) 01/01/17 10:59 Lymph # 1.0 K/mm3 (1.2-5.4) L 01/01/17 10:59 [place] # 0.3 K/mm3 (0.0-0.8) 01/01/17 10:59 Eos # 0.1 K/mm3 (0.0-0.4) 01/01/17 10:59 Baso # 0.0 K/mm3 (0.0-0.1) 01/01/17 10:59 Seg Neutrophils % 75.1 % (40.0-70.0) H 01/01/17 10:59 Seg Neutrophils # 4.3 K/mm3 (1.8-7.7) 01/01/17 10:59 PT 31.5 Sec. (12.2-14.9) H 01/01/17 10:59 INR 3.02 (0.87-1.13) H 01/01/17 10:59 APTT 47.3 Sec. (24.2-36.6) H 01/01/17 10:59 Sodium 137 mmol/L (137-145) 01/01/17 10:59 Potassium 4.6 mmol/L (3.6-5.0) 01/01/17 10:59 Chloride 96.7 mmol/L (98-107) L 01/01/17 10:59 Carbon Dioxide 25 mmol/L (22-30) 01/01/17 10:59 Anion Gap 20 mmol/L 01/01/17 10:59 BUN 40 mg/dL (9-20) H 01/01/17 10:59 Creatinine 5.7 mg/dL (0.8-1.5) H 01/01/17 10:59 Estimated GFR 12 ml/min 01/01/17 10:59 BUN/Creatinine Ratio 7.01 % 01/01/17 10:59 Glucose 122 mg/dL (75-100) H 01/01/17 10:59 Calcium 9.5 mg/dL (8.4-10.2) 01/01/17 10:59 Magnesium 2.20 mg/dL (1.7-2.3) 01/01/17 10:59 Total Bilirubin 0.30 mg/dL (0.1-1.2) 01/01/17 10:59 AST 13 units/L (5-40) 01/01/17 10:59 ALT 27 units/L (7-56) 01/01/17 10:59 Alkaline Phosphatase 265 units/L (35-129) H 01/01/17 10:59 Total Protein 7.5 g/dL (6.3-8.2) 01/01/17 10:59 Albumin 4.3 g/dL (3.9-5) 01/01/17 10:59 Albumin/Globulin Ratio 1.3 % 01/01/17 10:59 Blood Type O NEGATIVE 01/01/17 10:59 Antibody Screen Negative 01/01/17 10:59 Assessment and Plan Assessment and plan: Assessment and plan - * Upper GI bleed - admitted the patient to medical floor with telemetry . GI has been consulted in the ER patient is status post edema milligram Protonix for this. Start the patient on 40 mg Protonix IV every 12 hours. Keep the patient nothing by mouth for now until GI evaluation. * End-stage renal disease patient is currently on maintenance hemodialysis Sunday, nephrology consult * Anemia and end-stage renal disease to monitor and follow erythropoietin as needed, hemoglobin hematocrit at baseline. Monitor with a.m. labs. In view of his upper GI bleed * Hypertension - blood pressure is borderline low will hold his lisinopril for now and decrease his metoprolol. * Secondary hyperparathyroidism to monitor phosphorus and PTH level * History of atrial fibrillation - patient initially was in sinus rhythm I spent the EKG that on examination he is again in atrial fibrillation and he is bradycardic in the low 50s will decrease his metoprolol to 25 mg twice a day especially in the office borderline low blood pressures. Continue his amiodarone. Patient is therapeutic on his INR back in the office GI bleed refill all his Coumadin and patient given vitamin K to reverse his coagulopathy in the ER. Patient and the family was informed regarding the risk also embolic ischemic stroke. The worst understanding and are okay with holding and the anticoagulation. * CAD s/p CABG in 2011, continue ASA, statin, imdur * Ischemic cardiomyopathy EF 25-30%, currently compensated * Diabetes mellitus type II - radicular hemoglobin A1c. We will monitor blood sugars with Accu-Cheks every before meals and daily at bedtime and every 6 hours while the patient is nothing by mouth. continue insulins scheduled and sliding scale * Hyperlipidemia will check a lipid panel. Continue statin Prognosis remains guarded at this time Plan - monitor CBC and electrolytes and replace electrolytes when necessary SPEP on DVT reflexes mechanical on SCDs no anticoagulation due to his GI bleed and also patient is already coagulopathic with an INR of 3. GI prophylaxis needed patient on Protonix for dose because of his upper chair. Monitor for the patient closely VTE prophylaxis?: Mechanical Reason for no VTE Prophylaxis: Bleeding Plan of care discussed with patient/family: Yes
[2017-01-01] MEDS ORDERED: AMBIEN PO PRN (14:19)
[2017-01-01] MEDS ORDERED: TYLENOL PO PRN (14:19)
[2017-01-01] MEDS ORDERED: MORPHINE IV PRN (14:19)
[2017-01-01] MEDS ORDERED: REGLAN IV PRN (14:19)
[2017-01-01] MEDS ORDERED: NARCAN 0.4 MG/1 ML IV PRN (14:19)
[2017-01-01] MEDS ORDERED: ALUM-MAG HYDROX-SIMETH 200-200-20MG/5ML PO PRN (14:19)
[2017-01-01] MEDS ORDERED: PROVENTIL IH PRN (14:19)
[2017-01-01] MEDS ORDERED: D50W (25GM) Syringe IV PRN (14:19)
[2017-01-01] MEDS ORDERED: ZOFRAN IV PRN (14:19)
[2017-01-01] MEDS ORDERED: DILAUDID IV PRN (14:19)
[2017-01-01] MEDS ORDERED: DULCOLAX PR PRN (14:19)
[2017-01-01] MEDS ORDERED: MILK OF MAGNESIA PO PRN (14:19)
[2017-01-01] MEDS ORDERED: NACL 0.9% 1000 ML 1,000 ML IV SCH (15:00)
[2017-01-01] MEDS: NOVOLOG SUB-Q SCH ×2 (17:30→20:16)
[2017-01-01] MEDS: ROBITUSSIN PO SCH (20:16)
[2017-01-01] MEDS ORDERED: LEVEMIR SUB-Q SCH (22:00)
[2017-01-01] MEDS: NEURONTIN PO SCH (23:45)
[2017-01-01] MEDS: PROTONIX IV SCH (23:45)
[2017-01-01] MEDS: TESSALON PERLES PO SCH (23:45)
[2017-01-01] MEDS: MINIPRESS PO SCH (23:45)
[2017-01-01] MEDS: COLACE PO SCH (23:45)
[2017-01-01] MEDS: SENOKOT PO SCH (23:45)
[2017-01-01] MEDS: DESYREL PO SCH (23:45)
[2017-01-01] MEDS: CORDARONE PO SCH (23:45)
[2017-01-01] MEDS: LOPRESSOR PO SCH (23:45)
[2017-01-02] MEDS: DUONEB *Not for PRN Use IH SCH ×5 (00:18→20:43)
[2017-01-02] MEDS: NOVOLOG SUB-Q SCH ×7 (00:22→22:31)
[2017-01-02] MEDS: ROBITUSSIN PO SCH ×3 (01:45→18:37)
[2017-01-02 05:57] LABS: Basophils % (Auto) 0.5 % (0.0-1.8); Eosinophils % (Auto) 2.1 % (0.0-4.3); Hematocrit 34.7 % (35.5-45.6); Hemoglobin 11.2 gm/dl (11.8-15.2); Mean Corpuscular HGB Conc 32 % (32-34); Mean Corpuscular Hemoglobin 30 pg (28-32); Mean Corpuscular Volume 93 fl (84-94); Platelet Count 119 K/mm3 (140-440); Red Blood Count 3.72 M/mm3 (3.65-5.03); Red Cell Distribution Width 15.7 % (13.2-15.2); White Blood Count 5.5 K/mm3 (4.5-11.0)
[2017-01-02 06:03] LABS: INR 2.66 (0.87-1.13); Partial Thromboplastin Time 46.8 Sec. (24.2-36.6)
[2017-01-02 06:16] LABS: Albumin 3.6 g/dL (3.9-5); Albumin/Globulin Ratio 1.2 %; BUN/Creatinine Ratio 7.18; Bilirubin,Total 0.5 mg/dL (0.1-1.2); Calcium 9.3 mg/dL (8.4-10.2); Chloride 98.4 mmol/L (98-107); Magnesium 2.1 mg/dL (1.7-2.3); Phosphorous 4.4 mg/dL (2.5-4.5); Total Protein 6.7 g/dL (6.3-8.2)
[2017-01-02] MEDS: TESSALON PERLES PO SCH ×3 (07:38→22:30)
[2017-01-02] MEDS: PERCOCET 5/325 PO PRN ×2 (08:20→15:37)
[2017-01-02] MEDS: COLACE PO SCH ×2 (09:12→22:29)
[2017-01-02] MEDS: CORDARONE PO SCH ×2 (09:12→22:26)
[2017-01-02] MEDS: LOPRESSOR PO SCH ×2 (09:12→22:28)
[2017-01-02] MEDS: FLOMAX PO SCH (09:13)
[2017-01-02] MEDS: IMDUR PO SCH (09:13)
[2017-01-02] MEDS: SENOKOT PO SCH ×2 (09:14→22:30)
[2017-01-02] MEDS: DEMADEX PO SCH (09:15)
[2017-01-02] MEDS: NEURONTIN PO SCH ×2 (09:15→22:26)
[2017-01-02] MEDS: VITAMIN C PO SCH (09:15)
[2017-01-02] MEDS ORDERED: BABY ASPIRIN PO SCH (10:00)
[2017-01-02] MEDS ORDERED: NON-FORMULARY (Duloxetine Hcl [Cymbalta] 20 MG) PO SCH (10:00)
[2017-01-02] MEDS ORDERED: PROVENTIL IH PRN (10:00)
--- NOTE | 2017-01-02 14:18 | Admit Criteria Form ---
Admission Criteria Documentation: GASTROINTESTINAL BLEEDING Clinical Indications for Inpatient Care (Place 'X' for any and all applicable criteria): Ongoing inpatient care may be indicated for gastrointestinal bleeding with ANY ONE of the following (4)(20)(21)(22)(23)(24): [X]I. Active bleeding (eg, fresh voluminous blood in emesis or nasogastric aspirate, or per rectum) [ ]II. Hemodynamic instability [ ]III. Anticoagulation therapy or coagulopathy ((eg, advanced liver disease, irreversible anticoagulation) [ ]IV. Ischemic colitis (22) [ ]V. Endoscopy showing arterial bleeding, adherent clot, nonbleeding visible vessel, varices, flat red spots, ulcer size greater than 2 cm, or portal hypertensive gastropathy [ ]. High-risk low platelet count [ ]VII. Anemia requiring inpatient care as indicated by ANY ONE of the following a)[ ] Cognitive impairment b)[ ] Syncope c)[ ] Heart failure d)[ ] Chest pain e)[ ] Dyspnea f)[ ] Other findings suggesting inadequate perfusion (eg, peripheral or myocardial ischemia, end organ dysfunction) [ ]VIII. High-risk low platelet count [ ]IX. Suspected variceal cause of bleeding as indicated by ANY ONE of the following(27)(28): a)[ ] Known varices b)[ ] Hepatomegaly or splenomegaly c)[ ] Ascites d)[ ] Jaundice or scleral icterus e)[ ] History of liver disease (eg, cirrhosis) f)[ ] Physical findings of portal hypertension (eg, caput [place]) g)[ ] Comorbid disorder indicating risk for portal vein thrombosis (eg , abdominal surgery, sepsis, shock, exchange transfusion, prior umbilical vein catheterization) Extended stay may be needed until ALL of the following are present(20)(38)(47): [ ]a) Hemodynamic stability [ ]b) No evidence of active bleeding (eg, stable Hematocrit) [ ]c) Platelet count, prothrombin time, and partial thromboplastin time acceptable for next level of care [ ]d) Surgical or other acute intervention not needed [ ]e) Oral hydration and diet tolerated The original [facility] content created by Eliot Fernandez has been revised. The portions of the content which have been revised are identified through the use of italic text or in bold, and [facility] has neither reviewed nor approved the modified material. All other unmodified content is copyright [facility]. Please see references footnoted in the original [facility] edition 2016 Admission Criteria Met: Yes
[2017-01-02] MEDS: PROzac PO SCH (15:36)
[2017-01-02] MEDS: PROTONIX IV SCH ×2 (15:36→22:25)
--- NOTE | 2017-01-02 20:16 | Progress Note ---
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 Absent: scleral icterus, conjunctival injection - Neck Neck: Present: supple, normal ROM. Absent: masses or JVD - Respiratory Respiratory effort: normal Respiratory: bilateral: CTA, negative: rhonchi, wheezing - Cardiovascular Rhythm: regular Heart Sounds: Present: S1 & S2. Absent: systolic murmur - Extremities Extremities: no ischemia - Abdominal General gastrointestinal: soft, non-tender, non-distended, normal bowel sounds - Psychiatric Psychiatric: cooperative - Neurologic Neurologic: CNII-XII intact, no focal deficits Results - Labs CBC & Chem 7: 01/02/17 05:23 01/02/17 05:23 Labs: Laboratory Last Values WBC 5.5 K/mm3 (4.5-11.0) 01/02/17 05:23 RBC 3.72 M/mm3 (3.65-5.03) 01/02/17 05:23 Hgb 11.2 gm/dl (11.8-15.2) L 01/02/17 05:23 Hct 34.7 % (35.5-45.6) L 01/02/17 05:23 MCV 93 fl (84-94) 01/02/17 05:23 MCH 30 pg (28-32) 01/02/17 05:23 MCHC 32 % (32-34) 01/02/17 05:23 RDW 15.7 % (13.2-15.2) H 01/02/17 05:23 Plt Count 119 K/mm3 (140-440) L 01/02/17 05:23 Lymph % (Auto) 25.1 % (13.4-35.0) 01/02/17 05:23 [place] % (Auto) 5.6 % (0.0-7.3) 01/02/17 05:23 Eos % (Auto) 2.1 % (0.0-4.3) 01/02/17 05:23 Baso % (Auto) 0.5 % (0.0-1.8) 01/02/17 05:23 Lymph # 1.4 K/mm3 (1.2-5.4) 01/02/17 05:23 [place] # 0.3 K/mm3 (0.0-0.8) 01/02/17 05:23 Eos # 0.1 K/mm3 (0.0-0.4) 01/02/17 05:23 Baso # 0.0 K/mm3 (0.0-0.1) 01/02/17 05:23 Seg Neutrophils % 66.7 % (40.0-70.0) 01/02/17 05:23 Seg Neutrophils # 3.7 K/mm3 (1.8-7.7) 01/02/17 05:23 PT 28.5 Sec. (12.2-14.9) H 01/02/17 05:23 INR 2.66 (0.87-1.13) H 01/02/17 05:23 APTT 46.8 Sec. (24.2-36.6) H 01/02/17 05:23 Sodium 138 mmol/L (137-145) 01/02/17 05:23 Potassium 5.0 mmol/L (3.6-5.0) 01/02/17 05:23 Chloride 98.4 mmol/L (98-107) 01/02/17 05:23 Carbon Dioxide 24 mmol/L (22-30) 01/02/17 05:23 Anion Gap 21 mmol/L 01/02/17 05:23 BUN 51 mg/dL (9-20) H 01/02/17 05:23 Creatinine 7.1 mg/dL (0.8-1.5) H 01/02/17 05:23 Estimated GFR 9 ml/min 01/02/17 05:23 BUN/Creatinine Ratio 7.18 % 01/02/17 05:23 Glucose 81 mg/dL (75-100) 01/02/17 05:23 POC Glucose 113 (70-105) H 01/02/17 16:43 Hemoglobin A1c 7.1 % (4-6) H 01/01/17 10:59 Calcium 9.3 mg/dL (8.4-10.2) 01/02/17 05:23 Phosphorus 4.40 mg/dL (2.5-4.5) 01/02/17 05:23 Magnesium 2.10 mg/dL (1.7-2.3) 01/02/17 05:23 Total Bilirubin 0.50 mg/dL (0.1-1.2) 01/02/17 05:23 AST 13 units/L (5-40) 01/02/17 05:23 ALT 21 units/L (7-56) 01/02/17 05:23 Alkaline Phosphatase 231 units/L (35-129) H 01/02/17 05:23 Total Protein 6.7 g/dL (6.3-8.2) 01/02/17 05:23 Albumin 3.6 g/dL (3.9-5) L 01/02/17 05:23 Albumin/Globulin Ratio 1.2 % 01/02/17 05:23 Blood Type O NEGATIVE 01/01/17 10:59 Antibody Screen Negative 01/01/17 10:59
[2017-01-02] MEDS: DESYREL PO SCH (22:26)
[2017-01-02] MEDS: MINIPRESS PO SCH (22:29)
[2017-01-02] MEDS: LEVEMIR SUB-Q SCH (22:55)
[2017-01-03] MEDS: ROBITUSSIN PO SCH ×2 (00:59→08:54)
[2017-01-03] MEDS: TESSALON PERLES PO SCH ×3 (05:18→21:40)
[2017-01-03 07:03] LABS: Basophils % (Auto) 0.7 % (0.0-1.8); Eosinophils % (Auto) 1.9 % (0.0-4.3); Hematocrit 33.3 % (35.5-45.6); Hemoglobin 11.1 gm/dl (11.8-15.2); Mean Corpuscular HGB Conc 33 % (32-34); Mean Corpuscular Hemoglobin 31 pg (28-32); Mean Corpuscular Volume 93 fl (84-94); Platelet Count 125 K/mm3 (140-440); Red Cell Distribution Width 15.7 % (13.2-15.2); White Blood Count 6.6 K/mm3 (4.5-11.0)
[2017-01-03 07:21] LABS: BUN/Creatinine Ratio 8.6; Calcium 9.1 mg/dL (8.4-10.2); Chloride 98.2 mmol/L (98-107); Potassium 5.3 mmol/L (3.6-5.0)
[2017-01-03] MEDS: DUONEB *Not for PRN Use IH SCH ×3 (08:20→21:53)
[2017-01-03] MEDS: NOVOLOG SUB-Q SCH ×4 (08:54→21:42)
--- NOTE | 2017-01-03 09:11 | Consultation ---
History of Present Illness - Reason for Consult Consult date: 01/03/17 end stage renal disease Requesting physician: AGUSTIN GUY - History of Present Illness 66-year-old male here with complaint of abdominal pain and single episode of vomiting with what he felt like was some bright red blood. Patient has no known history of GI bleeds in the past. He has noticed some darker but not black stools. He denies lightheadedness dizziness chest pain. He has multiple medical problems. He's never had an endoscopy or colonoscopy. MD complaint: blood streaked emesis -: Sudden Location: epigastric Radiation: none Quality: burning Consistency: constant Improves with: none Worsens with: none Associated Symptoms: abdominal pain. denies: nausea, vomiting, headaches, loss of appetite ROS: Stated complaint: NAUSEA/VOMITING Other details as noted in HPI Comment: All other systems reviewed and negative Constitutional: denies: chills, fever Eyes: denies: eye pain, eye discharge, vision change ENT: denies: ear pain, throat pain Respiratory: denies: cough, shortness of breath, wheezing Cardiovascular: denies: chest pain, palpitations Endocrine: no symptoms reported Gastrointestinal: hematemesis. denies: abdominal pain, nausea, diarrhea Genitourinary: denies: urgency, dysuria Musculoskeletal: denies: back pain, joint swelling, arthralgia Skin: denies: rash, lesions Neurological: denies: headache, weakness, paresthesias Psychiatric: denies: anxiety, depression Hematological/Lymphatic: denies: easy bleeding, easy bruising - Past Medical History Previous Medical History?: Yes Hx Hypertension: Yes Hx Congestive Heart Failure: Yes Hx Diabetes: Yes Hx Renal Disease: Yes (CKD on dialysis --) Hx Psychiatric Treatment: Yes (DEPRESSION) Hx Asthma: No Hx COPD: No Hx Dementia: Yes Hx HIV: No Additional medical history: Atrial fibrillation. GALLSTONES - Surgical History Hx Coronary Stent: Yes Hx Open Heart Surgery: Yes (2011) Hx Cholecystectomy: Yes Additional Surgical History: CABG, dialysis graft to left upper extremity. Valve surgery. R leg surgery. stent placed 2011 - led to open heart surgery - Family History Family history: CAD/CO - Social History Smoking Status: Never Smoker Past History Past Medical History: atrial fib, diabetes, dialysis, ESRD, heart failure, hypertension, hyperlipidemia, other (depression) Past Surgical History: cholecystectomy, CABG, Other (left upper extremity AV graft for dialysis access, CABG, dialysis graft to left upper extremity. Valve surgery. R leg surgery. stent placed 2011 - led to open heart surgery) Social history: lives with family Family history: other (reviewed not pertinent to current condition) Medications and Allergies Allergies Allergy/AdvReac Type Severity Reaction Status Date / Time No Known Allergies Allergy Verified 08/30/16 13:46 Home Medications Medication Instructions Recorded Confirmed Last Taken Type Gabapentin 300 mg PO BID 08/07/14 01/02/17 01/01/17 08:00 History Warfarin [Coumadin] 10 mg PO [id number]@1700 tablet 08/10/14 01/02/17 01/01/17 08 :00 Rx Docusate Sodium [Colace CAP] 100 mg PO BID 01/29/15 01/02/17 01/01/17 08:00 History Ascorbic Acid [Vitamin C] 500 mg PO QDAY 06/07/16 01/02/17 01/01/17 08:00 History Benzonatate [Tessalon Perles] 100 mg PO Q8HR 06/07/16 01/02/17 01/01/17 08:00 History Duloxetine HCl [Cymbalta] 20 mg PO QDAY 06/07/16 01/02/17 01/01/17 08:00 History FLUoxetine [PROzac] 10 mg PO QDAY 06/07/16 08/28/16 01/01/17 08:00 History Prazosin [Minipress] 2 mg PO QHS 06/07/16 01/02/17 12/31/16 History Tamsulosin [Flomax] 0.4 mg PO QDAY 06/07/16 01/02/17 08/28/16 History guaiFENesin 400 mg PO Q8H 06/07/16 01/02/17 08/28/16 History traZODone [Desyrel] 100 mg PO QHS 06/07/16 01/02/17 12/31/16 History Aspirin [Aspirin BABY CHEW TAB] 81 mg PO QDAY #30 tab.chew 06/14/16 01/02/1703/09 08:00 Rx AtorvaSTATin [Lipitor] 80 mg PO QDAY #30 tablet 06/14/16 01/02/17 01/01/17 08: 00 Rx Insulin Glargine [Lantus VIAL] 20 units SUB-Q HS #100 units 06/14/16 01/02/17 21:00 Rx Lisinopril [Zestril TAB] 40 mg PO QDAY #30 tablet 06/14/16 01/02/17 01/01/17 Rx Warfarin [Coumadin] 7.5 mg PO DAILY #30 tablet 06/14/16 01/02/17 12/31/16 17:00 Rx ISOSORBIDE MONOnitrate [Imdur ER] 60 mg PO QDAY 07/05/16 01/02/17 01/01/17 08: 00 History oxyCODONE /ACETAMINOPHEN [Percocet 1 tab PO Q6HR PRN 07/05/16 01/02/17 08/28/16 History 5/325 mg] Amiodarone [Cordarone 200 MG TAB] 200 mg PO BID #60 tablet 07/15/16 01/02/1703/09 08:00 Rx HYDROcodone/APAP 5-325 [[place] 1 each PO Q4HR PRN #20 tablet 07/15/16 01/02/17 Rx 5-325 mg TAB] Metoprolol [Lopressor TAB] 100 mg PO BID #60 tablet 07/15/16 01/02/17 01/01/17 08:00 Rx Torsemide [Demadex] 10 mg PO QDAY #30 tablet 07/15/16 01/02/17 01/02/17 18:23 Rx Active Meds: Active Medications Acetaminophen (Tylenol) 650 mg PO Q4H PRN PRN Reason: Pain MILD(1-3)/Fever >100.5/SPEAR Albumin Human (Alburx 25% (Albumin)) 25 gm IV KESHAWN PRN PRN Reason: Hypotension Albuterol (Proventil) 2.5 mg IH Q4HRT PRN PRN Reason: Shortness Of Breath Albuterol/Ipratropium (Duoneb *Not For Prn Use*) 1 ampul IH TIDRT [facility] Last Admin: 01/03/17 08:20 Dose: 1 ampul Amiodarone HCl (Cordarone) 200 mg PO BID [facility] Last Admin: 01/02/17 22:26 Dose: 200 mg Ascorbic Acid (Vitamin C) 500 mg PO QDAY [facility] Last Admin: 01/02/17 09:15 Dose: 500 mg Atorvastatin Calcium (Lipitor) 80 mg PO QDAY [facility] Last Admin: 01/02/17 09:14 Dose: 80 mg Benzonatate (Tessalon Perles) 100 mg PO Q8HR [facility] Last Admin: 01/03/17 05:18 Dose: 100 mg Bisacodyl (Dulcolax) 10 mg [place] QDAY PRN PRN Reason: Constipation unrelieved by MOM Last Admin: 01/02/17 15:35 Dose: 10 mg Dextrose (D50w (25gm) Syringe) 50 ml IV PRN PRN PRN Reason: Hypoglycemia Docusate Sodium (Colace) 100 mg PO BID [facility] Last Admin: 01/02/17 22:29 Dose: 100 mg Fluoxetine HCl (Prozac) 10 mg PO QDAY [facility] Last Admin: 01/02/17 15:36 Dose: 10 mg Gabapentin (Neurontin) 300 mg PO BID [facility] Last Admin: 01/02/17 22:26 Dose: 300 mg Guaifenesin (Robitussin) 400 mg PO Q8H [facility] Last Admin: 01/03/17 08:54 Dose: Not Given Hydromorphone HCl (Dilaudid) 0.5 mg IV Q3H PRN PRN Reason: Pain , Severe (7-10) Sodium Chloride (Nacl 0.9% 1000 Ml) 1,000 mls @ 50 mls/hr IV DIRECT MARTHA Sodium Chloride (Nacl 0.9%) 100 mls @ 999 mls/hr IV KESHAWN PRN PRN Reason: Hypotension Insulin Aspart (Novolog) 0 units SUB-Q ACHS [facility] PRN Reason: Protocol Last Admin: 01/03/17 08:54 Dose: Not Given Insulin Detemir (Levemir) 20 units SUB-Q QHS [facility] Last Admin: 01/02/17 22:55 Dose: 20 units Isosorbide Mononitrate (Imdur) 60 mg PO QDAY [facility] Last Admin: 01/02/17 09:13 Dose: 60 mg Metoclopramide HCl (Reglan) 10 mg IV Q6H PRN PRN Reason: Nausea And Vomiting Metoprolol Tartrate (Lopressor) 25 mg PO BID [facility] Last Admin: 01/02/17 22:28 Dose: Not Given Miscellaneous Medication (Duloxetine Hcl [Cymbalta]) 20 mg PO QDAY [facility] Morphine Sulfate (Morphine) 2 mg IV Q4H PRN PRN Reason: Pain, Moderate (4-6) Naloxone HCl (Narcan 0.4 Mg/1 Ml) 0.1 mg IV Q2MIN PRN PRN Reason: Res Rate </= 8 or 02 SAT < 92% Ondansetron HCl (Zofran) 4 mg IV Q8H PRN PRN Reason: N/V unrelieved by Reglan Oxycodone/Acetaminophen (Percocet 5/325) 1 tab PO Q6H PRN PRN Reason: Pain, Moderate (4-6) Last Admin: 01/02/17 15:37 Dose: 1 tab Pantoprazole Sodium (Protonix) 40 mg IV BID [facility] Last Admin: 01/02/17 22:25 Dose: 40 mg Prazosin HCl (Minipress) 2 mg PO QHS [facility] Last Admin: 01/02/17 22:29 Dose: Not Given Senna (Senokot) 8.6 mg PO Q12HR [facility] Last Admin: 01/02/17 22:30 Dose: 8.6 mg Tamsulosin HCl (Flomax) 0.4 mg PO QDAY [facility] Last Admin: 01/02/17 09:13 Dose: 0.4 mg Torsemide (Demadex) 10 mg PO QDAY [facility] Last Admin: 01/02/17 09:15 Dose: 10 mg Trazodone HCl (Desyrel) 100 mg PO QHS [facility] Last Admin: 01/02/17 22:26 Dose: 100 mg Zolpidem Tartrate (Ambien) 5 mg PO QHS PRN PRN Reason: Insomnia Exam - Vital Signs Vital signs: Vital Signs Temp Pulse Resp BP Pulse Ox 98.4 F 53 L 10 L 130/55 94 01/01/17 10:18 01/01/17 10:18 01/01/17 10:18 01/01/17 10:18 01/01/17 10:18 - Physical Exam Narrative exam: - General Limitations: No Limitations General appearance: alert, in no apparent distress, obese - Head Head exam: Present: atraumatic, normocephalic - Eye Eye exam: Present: normal appearance. Absent: scleral icterus, conjunctival injection - ENT ENT exam: Present: mucous membranes moist - Neck Neck exam: Present: normal inspection - Respiratory Respiratory exam: Present: normal lung sounds bilaterally. Absent: respiratory distress, wheezes, rales - Cardiovascular Cardiovascular Exam: Present: regular rate, normal rhythm, normal heart sounds. Absent: systolic murmur, diastolic murmur, rubs, gallop - GI/Abdominal GI/Abdominal exam: Present: soft, tenderness (mild epigastric tenderness), normal bowel sounds. Absent: distended - Rectal Rectal exam: Present: deferred - Extremities Exam Extremities exam: Present: normal inspection - Back Exam Back exam: Present: normal inspection - Neurological Exam Neurological exam: Present: alert, oriented X3 - Psychiatric Psychiatric exam: Present: normal affect, normal mood - Skin Skin exam: Present: warm, dry, intact, normal color. Absent: rash Results - Lab Results 01/03/17 05:31 01/03/17 05:31 Most recent lab results Calcium 9.1 mg/dL (8.4-10.2) 01/03/17 05:31 Phosphorus 4.40 mg/dL (2.5-4.5) 01/02/17 05:23 Magnesium 2.10 mg/dL (1.7-2.3) 01/03/17 05:31 Assessment and Plan Impression: * ESRD * GI Bleed * HTN * anemia in esrd/ABL * Sec Hyperparathyroidism Plan: * HD q MWF * please consult on dialysis patients upon admission * strict i/os * needs GI consultation * uf as tolerated with HD * no heparin with HD * renal diet
[2017-01-03] MEDS: COLACE PO SCH ×2 (09:59→21:39)
[2017-01-03] MEDS ORDERED: NACL 0.9% 100 ML IV PRN (10:00)
[2017-01-03] MEDS: IMDUR PO SCH (10:00)
[2017-01-03] MEDS: FLOMAX PO SCH (10:00)
[2017-01-03] MEDS: DEMADEX PO SCH (10:00)
[2017-01-03] MEDS: CORDARONE PO SCH ×2 (10:00→21:39)
[2017-01-03] MEDS ORDERED: ALBURX 25% (ALBUMIN) IV PRN (10:00)
[2017-01-03] MEDS: PROzac PO SCH (10:01)
[2017-01-03] MEDS: LOPRESSOR PO SCH ×2 (10:01→21:41)
[2017-01-03] MEDS: NEURONTIN PO SCH ×2 (10:01→21:39)
[2017-01-03] MEDS: PROTONIX IV SCH ×2 (10:01→21:40)
[2017-01-03] MEDS: SENOKOT PO SCH ×2 (10:01→21:40)
[2017-01-03] MEDS: VITAMIN C PO SCH (10:02)
--- NOTE | 2017-01-03 11:06 | Gastroenterology Consultation ---
History of Present Illness - Reason for Consult Consult date: 01/03/17 coffee-ground emesis Requesting physician: NASEEM RG - History of Present Illness Patient is a 66 y/o male with h/o ESRD on HD, A-fib (on coumadin), DM, CAD, heart failure, HTN, hyperlipidemia, and depression who presented was admitted for a GI bleed. This morning pt was resting in the bed receiving dialysis. No acute distress noted. He reports developing epigastric pain with N/V during dialysis on Sunday. He states he vomited bright red with the 3rd episode of N/V (first 2 episodes of N/V were with non-bloody emesis). He also admits to dark stools x 2 days but not black. Last BM was yesterday. Stool was occult negative. No further episodes of hematemesis since Sunday. Denies fever, wt loss , CP, SOB, dizziness, diarrhea, constipation, or hematochezia. On daily ASA and Coumadin at home. Last dose of Coumadin was 2 days ago. No hx of liver disease. Fhx of his father with colon CA, diagnosed in his 80s. No previous EGD or colonoscopy. Past History Past Medical History: atrial fib, diabetes, dialysis, ESRD, heart failure, hypertension, hyperlipidemia, other (depression) Past Surgical History: cholecystectomy, CABG, Other (left upper extremity AV graft for dialysis access, CABG, dialysis graft to left upper extremity. Valve surgery. R leg surgery. stent placed 2011 - led to open heart surgery) Social history: lives with family Family history: cancer (father with colon CA), other Medications and Allergies Allergies Allergy/AdvReac Type Severity Reaction Status Date / Time No Known Allergies Allergy Verified 08/30/16 13:46 Home Medications Medication Instructions Recorded Confirmed Last Taken Type Gabapentin 300 mg PO BID 08/07/14 01/02/17 01/01/17 08:00 History Warfarin [Coumadin] 10 mg PO [id number]@1700 tablet 08/10/14 01/02/17 01/01/17 08 :00 Rx Docusate Sodium [Colace CAP] 100 mg PO BID 01/29/15 01/02/17 01/01/17 08:00 History Ascorbic Acid [Vitamin C] 500 mg PO QDAY 06/07/16 01/02/17 01/01/17 08:00 History Benzonatate [Tessalon Perles] 100 mg PO Q8HR 06/07/16 01/02/17 01/01/17 08:00 History Duloxetine HCl [Cymbalta] 20 mg PO QDAY 06/07/16 01/02/17 01/01/17 08:00 History FLUoxetine [PROzac] 10 mg PO QDAY 06/07/16 08/28/16 01/01/17 08:00 History Prazosin [Minipress] 2 mg PO QHS 06/07/16 01/02/17 12/31/16 History Tamsulosin [Flomax] 0.4 mg PO QDAY 06/07/16 01/02/17 08/28/16 History guaiFENesin 400 mg PO Q8H 06/07/16 01/02/17 08/28/16 History traZODone [Desyrel] 100 mg PO QHS 06/07/16 01/02/17 12/31/16 History Aspirin [Aspirin BABY CHEW TAB] 81 mg PO QDAY #30 tab.chew 06/14/16 01/02/1703/09 08:00 Rx AtorvaSTATin [Lipitor] 80 mg PO QDAY #30 tablet 06/14/16 01/02/17 01/01/17 08: 00 Rx Insulin Glargine [Lantus VIAL] 20 units SUB-Q HS #100 units 06/14/16 01/02/17 21:00 Rx Lisinopril [Zestril TAB] 40 mg PO QDAY #30 tablet 06/14/16 01/02/17 01/01/17 Rx Warfarin [Coumadin] 7.5 mg PO DAILY #30 tablet 06/14/16 01/02/17 12/31/16 17:00 Rx ISOSORBIDE MONOnitrate [Imdur ER] 60 mg PO QDAY 07/05/16 01/02/17 01/01/17 08: 00 History oxyCODONE /ACETAMINOPHEN [Percocet 1 tab PO Q6HR PRN 07/05/16 01/02/17 08/28/16 History 5/325 mg] Amiodarone [Cordarone 200 MG TAB] 200 mg PO BID #60 tablet 07/15/16 01/02/1703/09 08:00 Rx HYDROcodone/APAP 5-325 [[place] 1 each PO Q4HR PRN #20 tablet 07/15/16 01/02/17 Rx 5-325 mg TAB] Metoprolol [Lopressor TAB] 100 mg PO BID #60 tablet 07/15/16 01/02/17 01/01/17 08:00 Rx Torsemide [Demadex] 10 mg PO QDAY #30 tablet 07/15/16 01/02/17 01/02/17 18:23 Rx Active Meds: Active Medications Acetaminophen (Tylenol) 650 mg PO Q4H PRN PRN Reason: Pain MILD(1-3)/Fever >100.5/SPEAR Albumin Human (Alburx 25% (Albumin)) 25 gm IV KESHAWN PRN PRN Reason: Hypotension Albuterol (Proventil) 2.5 mg IH Q4HRT PRN PRN Reason: Shortness Of Breath Albuterol/Ipratropium (Duoneb *Not For Prn Use*) 1 ampul IH TIDRT [facility] Last Admin: 01/03/17 08:20 Dose: 1 ampul Amiodarone HCl (Cordarone) 200 mg PO BID [facility] Last Admin: 01/02/17 22:26 Dose: 200 mg Ascorbic Acid (Vitamin C) 500 mg PO QDAY [facility] Last Admin: 01/02/17 09:15 Dose: 500 mg Atorvastatin Calcium (Lipitor) 80 mg PO QDAY [facility] Last Admin: 01/02/17 09:14 Dose: 80 mg Benzonatate (Tessalon Perles) 100 mg PO Q8HR [facility] Last Admin: 01/03/17 05:18 Dose: 100 mg Bisacodyl (Dulcolax) 10 mg IN QDAY PRN PRN Reason: Constipation unrelieved by MOM Last Admin: 01/02/17 15:35 Dose: 10 mg Dextrose (D50w (25gm) Syringe) 50 ml IV PRN PRN PRN Reason: Hypoglycemia Docusate Sodium (Colace) 100 mg PO BID [facility] Last Admin: 01/02/17 22:29 Dose: 100 mg Fluoxetine HCl (Prozac) 10 mg PO QDAY [facility] Last Admin: 01/02/17 15:36 Dose: 10 mg Gabapentin (Neurontin) 300 mg PO BID [facility] Last Admin: 01/02/17 22:26 Dose: 300 mg Guaifenesin (Robitussin) 400 mg PO Q8H [facility] Last Admin: 01/03/17 08:54 Dose: Not Given Hydromorphone HCl (Dilaudid) 0.5 mg IV Q3H PRN PRN Reason: Pain , Severe (7-10) Sodium Chloride (Nacl 0.9% 1000 Ml) 1,000 mls @ 50 mls/hr IV DIRECT MARTHA Sodium Chloride (Nacl 0.9%) 100 mls @ 999 mls/hr IV KESHAWN PRN PRN Reason: Hypotension Insulin Aspart (Novolog) 0 units SUB-Q ACHS [facility] PRN Reason: Protocol Last Admin: 01/03/17 08:54 Dose: Not Given Insulin Detemir (Levemir) 20 units SUB-Q QHS [facility] Last Admin: 01/02/17 22:55 Dose: 20 units Isosorbide Mononitrate (Imdur) 60 mg PO QDAY [facility] Last Admin: 01/02/17 09:13 Dose: 60 mg Metoclopramide HCl (Reglan) 10 mg IV Q6H PRN PRN Reason: Nausea And Vomiting Metoprolol Tartrate (Lopressor) 25 mg PO BID [facility] Last Admin: 01/02/17 22:28 Dose: Not Given Miscellaneous Medication (Duloxetine Hcl [Cymbalta]) 20 mg PO QDAY [facility] Morphine Sulfate (Morphine) 2 mg IV Q4H PRN PRN Reason: Pain, Moderate (4-6) Naloxone HCl (Narcan 0.4 Mg/1 Ml) 0.1 mg IV Q2MIN PRN PRN Reason: Res Rate </= 8 or 02 SAT < 92% Ondansetron HCl (Zofran) 4 mg IV Q8H PRN PRN Reason: N/V unrelieved by Reglan Oxycodone/Acetaminophen (Percocet 5/325) 1 tab PO Q6H PRN PRN Reason: Pain, Moderate (4-6) Last Admin: 01/02/17 15:37 Dose: 1 tab Pantoprazole Sodium (Protonix) 40 mg IV BID [facility] Last Admin: 01/02/17 22:25 Dose: 40 mg Prazosin HCl (Minipress) 2 mg PO QHS [facility] Last Admin: 01/02/17 22:29 Dose: Not Given Senna (Senokot) 8.6 mg PO Q12HR [facility] Last Admin: 01/02/17 22:30 Dose: 8.6 mg Tamsulosin HCl (Flomax) 0.4 mg PO QDAY [facility] Last Admin: 01/02/17 09:13 Dose: 0.4 mg Torsemide (Demadex) 10 mg PO QDAY [facility] Last Admin: 01/02/17 09:15 Dose: 10 mg Trazodone HCl (Desyrel) 100 mg PO QHS [facility] Last Admin: 01/02/17 22:26 Dose: 100 mg Zolpidem Tartrate (Ambien) 5 mg PO QHS PRN PRN Reason: Insomnia Review of Systems - Review of Systems All systems: negative Gastrointestinal: abdominal pain (epigastric), hematemesis Exam - Constitutional Vital Signs: Temp Pulse Resp BP Pulse Ox 99.1 F 61 16 160/77 98 01/03/17 09:26 01/03/17 10:45 01/03/17 09:26 01/03/17 10:45 01/03/17 09:26 General appearance: no acute distress, well-nourished, obese - EENT Eyes: PERRL, EOM intact ENT: hearing intact - Neck Neck: supple, normal ROM - Respiratory Respiratory: bilateral: CTA (anterior) - Cardiovascular Rhythm: regular Heart Sounds: Present: S1 & S2 Extremities: No edema - Gastrointestinal General gastrointestinal: Present: soft, tender (epigastric), non-distended, normal bowel sounds - Integumentary Integumentary: Present: warm, dry - Neurologic Neurological: alert and oriented x3 - Labs CBC & Chem 7: 01/03/17 05:31 01/03/17 05:31 Lab Results: Laboratory Results - last 24 hr 01/02/17 01/02/17 01/02/17 13:03 16:43 21:46 WBC RBC Hgb Hct MCV MCH MCHC RDW Plt Count Lymph % (Auto) [place] % (Auto) Eos % (Auto) Baso % (Auto) Lymph # [place] # Eos # Baso # Seg Neutrophils % Seg Neutrophils # Sodium Potassium Chloride Carbon Dioxide Anion Gap BUN Creatinine Estimated GFR BUN/Creatinine Ratio Glucose POC Glucose 190 H 113 H 126 H Calcium Magnesium 01/03/17 01/03/17 01/03/17 05:31 05:31 05:31 WBC 6.6 RBC 3.60 L Hgb 11.1 L Hct 33.3 L MCV 93 MCH 31 MCHC 33 RDW 15.7 H Plt Count 125 L Lymph % (Auto) 24.9 [place] % (Auto) 5.9 Eos % (Auto) 1.9 Baso % (Auto) 0.7 Lymph # 1.6 [place] # 0.4 Eos # 0.1 Baso # 0.0 Seg Neutrophils % 66.6 Seg Neutrophils # 4.4 Sodium 138 Potassium 5.3 H Chloride 98.2 Carbon Dioxide 25 Anion Gap 20 BUN 68 H Creatinine 7.9 H Estimated GFR 8 BUN/Creatinine Ratio 8.60 Glucose 88 POC Glucose Calcium 9.1 Magnesium 2.10 01/03/17 08:09 WBC RBC Hgb Hct MCV MCH MCHC RDW Plt Count Lymph % (Auto) [place] % (Auto) Eos % (Auto) Baso % (Auto) Lymph # [place] # Eos # Baso # Seg Neutrophils % Seg Neutrophils # Sodium Potassium Chloride Carbon Dioxide Anion Gap BUN Creatinine Estimated GFR BUN/Creatinine Ratio Glucose POC Glucose 85 Calcium Magnesium Assessment and Plan 1.GI bleed 2.hematemesis -HGB 11.1- stable -continue to monitor H/H and transfuse as needed -no active signs of bleeding overnight or this am -stool occult negative -INR 2.66 yesterday- last dose of coumadin 2 days ago -will order stat PT/INR for today -etiology- most likely due to M-W tear -keep NPO -continue PPI -will schedule for EGD today -pt will need to f/u as an outpatient for a colonoscopy -will follow
[2017-01-03] MEDS ORDERED: NACL 0.9 (PRIMING MACHINE ONLY DIALYSIS) MC ONE (13:00)
[2017-01-03] MEDS ORDERED: DIPRIVAN 10 MG/ML IV ONE (14:31)
[2017-01-03] MEDS ORDERED: AMIDATE IV ONE (14:45)
[2017-01-03] MEDS ORDERED: WATER FOR IRRIG STERILE IR ONE (14:47)
--- NOTE | 2017-01-03 14:52 | Anesthesia Consultation ---
Anesthesia Consult and Med Hx Date of service: 01/03/17 - Airway Anesthetic Teeth Evaluation: Poor (multiple missing teeth) ROM Head & Neck: Adequate Mental/Hyoid Distance: Adequate - Pulmonary Exam CTA: Yes - Cardiac Exam Cardiac Exam: RRR - Pre-Operative Health Status ASA Pre-Surgery Classification: ASA4 Proposed Anesthetic Plan: MAC - Pulmonary Hx Asthma: No COPD: No Hx Pneumonia: No Hx Sleep Apnea: Yes - Cardiovascular System Hx Hypertension: Yes Hx Coronary Artery Disease: Yes (EF 25-30% (07/07)) Hx Heart Attack/AMI: No (CABG 2011) Hx Angina: No (none recently) Hx Percutaneous Transluminal Coronary Angioplasty (PTCA): Yes (CABG 2011) Hx Cardia Arrhythmia: Yes (a fib/flutter) - Central Nervous System Hx Psychiatric Problems: No - Endocrine Hx Renal Disease: Yes Hx End Stage Renal Disease: Yes (MWF dialysis) Hx Non-Insulin Dependent Diabetes: Yes - Additional Comments Anesthesia Medical History Comments: NAC
--- NOTE | 2017-01-03 14:53 | Anesthesia Day of Surgery ---
Anesthesia Day of Surgery - Day of Surgery Patient Examined: Yes Patient H&P Reviewed: Yes Patient is NPO: Yes
[2017-01-03 15:09] LABS: INR 1.36 (0.87-1.13)
--- NOTE | 2017-01-03 15:18 | Post Operative Note ---
Pre-op diagnosis: gi bleed Post-op diagnosis: same Findings: EGD: hiatal hernia - mid esophagus mild/moderate esophagitis - mid gastritis - moderate inflammation duodenum (bx's) Procedure: EGD Anesthesia: MAC Surgeon: ORIANA CARRASCO Estimated blood loss: none Pathology: list Specimen disposition: to lab Condition: stable Disposition: floor
--- NOTE | 2017-01-03 17:00 | Post Anesthesia Evaluation ---
- Post Anesthesia Evaluation Patient Participated: Yes Airway Patent: Yes Stable Respiratory Function: Yes Nausea/Vomiting: No Temp > 96.8F: Yes Pain Manageable: Yes Adequeate Hydration: Yes Anesthesia Complications: No
--- NOTE | 2017-01-03 18:12 | Operative Report ---
PROCEDURE: EGD with cold biopsies. REFERRING PHYSICIAN: Dr. Wills. INDICATION: 1. Hematemesis. 2. Anemia. MEDICATIONS: Propofol per [employer]ATOR. COMPLICATIONS: None. DESCRIPTION OF PROCEDURE: The patient brought to procedure suite. The patient had the procedure discussed with him at length. All risks, complications, and benefits discussed after which the patient signed for the procedure to be performed. The patient was placed in left lateral decubitus position. Mouth block was placed in the patient's oral cavity. After adequate sedation medication as above, endoscope introduced into the mouth and brought to the level of the second portion of duodenum. Retroflexion view performed. The patient's vital signs remained stable throughout the procedure. FINDINGS: There was noted to be mild to moderate midesophagus esophagitis extending for about 3 cm in 24-27 cm from the gums. No stigmata of bleeding were noted. Biopsies were taken and sent to pathology. Medium hiatal hernia at GE junction at 38 cm from the gums. Esophagus otherwise appeared to be normal. Mild antral gastritis noted. Stomach otherwise appeared to be normal. Moderate bulb duodenitis and biopsies performed. Duodenum otherwise appeared to be normal. Retroflexion view performed in the stomach showed no other pathology other than noted above. The patient tolerated the procedure well. No complications during the procedure. IMPRESSION: 1. Hiatal hernia. 2. Esophagitis, biopsy performed. 3. Gastritis. 4. Duodenitis biopsies performed. RECOMMENDATIONS: 1. Follow up biopsy results. 2. Stool for H pylori, if present treat. 3. PPI daily. 4. Advance diet. 5. Okay to discharge from GI standpoint. JOB# [id number] [facility]
--- NOTE | 2017-01-03 19:47 | Progress Note ---
Assessment and Plan Assessment and plan: UGIB / Coffee-ground emesis One episode of coffee-ground emesis while on dialysis 01/01 No further episodes after admitted Hemoglobin stable in 11 range Aspirin held, on PPI GI consulted and underwent EGD today ESRD on HD On HD MWF CAD On aspirin and statin Not on BB and ACEI per his home meds list; reason unknown; asked to bring current list Afib HTN CHF HPL DM Obesity Malnutrition Albumin low; consult dietitian DVT prophylaxis SCDs History Interval history: s/p EGD today; scheduled for HD also doing well, no complaints Hospitalist Physical - Constitutional Vitals: Temp Pulse Resp BP Pulse Ox 98.8 F 60 12 136/46 100 01/03/17 15:25 01/03/17 17:00 01/03/17 15:55 01/03/17 15:55 01/03/17 15:55 General appearance: Present: no acute distress, obese Results - Labs CBC & Chem 7: 01/03/17 05:31 01/03/17 05:31 Labs: Laboratory Last Values WBC 6.6 K/mm3 (4.5-11.0) 01/03/17 05:31 RBC 3.60 M/mm3 (3.65-5.03) L 01/03/17 05:31 Hgb 11.1 gm/dl (11.8-15.2) L 01/03/17 05:31 Hct 33.3 % (35.5-45.6) L 01/03/17 05:31 MCV 93 fl (84-94) 01/03/17 05:31 MCH 31 pg (28-32) 01/03/17 05:31 MCHC 33 % (32-34) 01/03/17 05:31 RDW 15.7 % (13.2-15.2) H 01/03/17 05:31 Plt Count 125 K/mm3 (140-440) L 01/03/17 05:31 Lymph % (Auto) 24.9 % (13.4-35.0) 01/03/17 05:31 [place] % (Auto) 5.9 % (0.0-7.3) 01/03/17 05:31 Eos % (Auto) 1.9 % (0.0-4.3) 01/03/17 05:31 Baso % (Auto) 0.7 % (0.0-1.8) 01/03/17 05:31 Lymph # 1.6 K/mm3 (1.2-5.4) 01/03/17 05:31 [place] # 0.4 K/mm3 (0.0-0.8) 01/03/17 05:31 Eos # 0.1 K/mm3 (0.0-0.4) 01/03/17 05:31 Baso # 0.0 K/mm3 (0.0-0.1) 01/03/17 05:31 Seg Neutrophils % 66.6 % (40.0-70.0) 01/03/17 05:31 Seg Neutrophils # 4.4 K/mm3 (1.8-7.7) 01/03/17 05:31 PT 16.7 Sec. (12.2-14.9) H 01/03/17 14:48 INR 1.36 (0.87-1.13) H 01/03/17 14:48 APTT 46.8 Sec. (24.2-36.6) H 01/02/17 05:23 Sodium 138 mmol/L (137-145) 01/03/17 05:31 Potassium 5.3 mmol/L (3.6-5.0) H 01/03/17 05:31 Chloride 98.2 mmol/L (98-107) 01/03/17 05:31 Carbon Dioxide 25 mmol/L (22-30) 01/03/17 05:31 Anion Gap 20 mmol/L 01/03/17 05:31 BUN 68 mg/dL (9-20) H 01/03/17 05:31 Creatinine 7.9 mg/dL (0.8-1.5) H 01/03/17 05:31 Estimated GFR 8 ml/min 01/03/17 05:31 BUN/Creatinine Ratio 8.60 % 01/03/17 05:31 Glucose 88 mg/dL (75-100) 01/03/17 05:31 POC Glucose 101 (70-105) 01/03/17 16:51 Hemoglobin A1c 7.1 % (4-6) H 01/01/17 10:59 Calcium 9.1 mg/dL (8.4-10.2) 01/03/17 05:31 Phosphorus 4.40 mg/dL (2.5-4.5) 01/02/17 05:23 Magnesium 2.10 mg/dL (1.7-2.3) 01/03/17 05:31 Total Bilirubin 0.50 mg/dL (0.1-1.2) 01/02/17 05:23 AST 13 units/L (5-40) 01/02/17 05:23 ALT 21 units/L (7-56) 01/02/17 05:23 Alkaline Phosphatase 231 units/L (35-129) H 01/02/17 05:23 Total Protein 6.7 g/dL (6.3-8.2) 01/02/17 05:23 Albumin 3.6 g/dL (3.9-5) L 01/02/17 05:23 Albumin/Globulin Ratio 1.2 % 01/02/17 05:23 Blood Type O NEGATIVE 01/01/17 10:59 Antibody Screen Negative 01/01/17 10:59
[2017-01-03] MEDS: DESYREL PO SCH (21:39)
[2017-01-03] MEDS: LEVEMIR SUB-Q SCH (21:40)
[2017-01-03] MEDS: MINIPRESS PO SCH (21:42)
[2017-01-04] MEDS: ROBITUSSIN PO SCH ×2 (01:16→10:35)
[2017-01-04 05:10] VITALS: BP 122/56
[2017-01-04] MEDS: TESSALON PERLES PO SCH (05:13)
[2017-01-04 06:09] LABS: Basophils % (Auto) 0.6 % (0.0-1.8); Eosinophils % (Auto) 2.2 % (0.0-4.3); Hematocrit 34.5 % (35.5-45.6); Hemoglobin 11.7 gm/dl (11.8-15.2); Mean Corpuscular HGB Conc 34 % (32-34); Mean Corpuscular Hemoglobin 31 pg (28-32); Mean Corpuscular Volume 92 fl (84-94); Platelet Count 120 K/mm3 (140-440); Red Blood Count 3.77 M/mm3 (3.65-5.03); Red Cell Distribution Width 15.4 % (13.2-15.2); White Blood Count 5.3 K/mm3 (4.5-11.0)
[2017-01-04 06:28] LABS: BUN/Creatinine Ratio 5.29; Calcium 9.3 mg/dL (8.4-10.2); Potassium 4.4 mmol/L (3.6-5.0)
--- NOTE | 2017-01-04 07:55 | Discharge Summary ---
Providers - Providers Date of Admission: 01/01/17 14:19 Date of discharge: 01/04/17 Attending physician: NASEEM RG 01/02/17 15:48 Consult to Physician [CONS] Routine Consulting Provider: RACH ROJAS Reason For Exam: ESRD on HD Place consult to:: DR. Rojas Notified:: Jose RN Phone number called:: Was contact made?: Yes If yes, spoke with:: Val-Office Time called:: 16:08 01/02/17 15:49 Consult to Physician [CONS] Routine Consulting Provider: ORIANA CARRASCO Reason For Exam: coffee ground emesis Place consult to:: GI Notified:: Jose RN Phone number called:: Was contact made?: Yes If yes, spoke with:: -Office Time called:: 16:02 Comment:: consult placed on admission on 01/01 Primary care physician: SLEEP TECHNICIAN Hospitalization Reason for admission: coffee ground emesis Condition: Stable Pertinent studies: CXR Procedures: EGD Hospital course: Patient is a 66 years old obese -[place] male with end-stage renal disease on hemodialysis, coronary artery disease: Currently afebrile, hypertension, diabetes, who was sent to the hospital from dialysis center due to an episode of coffee-ground emesis. He had no further episodes after admission. GI was consulted and underwent EGD which revealed moderate esophagitis/gastritis/duodenal inflammation which was biopsied. Hemoglobin remained stable. Discharged on PPI with GI follow-up for biopsy result. Discharge diagnoses: UGIB / Coffee-ground emesis ESRD on HD CAD Afib HTN CHF HPL DM Obesity Malnutrition Disposition: DC-01 TO HOME OR SELFCARE Time spent for discharge: 35 min Core Measure Documentation - Palliative Care Palliative Care/ Comfort Measures: Not Applicable - Core Measures Any of the following diagnoses?: heart failure - Heart Failure Discharge Requirements BRUNO/ARB for LVSD if EF <40%: Yes Beta meri at discharge: Yes Exam - Physical Exam Narrative exam: Seen and examined: - Constitutional Vitals: Temp Pulse Resp BP Pulse Ox 98.6 F 63 20 122/56 96 01/04/17 05:08 01/04/17 05:08 01/04/17 05:08 01/04/17 05:08 01/04/17 05:08 General appearance: Present: no acute distress, obese - EENT Eyes: Present: PERRL, EOM intact. Absent: scleral icterus, conjunctival injection - Neck Neck: Present: supple, normal ROM. Absent: masses or JVD - Respiratory Respiratory effort: normal Respiratory: bilateral: CTA, negative: rhonchi, wheezing - Cardiovascular Rhythm: regular Heart Sounds: Present: S1 & S2. Absent: systolic murmur - Extremities Extremities: no ischemia - Abdominal General gastrointestinal: Present: soft, non-tender, non-distended, normal bowel sounds - Psychiatric Psychiatric: cooperative - Neurologic Neurologic: CNII-XII intact, no focal deficits Plan Activity: advance as tolerated, fall precautions Diet: low cholesterol, low salt, diabetic Additional Instructions: Follow up with your triage clinician and resume outpatient HD Follow up with: PRIMARY CARE, [Primary Care Provider] - 3-5 Days Prescriptions: Pantoprazole [Protonix TAB] 40 mg PO QDAY #30 tablet
[2017-01-04] MEDS: DUONEB *Not for PRN Use IH SCH (09:34)
[2017-01-04] MEDS: DEMADEX PO SCH (10:36)
[2017-01-04] MEDS: SENOKOT PO SCH (10:37)
[2017-01-04] MEDS: FLOMAX PO SCH (10:37)
[2017-01-04] MEDS: VITAMIN C PO SCH (10:37)
[2017-01-04] MEDS: NEURONTIN PO SCH (10:37)
[2017-01-04] MEDS: IMDUR PO SCH (10:38)
[2017-01-04] MEDS: LOPRESSOR PO SCH (10:40)
[2017-01-04] MEDS: COLACE PO SCH (10:40)
[2017-01-04] MEDS: PROTONIX IV SCH (10:40)
[2017-01-04] MEDS: PROzac PO SCH (10:45)
[2017-01-04] MEDS: CORDARONE PO SCH (10:45)
--- NOTE | 2017-01-04 10:57 | Progress Note ---
Assessment and Plan Impression: * ESRD * GI Bleed * HTN * anemia in esrd/ABL * Sec Hyperparathyroidism Plan: * HD q MWF * please consult on dialysis patients upon admission * strict i/os * ok to dc home * uf as tolerated with HD * no heparin with HD * renal diet Subjective Date of service: 01/04/17 Principal diagnosis: esrd Interval history: resting well inbed Objective - Exam Narrative Exam: - General Limitations: No Limitations General appearance: alert, in no apparent distress, obese - Head Head exam: Present: atraumatic, normocephalic - Eye Eye exam: Present: normal appearance. Absent: scleral icterus, conjunctival injection - ENT ENT exam: Present: mucous membranes moist - Neck Neck exam: Present: normal inspection - Respiratory Respiratory exam: Present: normal lung sounds bilaterally. Absent: respiratory distress, wheezes, rales - Cardiovascular Cardiovascular Exam: Present: regular rate, normal rhythm, normal heart sounds. Absent: systolic murmur, diastolic murmur, rubs, gallop - GI/Abdominal GI/Abdominal exam: Present: soft, tenderness (mild epigastric tenderness), normal bowel sounds. Absent: distended - Rectal Rectal exam: Present: deferred - Extremities Exam Extremities exam: Present: normal inspection - Back Exam Back exam: Present: normal inspection - Neurological Exam Neurological exam: Present: alert, oriented X3 - Psychiatric Psychiatric exam: Present: normal affect, normal mood - Skin Skin exam: Present: warm, dry, intact, normal color. Absent: rash - Vital Signs Vital signs: Vital Signs - 12hr 01/04/17 01/04/17 01/04/17 00:58 01:00 05:08 Temperature 98.6 F 98.6 F Pulse Rate 68 66 63 Pulse Rate [ Bilateral] Respiratory 20 20 Rate Respiratory Rate [Bilateral ] Blood Pressure 149/64 122/56 O2 Sat by Pulse 96 96 Oximetry 01/04/17 01/04/17 09:35 09:47 Temperature Pulse Rate Pulse Rate [ 69 71 Bilateral] Respiratory Rate Respiratory 18 18 Rate [Bilateral ] Blood Pressure O2 Sat by Pulse Oximetry - Lab 01/04/17 05:27 01/04/17 05:27 Most recent lab results Calcium 9.3 mg/dL (8.4-10.2) 01/04/17 05:27 Phosphorus 4.40 mg/dL (2.5-4.5) 01/02/17 05:23 Magnesium 2.10 mg/dL (1.7-2.3) 01/03/17 05:31
--- NOTE | 2017-01-04 13:30 | Gastroenterology Progress Note ---
Assessment and Plan GI: stable w/o problems overnight - diet as tolerated - ok to d/c from GI standpoint - will sign off, call if needed Subjective Date of service: 01/04/17 Principal diagnosis: esrd Interval history: - no GI complaints overnight Objective - Constitutional Vitals: Temp Pulse Resp BP Pulse Ox 98.6 F 71 18 122/56 97 01/04/17 05:08 01/04/17 09:47 01/04/17 09:47 01/04/17 05:08 01/04/17 10:00 General appearance: no acute distress - Respiratory Respiratory: bilateral: CTA - Cardiovascular Rhythm: regular Heart Sounds: Present: S1 & S2 - Gastrointestinal General gastrointestinal: Present: soft, non-tender, non-distended - Labs CBC & Chem 7: 01/04/17 05:27 01/04/17 05:27 Labs: Laboratory Results - last 24 hr 01/03/17 01/03/17 01/03/17 14:48 16:51 20:58 WBC RBC Hgb Hct MCV MCH MCHC RDW Plt Count Lymph % (Auto) [place] % (Auto) Eos % (Auto) Baso % (Auto) Lymph # [place] # Eos # Baso # Seg Neutrophils % Seg Neutrophils # PT 16.7 H INR 1.36 H Sodium Potassium Chloride Carbon Dioxide Anion Gap BUN Creatinine Estimated GFR BUN/Creatinine Ratio Glucose POC Glucose 101 222 H Calcium 01/04/17 01/04/17 01/04/17 05:27 05:27 08:07 WBC 5.3 RBC 3.77 Hgb 11.7 L Hct 34.5 L MCV 92 MCH 31 MCHC 34 RDW 15.4 H Plt Count 120 L Lymph % (Auto) 26.4 [place] % (Auto) 7.3 Eos % (Auto) 2.2 Baso % (Auto) 0.6 Lymph # 1.4 [place] # 0.4 Eos # 0.1 Baso # 0.0 Seg Neutrophils % 63.5 Seg Neutrophils # 3.4 PT INR Sodium 139 Potassium 4.4 Chloride 96.0 L Carbon Dioxide 28 Anion Gap 19 BUN 36 H Creatinine 6.8 H Estimated GFR 10 BUN/Creatinine Ratio 5.29 Glucose 82 POC Glucose 86 Calcium 9.3
[2017-01-05] MEDS ORDERED: PROTONIX PO SCH (10:00)
== END 2017-01-04 13:05 | disposition home or self-care (01) | DRG 377 ==
LOC: ED 09:56 → 3A 14:19 → 4A 01-02 03:15
PROVIDERS: ADMIT Internal Medicine Geriatric Medicine; ATTEND Internal Medicine
PROC: 0DB98ZX Excision of Duodenum, Via Natural or Artificial Opening Endoscopic, Diagnostic (ICD-10-PCS; principal; 2017-01-03)
PROC: 0DB58ZX Excision of Esophagus, Via Natural or Artificial Opening Endoscopic, Diagnostic (ICD-10-PCS; 2017-01-03)
PROC: 5A1D60Z (ICD-10-PCS; 2017-01-03)
DX: K92.2 Gastrointestinal hemorrhage, unspecified (principal); N18.6 End stage renal disease; D68.9 Coagulation defect, unspecified; I13.2 Hypertensive heart and chronic kidney disease with heart failure and with stage 5 chronic kidney disease, or end stage renal disease; N25.81 Secondary hyperparathyroidism of renal origin; E46 Unspecified protein-calorie malnutrition; D62 Acute posthemorrhagic anemia; I25.10 Atherosclerotic heart disease of native coronary artery without angina pectoris; I11.0 Hypertensive heart disease with heart failure; I50.9 Heart failure, unspecified; F32.9 Major depressive disorder, single episode, unspecified; F03.90 Unspecified dementia, unspecified severity, without behavioral disturbance, psychotic disturbance, mood disturbance, and anxiety; I48.91 Unspecified atrial fibrillation; E11.22 Type 2 diabetes mellitus with diabetic chronic kidney disease; I25.5 Ischemic cardiomyopathy; E66.9 Obesity, unspecified; D63.1 Anemia in chronic kidney disease; K20.9 Esophagitis, unspecified; K29.80 Duodenitis without bleeding; K29.70 Gastritis, unspecified, without bleeding; Z90.49 Acquired absence of other specified parts of digestive tract; Z95.1 Presence of aortocoronary bypass graft; Z82.49 Family history of ischemic heart disease and other diseases of the circulatory system; Z79.82 Long term (current) use of aspirin; Z99.2 Dependence on renal dialysis; Z68.35 Body mass index [BMI] 35.0-35.9, adult; Z79.01 Long term (current) use of anticoagulants; Z79.4 Long term (current) use of insulin; Z80.0 Family history of malignant neoplasm of digestive organs
CPT/HCPCS: 36415; 71010; 80048; 80053; 82270; 82962; 83036; 83735; 84100; 85025; 85610; 85730; 86850; 86900; 86901; 88305; 93005; 93010; 94640; 94760; A9270-GY; C9113; J1815; J1818; J2704; J3430; J7030; J7040; P9047

== ENCOUNTER 2017-04-29 09:30 | Emergency (ER) | payer MEDICARE ==
[2017-04-29 11:09] VITALS: BP 156/75
--- NOTE | 2017-04-29 11:45 | Emergency Department Report ---
Minor Respiratory - HPI Chief Complaint: Upper Respiratory Infection Stated Complaint: FLU LIKE SYMPTOMS Time Seen by Provider: 04/29/17 11:23 Duration: 2 Days Pain Location: Other (sinus pressure) Severity: mild Minor Respiratory: Yes Rhinorrhea, Yes Sore Throat, Yes Able to Tolerate Fluids , Yes Cough, No Ear Pain, No Sick Contacts, No Hemoptysis, No Chest Pain, No Shortness of Breath, No Fever Other History: This is a 66 y.o. male presents with sore throat, cough, and runny nose for 2 days. States he can't eat for his nose running. He has not tried taking anything because he is on warfarin, dialysis, and heart murmur. He is afraid to take OTC medication. Denies body aches, fever, SOB, chest pain, nausea, and vomiting. ED Review of Systems ROS: Stated complaint: FLU LIKE SYMPTOMS Other details as noted in HPI Constitutional: no symptoms reported, see HPI. denies: chills, diaphoresis, fever, malaise, weakness Eyes: denies: eye pain, eye discharge, vision change ENT: throat pain, congestion (and occasional bloody rhinorrhea). denies: ear pain, dental pain, hearing loss, epistaxis Respiratory: see HPI, cough. denies: orthopnea, shortness of breath, SOB with exertion, SOB at rest, stridor, wheezing Cardiovascular: denies: chest pain, palpitations Gastrointestinal: denies: abdominal pain, nausea, diarrhea Musculoskeletal: as per HPI. denies: back pain, joint swelling, arthralgia, myalgia Neurological: denies: headache, weakness, paresthesias ED Past Medical Hx - Past Medical History Hx Hypertension: Yes Hx Heart Attack/AMI: (CABG 2011) Hx Congestive Heart Failure: Yes Hx Diabetes: Yes Hx Renal Disease: Yes Hx Psychiatric Treatment: Yes (DEPRESSION) Hx Asthma: No Hx COPD: No Hx Dementia: Yes Hx HIV: No Additional medical history: Atrial fibrillation. GALLSTONES - Surgical History Hx Coronary Stent: Yes Hx Open Heart Surgery: Yes (2011) Hx Cholecystectomy: Yes Additional Surgical History: CABG, dialysis graft to left upper extremity. Valve surgery. R leg surgery. stent placed 2011 - led to open heart surgery - Social History Smoking Status: Never Smoker Substance Use Type: None - Medications Home Medications: Home Medications Medication Instructions Recorded Confirmed Last Taken Type Gabapentin 300 mg PO BID 08/07/14 01/02/17 01/01/17 08:00 History Docusate Sodium [Colace CAP] 100 mg PO BID 01/29/15 01/02/17 01/01/17 08:00 History Ascorbic Acid [Vitamin C] 500 mg PO QDAY 06/07/16 01/02/17 01/01/17 08:00 History Benzonatate [Tessalon Perles] 100 mg PO Q8HR 06/07/16 01/02/17 01/01/17 08:00 History Duloxetine HCl [Cymbalta] 20 mg PO QDAY 06/07/16 01/02/17 01/01/17 08:00 History FLUoxetine [PROzac] 10 mg PO QDAY 06/07/16 01/04/17 01/01/17 08:00 History Prazosin [Minipress] 2 mg PO QHS 06/07/16 01/02/17 12/31/16 History Tamsulosin [Flomax] 0.4 mg PO QDAY 06/07/16 01/04/17 3 Days Ago History ~01/01/17 guaiFENesin 400 mg PO Q8H 06/07/16 01/04/17 2 Days Ago History ~01/02/17 traZODone [Desyrel] 100 mg PO QHS 06/07/16 01/02/17 12/31/16 History Aspirin [Aspirin BABY CHEW TAB] 81 mg PO QDAY #30 tab.chew 06/14/16 01/02/1703/09 08:00 Rx AtorvaSTATin [Lipitor] 80 mg PO QDAY #30 tablet 06/14/16 01/02/17 01/01/17 08: 00 Rx Insulin Glargine [Lantus VIAL] 20 units SUB-Q HS #100 units 06/14/16 01/02/17 21:00 Rx Lisinopril [Zestril TAB] 40 mg PO QDAY #30 tablet 06/14/16 01/02/17 01/01/17 Rx Warfarin [Coumadin] 7.5 mg PO DAILY #30 tablet 06/14/16 01/02/17 12/31/16 17:00 Rx ISOSORBIDE MONOnitrate [Imdur ER] 60 mg PO QDAY 07/05/16 01/02/1701/01/17 08: 00 History Amiodarone [Cordarone 200 MG TAB] 200 mg PO BID #60 tablet 07/15/16 01/02/1703/09 08:00 Rx Metoprolol [Lopressor TAB] 100 mg PO BID #60 tablet 07/15/16 01/02/17 01/01/17 08:00 Rx Torsemide [Demadex] 10 mg PO QDAY #30 tablet 07/15/16 01/02/17 01/02/17 18:23 Rx Pantoprazole [Protonix TAB] 40 mg PO QDAY #30 tablet 01/04/17 Unknown Rx Amoxicillin/Potassium Clav 1 each PO BID 5 Days #10 tablet 04/29/17 Unknown Rx [Augmentin 875-125 Tablet] Cetirizine HCl [Zyrtec] 10 mg PO DAILY #30 tablet 04/29/17 Unknown Rx Fluticasone [Flonase] 1 spray NS QDAY #1 bottle 04/29/17 Unknown Rx Minor Respiratory Exam - Exam General: Vital signs noted. No distress. Alert and acting appropriately. HEENT: Yes Pharyngeal Erythema, Yes Moist Mucous Membranes (pale, swollen turbinates, ), Yes Rhinorrhea (clear), Yes Frontal Tenderness, No Pharyngeal Exudates, No Conjuctival Injection, No Maxillary Tenderness Ear: Neither TM Bulge, Neither TM Erythema, Neither EAC Pain, Neither EAC Discharge Neck: Yes Supple, No Adenopathy Lungs: Yes Good Air Exchange, Yes Cough, No Wheezes, No Ronchi, No Stridor, No Labored Respirations, No Retractions, No Use of Accessory Muscles, No Other Abnormal Lung Sounds Heart: Yes Regular, No Murmur Abdomen: Yes Normal Bowel Sounds, No Tenderness, No Peritoneal Signs Skin: No Rash, No Edema Neurologic: Alert and oriented, no deficits. Musculoskeletal: Unremarkable. ED Course Vital Signs 04/29/17 11:07 Temperature 98.4 F Pulse Rate 62 Respiratory 20 Rate Blood Pressure 156/75 O2 Sat by Pulse 100 Oximetry ED Medical Decision Making - Medical Decision Making This is a 66 y.o. male presents with sore throat, cough, and runny nose. At this time no signs of influenza or strep throat. I advised to give tylenol or ibuprofen if he develops a fever. Started on augmentin for 5 days, cetirizine, and flonase. Encouraged to f/u with PCP. Discussed when to return to ER. Critical care attestation.: If time is entered above; I have spent that time in minutes in the direct care of this critically ill patient, excluding procedure time. ED Disposition Clinical Impression: Acute frontal sinusitis Qualifiers: Recurrence: non-recurrent Qualified Code(s): J01.10 - Acute frontal sinusitis, unspecified Disposition: TO HOME OR SELFCARE Is pt being admited?: No Does the pt Need Aspirin: No Condition: Stable Instructions: Sinusitis (ED) Additional Instructions: Wash hands frequently. The cough can last for 2-3 weeks. Use tylenol and ibuprofen should be taken with regular fluid intake. Follow up with primary care provider. Seek medical attention if fever, headache, wheezing, or chest symptoms worsen. If drowsy or confused in the short term or if cough last longer than 4 weeks. Prescriptions: Amoxicillin/Potassium Clav [Augmentin 875-125 Tablet] 1 each PO BID 5 Days #10 tablet Cetirizine HCl [Zyrtec] 10 mg PO DAILY #30 tablet Fluticasone [Flonase] 1 spray NS QDAY #1 bottle Referrals: [facility] [Outside] - 3-5 Days [facility] [Outside] - 3-5 Days Time of Disposition: 12:03 Print Language: SET[place]
== END 2017-04-29 12:10 | disposition home or self-care (01) ==
LOC: ED 09:30
DX: J01.10 Acute frontal sinusitis, unspecified (principal); I10 Essential (primary) hypertension; I25.2 Old myocardial infarction; E11.9 Type 2 diabetes mellitus without complications; I50.9 Heart failure, unspecified; F32.9 Major depressive disorder, single episode, unspecified; F03.90 Unspecified dementia, unspecified severity, without behavioral disturbance, psychotic disturbance, mood disturbance, and anxiety; I48.91 Unspecified atrial fibrillation; Z79.01 Long term (current) use of anticoagulants
CPT/HCPCS: 99282